=== PATIENT | female | born 1970 | race Caucasian/White ===

== ENCOUNTER 2016-10-07 15:41 | Emergency (ER) | payer OTHER ==
[~2016-10-07] VITALS: Ht 162.6 cm; Wt 105.5 kg
[~2016-10-07 15:41] MED LIST: CYAN10002 IM; EFFSR150 PO; OXYC-59 PO; [UNRECOGNIZED DRUG - REMARK]
[2016-10-07 15:45] VITALS: Ht 162.6 cm; Wt 105.5 kg
--- NOTE | 2016-10-07 16:46 | EMERGENCY ROOM VISIT NOTE ---
History Report prepared by David: Manuelito Garcia Under the Supervision of: Dr. Rafa Dougherty M.D. First contact with patient: 16:41 Chief Complaint: ARM PAIN Stated Complaint: FELL AND THINKS BROKEN RIGHT ARM History of Present Illness The patient is a 46 year old female who presents to the Emergency Room with complaints of achy right wrist pain that began [employer]. The patient rates her pain a 5/10 in severity. The patient fell down about 14 stairs today. She hit her head. This is because she has hernias on her stomach and made sure to protect her abdomen. She did not lose consciousness. She is also having right shoulder and left foot pain as well. She took Oxycodone 15 mg [employer], which she claims "is not touching it." Source of History: patient Onset: [employer] Position: wrist (right) Symptom Intensity: 5/10 Quality: ache Timing: constant Associated Symptoms: No LOC Note: She has associated left foot pain and right shoulder pain. Review of Systems All systems have been listed, reviewed, and are negative other than those previously mentioned. Please see Additional Medical History Sheet. 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 Social History Smoking Status: Never Smoker Alcohol Use: occasionally Drug Use: none Marital Status: Housing Status: lives with family Occupation Status: disabled Current/Historical Medications Scheduled Cyanocobalamin (Vitamin B-12 Inj), 1,000 MCG IM WK Furosemide (Lasix), 40 MG PO BID Gabapentin (Gabapentin), 900 MG PO QID Ondansetron (Ondansetron HCl), 1 TAB PO TID Oxycodone Hcl (Oxycodone Hcl), 1.5 TAB PO 5XD Pediatric Multiple Vitamin W/ (Childrens Chewable Vitamin), 1 CHW PO DAILY Venlafaxine Hcl (Effexor Extended Rel), 150 MG PO BID [Cancer Treatments], 1 DOSE UD Allergies Coded Allergies: Acetaminophen (Unverified Allergy, Severe, STOPS BREATHING, 10/07/16) Hydrocodone (Unverified Allergy, Severe, STOPS BREATHING, 10/07/16) Iodinated Diagnostic Agents (Verified Allergy, Severe, CONTRAST- ITCHING, 10/07/16) Sulfamethoxazole w/Trimethoprim (Verified Allergy, Severe, PASS OUT,HIVES, SOB, 10/07/16) Gadobutrol (Verified Allergy, Intermediate, HIVES, ITCHING , 10/07/16) PATIENT HAD MRI INJECTION THEN CT INJECTION, HAD REACTION AFTER CT Pregabalin (Unverified Allergy, Intermediate, HIVES, 10/07/16) Iodine (Verified Allergy, Mild, ITCHING, 10/07/16) Enoxaparin (Verified Allergy, Unknown, UNKNOWN, 10/07/16) Physical Exam Vital Signs Date Time Temp Pulse Resp B/P Pulse Ox O2 Delivery O2 Flow Rate FiO2 10/07/16 18:51 71 18 138/90 94 Room Air 10/07/16 15:45 36.7 77 18 160/107 99 Physical Exam GENERAL: Patient awake, alert, oriented x 3. Patient follows commands. Patient does not appear toxic. Patient is adequately hydrated and well- nourished. SKIN: No erythema, pallor, cyanosis or rash HEENT: Normocephalic, generalize alopecia, no lumps bumps or bruises, pupils equal, reactive to light and accommodation. Ears normal. Oral cavity and posterior pharynx appear normal. Neck: Without adenopathy, no neck vein distention. Supple, nontender. LUNGS: Clear to auscultation. No wheezes, no rales, no rhonchi. HEART: No murmurs. No gallops. No rubs ABDOMEN: No masses, no rebound, no hepatomegaly or splenomegaly. Multiple well healed scars and masses. EXTREMITIES: No pedal or pretibial edema. No calf or thigh tenderness. Abrasions over the left 1st metatarsal. Swelling and tenderness over the right fifth metacarpal. NEUROLOGIC: Cranial nerves II-XII within normal limits. No gross motor sensory function deficits. Medical Decision & Procedures ER Provider Diagnostic Interpretation: X-ray results as stated below per my interpretation and radiologist interpretation. RIGHT HAND MIN 3 VIEWS ROUTINE CLINICAL HISTORY: fell 5th metacarpal Right trauma. Pain. COMPARISON: None. DISCUSSION: Displaced/distracted fracture base fifth metacarpal. No evidence of dislocation. Moderate degenerative change all remaining osseous structures. There is no evidence for soft tissue swelling. IMPRESSION: Distracted oblique fracture base fifth metacarpal Electronically signed by: Chalino Paulson M.D. 10/07/2016 5:08 PM Dictated Date/Time: 10/07/2016 5:07 PM Medications Administered Medications (Trade) Dose Ordered Sig/Juana Route Start Time Stop Time Status Last Admin Dose Admin Oxycodone HCl (Roxicodone Immediate Rel Tab) 15 mg NOW STAT PO 10/07/16 17:51 10/07/16 17:52 DC 10/07/16 18:06 15 MG ED Course 1641: Past medical records reviewed. The patient was evaluated in room B11. A complete history and physical examination was performed. 1751: Oxycodone HCl 15 mg PO 2000: Upon reevaluation, the patient appeared to have improvement of her symptoms. I discussed today's findings with her. She verbalized agreement of the treatment plan. She was discharged home. Medical Decision Nurses notes reviewed. Medical history sheet reviewed. Differential diagnosis includes but is not limited to: fifth metacarpal fracture, multiple contusions, abrasions, and fall. The patient has a small scrape on her foot. She does have a fracture of her fifth metacarpal. The patient was placed in a splint and sling. She will require orthopedic follow-up for possible surgical intervention. The patient was given pain medication while here. The patient does not appear to have any other significant injury from the fall. Impression Primary Impression: Fracture of fifth metacarpal bone of right hand Additional Impression: Abrasion of left foot Scribe Attestation The scribe's documentation has been prepared under my direction and personally reviewed by me in its entirety. I confirm that the note above accurately reflects all work, treatment, procedures, and medical decision making performed by me. Departure Information Dispostion Home / Self-Care Referrals Caitlyn Sharif M.D. (PCP) [facility] Forms HOME CARE DOCUMENTATION FORM, IMPORTANT VISIT INFORMATION Patient Instructions My [facility] Additional Instructions Leave the splint on until you are evaluated by orthopedics. Take your pain medication as needed. Do not drive or operate machinery while taking pain medication. Follow-up with orthopedics within the next 2 days. Problem Qualifiers
--- NOTE | 2016-10-07 17:09 | DIAGNOSTIC IMAGING REPORT ---
RIGHT HAND MIN 3 VIEWS ROUTINE CLINICAL HISTORY: fell 5th metacarpal Right trauma. Pain. COMPARISON: None. DISCUSSION: Displaced/distracted fracture base fifth metacarpal. No evidence of dislocation. Moderate degenerative change all remaining osseous structures. There is no evidence for soft tissue swelling. IMPRESSION: Distracted oblique fracture base fifth metacarpal Electronically signed by: Chalino Paulson M.D. 10/07/2016 5:08 PM Dictated Date/Time: 10/07/2016 5:07 PM
[2016-10-07] MEDS ORDERED: OXYCODONE HCL IR 5 MG TAB (IMMEDIATE RELEASE) PO STA (17:51)
[2016-10-07 19:48] VITALS: BP 134/88; PULSE 74; TEMP 36.7; O2SAT 97
== END 2016-10-07 19:49 | disposition home or self-care (01) ==
LOC: C.EDB 15:42
DX: S62.316A Displaced fracture of base of fifth metacarpal bone, right hand, initial encounter for closed fracture (principal); S90.412A Abrasion, left great toe, initial encounter; W10.9XXA Fall (on) (from) unspecified stairs and steps, initial encounter; M25.511 Pain in right shoulder; K46.9 Unspecified abdominal hernia without obstruction or gangrene; D51.3 Other dietary vitamin B12 deficiency anemia; E53.8 Deficiency of other specified B group vitamins; E61.1 Iron deficiency; Z98.84 Bariatric surgery status

== ENCOUNTER 2016-10-22 10:10 | Inpatient (IN) | payer OTHER ==
[~2016-10-22] VITALS: Ht 162.6 cm; Wt 105.9 kg
[~2016-10-22 10:10] MED LIST changes: -OXYC-59 PO
--- NOTE | 2016-10-22 10:42 | EMERGENCY ROOM VISIT NOTE ---
History Report prepared by David: Joe Petit Under the Supervision of: Dr. Rafa Dougherty M.D. First contact with patient: 10:30 Chief Complaint: OTHER COMPLAINT Stated Complaint: INTESTINE SHOWING History of Present Illness The patient is a 46 year old female who presents to the Emergency Room with complaints of persistent discharge from the surgical site over the abdomen starting yesterday. She had surgery about a year ago for a hernia. She also complains of abdominal distension and a loss of appetite. She reports normal fluid intake. She has worsening pain with palpation. She has been constipated for the past day and a half. The patient normally has a bowel movement every day. She has been pushing to make a bowel movement. She was prescribed Lactulose by her PCP without relief. She reports chills but denies a fever. She also denies cough, or any other complaints. About a week ago, the patient fell but the surgical site did not open up at the time. She denies any recent exercises. She has a history of similar symptoms occurring 3 other times in the past. Her symptoms normally occur with straining. Source of History: patient Onset: yesterday Position: abdomen Quality: other (discharge) Timing: other (persistent) Modifying Factors (Worsening): other (palpation) Associated Symptoms: + chills, No cough, No fevers Review of Systems All systems have been listed, reviewed, and are negative other than those previously mentioned. Please see Additional Medical History Sheet. 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 Surgical Problems: (1) Gastric bypass status for obesity Family History Cancer Diabetes mellitus Gallbladder disease Heart disease Hypertension Kidney disease Kidney stones Seizures Social History Smoking Status: Former Smoker Alcohol Use: occasionally Drug Use: none Marital Status: Housing Status: lives with family Occupation Status: disabled Current/Historical Medications Scheduled Cyanocobalamin (Vitamin B-12), 1,000 MCG IM WK Duloxetine HCl (Duloxetine HCl), 30 MG PO DAILY Gabapentin (Gabapentin), 900 MG PO QID Lactulose (Chronulac), 15 ML PO DAILY Ondansetron (Ondansetron HCl), 1 TAB PO TID Oxycodone Hcl (Oxycodone Hcl), 1.5 TAB PO Q4 Pediatric Multiple Vitamin W/ (Childrens Chewable Vitamin), 1 CHW PO DAILY Allergies Coded Allergies: Acetaminophen (Unverified Allergy, Severe, STOPS BREATHING, 10/22/16) Hydrocodone (Unverified Allergy, Severe, STOPS BREATHING, 10/22/16) Iodinated Diagnostic Agents (Verified Allergy, Severe, CONTRAST- ITCHING, 10/22/16) Sulfamethoxazole w/Trimethoprim (Verified Allergy, Severe, PASS OUT,HIVES, SOB, 10/22/16) Gadobutrol (Verified Allergy, Intermediate, HIVES, ITCHING , 10/22/16) PATIENT HAD MRI INJECTION THEN CT INJECTION, HAD REACTION AFTER CT Pregabalin (Unverified Allergy, Intermediate, HIVES, 10/22/16) Iodine (Verified Allergy, Mild, ITCHING, 10/22/16) Enoxaparin (Verified Allergy, Unknown, UNKNOWN, 10/22/16) Physical Exam Vital Signs Date Time Temp Pulse Resp B/P Pulse Ox O2 Delivery O2 Flow Rate FiO2 10/22/16 15:07 78 18 146/84 99 Room Air 10/22/16 14:10 97 16 140/58 98 Room Air 10/22/16 12:15 64 20 180/114 98 Room Air 10/22/16 10:13 36.4 76 18 135/78 100 Room Air Physical Exam GENERAL: Patient appears awake, alert, but somewhat anxious. SKIN: No erythema, pallor, cyanosis or rash HEENT: Normal head, pupils equal, reactive to light and accommodation. Ears normal. Oral cavity and posterior pharynx appear normal. Neck: Without adenopathy, no neck vein distention. LUNGS: Clear to auscultation. No wheezes, no rales, no rhonchi. HEART: No murmurs. No gallops. No rubs ABDOMEN: Obese, soft. Patient has a very large scar of the mid abdomen with dehiscence along 12 cm of the incision, no bowel seen, there is some oozing. EXTREMITIES: No signs of trauma or infection. NEUROLOGIC: Cranial nerves II-XII within normal limits. No gross motor sensory function deficits. Medical Decision & Procedures Laboratory Results 10/22/16 10:25 Red Blood Count 4.70, Mean Corpuscular Volume 82.8, Mean Corpuscular Hemoglobin 26.6, Mean Corpuscular Hemoglobin Concent 32.1, Mean Platelet Volume 11.7, Neutrophils (%) (Auto) 49.0, Lymphocytes (%) (Auto) 39.6, Monocytes (%) (Auto) 9.1, Eosinophils (%) (Auto) 1.7, Basophils (%) (Auto) 0.4, Neutrophils # (Auto) 2.59, Lymphocytes # (Auto) 2.09, Monocytes # (Auto) 0.48, Eosinophils # (Auto) 0.09, Basophils # (Auto) 0.02 10/22/16 10:25 Test 10/22/16 10:25 10/22/16 12:23 White Blood Count 5.28 K/uL (4.8-10.8) Red Blood Count 4.70 M/uL (4.2-5.4) Hemoglobin 12.5 g/dL (12.0-16.0) Hematocrit 38.9 % (37-47) Mean Corpuscular Volume 82.8 fL (80-100) Mean Corpuscular Hemoglobin 26.6 pg (25-34) Mean Corpuscular Hemoglobin Concent 32.1 g/dl (32-36) Platelet Count 267 K/uL (130-400) Mean Platelet Volume 11.7 fL (7.4-10.4) Neutrophils (%) (Auto) 49.0 % Lymphocytes (%) (Auto) 39.6 % Monocytes (%) (Auto) 9.1 % Eosinophils (%) (Auto) 1.7 % Basophils (%) (Auto) 0.4 % Neutrophils # (Auto) 2.59 K/uL (1.4-6.5) Lymphocytes # (Auto) 2.09 K/uL (1.2-3.4) Monocytes # (Auto) 0.48 K/uL (0.11-0.59) Eosinophils # (Auto) 0.09 K/uL (0-0.5) Basophils # (Auto) 0.02 K/uL (0-0.2) RDW Standard Deviation 51.5 fL (36.4-46.3) RDW Coefficient of Variation 16.9 % (11.5-14.5) Immature Granulocyte % (Auto) 0.2 % Immature Granulocyte # (Auto) 0.01 K/uL (0.00-0.02) Anion Gap 12.0 mmol/L (3-11) Est Creatinine Clear Calc Drug Dose 100.5 ml/min Estimated GFR () 98.0 Estimated GFR (Non- 84.6 BUN/Creatinine Ratio 8.3 (10-20) Calcium Level 8.8 mg/dl (8.5-10.1) Total Bilirubin 0.8 mg/dl (0.2-1) Aspartate Amino Transf (AST/SGOT) 16 U/L (15-37) Alanine Aminotransferase (ALT/SGPT) 22 U/L (12-78) Alkaline Phosphatase 74 U/L (45-117) Total Protein 7.7 gm/dl (6.4-8.2) Albumin 3.6 gm/dl (3.4-5.0) Globulin 4.1 gm/dl (2.5-4.0) Albumin/Globulin Ratio 0.9 (0.9-2) Urine Color YELLOW Urine Appearance CLEAR (CLEAR) Urine pH 5.0 (4.5-7.5) Urine Specific [place] 1.008 (1.000-1.030) Urine Protein NEG (NEG) Urine Glucose (UA) NEG (NEG) Urine Ketones NEG (NEG) Urine Occult Blood NEG (NEG) Urine Nitrite NEG (NEG) Urine Bilirubin NEG (NEG) Urine Urobilinogen NEG (NEG) Urine Leukocyte Esterase NEG (NEG) Laboratory results as stated above per my review. Medications Administered Medications (Trade) Dose Ordered Sig/Juana Route Start Time Stop Time Status Last Admin Dose Admin Morphine Sulfate 4 mg 4 mg Q1H PRN IV 10/22/16 10:45 11/05/16 10:44 10/22/16 15:00 4 MG Sodium Chloride (Nss 1000ml) 1,000 ml @ 1,000 mls/hr Q1H ONCE IV 10/22/16 10:45 10/22/16 11:44 DC 10/22/16 10:54 1,000 MLS/HR Polyethylene 17 gm 17 gm NOW ONCE PO 10/22/16 10:45 10/22/16 10:46 DC 10/22/16 11:43 17 GM Lactated Ringer's 1,000 ml @ 500 mls/hr Q2H ONCE IV 10/22/16 14:00 10/22/16 15:59 10/22/16 14:00 500 MLS/HR Ampicillin Sodium/ Sulbactam Sodium/ Sodium Chloride (Unasyn Inj/Nss 100ml) 108 ml @ 200 mls/hr ONE ONCE IV 10/22/16 14:15 10/22/16 14:47 DC 10/22/16 14:15 200 MLS/HR ED Course 1030: Past medical records reviewed. The patient was evaluated in room B03B. A complete history and physical examination was performed. 1045: Sodium Chloride 1000 ml @ 1000 mls/hr IV, Morphine Sulfate 4 mg IV 1215: I discussed the patient's case with Dr. Garcia, general surgeon with [facility]. 1354: I discussed the patient's case with Dr. Carrington, general surgeon with [facility]. He felt the patient needed to go directly to surgery and not be transferred. He recommended IV fluids, Unison, and keeping the wound moist with saline gauze. 1400: Lactated Ringers 1000 ml @ 500 mls/hr IV. 1415: Ampicillin Sodium/Sulbactam Sodium 3000 mg/Sodium Chloride 108 ml @ 200 mls/hr IV. I gave Dr. Garcia details of the conversation with Dr. Carrington and told him to call back. 1420: Dr. Gacria called back and said the number did not go through. The assistant secretary gave him the transfer number. 1430: Upon reevaluation, the patient is resting comfortably.I discussed today's findings with her. She verbalized agreement of the treatment plan. The patient will not be transferred. I spoke with Dr. Garcia to evaluate the patient for further management. Medical Decision Differential diagnosis includes but is not limited to abdominal incision dehiscence, evisceration. Labs were obtained and evaluated. Please see above. The patient has had multiple surgeries in the past with dehiscence. She now arrives with slight separation of along 12 cm of the incision. The wound is oozing slightly. Approximately 90 minutes after arrival the incision dehisced more and bowel erupted through the wound. I discussed care with Dr. Garcia who also evaluated the patient in the ED. I also discussed care with the general surgeon at [facility]. The patient was started on Unasyn, given fluids and made nothing by mouth. The [place] surgeon suggested an NG but Dr. Garcia felt that was not necessary. Ultimately the patient was taken to the OR for repair. Consults Time Called: 1242 Consulting Physician: Dr. Carrington, general surgeon with [facility] Returned Call: [phone] I discussed the patient's case with Dr. Carrington, general surgeon with [facility]. He felt the patient needed to go directly to surgery and not be transferred. He recommended IV fluids, Unison, and keeping the wound moist with saline gauze. Additional Consults: Time Called: 1210 Consulted Physician: Dr. Garcia, general surgeon with [facility] Returned Call: [phone] Additional Comments: I discussed the patient's case with Dr. Garcia, general surgeon with [facility]. Impression Primary Impression: Evisceration of bowel Scribe Attestation The scribe's documentation has been prepared under my direction and personally reviewed by me in its entirety. I confirm that the note above accurately reflects all work, treatment, procedures, and medical decision making performed by me. Departure Information Dispostion Being Evaluated By Surgeon Referrals No Doctor, Assigned (PCP) Patient Instructions My [facility]
[2016-10-22] MEDS ORDERED: POLYETHYLENE (MIRALAX) 17 GM PACK PO ONE (10:45)
[2016-10-22] MEDS ORDERED: SODIUM CHLORIDE 0.9% 1000ML 1,000 ML IV ONE (10:45)
[2016-10-22] MEDS ORDERED: CYM30 PO (10:53)
[2016-10-22] MEDS ORDERED: LACT10SO17 PO (10:54)
[2016-10-22] MEDS: MoRPHine SULFATE 4 MG/ML 1 ML CARP\\VIAL IV PRN ×6 (10:54→23:21)
[2016-10-22] MEDS ORDERED: CYAN100048 IM (10:55)
[2016-10-22 10:56] LABS: BASO % 0.4 %; BASO ABS # 0.02 K/uL (0-0.2); COMPLETE YES; EOS % 1.7 %; HEMATOCRIT 38.9 % (37-47); IG% 0.2 %; LYMPH % 39.6 %; LYMPH ABS # 2.09 K/uL (1.2-3.4); MEAN CELL VOLUME 82.8 fL (80-100); MEAN CORPUSCULAR HEMOGLOBIN 26.6 pg (25-34); MEAN CORPUSCULAR HGB CONC 32.1 g/dl (32-36); MEAN PLATELET VOLUME 11.7 fL (7.4-10.4); MONO % 9.1 %; PLATELET COUNT 267 K/uL (130-400); WHITE BLOOD COUNT 5.28 K/uL (4.8-10.8)
[2016-10-22 11:16] LABS: ALB/GLOB RATIO 0.9 (0.9-2); BUN/CREATININE RATIO 8.3 (10-20); CALCIUM 8.8 mg/dl (8.5-10.1); CREATININE 0.83 mg/dl (0.60-1.20); POTASSIUM 4.1 mmol/L (3.5-5.1)
[2016-10-22] MEDS ORDERED: PEDICHW18 PO (13:15)
[2016-10-22 13:39] LABS: URINE APPEARANCE CLEAR (CLEAR); URINE BILIRUBIN NEG (NEG); URINE COLOR YELLOW; URINE NITRITE NEG (NEG); URINE SPECIFIC GRAVITY 1.008 (1.000-1.030); UROBILINOGEN NEG (NEG); ZZUR CULT IF INDIC CLEAN CATCH NO
[2016-10-22 13:41] LABS: MANUAL MICROSCOPIC REQUIRED? NO; REVIEW REQ? NO
[2016-10-22] MEDS ORDERED: LACTATED RINGER'S 1000ML 1,000 ML IV ONE (14:00)
[2016-10-22] MEDS ORDERED: AMPICILLIN/SULBACTAM SOD INJ 3,000 MG in SODIUM CHLORIDE 0.9% 100ML 100 ML IV ONE (14:15)
--- NOTE | 2016-10-22 15:01 | Surgery Consultation ---
Consultation Date of Consultation: Oct 22, 2016. Attending Physician: Reason for Consultation: Evisceration of bowel (Ira Edgar PA-C) History of Present Illness Dianne is a 46 year-old female who presented to the emergency department this morning with complaint of increasing abdominal pain. Dianne has significant past surgical history involving multiple abdominal surgeries including 3 operations for strangulated hernias well over 10 years ago as well as gastric bypass surgery and two surgeries for wound dehiscence and bowel evisceration. She ultimately required mesh for one of her hernia repairs which she then had an allergic reaction and rejected the mesh. Has had troubles with wound healing and wound evisceration since. Dianne states she fell one week ago down her steps and broke her right hand. States she noticed her belly was bloated and distended at that time. Abdominal pain has been increasing since the fall, especially when lifting her children. She states she was coughing a lot last night into the morning and noticed severe abdominal pain which she presented to the emergency room. She also noticed some bleeding and wound drainage. Her most recent surgery was with Dr. Gomez in [place] (about 1 year ago) in which she states he had removed all of the mesh and planned on further abdominal surgery once she lost weight and was under 200 pounds. She had lab work including cbc and cmp which were unremarkable. (Ira Edgar PA-C) Past Medical/Surgical History Medical Problems: (1) Abrasion of left foot Status: Acute (2) Fracture of fifth metacarpal bone of right hand Status: Acute (Ira Edgar PA-C) Family History Cancer Diabetes mellitus Gallbladder disease Heart disease Hypertension Kidney disease Kidney stones Seizures (Ira Edgar PA-C) Cancer Diabetes mellitus Gallbladder disease Heart disease Hypertension Kidney disease Kidney stones Seizures (Chalino Garcia M.D.) Social History Smoking Status: Former Smoker Drug Use: none Marital Status: Housing Status: lives with family Occupation Status: disabled (Ira Edgar PA-C) Allergies Coded Allergies: Acetaminophen (Unverified Allergy, Severe, STOPS BREATHING, 10/22/16) Hydrocodone (Unverified Allergy, Severe, STOPS BREATHING, 10/22/16) Iodinated Diagnostic Agents (Verified Allergy, Severe, CONTRAST- ITCHING, 10/22/16) Sulfamethoxazole w/Trimethoprim (Verified Allergy, Severe, PASS OUT,HIVES, SOB, 10/22/16) Gadobutrol (Verified Allergy, Intermediate, HIVES, ITCHING , 10/22/16) PATIENT HAD MRI INJECTION THEN CT INJECTION, HAD REACTION AFTER CT Pregabalin (Unverified Allergy, Intermediate, HIVES, 10/22/16) Iodine (Verified Allergy, Mild, ITCHING, 10/22/16) Enoxaparin (Verified Allergy, Unknown, UNKNOWN, 10/22/16) Home Medications Scheduled Cyanocobalamin (Vitamin B-12), 1,000 MCG IM WK Duloxetine HCl (Duloxetine HCl), 30 MG PO DAILY Gabapentin (Gabapentin), 900 MG PO QID Lactulose (Chronulac), 15 ML PO DAILY Ondansetron (Ondansetron HCl), 1 TAB PO TID Oxycodone Hcl (Oxycodone Hcl), 1.5 TAB PO Q4 Pediatric Multiple Vitamin W/ (Childrens Chewable Vitamin), 1 CHW PO DAILY Current Inpatient Medications Current Inpatient Medications Medications (Trade) Dose Ordered Sig/Juana Route Start Time Stop Time Status Last Admin Dose Admin Morphine Sulfate 4 mg 4 mg Q1H PRN IV 10/22/16 10:45 11/05/16 10:44 10/22/16 13:25 4 MG Lactated Ringer's (Lr 1000ml) 1,000 ml @ 500 mls/hr Q2H ONCE IV 10/22/16 14:00 10/22/16 15:59 (Ira Edgar ., PA-C) Review of Systems Constitutional: No chills, No fever, No sweats Respiratory: + cough, No shortness of breath, No wheezing Cardiovascular: No chest pain Abdomen: + constipation, + nausea, + pain, No diarrhea, No vomiting Neurologic: No weakness (Ira Edgar ., PA-C) Physical Exam Date Time Temp Pulse Resp B/P Pulse Ox O2 Delivery O2 Flow Rate FiO2 10/22/16 14:10 97 16 140/58 98 Room Air 10/22/16 12:15 64 20 180/114 98 Room Air 10/22/16 10:13 36.4 76 18 135/78 100 Room Air General Appearance: WD/WN, + mild distress, + obese Head: normocephalic, atraumatic Eyes: sclerae normal ENT: hearing grossly normal Respiratory/Chest: lungs clear Cardiovascular: regular rate, rhythm Abdomen/GI: soft, + tenderness (Midline wound dehisence with evisceration of bowel, reducible, bowel pink and viable), + guarding Neurologic/Psych: alert, oriented x 3 Skin: normal color, warm/dry, no rash (Ira Edgar ., AGUILA) Laboratory Results Last 24 Hours Test 10/22/16 10:25 10/22/16 12:23 White Blood Count 5.28 K/uL Red Blood Count 4.70 M/uL Hemoglobin 12.5 g/dL Hematocrit 38.9 % Mean Corpuscular Volume 82.8 fL Mean Corpuscular Hemoglobin 26.6 pg Mean Corpuscular Hemoglobin Concent 32.1 g/dl Platelet Count 267 K/uL Mean Platelet Volume 11.7 fL Neutrophils (%) (Auto) 49.0 % Lymphocytes (%) (Auto) 39.6 % Monocytes (%) (Auto) 9.1 % Eosinophils (%) (Auto) 1.7 % Basophils (%) (Auto) 0.4 % Neutrophils # (Auto) 2.59 K/uL Lymphocytes # (Auto) 2.09 K/uL Monocytes # (Auto) 0.48 K/uL Eosinophils # (Auto) 0.09 K/uL Basophils # (Auto) 0.02 K/uL RDW Standard Deviation 51.5 fL RDW Coefficient of Variation 16.9 % Immature Granulocyte % (Auto) 0.2 % Immature Granulocyte # (Auto) 0.01 K/uL Sodium Level 141 mmol/L Potassium Level 4.1 mmol/L Chloride Level 107 mmol/L Carbon Dioxide Level 22 mmol/L Anion Gap 12.0 mmol/L Blood Urea Nitrogen 7 mg/dl Creatinine 0.83 mg/dl Est Creatinine Clear Calc Drug Dose 100.5 ml/min Estimated GFR () 98.0 Estimated GFR (Non- 84.6 BUN/Creatinine Ratio 8.3 Random Glucose 111 mg/dl Calcium Level 8.8 mg/dl Total Bilirubin 0.8 mg/dl Aspartate Amino Transf (AST/SGOT) 16 U/L Alanine Aminotransferase (ALT/SGPT) 22 U/L Alkaline Phosphatase 74 U/L Total Protein 7.7 gm/dl Albumin 3.6 gm/dl Globulin 4.1 gm/dl Albumin/Globulin Ratio 0.9 Urine Color YELLOW Urine Appearance CLEAR Urine pH 5.0 Urine Specific [place] 1.008 Urine Protein NEG Urine Glucose (UA) NEG Urine Ketones NEG Urine Occult Blood NEG Urine Nitrite NEG Urine Bilirubin NEG Urine Urobilinogen NEG Urine Leukocyte Esterase NEG (Ira Edgar ., PA-C) Assessment & Plan Wound Dehiscence and Small Bowel evisceration - no leukocytosis - afebrile - no peritonitis - small bowel viable and pink - Patient's 3rd time with wound dehiscence and bowel evisceration - History of multiple abdominal surgeries PLAN: Take patient to operating room for wound exploration and closure of abdominal wound. Patient may need biologic mesh if the wound cannot be closed primarily. Patient had dose of Unasyn and NGT placed in ER Will have patient admitted post-operatively for observation Patient was informed of procedure by Dr. Garcia and informed consent obtained Dr. Garcia has seen and examined patient, agrees with above stated findings and treatment plan. (Ira Edgar ., PA-C) I interviewed and examined this patient and I agree wit the above note. This patient has had multiple abdominal surgeries and this is the 3 rd dehiscence with evisceration. Plan to explore wound and close fascia primarily if possible. If not will consider biologic mesh. I explained procedure and possible complications and answered her questions and she has signed a consent form. (Chalino Garcia M.D.)
[2016-10-22] MEDS ORDERED: SUCCINYLCHOLINE CHLORIDE 20 MG/ML 10 ML VIAL IV ONE (15:41)
[2016-10-22] MEDS ORDERED: DEXAMETHASONE SOD INJ 4 MG/ML VIAL ONE (15:41)
[2016-10-22] MEDS ORDERED: LIDOCAINE HCL 2% 2 ML VIAL (20MG/ML) ONE (15:41)
[2016-10-22] MEDS ORDERED: PROPOFOL IV EMULSION 10 MG/ML 20 ML VIAL IV ONE (15:42)
[2016-10-22] MEDS ORDERED: ONDANSETRON INJ 2 MG/ML 2 ML VIAL ONE (15:42)
[2016-10-22] MEDS ORDERED: MIDAZOLAM HCL 1 MG/ML 2ML VIAL ONE (15:42)
[2016-10-22] MEDS ORDERED: FENTANYL CITRATE INJ 50 MCG/1 ML 2 ML VIAL ONE ×2 (15:42→17:28)
[2016-10-22] MEDS ORDERED: ROCURONIUM BROMIDE 10 MG/ML 5 ML VIAL ONE (15:42)
[2016-10-22] MEDS ORDERED: OXY/15 PO (16:11)
[2016-10-22] MEDS ORDERED: ONDA4TAB9 PO (16:11)
[2016-10-22] MEDS ORDERED: FENTANYL CITRATE INJ 50 MCG/1 ML 2 ML VIAL IV PRN (16:30)
[2016-10-22] MEDS ORDERED: ATROPINE SULFATE 0.1 MG/ML 5ML SYR IV PRN (16:30)
[2016-10-22] MEDS ORDERED: HYDROmorphone INJ 1 MG/ML SYR IV PRN (16:30)
[2016-10-22] MEDS ORDERED: ONDANSETRON INJ 2 MG/ML 2 ML VIAL IV PRN (16:30)
[2016-10-22] MEDS ORDERED: EpHEDrine SULFATE INJ 50 MG/ML AMP IV PRN (16:30)
[2016-10-22] MEDS ORDERED: PROMETHAZINE HCL INJ 6.25 MG in SODIUM CHLORIDE 0.9% 50ML 50 ML IV PRN (16:30)
[2016-10-22] MEDS ORDERED: HYDROmorphone INJ 2 MG/ML SYR/VIAL ONE ×2 (16:41→17:28)
--- NOTE | 2016-10-22 17:04 | [facility] Post Operative Brief Note ---
Immediate Operative Summary Operative Date Oct 22, 2016. Pre-Operative Diagnosis Evisceration of bowel Post-Operative Diagnosis Same as preoperative diagnosis Procedure(s) Performed Abdominal midline wound debridement and closure Surgeon Dr. Chalino Garcia Claim Manager Surgeon(s) Ira Edgar PA-C Estimated Blood Loss 2 mL Findings See dictation Specimens No pathology specimens per surgeon Drains None Anesthesia General Complication(s) None Disposition Recovery Room / PACU
--- NOTE | 2016-10-22 17:28 | Anesthesiology Progress Note ---
Anesthesia Post Op Note Date & Time Oct 22, 2016 at 17:28 Vital Signs Pain Intensity: 7.0 Vital Signs Past 12 Hours Date Time Temp Pulse Resp B/P Pulse Ox O2 Delivery O2 Flow Rate FiO2 10/22/16 15:07 78 18 146/84 99 Room Air 10/22/16 14:10 97 16 140/58 98 Room Air 10/22/16 12:15 64 20 180/114 98 Room Air 10/22/16 10:13 36.4 76 18 135/78 100 Room Air Notes Mental Status: alert / awake / arousable, participated in evaluation Pt Amnestic to Procedure: Yes Nausea / Vomiting: adequately controlled Pain: adequately controlled Airway Patency, RR, SpO2: stable & adequate BP & HR: stable & adequate Hydration State: stable & adequate Anesthetic Complications: no major complications apparent
[2016-10-22] MEDS ORDERED: FRS/40 PO (17:30)
[2016-10-22 18:50] VITALS: BP 133/80; PULSE 60; TEMP 36.6; O2SAT 96; Ht 162.6 cm; Wt 105.9 kg
[2016-10-22 19:20] VITALS: BP 120/81; PULSE 62; TEMP 36.4; O2SAT 97
[2016-10-22 19:50] VITALS: BP 122/71; PULSE 60; TEMP 36.5; O2SAT 96
[2016-10-22] MEDS ORDERED: NRN300 PO (20:09)
[2016-10-22] MEDS: D5W AND 1/2NSS + 20MEQ KCL 1,000 ML IV SCH (20:32)
[2016-10-22 20:35] LABS: COMPLETE YES; EOS % 0.2 %; HEMATOCRIT 36.9 % (37-47); IG% 0.2 %; LYMPH % 14.6 %; LYMPH ABS # 1.32 K/uL (1.2-3.4); MEAN CELL VOLUME 80.4 fL (80-100); MEAN CORPUSCULAR HEMOGLOBIN 26.1 pg (25-34); MEAN CORPUSCULAR HGB CONC 32.5 g/dl (32-36); MEAN PLATELET VOLUME 11.3 fL (7.4-10.4); MONO % 3.5 %; NEUT % 81.5 %; PLATELET COUNT 253 K/uL (130-400); RED BLOOD COUNT 4.59 M/uL (4.2-5.4); WHITE BLOOD COUNT 9.06 K/uL (4.8-10.8)
--- NOTE | 2016-10-22 20:46 | OPERATIVE REPORT ---
DATE OF OPERATION: 10/22/2016 PREOPERATIVE DIAGNOSIS: Abdominal wound dehiscence with evisceration. SECONDARY DIAGNOSIS: None. PROCEDURE: Abdominal wound exploration with closure of peritoneum. SURGEON: Dr. Garcia. [employer]: Ira Edgar PA-C. FINDINGS: This patient had had multiple previous abdominal procedures. She developed an open wound within the last few days. It initially was bleeding but then was noted to have bowel eviscerated from the wound. The opening in the peritoneum was approximately 3 cm. My initial plan was either to try to close the fascia primarily or to use a biologic; however, there was no fascia identifiable in 270 degrees of the wound. To the right side, there was peritoneum adherent to the dermis and continuing to the right of that was an additional palpable hernia. There was absolutely no fascia on that side that could be identified. There was no fascia superiorly or inferiorly. There was only a bridge of fascia measuring a few millimeters toward the left side. There was really nothing to suture a biologic mesh to. There was certainly nothing to perform a primary closure. The peritoneum was fairly thickened. The bowel was free within the abdomen below this and there was no bowel adherent to the peritoneum. Peritoneum was closed and the skin was closed loosely in hopes that it would granulate. TECHNIQUE: The patient was given a general anesthetic, and the area was prepped and draped in the usual sterile fashion. The wound was investigated. The peritoneal opening was easily identified. The undersurface of the peritoneum in that area was palpated and there was no bowel adherent to that area. This was then inspected medially. There was more hernia to that side. The peritoneum was densely adherent to the dermis. Toward the left side, there was a small bridge of what appeared to be fascia but that was only for 90 to 100 degrees of the entire circumference of the opening. I did not feel that there was anything there that I could suture to. Peritoneum was then closed with a running 2-0 Vicryl with a lock suture. It was placed back into its anatomic position and the skin was closed intermittently over it using titi. Estimated blood loss was 2 mL. Sponge, needle and instrument counts were correct prior to closure. The patient tolerated the surgical procedure without complication and was transferred to recovery. I attest to the content of the Intraoperative Record and any orders documented therein. Any exceptions are noted below. [facility]
[2016-10-22 20:50] VITALS: BP 113/73; PULSE 55; TEMP 36.6; O2SAT 97
[2016-10-22 20:56] LABS: CALCIUM 8.2 mg/dl (8.5-10.1); CREATININE 0.74 mg/dl (0.60-1.20); POTASSIUM 4.3 mmol/L (3.5-5.1)
[2016-10-22] MEDS: ALUMINUM/MAGNESIUM SUSP 30 ML UDC NG SCH (21:03)
[2016-10-22 21:50] VITALS: BP 119/78; PULSE 58; TEMP 36.7; O2SAT 97
[2016-10-22 22:45] VITALS: BP 128/77; PULSE 60; TEMP 36.7; O2SAT 97
[2016-10-23] VITALS (7 sets, daily range): BP systolic 111–126; BP diastolic 64–88; PULSE 56–72; TEMP 36.4–36.6; O2SAT 96–99
[2016-10-23] MEDS: MoRPHine SULFATE 4 MG/ML 1 ML CARP\\VIAL IV PRN ×6 (00:35→08:40)
[2016-10-23] MEDS ORDERED: NURSING VERBAL MED ORDER ONE ×2 (01:00→08:45)
[2016-10-23] MEDS ORDERED: CHLORASEPTIC 1.4% SOLN 180 ML BTL MT PRN (01:00)
[2016-10-23] MEDS: D5W AND 1/2NSS + 20MEQ KCL 1,000 ML IV SCH ×2 (06:13→14:43)
--- NOTE | 2016-10-23 08:12 | Surgery Progress Note ---
Surgery Progress Note Date of Service Oct 23, 2016. Subjective Post OP Day: 1 + feeling well, + pain controlled, No SOB, No chest pain, No nausea, No vomiting Pt states pain is better than yesterday and more of soreness Nursing staff states she is getting Morphine every hour Objective Vital Signs: Date Time Temp Pulse Resp B/P Pulse Ox O2 Delivery O2 Flow Rate FiO2 10/23/16 03:30 36.5 64 16 124/83 97 Nasal Cannula 2.0 10/23/16 02:14 16 113/76 10/22/16 23:27 Nasal Cannula 2.0 10/22/16 22:45 36.7 60 16 128/77 97 Nasal Cannula 2.0 10/22/16 21:50 36.7 58 16 119/78 97 Nasal Cannula 2.0 10/22/16 20:50 36.6 55 18 113/73 97 Nasal Cannula 2.0 10/22/16 19:50 36.5 60 18 122/71 96 Nasal Cannula 2.0 10/22/16 19:20 36.4 62 18 120/81 97 Nasal Cannula 2.0 10/22/16 18:50 36.6 60 18 133/80 96 Nasal Cannula 2.0 10/22/16 18:50 Room Air 10/22/16 18:50 Nasal Cannula 2.0 10/22/16 18:08 65 26 10/22/16 18:08 66 26 145/77 100 10/22/16 18:03 59 20 10/22/16 18:03 58 20 134/65 100 10/22/16 18:02 36.7 61 16 145/77 100 Nasal Cannula 2 10/22/16 17:58 56 14 137/75 100 10/22/16 17:58 57 14 10/22/16 17:53 57 20 137/64 100 10/22/16 17:53 56 20 10/22/16 17:48 56 17 131/81 100 10/22/16 17:48 53 17 10/22/16 17:43 51 15 10/22/16 17:43 51 15 148/83 100 10/22/16 17:42 52 15 100 10/22/16 17:42 52 15 10/22/16 17:38 145/83 10/22/16 17:37 53 13 96 10/22/16 17:37 53 13 10/22/16 17:34 36.2 54 14 159/87 100 Mask 10 10/22/16 17:33 150/107 10/22/16 17:32 52 15 10/22/16 17:32 53 15 100 10/22/16 17:28 145/88 10/22/16 17:27 51 14 10/22/16 17:27 52 14 100 10/22/16 17:23 153/92 10/22/16 17:22 51 15 100 10/22/16 17:22 51 15 10/22/16 17:18 145/87 10/22/16 17:17 51 20 10/22/16 17:17 50 20 100 10/22/16 17:13 148/84 10/22/16 17:12 55 13 10/22/16 17:12 54 13 100 10/22/16 15:07 78 18 146/84 99 Room Air 10/22/16 14:10 97 16 140/58 98 Room Air 10/22/16 12:15 64 20 180/114 98 Room Air 10/22/16 10:13 36.4 76 18 135/78 100 Room Air General Appearance: WD/WN, no apparent distress, + obese Head: normocephalic, atraumatic Abdomen: non distended, soft, + tenderness Incision(s): clean, dry, intact, no erythema, drainage (slight serous drainage from incision site) Laboratory Results: Results Past 24 Hours Test 10/22/16 10:25 10/22/16 12:23 10/22/16 20:05 10/22/16 20:25 Range/Units White Blood Count 5.28 9.06 4.8-10.8 K/uL Red Blood Count 4.70 4.59 4.2-5.4 M/uL Hemoglobin 12.5 12.0 12.0-16.0 g/dL Hematocrit 38.9 36.9 37-47 % Mean Corpuscular Volume 82.8 80.4 80-100 fL Mean Corpuscular Hemoglobin 26.6 26.1 25-34 pg Mean Corpuscular Hemoglobin Concent 32.1 32.5 32-36 g/dl Platelet Count 267 253 130-400 K/uL Mean Platelet Volume 11.7 11.3 7.4-10.4 fL Neutrophils (%) (Auto) 49.0 81.5 % Lymphocytes (%) (Auto) 39.6 14.6 % Monocytes (%) (Auto) 9.1 3.5 % Eosinophils (%) (Auto) 1.7 0.2 % Basophils (%) (Auto) 0.4 0.0 % Neutrophils # (Auto) 2.59 7.38 1.4-6.5 K/uL Lymphocytes # (Auto) 2.09 1.32 1.2-3.4 K/uL Monocytes # (Auto) 0.48 0.32 0.11-0.59 K/uL Eosinophils # (Auto) 0.09 0.02 0-0.5 K/uL Basophils # (Auto) 0.02 0.00 0-0.2 K/uL RDW Standard Deviation 51.5 50.2 36.4-46.3 fL RDW Coefficient of Variation 16.9 17.0 11.5-14.5 % Immature Granulocyte % (Auto) 0.2 0.2 % Immature Granulocyte # (Auto) 0.01 0.02 0.00-0.02 K/uL Sodium Level 141 143 136-145 mmol/L Potassium Level 4.1 4.3 3.5-5.1 mmol/L Chloride Level 107 110 98-107 mmol/L Carbon Dioxide Level 22 23 21-32 mmol/L Anion Gap 12.0 10.0 3-11 mmol/L Blood Urea Nitrogen 7 7 7-18 mg/dl Creatinine 0.83 0.74 0.60-1.20 mg/dl Est Creatinine Clear Calc Drug Dose 100.5 112.8 ml/min Estimated GFR () 98.0 112.6 Estimated GFR (Non- 84.6 97.2 BUN/Creatinine Ratio 8.3 9.0 10-20 Random Glucose 111 103 70-99 mg/dl Calcium Level 8.8 8.2 8.5-10.1 mg/dl Total Bilirubin 0.8 0.2-1 mg/dl Aspartate Amino Transf (AST/SGOT) 16 15-37 U/L Alanine Aminotransferase (ALT/SGPT) 22 12-78 U/L Alkaline Phosphatase 74 45-117 U/L Total Protein 7.7 6.4-8.2 gm/dl Albumin 3.6 3.4-5.0 gm/dl Globulin 4.1 2.5-4.0 gm/dl Albumin/Globulin Ratio 0.9 0.9-2 Urine Color YELLOW Urine Appearance CLEAR CLEAR Urine pH 5.0 4.5-7.5 Urine Specific [place] 1.008 1.000-1.030 Urine Protein NEG NEG Urine Glucose (UA) NEG NEG Urine Ketones NEG NEG Urine Occult Blood NEG NEG Urine Nitrite NEG NEG Urine Bilirubin NEG NEG Urine Urobilinogen NEG NEG Urine Leukocyte Esterase NEG NEG Assessment & Plan POD # 1 s/p Abdominal exploration and repair of peritoneum - vital signs stable - Abdominal wound clean/dry/ intact - Pain moderate Plan: D/c NGT Start on clear liquids Daily dressing changes Continue prn pain medication Continue IV fluids Dr. Garcia has seen and examined patient agrees with assessment and plan.
[2016-10-23] MEDS: ALUMINUM/MAGNESIUM SUSP 30 ML UDC NG SCH ×4 (08:49→21:00)
[2016-10-23] MEDS ORDERED: LACTULOSE SYRUP 20 GM/30 ML UDC PO SCH (09:00)
[2016-10-23] MEDS: DULOXETINE (CYMBALTA) 30 MG CAP PO SCH (09:54)
[2016-10-23] MEDS: LACTULOSE SYRUP 10 GM/15 ML BTL 473 ML PO SCH (09:54)
[2016-10-23] MEDS: GABAPENTIN 300 MG CAP PO SCH ×4 (09:55→21:29)
[2016-10-23] MEDS: FLINTSTONES COMPLETE CHEWABLE TAB PO SCH (09:56)
[2016-10-23] MEDS: HYDROmorphone INJ 1 MG/ML SYR IV PRN ×6 (09:59→23:03)
[2016-10-23] MEDS: ONDANSETRON INJ 2 MG/ML 2 ML VIAL IV PRN ×2 (15:37→23:03)
[2016-10-24] MEDS: HYDROmorphone INJ 1 MG/ML SYR IV PRN ×14 (00:22→23:33)
[2016-10-24] MEDS: D5W AND 1/2NSS + 20MEQ KCL 1,000 ML IV SCH ×3 (00:53→21:13)
[2016-10-24] MEDS: ONDANSETRON INJ 2 MG/ML 2 ML VIAL IV PRN ×3 (05:10→23:33)
[2016-10-24 08:02] VITALS: BP 122/84; PULSE 72; TEMP 36.5; O2SAT 95
[2016-10-24 08:10] VITALS: O2SAT 95
--- NOTE | 2016-10-24 09:16 | Surgery Progress Note ---
Surgery Progress Note Date of Service Oct 24, 2016. Subjective Post OP Day: 2 (s/p abdominal exploration and closure of peritoneum) + ambulating (in room), + diet (tolerating clear liquids, nausea afterwards), + nausea (after eating drinking clear liquids), No SOB, No bowel movement, No chest pain, No flatus, No vomiting states she is getting nauseated after drinking liquids. Patient states she takes Zofran at home three times a day on a regular basis. Also states she is still having abdominal pain/soreness. Chronically takes Narcotics at home 4 times a day. Pain controlled. No flatus or bowel movement in 4 days. usually regular with bowel movement daily. Objective Vital Signs: Date Time Temp Pulse Resp B/P Pulse Ox O2 Delivery O2 Flow Rate FiO2 10/24/16 08:10 95 Room Air 10/24/16 08:02 36.5 72 16 122/84 95 Room Air 10/24/16 00:16 Room Air 10/23/16 22:55 36.5 72 16 111/75 96 Room Air 10/23/16 19:34 Room Air 10/23/16 19:20 36.6 66 18 126/84 97 Room Air 10/23/16 15:41 36.5 62 16 118/88 99 Room Air 10/23/16 12:45 36.4 65 16 113/64 98 General Appearance: WD/WN, no apparent distress Head: normocephalic, atraumatic Respiratory/Chest: no respiratory distress, no accessory muscle use Abdomen: soft, + tenderness (mild generalized tenderness, no peritonitis, rigidity, or guarding) Incision(s): clean, dry, intact, no erythema Assessment & Plan POD # 2 s/p Abdominal exploration and repair of peritoneum - vital signs stable - Abdominal wound clean/dry/ intact - Pain moderate - + nausea - no bowel movement or flatus Plan: advance diet to full liquids Continue IV pain medication and IV Zofran prn pain and nausea respectively Dulcolax suppository one time Patient needs to tolerate advancing diet before discharge. Discharge pending on daily basis and evaluation. Dr. Garcia has seen and examined patient. Agrees with above stated findings and treatment plan.
[2016-10-24] MEDS: ALUMINUM/MAGNESIUM SUSP 30 ML UDC NG SCH ×4 (09:27→21:16)
[2016-10-24] MEDS: FLINTSTONES COMPLETE CHEWABLE TAB PO SCH (09:28)
[2016-10-24] MEDS: LACTULOSE SYRUP 10 GM/15 ML BTL 473 ML PO SCH (09:28)
[2016-10-24] MEDS: GABAPENTIN 300 MG CAP PO SCH ×4 (09:28→21:15)
[2016-10-24] MEDS: DULOXETINE (CYMBALTA) 30 MG CAP PO SCH (09:28)
[2016-10-24] MEDS ORDERED: BISACODYL 10 MG SUPP PR ONE (10:00)
[2016-10-24 11:57] VITALS: BP 124/80; PULSE 68; TEMP 36.6; O2SAT 96
[2016-10-24] MEDS ORDERED: NURSING VERBAL MED ORDER ONE (15:30)
[2016-10-24 15:42] VITALS: BP 108/74; PULSE 77; TEMP 36.5; O2SAT 98
[2016-10-24] MEDS: METOCLOPRAMIDE HCL INJ 5 MG/ML 2 ML VIAL IV PRN (17:36)
[2016-10-24 23:35] VITALS: BP 115/79; PULSE 67; TEMP 36.5; O2SAT 95
[2016-10-25] MEDS: HYDROmorphone INJ 1 MG/ML SYR IV PRN ×13 (00:50→23:23)
[2016-10-25] MEDS: METOCLOPRAMIDE HCL INJ 5 MG/ML 2 ML VIAL IV PRN ×4 (02:14→21:17)
[2016-10-25] MEDS: D5W AND 1/2NSS + 20MEQ KCL 1,000 ML IV SCH ×2 (07:41→16:59)
[2016-10-25 07:46] VITALS: BP 122/83; PULSE 63; TEMP 36.5; O2SAT 97
--- NOTE | 2016-10-25 08:30 | Surgery Progress Note ---
Surgery Progress Note Date of Service Oct 25, 2016. Subjective Post OP Day: 3 (s/p abdominal exploration and closure of peritoneum) + diet (tolerated full liquids with some nausea), + flatus, + nausea, + pain controlled, No bowel movement, No vomiting Objective Vital Signs: Date Time Temp Pulse Resp B/P Pulse Ox O2 Delivery O2 Flow Rate FiO2 10/25/16 07:46 36.5 63 16 122/83 97 Room Air 10/24/16 23:35 36.5 67 16 115/79 95 Room Air 10/24/16 23:15 Room Air 10/24/16 16:00 Room Air 10/24/16 15:42 36.5 77 16 108/74 98 Room Air 10/24/16 11:57 36.6 68 16 124/80 96 Room Air General Appearance: WD/WN, no apparent distress Head: normocephalic, atraumatic Respiratory/Chest: no respiratory distress, no accessory muscle use Abdomen: non tender, non distended, soft Incision(s): clean, dry, intact, no erythema, no drainage Assessment & Plan POD # 3 s/p Abdominal exploration and repair of peritoneum - vital signs stable - Abdominal wound clean/dry/ intact - Pain mild , controlled - + nausea - no bowel movement , + flatus Plan: advance diet to soft diet Continue IV pain medication and IV Zofran/phenergan prn pain and nausea respectively continue home medications Dr. Garcia has seen and examined patient. Agrees with above stated findings and treatment plan. POD # 2 s/p Abdominal exploration and repair of peritoneum - vital signs stable - Abdominal wound clean/dry/ intact - Pain moderate - + nausea - no bowel movement or flatus Plan: advance diet to full liquids Continue IV pain medication and IV Zofran prn pain and nausea respectively Dulcolax suppository one time Patient needs to tolerate advancing diet before discharge. Discharge pending on daily basis and evaluation. Dr. Garcia has seen and examined patient. Agrees with above stated findings and treatment plan.
[2016-10-25] MEDS: FLINTSTONES COMPLETE CHEWABLE TAB PO SCH (08:45)
[2016-10-25] MEDS: DULOXETINE (CYMBALTA) 30 MG CAP PO SCH (08:45)
[2016-10-25] MEDS: LACTULOSE SYRUP 10 GM/15 ML BTL 473 ML PO SCH (08:45)
[2016-10-25] MEDS: ALUMINUM/MAGNESIUM SUSP 30 ML UDC NG SCH ×4 (08:45→21:13)
[2016-10-25] MEDS: GABAPENTIN 300 MG CAP PO SCH ×4 (08:45→21:13)
--- NOTE | 2016-10-25 10:51 | CONSULTATION REPORT ---
DATE OF CONSULTATION: 10/25/2016 DATE OF CONSULTATION: 10/25/2016. CHIEF COMPLAINT: Right hand fracture. HISTORY OF PRESENT ILLNESS: The patient is a 46-year-old female currently admitted to [facility] by the general surgery service. Approximately 2 to 2-1/2 weeks ago she suffered a fall down some stairs and suffered a right hand fracture. She was seen at [facility] ED and then subsequently at the [facility] office. She states she is not sure which physician she saw. She had a short arm gauntlet cast placed at that time and was to follow up this week in our office. However, due to this hospitalization she is unable to do so. Currently, she is in bed, appears comfortable. She has a short arm gauntlet cast on the right upper extremity. PAST MEDICAL HISTORY: Denies any complaints about the cast. X-rays have been ordered but are still pending. ASSESSMENT: Two to 3 weeks status post right hand fifth metacarpal shaft fracture. PLAN: Again, we will evaluate her x-rays when completed. As long as everything looks satisfactory, we will continue the cast for a few more weeks and then she can follow up in our office as an outpatient upon discharge. The case will be reviewed with Dr. Wong as well.
--- NOTE | 2016-10-25 12:12 | DIAGNOSTIC IMAGING REPORT ---
RIGHT HAND MIN 3 VIEWS ROUTINE CLINICAL HISTORY: Fracture follow-up. COMPARISON: Right hand radiographs October 07, 2016. FINDINGS: The alignment of the oblique displaced fracture through the proximal shaft of the right fifth metacarpal is likely slightly improved. Fine detail is diminished by overlying cast. No additional fractures are identified on this examination. IMPRESSION: Suspected slight improvement in alignment of the displaced oblique fracture of the proximal shaft of the right fifth metacarpal. Electronically signed by: Raul Daniels M.D. 10/25/2016 12:11 PM Dictated Date/Time: 10/25/2016 12:06 PM
[2016-10-25] MEDS: ONDANSETRON INJ 2 MG/ML 2 ML VIAL IV PRN (13:21)
[2016-10-25 15:34] VITALS: BP 111/72; PULSE 76; TEMP 36.5; O2SAT 95
[2016-10-25 23:10] VITALS: BP 126/84; PULSE 84; TEMP 36.5; O2SAT 96
[2016-10-26] MEDS: D5W AND 1/2NSS + 20MEQ KCL 1,000 ML IV SCH (01:50)
[2016-10-26] MEDS: HYDROmorphone INJ 1 MG/ML SYR IV PRN ×5 (01:51→11:12)
[2016-10-26] MEDS: MoRPHine SULFATE 4 MG/ML 1 ML CARP\\VIAL IV PRN (04:36)
[2016-10-26] MEDS: ONDANSETRON INJ 2 MG/ML 2 ML VIAL IV PRN (04:36)
--- NOTE | 2016-10-26 07:31 | Surgery Progress Note ---
Surgery Progress Note Date of Service Oct 26, 2016. Subjective + flatus, + nausea, + vomiting (vomited after eating last night but feels much better today), No bowel movement Objective Vital Signs: Date Time Temp Pulse Resp B/P Pulse Ox O2 Delivery O2 Flow Rate FiO2 10/25/16 23:15 Room Air 10/25/16 23:10 36.5 84 18 126/84 96 Room Air 10/25/16 17:00 Room Air 10/25/16 15:34 36.5 76 16 111/72 95 Room Air 10/25/16 07:46 36.5 63 16 122/83 97 Room Air 10/25/16 07:45 Room Air Abdomen: normal bowel sounds, non tender, non distended Incision(s): clean, dry, intact, no erythema, no drainage Assessment & Plan S/P reduction of eviscerated small bowel with closure of abdominal wound Wound healing well No bm as yet, on MOM and lactulose, uses narcotic analgesics chronically If can eat breakfast without vomiting can go home
--- NOTE | 2016-10-26 07:35 | Discharge Instructions ---
Discharge Instructions Admission Reason for Admission: Evisceration Of Bowel, Wound Dehiscence Discharge Discharge Diagnosis / Problem: Same Discharge Goals Goal(s): Decrease discomfort Activity Recommendations Activity Limitations: per Instructions/Follow-up section Lifting Limitations: no more than 10 pounds Shower/Bathe: tomorrow . Instructions / Follow-Up Instructions / Follow-Up Post-Surgical ~ Discharge Instructions Activity Recommendations: - lifting limitation: (10 pounds for 6weeks), - exercise/sex/sports limit: (nonstrenuous for 6 weeks), - driving or machine use limit: (none for 1 week), - Shower/bathe limit: (may shower) Diet: - Resume previous diet SPECIAL CARE INSTRUCTIONS: - May shower in Let water run over area and pat dry. - Call the surgeon's office with any questions or concerns - - (ex. temperature higher than 101 degrees F, excessive bleeding or pain). MEDICATIONS: - Resume previous medications unless instructed otherwise by your surgeon. - Ibuprofen 600 mg every 6 hours with food - Continue home analgesics for pain FOLLOW UP VISIT: - If not already scheduled, please call the office to schedule a two week follow-up appointment. Office number Current Hospital Diet Patient's current hospital diet: Low Fiber Diet Discharge Diet Recommended Diet: Regular Diet Procedures Procedures Performed: Abdominal midline wound debridement and closure Pending Studies Studies pending at discharge: no Medical Emergencies . Who to Call and When: Medical Emergencies: If at any time you feel your situation is an emergency, please call 911 immediately. . Non-Emergent Contact Non-Emergency issues call your: Primary Care Provider, Surgeon Call Non-Emergent contact if: your pain is worsening, wound has increased redness, wound has increased pain . "Provider Documentation" section prepared by Chalino Garcia. VTE Core Measure Inpt VTE Proph given/why not?: Treatment not indicated
[2016-10-26] MEDS: METOCLOPRAMIDE HCL INJ 5 MG/ML 2 ML VIAL IV PRN (08:00)
[2016-10-26 08:04] VITALS: BP 118/64; PULSE 60; TEMP 36.5; O2SAT 97
[2016-10-26 08:35] VITALS: O2SAT 96
[2016-10-26] MEDS: ALUMINUM/MAGNESIUM SUSP 30 ML UDC NG SCH (09:00)
[2016-10-26 09:01] VITALS: O2SAT 97
[2016-10-26] MEDS: LACTULOSE SYRUP 10 GM/15 ML BTL 473 ML PO SCH (09:10)
[2016-10-26] MEDS: DULOXETINE (CYMBALTA) 30 MG CAP PO SCH (09:10)
[2016-10-26] MEDS: FLINTSTONES COMPLETE CHEWABLE TAB PO SCH (09:10)
[2016-10-26] MEDS: GABAPENTIN 300 MG CAP PO SCH ×2 (09:11→13:34)
--- NOTE | 2016-10-26 11:03 | ORTHOPEDIC PROGRESS NOTE ---
DATE: 10/26/2016 DATE: 10/26/2016. SUBJECTIVE: The patient was seen yesterday by Ashok Chavez for her metacarpal fracture that the patient had been placed in a cast sometime ago by Dr. Wong's office. New x-rays were ordered and per the consult plans were to review films and decide on further treatment at that point in time. The patient is currently sitting up in chair and is sleeping but is easily awoken. She has no complaints at this time of the right hand and cast. OBJECTIVE: Short arm cast is noted on the right upper extremity with extension down covering the 4th and 5th fingers. Sensation is intact and capillary refill is less than 2 seconds. ASSESSMENT: Right fifth metacarpal shaft fracture approximately 2-3 weeks out. PLAN: X-rays were reviewed by Dr. Wong and plans will be to continue the current cast and she can follow up in the office in [address] Wong or Ashok Chavez PA-C.
[2016-10-26 12:52] VITALS: BP 118/64; PULSE 60; TEMP 36.5; O2SAT 97
--- NOTE | 2016-10-29 15:35 | DISCHARGE SUMMARY ---
PRINCIPAL DIAGNOSES: Wound disruption with skin dehiscence and small bowel evisceration. SECONDARY DIAGNOSES: Includes chronic pain and chronic constipation. PRINCIPAL PROCEDURE: Exploration of wound with reduction of eviscerated small bowel and closure of the skin. HISTORY AND PHYSICAL: As per H\\T\\P consultation in the chart. Briefly this is a 46-year-old female presented to the Emergency Department with increasing abdominal pain after having fallen. She had disruption of her wound in the midline. She came to the Emergency Room for bleeding and the nurses then discovered small bowel evisceration. The nurses described that she had been "picking at" the area prior to the evisceration. She has had this occur at least twice in the past. She has had gastric bypass surgery with multiple abdominal hernias and has been seen at [facility] for these on at least 3 occasions. She had mesh placed and then had the mesh removed at one point. On exam, there was small bowel protruding through the center of her abdominal wall through a small incision. She had no peritonitis. There was some mild tenderness around the incisional opening. Her white blood cell count was 5.28. HOSPITAL COURSE: The small bowel was actually able to be reduced in the Emergency Room. She was then taken to the operating room and under general anesthesia, underwent exploration of this area. The peritoneum was thickened in that area and it was closed primarily with a Vicryl suture. There was absolutely no fascia in the area to attempt to reinforce this. The skin was closed over it intermittently with titi. Over the next 4 days she did have some return of her peristalsis. She was tolerating a full liquid diet. With regular food she had some vomiting, but she stated that she does not eat very much regular food and drinks mostly protein drinks. She was feeling well on postoperative day #4 and was discharged to home. Her discharge medications included only those that she was on preoperatively. She was to follow up with me in 1-2 weeks for staple removal.
== END 2016-10-26 15:30 | disposition home or self-care (01) | DRG 908 ==
LOC: ENRESERVDT → ENRESERVTM → C.EDB 10:13 → C.MSN 17:10 → OBSVTOIN 17:10
PROVIDERS: ADMIT Surgery; ATTEND Surgery
PROC: 0DQW0ZZ Repair Peritoneum, Open Approach (ICD-10-PCS; principal; 2016-10-22 08:30)
DX: T81.32XA Disruption of internal operation (surgical) wound, not elsewhere classified, initial encounter (principal); Z68.41 Body mass index [BMI] 40.0-44.9, adult; T81.31XA Disruption of external operation (surgical) wound, not elsewhere classified, initial encounter; K45.8 Other specified abdominal hernia without obstruction or gangrene; S62.326D Displaced fracture of shaft of fifth metacarpal bone, right hand, subsequent encounter for fracture with routine healing; E53.8 Deficiency of other specified B group vitamins; E66.9 Obesity, unspecified; G89.29 Other chronic pain; K59.09 Other constipation; Z79.899 Other long term (current) drug therapy; Z79.891 Long term (current) use of opiate analgesic; Z98.890 Other specified postprocedural states; Z98.84 Bariatric surgery status; Z91.81 History of falling; Z87.891 Personal history of nicotine dependence; Z83.3 Family history of diabetes mellitus; Z82.49 Family history of ischemic heart disease and other diseases of the circulatory system; Z84.1 Family history of disorders of kidney and ureter; Y83.8 Other surgical procedures as the cause of abnormal reaction of the patient, or of later complication, without mention of misadventure at the time of the procedure; W10.9XXD Fall (on) (from) unspecified stairs and steps, subsequent encounter

== ENCOUNTER 2016-10-27 12:23 | Emergency (ER) | payer OTHER ==
[~2016-10-27] VITALS: Ht 162.6 cm; Wt 105.8 kg
[~2016-10-27 12:23] MED LIST changes: -CYAN10002 IM; +CYAN100048 IM; +CYM30 PO; -EFFSR150 PO; +LACT10SO17 PO; +NRN300 PO; +ONDA4TAB9 PO; +OXY/15 PO; +PEDICHW18 PO; -[UNRECOGNIZED DRUG - REMARK]
[2016-10-27 12:27] VITALS: Ht 162.6 cm; Wt 105.8 kg
[2016-10-27] MEDS ORDERED: SODIUM CHLORIDE 0.9% 1000ML 1,000 ML IV STA (14:00)
[2016-10-27] MEDS ORDERED: ONDANSETRON INJ 2 MG/ML 2 ML VIAL IV STA (14:00)
[2016-10-27] MEDS ORDERED: HYDROmorphone INJ 1 MG/ML SYR IV STA ×3 (14:00)
--- NOTE | 2016-10-27 14:06 | EMERGENCY ROOM VISIT NOTE ---
History Report prepared by David: Juni Funes Under the Supervision of: Dr. Rubens Green M.D. First contact with patient: 13:54 Chief Complaint: ABDOMINAL PAIN Stated Complaint: ABD SWELLING Nursing Triage Summary: presents to er with c/o severe abdominal pain was discharged from hospital yesterday following abdominal surg. by Dr Garcia for eviseration of previously healed abdominal surg. resulting in bowel coming out. nausea vomiting diarrhea low grade fever, currently 36.9 orally skin cool abdomen upon assessement mid line incision, top of incision opening up. staple ripped out. abdomen tender to touch bowel sounds present. History of Present Illness The patient is a 46 year old female who presents to the Emergency Room with complaints of constant abdominal pain beginning several hours prior to arrival. She currently rates her discomfort as a 10/10 in severity. The patient associates nausea, vomiting, and diarrhea with today's symptoms. She states she had her intestines removed five days ago by Dr. Garcia. The patient notes a history of seven abdominal surgeries for strangulated hernias. She states she was discharged from the hospital yesterday. The patient notes she takes 1.5 tablets of Oxycodone every four hours, but they have not been relieving her discomfort. 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 A total of 10 systems reviewed and were otherwise negative. 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 Surgical Problems: (1) Gastric bypass status for obesity Family History Cancer Diabetes mellitus Gallbladder disease Heart disease Hypertension Kidney disease Kidney stones Seizures Social History Smoking Status: Former Smoker Alcohol Use: occasionally Drug Use: none Marital Status: Housing Status: lives with family Occupation Status: disabled Current/Historical Medications Scheduled Cyanocobalamin (Vitamin B-12), 1,000 MCG IM WK Duloxetine HCl (Duloxetine HCl), 30 MG PO DAILY Gabapentin (Gabapentin), 900 MG PO QID Lactulose (Chronulac), 15 ML PO DAILY Ondansetron (Ondansetron HCl), 1 TAB PO TID Oxycodone Hcl (Oxycodone Hcl), 1.5 TAB PO Q4 Pediatric Multiple Vitamin W/ (Childrens Chewable Vitamin), 1 CHW PO DAILY Allergies Coded Allergies: Iodinated Diagnostic Agents (Verified Allergy, Severe, CONTRAST- ITCHING, 10/27/16) Sulfamethoxazole w/Trimethoprim (Verified Allergy, Severe, PASS OUT,HIVES, SOB, 10/27/16) Gadobutrol (Verified Allergy, Intermediate, HIVES, ITCHING , 10/27/16) PATIENT HAD MRI INJECTION THEN CT INJECTION, HAD REACTION AFTER CT Hydrocodone (Unverified Allergy, Intermediate, STOPS BREATHING, see updated comment from 10/22/16..., 10/27/16) 10/22/16: Dr Salomon questions pt over phone and pt reports "hives". Dilaudid already given in pacu today, no reported probs. OK to give Dilaudid per Dr. Salomon. AJ Pregabalin (Unverified Allergy, Intermediate, HIVES, 10/27/16) Iodine (Verified Allergy, Mild, ITCHING, 10/27/16) Enoxaparin (Verified Allergy, Unknown, UNKNOWN, 10/27/16) Physical Exam Vital Signs Date Time Temp Pulse Resp B/P Pulse Ox O2 Delivery O2 Flow Rate FiO2 10/27/16 15:36 36.5 10/27/16 15:27 55 164/70 100 10/27/16 12:27 36.6 80 20 162/97 97 Room Air Physical Exam CONSTITUTIONAL: Mild painful distress. HEENT: No icterus, moist mucous membranes NECK: No meningismus, trachea is midline. CARDIOVASCULAR: Regular rate, normal perfusion RESPIRATORY: Unlabored breathing. Clear to auscultation. GASTROINTESTINAL: Impressive, disfiguring abdominal scaring. Wound clean, dry, and intact with staple in place. Small amount of dehiscence centrally. GENITOURINARY: No flank tenderness MUSCULOSKELETAL: Full range of motion NEUROLOGIC: No acute gross focal deficits. PSYCHIATRIC: Normal affect SKIN: Normal for ethnicity. Medical Decision & Procedures ER Provider Diagnostic Interpretation: Radiology results as stated below per my review and radiologist interpretation. CHEST AND ABDOMEN 2 VIEWS HISTORY: Generalized abdominal pain. COMPARISON: Chest and abdominal series 11/17/2013. FINDINGS: The lungs are clear. The cardiomediastinal silhouette is within normal limits. There is no pneumoperitoneum or pneumatosis. The bowel gas pattern is unremarkable. No evidence for bowel obstruction. No renal or ureteral calculi. There is an IVC filter. Suture material and metallic coils noted within the left side of the abdomen. Contrast within the small bowel. No dilated loops of bowel to suggest an obstruction. There are skin titi overlying the mid abdomen. Probable ventral hernias. This appears similar.. IMPRESSION: 1. No acute process within the chest. 2. No evidence for bowel obstruction. 3. Postoperative changes. 4. Suspect ventral hernias which is similar to the prior study. Electronically signed by: Kurtis Duffy M.D. 10/27/2016 3:28 PM ABDOMEN AND PELVIS CT WITH ORAL CONTRAST CT DOSE: 1373.70 mGy.cm HISTORY: Generalized abdominal pain. POD#5 ventral hernia, 7 prior abd operations, used to be 600lb TECHNIQUE: Multiaxial CT images of the abdomen and pelvis were performed following the use of oral contrast. COMPARISON STUDY: Abdomen and pelvis CT 11/02/13. FINDINGS: Small scarlike densities within the right middle lobe. The left lung is clear. No pneumoperitoneum. No pneumatosis. No suspicious lytic or blastic osseous lesions. The unenhanced liver, pancreas, and adrenal glands are unremarkable. The gallbladder is identified and likely surgically absent. The spleen measures 13 cm in length. This remains unchanged. Bilateral peripelvic renal cysts remain unchanged. No renal stones or hydronephrosis. There is an IVC filter present. No retroperitoneal lymphadenopathy. Postoperative changes consistent with prior gastric bypass. Persistent fluid within the excluded portion of the stomach. However, there is no contrast within the excluded portion of the stomach. The oral contrast is seen within the colon. Therefore, there is no evidence for small bowel obstruction. The bladder, uterus, bilateral adnexa are unremarkable. No significant pelvic free fluid. There are few skin tiit along the midline of the abdomen. Focal fat stranding at the mid anterior abdomen involving the central mesentery/omentum. This is deep to the area of skin titi. There are 3 large ventral hernias. The left midline ventral hernia is new from the prior study and contains multiple loops of nondistended small bowel. The 2 large right ventral hernias are again noted and contain loops of large and small bowel. There is also a smaller left lower quadrant ventral hernia containing a short segment of the sigmoid colon. This remains unchanged. Large midline anterior skin defect persists. IMPRESSION: 1. There are again noted multiple large ventral hernias containing loops of large and small bowel. The left midline ventral hernia is new from the prior study. 2. Contrast extends into the large bowel. Therefore, there is no evidence for small bowel obstruction at this time. 3. Focal area of fat stranding within the mid anterior abdomen involving the central mesentery/omentum deep to the focal skin titi. Therefore, this could be due to the recent postoperative change or represent fat/omental infarct. 4. Additional chronic findings as described above. Electronically signed by: Kurtis Duffy M.D. 10/27/2016 4:52 PM Laboratory Results 10/27/16 14:31 Red Blood Count 4.50, Mean Corpuscular Volume 83.6, Mean Corpuscular Hemoglobin 27.1, Mean Corpuscular Hemoglobin Concent 32.4, Mean Platelet Volume 11.8, Neutrophils (%) (Auto) 66.4, Lymphocytes (%) (Auto) 23.4, Monocytes (%) (Auto) 9.1, Eosinophils (%) (Auto) 0.9, Basophils (%) (Auto) 0.1, Neutrophils # (Auto) 4.96, Lymphocytes # (Auto) 1.75, Monocytes # (Auto) 0.68, Eosinophils # (Auto) 0.07, Basophils # (Auto) 0.01 10/27/16 14:31 Test 10/27/16 14:31 10/27/16 15:25 10/27/16 15:32 White Blood Count 7.48 K/uL (4.8-10.8) Red Blood Count 4.50 M/uL (4.2-5.4) Hemoglobin 12.2 g/dL (12.0-16.0) Hematocrit 37.6 % (37-47) Mean Corpuscular Volume 83.6 fL (80-100) Mean Corpuscular Hemoglobin 27.1 pg (25-34) Mean Corpuscular Hemoglobin Concent 32.4 g/dl (32-36) Platelet Count 267 K/uL (130-400) Mean Platelet Volume 11.8 fL (7.4-10.4) Neutrophils (%) (Auto) 66.4 % Lymphocytes (%) (Auto) 23.4 % Monocytes (%) (Auto) 9.1 % Eosinophils (%) (Auto) 0.9 % Basophils (%) (Auto) 0.1 % Neutrophils # (Auto) 4.96 K/uL (1.4-6.5) Lymphocytes # (Auto) 1.75 K/uL (1.2-3.4) Monocytes # (Auto) 0.68 K/uL (0.11-0.59) Eosinophils # (Auto) 0.07 K/uL (0-0.5) Basophils # (Auto) 0.01 K/uL (0-0.2) RDW Standard Deviation 51.9 fL (36.4-46.3) RDW Coefficient of Variation 17.1 % (11.5-14.5) Immature Granulocyte % (Auto) 0.1 % Immature Granulocyte # (Auto) 0.01 K/uL (0.00-0.02) Prothrombin Time 11.4 SECONDS (9.0-12.0) Prothromb Time International Ratio 1.1 (0.9-1.1) Activated Partial Thromboplast Time 28.1 SECONDS (21.0-31.0) Partial Thromboplastin Ratio 1.1 Anion Gap 9.0 mmol/L (3-11) Est Creatinine Clear Calc Drug Dose 119.2 ml/min Estimated GFR () 120.4 Estimated GFR (Non- 103.9 BUN/Creatinine Ratio 5.7 (10-20) Calcium Level 8.7 mg/dl (8.5-10.1) Total Bilirubin 0.7 mg/dl (0.2-1) Direct Bilirubin 0.2 mg/dl (0-0.2) Aspartate Amino Transf (AST/SGOT) 9 U/L (15-37) Alanine Aminotransferase (ALT/SGPT) 20 U/L (12-78) Alkaline Phosphatase 80 U/L (45-117) Total Protein 7.4 gm/dl (6.4-8.2) Albumin 3.3 gm/dl (3.4-5.0) Globulin 4.1 gm/dl (2.5-4.0) Albumin/Globulin Ratio 0.8 (0.9-2) Urine Color YELLOW Urine Appearance CLEAR (CLEAR) Urine pH 7.0 (4.5-7.5) Urine Specific Crowder 1.001 (1.000-1.030) Urine Protein NEG (NEG) Urine Glucose (UA) NEG (NEG) Urine Ketones NEG (NEG) Urine Occult Blood NEG (NEG) Urine Nitrite NEG (NEG) Urine Bilirubin NEG (NEG) Urine Urobilinogen NEG (NEG) Urine Leukocyte Esterase TRACE (NEG) Urine WBC (Auto) 1-5 /hpf (0-5) Urine RBC (Auto) 0-4 /hpf (0-4) Urine Hyaline Casts (Auto) 0 /lpf (0-5) Urine Epithelial Cells (Auto) 10-20 /lpf (0-5) Urine Bacteria (Auto) NEG (NEG) Bedside Lactic Acid Venous 1.03 mmol/L (0.90-1.70) Labs reviewed by ED physician. Medications Administered Medications (Trade) Dose Ordered Sig/Juana Route Start Time Stop Time Status Last Admin Dose Admin Sodium Chloride (Nss 1000ml) 1,000 ml @ 0 mls/hr Q0M STAT IV 10/27/16 14:00 10/27/16 14:02 DC 10/27/16 15:39 0 MLS/HR Ondansetron HCl (Zofran Inj) 4 mg NOW STAT IV 10/27/16 14:00 10/27/16 14:02 DC 10/27/16 14:40 4 MG Hydromorphone HCl (Dilaudid Inj) 1 mg PRN STAT IV 10/27/16 14:00 10/27/16 14:02 DC 10/27/16 14:41 1 MG Hydromorphone HCl (Dilaudid Inj) 1 mg PRN STAT IV 10/27/16 14:00 10/27/16 14:02 DC 10/27/16 15:32 1 MG Hydromorphone HCl (Dilaudid Inj) 1 mg PRN STAT IV 10/27/16 14:00 10/27/16 14:02 DC 10/27/16 14:42 1 MG ED Course 1335: Past medical records reviewed. The patient was evaluated in room C4. A complete history and physical examination was performed. 1400: Dilaudid Inj 1 mg IV, Dilaudid Inj 1 mg IV, Dilaudid Inj 1 mg IV, Zofran Inj 4 mg IV, Sodium Chloride 1,000 ml @ 0 mls/hr Wide Open IV. 1705: Upon reexamination the patient is doing well. I discussed results and treatment plan with the patient. She verbalizes agreement and understanding. The patient is ready for discharge. Medical Decision Differential diagnoses include but are not limited to; obstruction, postoperative complications, opiate dependency. 46-year-old presents to the emergency Department postop day #5 after ventral hernia repair with Dr. Garcia. She notes she is to be over 600 pounds and has had 7 abdominal surgeries including a "modified" gastric bypass. She is noted to have extensive disfigurement of the abdominal wall and adipose tissue with the wound presently appears clean dry intact with titi in place. There is a very small area centrally with dehiscence. Screening evaluations including CAT scan were negative. Steri-Strips applied and patient given extra packets and understands to follow-up with surgery this week. Impression Primary Impression: Postoperative abdominal pain Scribe Attestation The scribe's documentation has been prepared under my direction and personally reviewed by me in its entirety. I confirm that the note above accurately reflects all work, treatment, procedures, and medical decision making performed by me. Departure Information Dispostion Home / Self-Care Referrals Caitlyn Sharif M.D. (PCP) Forms Call Back Authorization, HOME CARE DOCUMENTATION FORM, IMPORTANT VISIT INFORMATION Patient Instructions ED Abd Pain Unkn Cause Fem, [facility]
[2016-10-27 14:40] LABS: BASO % 0.1 %; BASO ABS # 0.01 K/uL (0-0.2); COMPLETE YES; EOS % 0.9 %; HEMATOCRIT 37.6 % (37-47); IG% 0.1 %; LYMPH % 23.4 %; LYMPH ABS # 1.75 K/uL (1.2-3.4); MEAN CELL VOLUME 83.6 fL (80-100); MEAN CORPUSCULAR HEMOGLOBIN 27.1 pg (25-34); MEAN CORPUSCULAR HGB CONC 32.4 g/dl (32-36); MEAN PLATELET VOLUME 11.8 fL (7.4-10.4); MONO % 9.1 %; NEUT % 66.4 %; PLATELET COUNT 267 K/uL (130-400); WHITE BLOOD COUNT 7.48 K/uL (4.8-10.8)
[2016-10-27 14:49] LABS: INR 1.1 (0.9-1.1); PARTIAL THROMBOPLASTIN RATIO 1.1; PROTHROMBIN TIME (PATIENT) 11.4 SECONDS (9.0-12.0)
[2016-10-27 14:57] LABS: BUN/CREATININE RATIO 5.7 (10-20); CALCIUM 8.7 mg/dl (8.5-10.1); CREATININE 0.7 mg/dl (0.60-1.20); POTASSIUM 3.6 mmol/L (3.5-5.1)
[2016-10-27 15:00] LABS: ALB/GLOB RATIO 0.8 (0.9-2)
--- NOTE | 2016-10-27 15:30 | DIAGNOSTIC IMAGING REPORT ---
CHEST AND ABDOMEN 2 VIEWS HISTORY: Generalized abdominal pain. COMPARISON: Chest and abdominal series 11/17/2013. FINDINGS: The lungs are clear. The cardiomediastinal silhouette is within normal limits. There is no pneumoperitoneum or pneumatosis. The bowel gas pattern is unremarkable. No evidence for bowel obstruction. No renal or ureteral calculi. There is an IVC filter. Suture material and metallic coils noted within the left side of the abdomen. Contrast within the small bowel. No dilated loops of bowel to suggest an obstruction. There are skin titi overlying the mid abdomen. Probable ventral hernias. This appears similar.. IMPRESSION: 1. No acute process within the chest. 2. No evidence for bowel obstruction. 3. Postoperative changes. 4. Suspect ventral hernias which is similar to the prior study. Electronically signed by: Kurtis Duffy M.D. 10/27/2016 3:28 PM Dictated Date/Time: 10/27/2016 3:25 PM
[2016-10-27 15:36] VITALS: TEMP 36.5
[2016-10-27 16:04] LABS: URINE APPEARANCE CLEAR (CLEAR); URINE BILIRUBIN NEG (NEG); URINE COLOR YELLOW; URINE NITRITE NEG (NEG); URINE SPECIFIC GRAVITY 1.001 (1.000-1.030); UROBILINOGEN NEG (NEG); ZZUR CULT IF INDIC CLEAN CATCH NO
[2016-10-27 16:14] LABS: MANUAL MICROSCOPIC REQUIRED? NO; REVIEW REQ? NO
--- NOTE | 2016-10-27 16:53 | DIAGNOSTIC IMAGING REPORT ---
ABDOMEN AND PELVIS CT WITH ORAL CONTRAST CT DOSE: 1373.70 mGy.cm HISTORY: Generalized abdominal pain. POD#5 ventral hernia, 7 prior abd operations, used to be 600lb TECHNIQUE: Multiaxial CT images of the abdomen and pelvis were performed following the use of oral contrast. COMPARISON STUDY: Abdomen and pelvis CT 11/02/13. FINDINGS: Small scarlike densities within the right middle lobe. The left lung is clear. No pneumoperitoneum. No pneumatosis. No suspicious lytic or blastic osseous lesions. The unenhanced liver, pancreas, and adrenal glands are unremarkable. The gallbladder is identified and likely surgically absent. The spleen measures 13 cm in length. This remains unchanged. Bilateral peripelvic renal cysts remain unchanged. No renal stones or hydronephrosis. There is an IVC filter present. No retroperitoneal lymphadenopathy. Postoperative changes consistent with prior gastric bypass. Persistent fluid within the excluded portion of the stomach. However, there is no contrast within the excluded portion of the stomach. The oral contrast is seen within the colon. Therefore, there is no evidence for small bowel obstruction. The bladder, uterus, bilateral adnexa are unremarkable. No significant pelvic free fluid. There are few skin titi along the midline of the abdomen. Focal fat stranding at the mid anterior abdomen involving the central mesentery/omentum. This is deep to the area of skin titi. There are 3 large ventral hernias. The left midline ventral hernia is new from the prior study and contains multiple loops of nondistended small bowel. The 2 large right ventral hernias are again noted and contain loops of large and small bowel. There is also a smaller left lower quadrant ventral hernia containing a short segment of the sigmoid colon. This remains unchanged. Large midline anterior skin defect persists. IMPRESSION: 1. There are again noted multiple large ventral hernias containing loops of large and small bowel. The left midline ventral hernia is new from the prior study. 2. Contrast extends into the large bowel. Therefore, there is no evidence for small bowel obstruction at this time. 3. Focal area of fat stranding within the mid anterior abdomen involving the central mesentery/omentum deep to the focal skin titi. Therefore, this could be due to the recent postoperative change or represent fat/omental infarct. 4. Additional chronic findings as described above. Electronically signed by: Kurtis Duffy M.D. 10/27/2016 4:52 PM Dictated Date/Time: 10/27/2016 4:41 PM
[2016-10-27 17:18] VITALS: BP 136/91; PULSE 70; O2SAT 95
== END 2016-10-27 17:21 | disposition home or self-care (01) ==
LOC: C.EDB 12:23 → C.EDC 17:21
DX: G89.28 Other chronic postprocedural pain (principal); R10.9 Unspecified abdominal pain; K43.9 Ventral hernia without obstruction or gangrene; D51.0 Vitamin B12 deficiency anemia due to intrinsic factor deficiency; D50.9 Iron deficiency anemia, unspecified; Z98.84 Bariatric surgery status; Z83.3 Family history of diabetes mellitus; Z82.49 Family history of ischemic heart disease and other diseases of the circulatory system; Z84.1 Family history of disorders of kidney and ureter; Z82.0 Family history of epilepsy and other diseases of the nervous system; Z87.891 Personal history of nicotine dependence; R11.2 Nausea with vomiting, unspecified; R19.7 Diarrhea, unspecified

== ENCOUNTER 2021-02-12 10:28 | Observation (INO) ==
--- NOTE | 2021-02-12 11:03 | Emergency Department Note ---
History of Present Illness General Chief complaint: Infection Stated complaint: REFERRED BY FOR IV ANTIBIOTICS/INF IN L FOOT Time Seen by Provider: 02/12/21 10:48 Source: patient History of Present Illness Provider complaint: Left foot pain Onset (ago): day(s) 4 Location: foot and left Radiation: non-radiation Pain Consistency: + constant Maximum Pain Intensity: 4 Quality: + aching Relieved By: + medication (Her chronic pain meds) Associated symptoms: + fever/chills (She states she has chronic chills. No fevers); no chest pain, no cough, no headaches, no nausea/vomiting and no shortness of breath This is a 50-year-old female who presents from her doctor's office for an infection to her left foot. The patient states that she accidentally dropped a plastic garbage can on her foot 4 days ago. She states that she has pain to her foot just proximal to her her toes which she describes as an aching pain. She rates it a 4 out of 10 in severity. It is better when she takes her chronic pain medication. She did develop redness and blistering several days ago. She was seen by her doctor 2 days ago and placed on Keflex. She has a history of MRSA but states that she was not given any other antibiotic. She had an x-ray done today and followed up with her doctor who stated that she did not like the way it looked and sent her here for IV antibiotics. The patient denies any fevers. She states that she has chronic chills which are unchanged. She denies any cough or cold symptoms, chest pain, shortness of breath, or vomiting. She does state that she has diarrhea. She has chronic pain to her abdomen from her endometrial cancer. She also had skin cancer removed from her head. She states that she has not had any chemotherapy. She did have MRSA when she had a large open wound years ago in her abdomen. Home Medications Medication Instructions Recorded Confirmed Type amitriptyline 100 mg PO QAM 03/27/19 02/12/21 History clotrimazole-betamethasone 1 applic TOPICAL QAM 03/27/19 02/12/21 History cyanocobalamin (vitamin B-12) 1,000 mcg IM WK 03/27/19 02/12/21 History [B-12 Compliance] diclofenac sodium 50 mg PO BIDM 03/27/19 02/12/21 History gabapentin 900 mg PO QID 03/27/19 02/12/21 History ondansetron HCl 8 mg PO QID PRN 03/27/19 02/12/21 History triamcinolone acetonide 1 applic TOPICAL BID 03/27/19 02/12/21 History venlafaxine 75 mg PO QAM 03/27/19 02/12/21 History Iron Infusion 1 dose IV DIRECTED 02/12/21 02/12/21 History buprenorphine-naloxone 2.5 tab SUBLINGUAL DAILY 02/12/21 02/12/21 History cephalexin 500 mg PO TID 02/12/21 02/12/21 History trazodone 50 mg PO HS 02/12/21 02/12/21 History Allergies Allergy/AdvReac Type Severity Reaction Status Date / Time Bactrim Allergy Severe PASS Verified 10/27/16 13:07 OUT,HIVES,SOB Iodinated Contrast Media Allergy Severe CONTRAST- Verified 02/12/21 11:59 ITCHING Sulfa (Sulfonamide Allergy Severe Pass Out, Verified 02/12/21 11:59 Antibiotics) Stops breathing sulfamethoxazole Allergy Severe PASS Verified 02/12/21 11:59 OUT,HIVES,SOB trimethoprim Allergy Severe PASS Verified 02/12/21 11:59 OUT,HIVES,SOB gadobutrol Allergy Intermediate HIVES, Verified 02/12/21 11:59 ITCHING hydrocodone Allergy Intermediate STOPS Verified 02/12/21 11:59 BREATHING, see updated comment from 10/22/16... pregabalin Allergy Intermediate HIVES Verified 02/12/21 11:59 iodine Allergy Mild ITCHING Verified 02/12/21 11:59 enoxaparin Allergy Unknown UNKNOWN Verified 02/12/21 11:59 acetaminophen [From Percocet] Allergy Verified 02/12/21 11:59 oxycodone [From Percocet] Allergy Verified 02/12/21 11:59 Past Med/Surg History Medical History Abdominal hernia Acetabulum fracture, right Allergic reaction Allergic reaction Anemia B12 deficiency anemia Endometriosis Evisceration of bowel numerous Fatigue FH: cholecystectomy Folate deficiency Fracture of proximal humerus Hip pain [id number] Incarcerated ventral hernia Iron (Fe) deficiency anemia Knee laceration Post-op pain Proximal humeral fracture Ribs, multiple fractures Right acetabular fracture Right hip pain Small bowel obstruction Wound dehiscence Surgical History Gastric bypass status for obesity H/O abdominal surgery muscle stretching, tumor removed Hx of removal of ovary Family History Sister , 54 Breast cancer Ovarian cancer Mother Ovarian cancer Breast cancer Other No pertinent family history Denies family history of Colorectal cancer Uterine cancer Social History Smoking Status: Former smoker Tobacco Type: Cigarettes Preferred Language: Bhutanese Communication Ability: Effective Visual Impairment: No Limitations Hearing Ability: Normal Feels Safe at Home: Yes Review of Systems See HPI for pertinent positives & negatives. and A total of 10 systems reviewed and were otherwise negative Physical Exam Vital Signs Vital Signs - 24 hr 02/12/21 10:40 02/12/21 11:22 02/12/21 11:30 Temperature 36.8 C Temperature Source Temporal Artery Scan Pulse Rate 84 84 75 Pulse Rate from SpO2 Sensor 84 75 Respiratory Rate 18 23 16 Respiratory Effort / Characteristics Non-Labored Spontaneous Respiratory Depth Normal Respiratory Pattern Regular Blood Pressure 154/77 H Blood Pressure Mean 102 Blood Pressure Position Sitting Pulse Oximetry 97 99 91 Oxygen Delivery Method Room Air Sepsis Recent Fever Within 48 Hours No Sepsis New/Unexplained Change in Mental Status N/A Sepsis Action Taken by Nursing No Action Required 02/12/21 11:40 02/12/21 11:50 02/12/21 12:00 Temperature Temperature Source Pulse Rate 79 75 69 Pulse Rate from SpO2 Sensor 79 75 69 Respiratory Rate 16 14 12 Respiratory Effort / Characteristics Respiratory Depth Respiratory Pattern Blood Pressure Blood Pressure Mean Blood Pressure Position Pulse Oximetry 98 98 94 Oxygen Delivery Method Sepsis Recent Fever Within 48 Hours Sepsis New/Unexplained Change in Mental Status Sepsis Action Taken by Nursing 02/12/21 12:10 02/12/21 12:20 02/12/21 12:30 Temperature Temperature Source Pulse Rate 76 67 68 Pulse Rate from SpO2 Sensor 77 67 67 Respiratory Rate 16 15 17 Respiratory Effort / Characteristics Respiratory Depth Respiratory Pattern Blood Pressure Blood Pressure Mean Blood Pressure Position Pulse Oximetry 100 99 96 Oxygen Delivery Method Sepsis Recent Fever Within 48 Hours Sepsis New/Unexplained Change in Mental Status Sepsis Action Taken by Nursing 02/12/21 12:40 Temperature Temperature Source Pulse Rate 66 Pulse Rate from SpO2 Sensor 65 Respiratory Rate 16 Respiratory Effort / Characteristics Respiratory Depth Respiratory Pattern Blood Pressure Blood Pressure Mean Blood Pressure Position Pulse Oximetry 96 Oxygen Delivery Method Sepsis Recent Fever Within 48 Hours Sepsis New/Unexplained Change in Mental Status Sepsis Action Taken by Nursing Constitutional: Vital signs reviewed. Eyes: Pupils are equal round reactive to light. Conjunctiva are noninjected. ENT: Pharynx is clear without erythema or exudate. Mucous membranes are moist. Neck supple without meningeal signs. Respiratory: Clear to auscultation bilaterally. Breath sounds are equal bilaterally. Cardiovascular: Regular rate and rhythm. No rubs or gallops. GI: Soft, nondistended and nontender. Bowel sounds are present. Musculoskeletal: Left foot demonstrates erythema and tenderness to the forefoot at the head of the 2nd-4th metatarsals extending into the proximal toes. There is some blistering. No tenderness to the midfoot or proximal leg. No tenderness to the ankle. Dorsalis pedis pulses 2+. Integumentary: No cyanosis. or jaundice. Neurological: The patient is awake and alert. No focal deficits. Psychiatric: Normal affect. Not anxious appearing. Course Administered Medications Discontinued Medications Calcium Gluconate () 1,000 mg in 60 mls @ 240 mls/hr IV NOW STA Stop: 02/12/21 11:54 Last Infusion: 02/12/21 12:22 Dose: 240 mls/hr Documented by: [id number] Admin: 02/12/21 12:06 Dose: 240 mls/hr Documented by: [id number] Vancomycin HCl 2,750 mg/ (Sodium Chloride) 555 mls @ 200 mls/hr IV NOW ONE Stop: 02/12/21 14:29 Last Admin: 02/12/21 12:47 Dose: 200 mls/hr Documented by: [id number] Medical Decision Making Differential Diagnosis Cellulitis, osteomyelitis, fracture, retained foreign body, MRSA Medical Records Attestation: I reviewed the patient's medical records. I did perform a limited focused review of portions of the patient's old chart on the electronic medical record. The patient had a lymph node biopsy on December 28 which demonstrated endometrial cancer. She also had an x-ray today of her foot which has not been read. Home Medications Current Medication List: was personally reviewed by me Laboratory Data Attestation: I reviewed the patient's lab results. Result diagrams: 02/12/21 11:11 02/12/21 11:11 Lab Results 02/12/21 02/12/21 02/12/21 Range/Units 11:11 11:11 12:15 WBC 5.06 (4.8-10.8) K/uL RBC 4.31 (4.2-5.4) M/uL Hgb 12.1 (12.0-16.0) g/dL Hct 36.6 L (37-47) % MCV 84.9 (80-100) fL MCH 28.1 (25-34) pg MCHC 33.1 (32-36) g/dL RDW Std Deviation 47.5 H (36.4-46.3) fL RDW Coeff of Josue 15.4 H (11.5-14.5) % Plt Count 178 (130-400) K/uL MPV 11.0 H (7.4-10.4) fL Immature Gran % (Auto) 0.0 % Neut % (Auto) 59.0 % Lymph % (Auto) 24.7 % Vilas % (Auto) 12.5 % Eos % (Auto) 3.6 % Baso % (Auto) 0.2 % Neut # (Auto) 2.99 (1.4-6.5) K/uL Lymph # (Auto) 1.25 (1.2-3.4) K/uL Vilas # (Auto) 0.63 H (0.11-0.59) K/uL Eos # (Auto) 0.18 (0-0.5) K/uL Baso # (Auto) 0.01 (0-0.2) K/uL Immature Gran # (Auto) 0.00 (0.00-0.02) K/uL Sodium 141 (136-145) mmol/L Potassium 3.5 (3.5-5.1) mmol/L Chloride 106 (98-107) mmol/L Carbon Dioxide 29 (21-32) mmol/L Anion Gap 6.0 (3-11) BUN 10 (7-18) mg/dl Creatinine 0.59 L (0.6-1.2) mg/dl Est Cr Clr Drug Dosing 155.3 ml/min Est GFR ( Amer) 123.9 ml/min Est GFR (Non-Af Amer) 106.9 ml/min BUN/Creatinine Ratio 17.3 (10-20) Glucose 57 L (70-99) mg/dl Calcium 7.8 L (8.5-10.1) mg/dl Total Bilirubin 1.3 H (0.2-1) mg/dl AST 37 (15-37) U/L ALT 44 (12-78) U/L Alkaline Phosphatase 85 (45-117) U/L C-Reactive Protein 7.70 H (0-0.29) mg/dl Total Protein 7.3 (6.4-8.2) gm/dl Albumin 2.9 L (3.4-5.0) gm/dl Globulin 4.4 H (2.5-4.0) gm/dl Albumin/Globulin Ratio 0.7 L (0.9-2) COVID-19 Eval Order Covid19 at [facility] SARS-CoV-2 (PCR) (Negative) 02/12/21 Range/Units 12:15 WBC (4.8-10.8) K/uL RBC (4.2-5.4) M/uL Hgb (12.0-16.0) g/dL Hct (37-47) % MCV (80-100) fL MCH (25-34) pg MCHC (32-36) g/dL RDW Std Deviation (36.4-46.3) fL RDW Coeff of Josue (11.5-14.5) % Plt Count (130-400) K/uL MPV (7.4-10.4) fL Immature Gran % (Auto) % Neut % (Auto) % Lymph % (Auto) % Vilas % (Auto) % Eos % (Auto) % Baso % (Auto) % Neut # (Auto) (1.4-6.5) K/uL Lymph # (Auto) (1.2-3.4) K/uL Vilas # (Auto) (0.11-0.59) K/uL Eos # (Auto) (0-0.5) K/uL Baso # (Auto) (0-0.2) K/uL Immature Gran # (Auto) (0.00-0.02) K/uL Sodium (136-145) mmol/L Potassium (3.5-5.1) mmol/L Chloride (98-107) mmol/L Carbon Dioxide (21-32) mmol/L Anion Gap (3-11) BUN (7-18) mg/dl Creatinine (0.6-1.2) mg/dl Est Cr Clr Drug Dosing ml/min Est GFR ( Amer) ml/min Est GFR (Non-Af Amer) ml/min BUN/Creatinine Ratio (10-20) Glucose (70-99) mg/dl Calcium (8.5-10.1) mg/dl Total Bilirubin (0.2-1) mg/dl AST (15-37) U/L ALT (12-78) U/L Alkaline Phosphatase (45-117) U/L C-Reactive Protein (0-0.29) mg/dl Total Protein (6.4-8.2) gm/dl Albumin (3.4-5.0) gm/dl Globulin (2.5-4.0) gm/dl Albumin/Globulin Ratio (0.9-2) COVID-19 Eval Order SARS-CoV-2 (PCR) NEGATIVE (Negative) MDM Narrative I did evaluate the patient as noted above. The patient was sent here by [facility] for admission to the hospital for IV antibiotics for a foot infection. She has been on Keflex since Saturday but had no coverage for MRSA. She does have a history of MRSA. X-ray was performed earlier today but no report is noted. Per my interpretation she has no periosteal lifting to suggest osteomyelitis or fracture to the foot. IV access was established. I did order blood cultures. I did treat the patient with vancomycin IV. I did order and review the patient's blood work as noted in the electronic medical record. Her white count is not elevated. Hemoglobin is 12. Electrolytes are unremarkable other than a calcium of 7.8. I did treat her with IV calcium gluconate 1 g. Glucose is slightly low at 57. CRP is elevated over 7. I did discuss the test results with the patient. I did discuss case with hospitalist and housing case manager. Impression & Plan Infection of left foot, Hx MRSA infection, Hypocalcemia Discharge Plan Visit Data Chief Complaint: Infection Stated Complaint: REFERRED BY FOR IV ANTIBIOTICS/INF IN L FOOT ED Provider: Abdirahman Acosta Discharge Problem: Infection of left foot, Hx MRSA infection, Hypocalcemia Patient Disposition: Admitted As Inpatient Discharge Instructions Interventions: ED Discharge Assessment Last Done: 02/12/21 15:36
[2021-02-12 11:20] LABS: Basophils # (auto) 0.01 K/uL (0-0.2); Basophils % (auto) 0.2 %; Eosinophils # (auto) 0.18 K/uL (0-0.5); Eosinophils % (auto) 3.6 %; Hematocrit (blood only) 36.6 % (37-47); Hemoglobin 12.1 g/dL (12.0-16.0); Lymphocytes # (auto) 1.25 K/uL (1.2-3.4); Lymphocytes % (auto) 24.7 %; Mean Corpuscular Hemoglobin 28.1 pg (25-34); Mean Corpuscular Hgb Conc 33.1 g/dL (32-36); Mean Corpuscular Volume 84.9 fL (80-100); Monocytes # (auto) 0.63 K/uL (0.11-0.59); Monocytes % (auto) 12.5 %; Neutrophils # (auto) 2.99 K/uL (1.4-6.5); Platelet Count 178 K/uL (130-400); RDW Coefficient of Variation 15.4 % (11.5-14.5); RDW Standard Deviation 47.5 fL (36.4-46.3); Red Blood Count 4.31 M/uL (4.2-5.4); White Blood Count 5.06 K/uL (4.8-10.8)
[2021-02-12 11:39] LABS: Albumin Level 2.9 gm/dl (3.4-5.0); BUN Creatinine Ratio 17.3 (10-20); Calcium 7.8 mg/dl (8.5-10.1); Creatinine Clr Calc Pharmacy 155.3 ml/min; Est GFR (African American) 123.9 ml/min; Est GFR (Non-African American) 106.9 ml/min; Potassium 3.5 mmol/L (3.5-5.1)
[2021-02-12] MEDS ORDERED: CALCIUM GLUCONATE 1,000 MG/60 ML BAG IV STA (11:40)
[2021-02-12 11:41] LABS: Albumin Globulin Ratio 0.7 (0.9-2); Bilirubin,Total 1.3 mg/dl (0.2-1); C Reactive Protein 7.7 mg/dl (0-0.29); Globulin 4.4 gm/dl (2.5-4.0); Total Protein 7.3 gm/dl (6.4-8.2)
[2021-02-12] MEDS ORDERED: VANCOMYCIN HCL 2,750 MG in SODIUM CHLORIDE 0.9% 500 ML IV ONE (11:43)
[2021-02-12] MEDS ORDERED: VANCOMYCIN CONSULT ACTIVE PRN ×2 (11:43→16:26)
[2021-02-12] MEDS ORDERED: VANCOMYCIN HCL 1,000 MG in SODIUM CHLORIDE 0.9% 250 ML IV SCH (16:26)
[2021-02-12] MEDS ORDERED: ONDANSETRON INJ 2 MG/ML 2 ML VIAL IV PRN (16:26)
[2021-02-12] MEDS: GABAPENTIN 300 MG CAP PO SCH (21:29)
[2021-02-12] MEDS: DICLOFENAC SODIUM 25 MG TABDR PO SCH (21:30)
[2021-02-12] MEDS: DAPTOmycin 350 MG in SYRINGE 0 ML IV SCH (21:31)
[2021-02-12] MEDS: traZODone HCL 50 MG TAB PO SCH (21:31)
[2021-02-12] MEDS: TRIAMCINOLONE ACET 0.1% CR 15 GM TUBE TOP SCH (21:32)
[2021-02-13] MEDS: GABAPENTIN 300 MG CAP PO SCH ×5 (00:26→21:13)
[2021-02-13 06:34] LABS: Basophils # (auto) 0.02 K/uL (0-0.2); Basophils % (auto) 0.4 %; Eosinophils # (auto) 0.31 K/uL (0-0.5); Eosinophils % (auto) 6.7 %; Hemoglobin 11.5 g/dL (12.0-16.0); Lymphocytes # (auto) 1.52 K/uL (1.2-3.4); Lymphocytes % (auto) 32.9 %; Mean Corpuscular Hemoglobin 28.1 pg (25-34); Mean Corpuscular Hgb Conc 31.9 g/dL (32-36); Mean Platelet Volume 11.5 fL (7.4-10.4); Monocytes # (auto) 0.68 K/uL (0.11-0.59); Monocytes % (auto) 14.7 %; Neutrophils # (auto) 2.09 K/uL (1.4-6.5); Neutrophils % (auto) 45.3 %; Platelet Count 199 K/uL (130-400); RDW Coefficient of Variation 15.7 % (11.5-14.5); RDW Standard Deviation 50.5 fL (36.4-46.3); Red Blood Count 4.09 M/uL (4.2-5.4); White Blood Count 4.62 K/uL (4.8-10.8)
[2021-02-13 07:15] LABS: BUN Creatinine Ratio 12.4 (10-20); Calcium 8.2 mg/dl (8.5-10.1); Creatinine Clr Calc Pharmacy 169.7 ml/min; Est GFR (African American) 127.5 ml/min; Potassium 3.7 mmol/L (3.5-5.1)
[2021-02-13] MEDS: BUPRENORPHINE/NALOXONE 8/2 MG TAB SL SCH (09:14)
[2021-02-13] MEDS: TRIAMCINOLONE ACET 0.1% CR 15 GM TUBE TOP SCH ×2 (09:14→21:15)
[2021-02-13] MEDS: DICLOFENAC SODIUM 25 MG TABDR PO SCH ×2 (09:15→17:00)
[2021-02-13] MEDS: VENLAFAXINE HCL XR 75 MG CAPXR PO SCH (09:15)
[2021-02-13] MEDS: AMITRIPTYLINE HCL 100 MG TAB PO SCH (09:16)
--- NOTE | 2021-02-13 09:39 | Medical Student Progress Note ---
Date of Service February 13, 2021 Assessment & Plan (1) Cellulitis and abscess of foot: Dianne is a 50yo woman admitted on 02/12 for cellulitis on her left foot. She has past medical history of MRSA, anemia, endometrial cancer, and chronic abdominal pain due to poor surgical outcomes from hernia. She is on IV dapto for MRSA coverage, with wound and blood cx pending. 1) Cellulitis on the left foot - erythema on dorsum of left foot above toes 2-4, open ulcer, erythematous medial/front francis - due to hx of MRSA started on vancomycin in ED, discontinued - started IV daptomycin, plan to transition to oral tomorrow - continue to monitor wound for signs of improvement 2) Chronic abdominal pain - abdominal pain 2/2 hx of complicated hernia surgery - continue home pain med of Suboxone 2.5 tab daily Code Status: FULL CODE FEN: Regular diet DVT Prophylaxis: ordered SCDs, unknown enoxaparin allergy Admission and Anticipated Discharge Date Admission Date: February 12, 2021 Supervising Attestation I personally examined the patient and verified all baugh points of history and exam, discussed case, and agree with decision making with Marco Antonio Pierson. Feels like foot is doing better. No new complaints otherwise. Discussed plan of care. Vitals noted, in general she is awake and alert pleasant no distress. HEENT normocephalic atraumatic mucous membranes moist. Breathing unlabored no accessory muscle use good effort. Skin shows a degree of erythema and ulceration on the extensor surface of her left foot around toes 2 and 3 predominantly, no fluctuance no exudate, small amount of tracking erythema, the ipsilateral leg is more edematous, but there is no erythema or tenderness there. Foot cellulitisgiven that she failed cephalexin, seems highly likely this is resistant such as MRSAimproving on MRSA level coveragegiven that she was sick enough to be admitted to the hospital, failed outpatient treatment, and has a degree of immune compromisewe will continue daptomycin at least into tomorrowand then if there is ongoing improvement, can look at home on a somewhat longer course of p.o. antibiotics. Definitely will need close outpatient follow-up through healing. Subjective Dianne is doing well today. She slept well and is tolerating her meals. The only change from her baseline that she notes is increased tiredness and fatigue. She rated her pain a 6/10 prior to receiving her pain medication. She has chronic abdominal pain due to past surgeries and her recently diagnosed endometrial cancer. Her foot feels tight due to the swelling and she worries that the red rash has spread to her 4th toe. She believes her foot is looking better today as the blisters have gone down. She notes that the pain radiates laterally up to her left hip. Lastly, she described some new onset dyspnea on exertion than began about a week ago. She gets short of breath when walking up the hill from her mailbox back to her home, no associated chest pain. Review of Systems Constitutional: + chills (associated with recent sunburn) and + fatigue; no fever, no weight loss and no increased appetite Respiratory: + cough (new since coming to [facility]) and + dyspnea on exertion (for the past week) Cardiovascular: + dyspnea on exertion (see above); no chest pain and no chest pain with activity Gastrointestinal: + abdominal pain (chronic) and + diarrhea/loose stools (since 02/12); no nausea and no vomiting Genitourinary: + urinary urgency and + urinary incontinence; no dysuria, no urinary frequency and no hematuria Musculoskeletal: feels at her baseline, no new weakness or myalgia Integumentary: + rash and + skin swelling (left foot and ankle) Neurologic: no headache(s) Physical Exam Constitutional: well developed, well nourished and + obese; no acute distress Respiratory: normal respiratory effort, lungs clear to auscultation Cardiovascular: Rate/Rhythm: regular rate and regular rhythm Heart Sounds: normal S1 and normal S2 Gastrointestinal (Abdomen): Inspection/Auscultation: normal bowel sounds and + abdominal surgical scar (vertical scar down pannus) Percussion/Palpation: + abdomen tender Skin: + rash (erythematous and blistering top of left toes 1-4) and + erythema (L foot, above toes, medial/front francis) Psychiatric: A+Ox3, euthymic affect Results & Data ([facility]) Vital Signs (Past 12 Hours) Vital Signs Temp Pulse Pulse Resp BP Pulse Ox 02/13/21 07:55 36.4 C L 66 17 153/130 H 97 02/12/21 22:57 36.8 C 77 17 135/67 93
--- NOTE | 2021-02-13 17:15 | Billing Data ---
Date of Service February 13, 2021 Coding Level of Care Code 02784 Subseq Obs Care Lvl 3
[2021-02-13] MEDS: traZODone HCL 50 MG TAB PO SCH (21:13)
[2021-02-13] MEDS: DAPTOmycin 350 MG in SYRINGE 0 ML IV SCH (21:15)
[2021-02-14 06:36] LABS: Hematocrit (blood only) 38.1 % (37-47); Hemoglobin 11.8 g/dL (12.0-16.0); Mean Corpuscular Hemoglobin 27.7 pg (25-34); Mean Corpuscular Volume 89.4 fL (80-100); Platelet Count 196 K/uL (130-400); RDW Coefficient of Variation 15.9 % (11.5-14.5); RDW Standard Deviation 52.2 fL (36.4-46.3); Red Blood Count 4.26 M/uL (4.2-5.4); White Blood Count 4.94 K/uL (4.8-10.8)
[2021-02-14] MEDS: DICLOFENAC SODIUM 25 MG TABDR PO SCH (07:56)
[2021-02-14] MEDS: GABAPENTIN 300 MG CAP PO SCH ×2 (07:56→12:02)
[2021-02-14] MEDS: VENLAFAXINE HCL XR 75 MG CAPXR PO SCH (07:56)
[2021-02-14] MEDS: AMITRIPTYLINE HCL 100 MG TAB PO SCH (07:57)
[2021-02-14] MEDS: TRIAMCINOLONE ACET 0.1% CR 15 GM TUBE TOP SCH (07:58)
[2021-02-14] MEDS ORDERED: CYANOCOBALAMIN 1000 MCG/ML VIAL IM SCH (09:00)
[2021-02-14] MEDS ORDERED: MULTIVITAMIN CHEWABLE TAB PO SCH (09:00)
[2021-02-14] MEDS: BUPRENORPHINE/NALOXONE 8/2 MG TAB SL SCH (09:12)
--- NOTE | 2021-02-14 10:21 | Discharge Summary ---
Date of Service February 14, 2021 Admission HPI Per Admitting Provider This is a 50-year-old female with recent diagnosis of endometrial cancer that presents today with a left foot wound. Patient is pleasant a good historian. Patient tells me that she dropped a garbage can on her left foot proximally 4 days ago. She tells me that this was not particularly heavy and there was no apparent injury at first. There was no associated pain. A small bruise formed on the dorsum aspect between the second and third toes. This eventually formed some small blisters and a mild aching pain. Patient went to her primary care physician and was started on Keflex which she continued for the next 2 days. However, the swelling worsened and started to involve the medial aspect of both toes. She saw her primary care physician today and was sent for an x-ray and subsequent ER evaluation. At the time my evaluation, patient was denying any pain in this extremity, she does tell me she is on chronic pain medications and feels that these were effective for this as well. She has had no systemic symptoms such as fever or chills. She does have nausea but this is chronic. Of note, she has a history of previous MRSA and is concerned that this may be a recurrence of this. Admission Exam Per Admitting Provider Constitutional: + obese, cooperative and comfortable; no acute distress Neck: trachea midline, no thyromegaly Respiratory: normal respiratory effort Auscultation: lungs clear to auscultation bilaterally; no crackles, no rales, no rhonchi and no wheezes Cardiovascular: Rate/Rhythm: regular rate and regular rhythm Heart Sounds: normal S1 and normal S2; no murmur Gastrointestinal (Abdomen): Inspection/Auscultation: abdomen normal to inspection Percussion/Palpation: abdomen soft; abdomen nontender, no guarding, abdomen not rigid and no hepatosplenomegaly Musculoskeletal: Left foot, warm and well-perfused with good pulses. Superficial thickening and blistering with some discoloration of the dorsum with slight tracking into the second and third toes. Small amount of serous fluid for 1 blister, cultured with help from nurse. Possible minimal erythema further of the foot, no blistering or tenderness at this site. Skin: no rashes, warm and dry Principal Diagnosis left foot wound / cellulitis Discharge Exam Constitutional WD/WN, vitals as above Respiratory normal respiratory effort, lungs clear to auscultation Cardiovascular RRR, no murmur, no edema Skin Some improvement in erythema of left dorsal foot. Wound appears to be unchanged from yesterday Psychiatric A+Ox3, euthymic affect Discharge Data Allergies Allergy/AdvReac Type Severity Reaction Status Date / Time Bactrim Allergy Severe PASS Verified 10/27/16 13:07 OUT,HIVES,SOB Iodinated Contrast Media Allergy Severe CONTRAST- Verified 02/12/21 11:59 ITCHING Sulfa (Sulfonamide Allergy Severe Pass Out, Verified 02/12/21 11:59 Antibiotics) Stops breathing sulfamethoxazole Allergy Severe PASS Verified 02/12/21 11:59 OUT,HIVES,SOB trimethoprim Allergy Severe PASS Verified 02/12/21 11:59 OUT,HIVES,SOB gadobutrol Allergy Intermediate HIVES, Verified 02/12/21 11:59 ITCHING hydrocodone Allergy Intermediate STOPS Verified 02/12/21 11:59 BREATHING, see updated comment from 10/22/16... pregabalin Allergy Intermediate HIVES Verified 02/12/21 11:59 iodine Allergy Mild ITCHING Verified 02/12/21 11:59 enoxaparin Allergy Unknown UNKNOWN Verified 02/12/21 11:59 acetaminophen [From Percocet] Allergy Verified 02/12/21 11:59 oxycodone [From Percocet] Allergy Verified 02/12/21 11:59 Consultations 02/12/21 12:01 ED Decision to Admit Stat Hospital Course (1) Infection of left foot: 50 yo F Hx chronic iron deficiency anemia, gastric bypass, chronic pain on daily Suboxone therapy, scalp melanoma s/p deep excision, anxiety, depression, MRSA infection, recently diagnosed endometrial cancer admitted 02/12 for cellulitis / wound on her left foot. 1) Cellulitis / wound of the left foot: - Admitted for IV antibiotics due to unresponsive to Keflex outpatient. - XR showed diffuse soft tissue edema. - With improvement in cellulitis / wound and LE swelling with IV daptomycin x2 days. Still with some erythema and wound. - Will transition to doxycycline 100mg PO BID for 8 more days to complete a 10 day course with MRSA coverage given prior Hx MRSA infection. - Follow up outpatient prior to completion of antibiotics; consider repeat imaging / MRI foot if not improving. 2) Dyspnea on exertion: - Yesterday patient peripherally mentioned intermittent dyspnea on exertion. - Patient has not had complaints of chest pain or SOB this admission, nor has she required supplemental O2. - PCP follow up for outpatient workup of ZHU. 3) Chronic abdominal pain: - Abdominal pain 2/2 hx of complicated hernia surgery. - Continue home pain medications (Suboxone). 4) HTN: - Of note, patient had several elevated BP this admission, in general average BP 140s/80s however BP x1 150/100. - Outpatient monitoring recommended. Total Time Total Time Spent Total Time Spent (In Minutes): <30 Discharge Plan Discharge Items Patient Disposition: Home - Self-Care Reason For Visit: CELLULITIS Discharge Diagnosis: left foot cellulitis Activity: Per Instructions section Non-emergency contact: Primary Care Provider Call non-emergency contact if: you have any medication questions, your symptoms worsen and your temperature is above 101 Follow-up/Referrals: Flaquita Freeman DO [Resident] - 02/17/21 9:10 am (Appointment scheduled with Dr. Chou -PCP. (Dr. Fenton had no availability within 7 days of discharge.)) Diet: Regular Addtl Attending Provider Instructions: You were admitted to the hospital on 02/12/21 for an infection on your left foot. During your stay in the hospital we have been giving you IV antibiotics and we have seen some improvement of your symptoms. We will send you home on one new medication. It is an antibiotic that you will take twice a day by mouth for 8 days. Even if your symptoms improve, you need to continue to take this medicine until the course is complete. This medication has the side effect of making your skin more sensitive to the sun, so be sure to wear sunscreen and a hat when spending time outdoors. To reduce the chance of stomach upset, take this medicine with meals and water. You should continue to take your home medications as before. It will be important for you to be followed closely by a doctor to make sure your symptoms are improving. We will schedule a follow-up visit with one of our resident physicians in the Family Medicine clinic for you. If you do not hear from their office by , please call [phone] to schedule a hospital follow up. New Medication: Sent to [facility] DOXYCYCLINE 100 mg orally TWICE a day for 8 DAYS Pending Studies at Discharge: No Stand-Alone Forms: My [employer], Smoking Cessation Medications and SC Order Prescriptions: New doxycycline hyclate 100 mg capsule 100 mg PO BID 8 Days Qty: 16 RF: 0 Continued venlafaxine 75 mg capsule,extended release 24hr 75 mg PO QAM RF: 0 gabapentin 600 mg tablet 900 mg PO QID RF: 0 ondansetron HCl 8 mg tablet 8 mg PO QID PRN (Reason: Nausea) RF: 0 triamcinolone acetonide 0.1 % cream 1 applic topical BID RF: 0 clotrimazole-betamethasone 1-0.05 % cream 1 applic topical QAM RF: 0 diclofenac sodium 50 mg tablet,delayed release (DR/EC) 50 mg PO BIDM RF: 0 amitriptyline 100 mg tablet 100 mg PO QAM RF: 0 B-12 Compliance 1,000 mcg/mL Kit 1,000 mcg IM WK RF: 0 buprenorphine-naloxone 8-2 mg tablet, sublingual 2.5 tab SUBLINGUAL DAILY RF: 0 trazodone 50 mg tablet 50 mg PO HS RF: 0 Iron Infusion 1 dose IV DIRECTED RF: 0 Discontinued cephalexin 500 mg capsule 500 mg PO TID RF: 0 Discharge Orders: Discharge Order (Routine); Ordered 02/14/21 Ordered By: Flaquita Freeman Admission Data Admit Date/Time: 02/12/21 12:49 Attending Provider: Prakash Torres Admit Provider: Geovanny Dunn Primary Care Provider: Caitlyn Sharif Other Providers: Geovanny Dunn Other Interventions: Discharge Summary Assessment (RN) Last Done: 02/14/21 10:56 Supervising Physician Co-Signing Physician Notes I personally examined the patient and verified all baugh points of history and exam, discussed case, and agree with decision making with Dr Freeman Foot feels better, feels up to going home. No new complaints otherwise.. Vitals noted, in general she is awake and alert pleasant no distress. HEENT normocephalic atraumatic mucous membranes moist. Breathing unlabored no accessory muscle use good effort. Skin shows now resolved erythema, and ongoing but healing ulceration on the extensor surface of her left foot around toes 2 and 3 predominantly, no fluctuance no exudate Foot cellulitisgiven that she failed cephalexin, seems highly likely this is resistant such as MRSAimproving on MRSA level coverage (daptomycin)but now appears stable for homewill finish course of therapy with doxycycline. Close outpatient follow-up. Discussed risks benefits side effects of doxy, discussed ongoing follow-up to resolution. Stable for home. Resident Activity Tracking Resident Involvement: Resident Care Provided Care Provided: Adult [facility]
--- NOTE | 2021-02-14 19:25 | Billing Data ---
Date of Service February 14, 2021 Coding Level of Care Code 95689 OBS Care - Discharge
== END 2021-02-14 12:47 | disposition home or self-care (01) ==
LOC: ED 10:28 → 3W 10:28 → SUATTDRO 12:49 → 3W 15:36

== ENCOUNTER 2021-06-25 15:50 | Inpatient (IN) ==
--- NOTE | 2021-06-25 16:41 | XRay Report ---
XR chest 1V portable CLINICAL HISTORY: Shortness of breath. COMPARISON STUDY: Chest CT May 24, 2021. Chest radiograph May 31, 2021. FINDINGS: Exam is compromised by motion artifact. Left subclavian [id number] is in place. No pneum othorax is identified. Multifocal bilateral airspace opacities are noted. Cardiomediastinal silhouett e is stable. IMPRESSION: 1. Exam compromised by motion artifact. 2. Interval development of nodular bilateral airspace opacities. Given rapid development, the finding s favor an infectious process. However, radiographic follow-up to ensure resolution is recommended. ACT 112: Negative or not required by law. Electronically signed by: Raul Daniels M.D. 06/25/2021 4:40 PM
[2021-06-25 16:55] LABS: Mean Corpuscular Hgb Conc 33.2 g/dL (32-36)
[2021-06-25 17:11] LABS: Alanine Aminotransferase 18 U/L (12-78); Albumin Level 1.8 gm/dl (3.4-5.0); Aspartate Aminotransferase 27 U/L (15-37); BUN Creatinine Ratio 24.2 (10-20); Blood Urea Nitrogen 23 mg/dl (7-18); Calcium 7.6 mg/dl (8.5-10.1); Carbon Dioxide 25 mmol/L (21-32); Chloride 103 mmol/L (98-107); Creatinine Clr Calc Pharmacy 92.6 ml/min; Est GFR (African American) 80.9 ml/min; Est GFR (Non-African American) 69.8 ml/min; Glucose 91 mg/dl (70-99); Magnesium 1.5 mg/dl (1.8-2.4); Potassium 3.3 mmol/L (3.5-5.1); Sodium 133 mmol/L (136-145)
[2021-06-25 17:16] LABS: Albumin Globulin Ratio 0.4 (0.9-2); Alkaline Phosphatase 76 U/L (45-117); Globulin 4.8 gm/dl (2.5-4.0); INR 1.5 (0.9-1.1); Partial Thromboplastin Ratio 1.9; Prothrombin Time 14.6 Seconds (9.0-12.0); Total Protein 6.6 gm/dl (6.4-8.2); Troponin I < 0.015 ng/ml (0-0.045)
[2021-06-25 17:32] LABS: Hemoglobin 7.3 g/dL (12.0-16.0); Mean Corpuscular Hemoglobin 29.2 pg (25-34); RDW Coefficient of Variation 19.6 % (11.5-14.5); RDW Standard Deviation 62.8 fL (36.4-46.3)
[2021-06-25 18:06] LABS: Platelet Count 45 K/uL (130-400)
[2021-06-25] MEDS ORDERED: SODIUM CHLORIDE 0.9% 250 ML IV PRN (18:06)
[2021-06-25] MEDS ORDERED: DOXYCYCLINE HYCLATE 100 MG in DEXTROSE 5% 100 ML IV STA (18:11)
[2021-06-25] MEDS ORDERED: CEFEPIME 2,000 MG/20 ML VIAL IV STA (18:11)
[2021-06-25 18:31] LABS: Basophils # (auto) 0.02 K/uL (0-0.2); Basophils % (auto) 0.6 %; Immature Granulocytes # (auto) 0.04 K/uL (0.00-0.02); Immature Granulocytes % (auto) 1.2 %; Lymphocytes # (auto) 0.89 K/uL (1.2-3.4); Lymphocytes % (auto) 26.2 %; Monocytes # (auto) 0.32 K/uL (0.11-0.59); Monocytes % (auto) 9.4 %; Neutrophils # (auto) 2.13 K/uL (1.4-6.5); Neutrophils % (auto) 62.6 %; Platelet Estimate Decreased (Normal); RBC Morphology Unremarkable
--- NOTE | 2021-06-25 18:36 | Emergency Department Note ---
Impression & Plan Pneumonia, Severe anemia, Hemoptysis, Uterine malignant neoplasm, COVID-19 ED Provider Note INFORMANT: Patient ED PROVIDER(S): Manjit Castellanos MD CHIEF COMPLAINT: Shortness of breath PLAN: Disposition: Admitted Condition: Guarded Outpatient prescription management: none Referral: None MEDICAL DECISION MAKING: Patient presented with the above complaint. Chest x-ray was performed and she has findings concerning for pneumonia. Her CBC shows a marked anemia which has changed significantly since her most recent blood draw. The patient and I discussed blood transfusion given her symptoms. She was consented for 2 units of packed red blood cells. The patient was started on IV cefepime and doxycycline for treatment of pneumonia. ECG did not show any acute findings. Further management in the hospital will be necessary. Covid testing that was performed did return positive. Patient was informed. Triage Nursing notes reviewed and agree them. Vital Signs: reviewed and remarkable for no significant abnormalities Differential diagnosis: Reactive airway disease, pneumonia, pneumothorax, COPD, CHF, infections, cardiac ischemia, pulmonary embolism, musculoskeletal, gastrointestinal, as well as other pathologies. Diagnostics interpreted by me: ECG: Twelve-lead ECG reveals normal sinus rhythm at 76 bpm. Low voltage QRS. Inferior Q waves present. No ST elevation. No PVCs. Cardiac Monitoring: Cardiac monitoring ordered by me: The patient was placed on continuous cardiac monitoring and observed. It revealed a normal sinus rhythm at 71 beats per minute without ectopy or evidence of dysrhythmia. Imaging studies: Chest x-ray concerning for bilateral pneumonia. HPI: The patient is a 50 year old female who presents to the Emergency Room with complaints of shortness of breath and dyspnea. This started over the last 2 weeks and is worsening especially over the last week. The patient also notes the following associated symptoms, productive cough of bloody sputum, continued vaginal bleeding due to her known uterine cancer, fatigue, shortness of breath. The patient has been prescribed antibiotics which did not help for relieving factors. Current pain is rated as 0/10. Patient also notes has been having occasional nosebleeds. Pt denies LOC, headache, fevers, chills, diaphoresis, visual changes, neck pain, chest pain, nausea, vomiting, abdominal pain, back pain, melena, hematochezia, urinary symptoms, numbness, weakness, lymphadenopathy, rash, or other complaints. ROS: See above HPI for pertinent positives & negatives. A total of 10 systems reviewed and were otherwise negative. PAST MEDICAL HISTORY:See Below , metastatic uterine cancer PAST SURGICAL HISTORY:See Below, Mediport FAMILY HISTORY:See Below SOCIAL HISTORY:See Below, former smoker HOME MEDICATIONS:See Below ALLERGIES:See Below VITALS:See Below PHYSICAL EXAMINATION: GENERAL: Awake, alert, mildly ill-appearing, in no distress HENT: Normocephalic, atraumatic. Oropharynx unremarkable. EYES: Pale conjunctiva. Sclera non-icteric. NECK: Inspection normal. Non-tender. Supple. No nuchal rigidity. FROM. No masses. RESPIRATORY: No wheezes. Scattered rales. Moderate cough. Mildly increased respiratory effort. CARDIAC: Normal rate. Normal rhythm. No murmurs. No rubs. Extremities warm and well perfused. Pulses equal. No JVD. GI: Soft, non-distended. No tenderness to palpation. No rebound or guarding. No masses. RECTAL: Deferred. MUSCULOSKELETAL: Atraumatic. Chest examination reveals no tenderness. Mediport in the left upper chest. The back is symmetrical on inspection without obvious abnormality. There is no CVA tenderness to palpation. No joint edema. LOWER EXTREMITIES: Calves are equal size bilaterally and non-tender. 1+ edema. No discoloration. NEURO: Normal sensorium. No sensory or motor deficits noted. SKIN: No rash or jaundice noted. CRITICAL CARE: I have personally spent greater than 35 minutes of critical care time in the direct management of this patient. This includes bedside care, interpretation of diagnostic studies, and testing, discussion with consultants, patient, and other required patient management activities. These minutes are in excess of all separately billable procedures. 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; surgery, chemo + radiation Hx SBO Iron deficiency anemia intermittent iron infusions PRN Morbid obesity Scalp lesion Hx melanoma (scalp) approximately 1 year ago -- treated surgically Surgical History Gastric bypass status for obesity H/O abdominal surgery Muscle stretching, tumor removed, mesh in place; Multiple complex abd surgeries History of colonoscopy History of esophagogastroduodenoscopy (EGD) History of placement of ear tubes History of vascular access device removed Hx of cholecystectomy Hx of tonsillectomy Port-A-Cath in place (03/28/21) nsertion of Access Port Left Cephalic Vein Dr. Gilliam 03/28/2021 Family History Sister , 54 Ovarian cancer Diabetes Breast cancer Stroke Mother , in her 60s Ovarian cancer Diabetes Heart problem "Had a bad heart" Breast cancer Hypertension Father Myocardial infarction Brother No problems noted. Sister No problems noted. Other No family history of adverse response to anesthesia No pertinent family history Denies family history of Colorectal cancer Uterine cancer Social History Smoking Status: Former smoker Tobacco Type: Cigarettes Cigarettes Per Day: 1 PPD/week x 2 to 3 years;; Second Hand Exposure: Yes (sister smokes); Hx Alcohol Use: No Hx Substance Use: No Preferred Language: [place] Communication Ability: Effective Visual Impairment: No Limitations Hearing Ability: Normal Academic Support Specialist Required: No Beliefs That Will Affect Care: None marital status: Single Current Living Situation: Family Current Living Situation Comment: Raising her 4 great nephews ages 2-9 & her 82 year old father lives withher current occupational status: disabled Feels Safe at Home: Yes caffeine: Yes (Energy drinks 1-4 each day) during the past year weight has: remained stable Allergies Allergies Allergy/AdvReac Type Severity Reaction Status Date / Time Iodinated Contrast Media Allergy Severe Contrast- Verified 06/25/21 18:17 itching Sulfa (Sulfonamide Allergy Severe Syncope, Verified 06/25/21 18:17 Antibiotics) stops breathing sulfamethoxazole Allergy Severe Syncope, Verified 06/25/21 18:17 hives, dyspnea trimethoprim Allergy Severe Syncope, Verified 06/25/21 18:17 hives, dyspnea gadobutrol Allergy Intermediate Hives, Verified 06/25/21 18:17 itching hydrocodone Allergy Intermediate Stops Verified 06/25/21 18:17 breathing pregabalin Allergy Intermediate Hives Verified 06/25/21 18:17 iodine Allergy Mild Itching Verified 06/25/21 18:17 acetaminophen [From Percocet] Allergy Unknown PER PT Verified 06/25/21 18:17 "CAN'T TAKE". enoxaparin Allergy Unknown UNKNOWN Verified 06/25/21 18:17 oxycodone [From Percocet] Allergy Unknown Unknown Verified 06/25/21 18:17 Home Meds Home Medications Medication Instructions Recorded Confirmed amitriptyline 100 mg tablet 100 mg PO HS 03/27/19 06/25/21 gabapentin 600 mg tablet 900 mg PO QID 03/27/19 06/25/21 ondansetron HCl 8 mg tablet 8 mg PO Q8 PRN 03/27/19 06/25/21 venlafaxine 75 mg capsule,extended 75 mg PO QAM 03/27/19 06/25/21 release 24 hr Iron Infusion 1 dose IV DIRECTED PRN 02/12/21 06/25/21 buprenorphine 8 mg-naloxone 2 mg 2.5 tab SUBLINGUAL DAILY 02/12/21 06/25/21 sublingual tablet trazodone 50 mg tablet 50 mg PO HS 02/12/21 06/25/21 dexamethasone 4 mg tablet 4 mg PO DIRECTED tab 03/16/21 06/25/21 diclofenac sodium 50 mg 50 mg PO TID tab 03/16/21 06/25/21 tablet,delayed release prochlorperazine maleate 10 mg 10 mg PO Q6H PRN 03/16/21 06/25/21 tablet (Compazine) carboplatin 1 dose IV DIRECTED 03/27/21 06/25/21 paclitaxel 6 mg/mL 6 mg IV DIRECTED 03/27/21 06/25/21 concentrate,intravenous cyanocobalamin (vitamin B-12) 1,000 mcg IM MONTHLY 06/25/21 06/25/21 1,000 mcg/mL injection solution Results & Data (ED) Vital Signs Vital Signs - 24 hr 06/25/21 15:56 06/25/21 15:59 06/25/21 18:05 Temperature 36.5 C Temperature Source Temporal Artery Scan Pulse Rate 84 Pulse Rate [Apical] 74 Pulse Rhythm Regular Pulse Strength Normal Respiratory Rate 20 18 Respiratory Effort / Characteristics Non-Labored Spontaneous Non-Labored Respiratory Depth Normal Normal Blood Pressure 109/73 Blood Pressure [Right Arm] 100/68 Blood Pressure Mean 85 Blood Pressure Mean [Right Arm] 78 Blood Pressure Position Sitting Pulse Oximetry 94 95 Oxygen Delivery Method Room Air Room Air Room Air Sepsis Recent Fever Within 48 Hours No Sepsis New/Unexplained Change in Mental Status N/A Sepsis Action Taken by Nursing No Action Required Laboratory Data Result diagrams: 06/25/21 16:44 06/25/21 16:44 Lab Results 06/25/21 06/25/21 06/25/21 Range/Units 16:40 16:40 16:44 WBC 3.40 L (4.8-10.8) K/uL RBC 2.50 L (4.2-5.4) M/uL Hgb 7.3 L (12.0-16.0) g/dL Hct 22.0 L (37-47) % MCV 88.0 (80-100) fL MCH 29.2 (25-34) pg MCHC 33.2 (32-36) g/dL RDW Std Deviation 62.8 H (36.4-46.3) fL RDW Coeff of Josue 19.6 H (11.5-14.5) % Plt Count 45 L (130-400) K/uL Immature Gran % (Auto) 1.2 % Neut % (Auto) 62.6 % Lymph % (Auto) 26.2 % [place] % (Auto) 9.4 % Eos % (Auto) 0.0 % Baso % (Auto) 0.6 % Neut # (Auto) 2.13 (1.4-6.5) K/uL Lymph # (Auto) 0.89 L (1.2-3.4) K/uL [place] # (Auto) 0.32 (0.11-0.59) K/uL Eos # (Auto) 0.00 (0-0.5) K/uL Baso # (Auto) 0.02 (0-0.2) K/uL Immature Gran # (Auto) 0.04 H (0.00-0.02) K/uL Platelet Estimate Decreased L (Normal) RBC Morphology Unremarkable PT (9.0-12.0) Seconds INR (0.9-1.1) APTT (21.0-31.0) Seconds PTT Ratio Sodium (136-145) mmol/L Potassium (3.5-5.1) mmol/L Chloride (98-107) mmol/L Carbon Dioxide (21-32) mmol/L Anion Gap (3-11) BUN (7-18) mg/dl Creatinine (0.6-1.2) mg/dl Est Cr Clr Drug Dosing ml/min Est GFR ( Amer) ml/min Est GFR (Non-Af Amer) ml/min BUN/Creatinine Ratio (10-20) Glucose (70-99) mg/dl Calcium (8.5-10.1) mg/dl Magnesium (1.8-2.4) mg/dl Total Bilirubin (0.2-1) mg/dl AST (15-37) U/L ALT (12-78) U/L Alkaline Phosphatase (45-117) U/L Troponin I (0-0.045) ng/ml C-Reactive Protein (0-0.29) mg/dl Total Protein (6.4-8.2) gm/dl Albumin (3.4-5.0) gm/dl Globulin (2.5-4.0) gm/dl Albumin/Globulin Ratio (0.9-2) Procalcitonin (0-0.5) ng/ml COVID-19 Eval Order Covid19 at [facility] SARS-CoV-2 (PCR) POSITIVE A* (Negative) Blood Type Antibody Screen Crossmatch 06/25/21 06/25/21 06/25/21 Range/Units 16:44 16:44 16:44 WBC (4.8-10.8) K/uL RBC (4.2-5.4) M/uL Hgb (12.0-16.0) g/dL Hct (37-47) % MCV (80-100) fL MCH (25-34) pg MCHC (32-36) g/dL RDW Std Deviation (36.4-46.3) fL RDW Coeff of Josue (11.5-14.5) % Plt Count (130-400) K/uL Immature Gran % (Auto) % Neut % (Auto) % Lymph % (Auto) % [place] % (Auto) % Eos % (Auto) % Baso % (Auto) % Neut # (Auto) (1.4-6.5) K/uL Lymph # (Auto) (1.2-3.4) K/uL [place] # (Auto) (0.11-0.59) K/uL Eos # (Auto) (0-0.5) K/uL Baso # (Auto) (0-0.2) K/uL Immature Gran # (Auto) (0.00-0.02) K/uL Platelet Estimate (Normal) RBC Morphology PT 14.6 H (9.0-12.0) Seconds INR 1.5 H (0.9-1.1) APTT 49.0 H* (21.0-31.0) Seconds PTT Ratio 1.9 Sodium 133 L (136-145) mmol/L Potassium 3.3 L (3.5-5.1) mmol/L Chloride 103 (98-107) mmol/L Carbon Dioxide 25 (21-32) mmol/L Anion Gap 5.0 (3-11) BUN 23 H (7-18) mg/dl Creatinine 0.95 (0.6-1.2) mg/dl Est Cr Clr Drug Dosing 92.6 ml/min Est GFR ( Amer) 80.9 ml/min Est GFR (Non-Af Amer) 69.8 ml/min BUN/Creatinine Ratio 24.2 H (10-20) Glucose 91 (70-99) mg/dl Calcium 7.6 L (8.5-10.1) mg/dl Magnesium 1.5 L (1.8-2.4) mg/dl Total Bilirubin 1.0 (0.2-1) mg/dl AST 27 (15-37) U/L ALT 18 (12-78) U/L Alkaline Phosphatase 76 (45-117) U/L Troponin I < 0.015 (0-0.045) ng/ml C-Reactive Protein 17.00 H (0-0.29) mg/dl Total Protein 6.6 (6.4-8.2) gm/dl Albumin 1.8 L (3.4-5.0) gm/dl Globulin 4.8 H (2.5-4.0) gm/dl Albumin/Globulin Ratio 0.4 L (0.9-2) Procalcitonin 0.93 H (0-0.5) ng/ml COVID-19 Eval Order SARS-CoV-2 (PCR) (Negative) Blood Type Antibody Screen Crossmatch 06/25/21 Range/Units 18:44 WBC (4.8-10.8) K/uL RBC (4.2-5.4) M/uL Hgb (12.0-16.0) g/dL Hct (37-47) % MCV (80-100) fL MCH (25-34) pg MCHC (32-36) g/dL RDW Std Deviation (36.4-46.3) fL RDW Coeff of Josue (11.5-14.5) % Plt Count (130-400) K/uL Immature Gran % (Auto) % Neut % (Auto) % Lymph % (Auto) % [place] % (Auto) % Eos % (Auto) % Baso % (Auto) % Neut # (Auto) (1.4-6.5) K/uL Lymph # (Auto) (1.2-3.4) K/uL [place] # (Auto) (0.11-0.59) K/uL Eos # (Auto) (0-0.5) K/uL Baso # (Auto) (0-0.2) K/uL Immature Gran # (Auto) (0.00-0.02) K/uL Platelet Estimate (Normal) RBC Morphology PT (9.0-12.0) Seconds INR (0.9-1.1) APTT (21.0-31.0) Seconds PTT Ratio Sodium (136-145) mmol/L Potassium (3.5-5.1) mmol/L Chloride (98-107) mmol/L Carbon Dioxide (21-32) mmol/L Anion Gap (3-11) BUN (7-18) mg/dl Creatinine (0.6-1.2) mg/dl Est Cr Clr Drug Dosing ml/min Est GFR ( Amer) ml/min Est GFR (Non-Af Amer) ml/min BUN/Creatinine Ratio (10-20) Glucose (70-99) mg/dl Calcium (8.5-10.1) mg/dl Magnesium (1.8-2.4) mg/dl Total Bilirubin (0.2-1) mg/dl AST (15-37) U/L ALT (12-78) U/L Alkaline Phosphatase (45-117) U/L Troponin I (0-0.045) ng/ml C-Reactive Protein (0-0.29) mg/dl Total Protein (6.4-8.2) gm/dl Albumin (3.4-5.0) gm/dl Globulin (2.5-4.0) gm/dl Albumin/Globulin Ratio (0.9-2) Procalcitonin (0-0.5) ng/ml COVID-19 Eval Order SARS-CoV-2 (PCR) (Negative) Blood Type O Positive Antibody Screen NEGATIVE Crossmatch See Detail Administered Medications Albuterol (Albut/Ipratrop 3mg/0.5mg Neb 3 Ml Vial) 3 ml NEB QIDR [place] Stop: 07/25/21 22:29 Last Admin: 06/25/21 23:01 Dose: Not Given Documented by: [id number] Discontinued Medications Dexamethasone (Dexamethasone Sod Inj 4 Mg/Ml Vial) Confirm Administered Dose 12 mg .ROUTE .STK-MED ONE Stop: 06/25/21 20:14 Last Admin: 06/25/21 20:20 Dose: 6 mg Documented by: [id number] Cefepime HCl (Maxipime) 2,000 mg in 20 mls @ 5 mls/min IV NOW STA; Protocol Stop: 06/25/21 18:14 Last Admin: 06/25/21 18:47 Dose: 5 mls/min Documented by: [id number] Doxycycline Hyclate 100 mg/ (Dextrose) 110 mls @ 50 mls/hr IV NOW STA Stop: 06/25/21 20:22 Last Admin: 06/25/21 20:23 Dose: Not Given Documented by: [id number] Dexamethasone 6 mg/ Syringe 1.5 mls @ 1 mls/min IV NOW STA Stop: 06/25/21 20:10 Last Admin: 06/25/21 20:21 Dose: Not Given Documented by: [id number] Magnesium Oxide (Magnesium Oxide 400 Mg Tab) 400 mg PO ONE STA Stop: 06/25/21 20:05 Last Admin: 06/25/21 20:20 Dose: 400 mg Documented by: [id number] Potassium Chloride (Potassium Chloride Crtab 20 Meq Tabcr) 40 meq PO NOW STA Stop: 06/25/21 20:04 Last Admin: 06/25/21 20:20 Dose: 40 meq Documented by: [id number] Imaging Data Radiologist's Impression: Chest X-Ray 06/25/21 16:00 XR chest 1V portable CLINICAL HISTORY: Shortness of breath. COMPARISON STUDY: Chest CT May 24, 2021. Chest radiograph May 31, 2021. FINDINGS: Exam is compromised by motion artifact. Left subclavian [id number] is in place. No pneumothorax is identified. Multifocal bilateral airspace opacities are noted. Cardiomediastinal silhouette is stable. IMPRESSION: 1. Exam compromised by motion artifact. 2. Interval development of nodular bilateral airspace opacities. Given rapid development, the findings favor an infectious process. However, radiographic follow-up to ensure resolution is recommended. ACT 112: Negative or not required by law. Electronically signed by: Raul Daniels M.D. 06/25/2021 4:40 PM Discharge Plan Visit Data Chief Complaint: Shortness of Breath/Dyspnea Stated Complaint: PNEUMONIA x 2wks,COUGHING BLOOD,SOB CA PATIENT ED Provider: Manjit Castellanos Discharge Problem: Pneumonia, Severe anemia, Hemoptysis, Uterine malignant neoplasm, COVID-19 Discharge Instructions Interventions: ED Discharge Assessment Last Done: 06/25/21 21:45
--- NOTE | 2021-06-25 19:19 | History & Physical Report ---
Date of Service June 25, 2021 Assessment & Plan (1) Pneumonia due to COVID-19 virus: Plan: Given elevated CRP (although not necessarily due to COVID with her cancer diagnosis), CXR findings and borderline hypoxia (currently 93% on room air) will start on dexamethasone 6mg IV daily Aim O2 sats > 90% (2) Bacterial pneumonia: Plan: Procalcitonin positive. Patient is immunosuppressed therefore will cover with cefepime and doxycycline. Follow up sputum and blood cultures. (3) Antineoplastic chemotherapy induced pancytopenia: Plan: Discussed with Dr Bains. Will start Neupogen 480mg SQ daily for 3 days and trend CBC 2 units packed RBCs given hemoptysis and continued intermittent vaginal bleeding Repeat CBC in AM (4) Hemoptysis: Plan: Sputum culture, Secondary to pneumonia as above. If significant or getting worse consider pulmonology evaluation. (5) Endometrial adenocarcinoma: Plan: s/p chemoradiation (6) History of melanoma: Plan: s/p excision on scalp (7) History of stomach cancer: Plan: Remote history, s/p surgery and chemoradiation Plan: VTE Prophylaxis - chemical deferred in setting of thrombocytopenia, consider starting once Plt > 50 Diet - regular Disposition - admit to med/surg given low O2 requirement Admission and Anticipated Discharge Date Admission Date: June 25, 2021 History of Present Illness Chief Complaint: Shortness of breath, cough Primary Care Provider: Donnie Chou MD Dianne Bernal is a 50 year old female with endometrial adenocarcinoma who presents to the ER with shortness of breath and increasing cough. Unclear dur ation of symptoms as she was treated for pneumonia on 05/24 and 06/05 with two courses of doxycycline. She does note for the last four days having increasing shortness of breath with green sputum and occasional hemoptysis. She has been coughing severely to the point of being dizzy that she feels she may pass out which prompted her visit today. She denies any chest pain, abdominal pain, diarrhea, loss of taste or smell. She reports her mouth feels very dry despite drinking more. She was recently started on inhalers by her PCP which she reports has helped her shortness of breath. She has a significant history of endometrial adenocarcinoma cancer mets to lymph nodes. On chemoradiation - Paclitaxel/carboplatin given on Saturday. Unable to have surgery due to multiple abdominal surgeries in the past. She notes ongoing vaginal bleeding from this. In the ER she was diagnosed with COVID-19 pneumonia with positive SARS-COV-2 PCR. She is unvaccinated due to receiving chemotherapy. She was also noted to be pancytopenic and is currently ordered 2 packed RBC transfusions. O2 sats currently 93% on room air. She was referred to medicine for admission and ongoing management of VOID-19 pneumonia. Allergies Allergy/AdvReac Type Severity Reaction Status Date / Time Iodinated Contrast Media Allergy Severe Contrast- Verified 06/25/21 18:17 itching Sulfa (Sulfonamide Allergy Severe Syncope, Verified 06/25/21 18:17 Antibiotics) stops breathing sulfamethoxazole Allergy Severe Syncope, Verified 06/25/21 18:17 hives, dyspnea trimethoprim Allergy Severe Syncope, Verified 06/25/21 18:17 hives, dyspnea gadobutrol Allergy Intermediate Hives, Verified 06/25/21 18:17 itching hydrocodone Allergy Intermediate Stops Verified 06/25/21 18:17 breathing pregabalin Allergy Intermediate Hives Verified 06/25/21 18:17 iodine Allergy Mild Itching Verified 06/25/21 18:17 acetaminophen [From Percocet] Allergy Unknown PER PT Verified 06/25/21 18:17 "CAN'T TAKE". enoxaparin Allergy Unknown UNKNOWN Verified 06/25/21 18:17 oxycodone [From Percocet] Allergy Unknown Unknown Verified 06/25/21 18:17 Home Medications Medication Instructions Recorded Confirmed Type amitriptyline 100 mg tablet 100 mg PO HS 03/27/19 06/25/21 History gabapentin 600 mg tablet 900 mg PO QID 03/27/19 06/25/21 History ondansetron HCl 8 mg tablet 8 mg PO Q8 PRN 03/27/19 06/25/21 History venlafaxine 75 mg capsule,extended 75 mg PO QAM 03/27/19 06/25/21 History release 24 hr Iron Infusion 1 dose IV DIRECTED PRN 02/12/21 06/25/21 History buprenorphine 8 mg-naloxone 2 mg 2.5 tab SUBLINGUAL DAILY 02/12/21 06/25/21 History sublingual tablet trazodone 50 mg tablet 50 mg PO HS 02/12/21 06/25/21 History dexamethasone 4 mg tablet 4 mg PO DIRECTED tab 03/16/21 06/25/21 History diclofenac sodium 50 mg 50 mg PO TID tab 03/16/21 06/25/21 History tablet,delayed release prochlorperazine maleate 10 mg 10 mg PO Q6H PRN 03/16/21 06/25/21 History tablet (Compazine) carboplatin 1 dose IV DIRECTED 03/27/21 06/25/21 History paclitaxel 6 mg/mL 6 mg IV DIRECTED 03/27/21 06/25/21 History concentrate,intravenous cyanocobalamin (vitamin B-12) 1,000 mcg IM MONTHLY 06/25/21 06/25/21 History 1,000 mcg/mL injection solution Past Med/Surg History Medical History Abnormal vaginal bleeding Anxiety B12 deficiency anemia Cellulitis and abscess of foot Recent MRSA infection to left foot after trauma (02/2021) - hospitalized and treated for at [facility] -- per pt, still with redness/swelling to left foot but completed course of abx therapy and continues to improve; denies open areas/seeping from site Endometrial adenocarcinoma Biopsy on 11/25/20 > To pelvic lymph nodes (Biopsied 12/28/20) Endometriosis Evisceration of bowel Numerous History of stomach cancer 10 years ago; surgery, chemo + radiation Hx SBO Iron deficiency anemia intermittent iron infusions PRN Morbid obesity Scalp lesion Hx melanoma (scalp) approximately 1 year ago -- treated surgically Surgical History Gastric bypass status for obesity H/O abdominal surgery Muscle stretching, tumor removed, mesh in place; Multiple complex abd surgeries History of colonoscopy History of esophagogastroduodenoscopy (EGD) History of placement of ear tubes History of vascular access device removed Hx of cholecystectomy Hx of tonsillectomy Port-A-Cath in place (03/28/21) nsertion of Access Port Left Cephalic Vein Dr. Gilliam 03/28/2021 Family History Sister , 54 Ovarian cancer Diabetes Breast cancer Stroke Mother , in her 60s Ovarian cancer Diabetes Heart problem "Had a bad heart" Breast cancer Hypertension Father Myocardial infarction Brother No problems noted. Sister No problems noted. Other No family history of adverse response to anesthesia No pertinent family history Denies family history of Colorectal cancer Uterine cancer Social History Smoking Status: Former smoker Tobacco Type: Cigarettes Cigarettes Per Day: 1 PPD/week x 2 to 3 years;; Second Hand Exposure: Yes (sister smokes); Hx Alcohol Use: No Hx Substance Use: No Preferred Language: Comoran Communication Ability: Effective Visual Impairment: No Limitations Hearing Ability: Normal Data Processor Required: No Beliefs That Will Affect Care: None marital status: Single Current Living Situation: Alone Current Living Situation Comment: Raising her 4 great nephews ages 2-9 & her 82 year old father lives withher current occupational status: disabled Feels Safe at Home: Yes caffeine: Yes (Energy drinks 1-4 each day) during the past year weight has: remained stable Assistive Devices: None Review of Systems Review of Systems: All systems reviewed & are unremarkable except as noted in HPI & below Physical Exam Constitutional: well developed and + morbidly obese; + not well nourished and no acute distress Eyes: PERRL, conjunctivae normal, anicteric sclerae ENMT: external ear and nose normal, oropharynx normal Neck: trachea midline, no thyromegaly Respiratory: normal respiratory effort and able to speak in complete sentences; no respiratory distress, no labored breathing, no retractions and does not use accessory muscles Auscultation: + wheezes (inspiratory b/l bases); no diminished lung sounds, no crackles, no rales and no rhonchi Cardiovascular: Rate/Rhythm: regular rate and regular rhythm Extremities: + pedal edema (1+ pre-tibial b/l equal) Gastrointestinal (Abdomen): normal bowel sounds, soft, nontender, no hepatosplenomegaly Inspection/Auscultation: + abdominal surgical scar (well healed but extenive on abdomen) Musculoskeletal: no cyanosis or clubbing, extremities motor strength 5/5 Skin: + eschar (on scalp without surrounding cellulitis, appears to be healing well) Neurologic: moves all extremities and awake; no focal motor deficits and not confused Psychiatric: A+Ox3, euthymic affect Genitourinary: no CVA tenderness Results & Data Results & Data ([facility]) Vital Signs (Past 12 Hours) Vital Signs Temp Pulse Pulse Resp BP BP Pulse Ox 06/25/21 18:05 74 18 100/68 95 06/25/21 15:56 36.5 C 84 20 109/73 94 Diagnostic Findings XR chest 1V portable CLINICAL HISTORY: Shortness of breath. COMPARISON STUDY: Chest CT May 24, 2021. Chest radiograph May 31, 2021. FINDINGS: Exam is compromised by motion artifact. Left subclavian [id number] is in place. No pneumothorax is identified. Multifocal bilateral airspace opacities are noted. Cardiomediastinal silhouette is stable. IMPRESSION: 1. Exam compromised by motion artifact. 2. Interval development of nodular bilateral airspace opacities. Given rapid development, the findings favor an infectious process. However, radiographic follow-up to ensure resolution is recommended. Medications Administered ER Medications Given: Cefepime 2g IV Doxycycline 100mg IV ECG Indication: SOB/dyspnea Rate (beats per minute): 76 Rhythm: normal sinus Findings: no acute ischemic change Comparison ECG Date: from (May 24, 2021) Change: no significant change Code Status & VTE Plan Code Status DNR in setting of cardiac arrest but wishes to be intubated in setting of respiratory arrest VTE Prophylaxis Plan VTE Prophylaxis will be ordered: Yes Reason for no VTE drug order: Contraindicated PG Care Time/CCT Total # of Minutes Spent Total Time Spent with Patient: Total time spent is greater than 50% in coordination of care (as documented) at patient's floor/unit and/or counseling patient: Coding Level of Care Code 67640 Initial Inpt Care Lvl 3 Diagnoses Antineoplastic chemotherapy induced pancytopenia D61.810; T45.1X5A Pneumonia due to COVID-19 virus U07.1; J12.82 Hemoptysis R04.2 Endometrial adenocarcinoma C54.1 Bacterial pneumonia J15.9 History of melanoma Z85.820 History of stomach cancer Z85.028
[2021-06-25] MEDS ORDERED: POTASSIUM CHLORIDE CRTAB 20 MEQ TABCR PO STA (20:03)
[2021-06-25] MEDS ORDERED: MAGNESIUM OXIDE 400 MG TAB PO STA (20:04)
[2021-06-25] MEDS ORDERED: dexAMETHasone 6 MG in SYRINGE 0 ML IV STA (20:09)
[2021-06-25] MEDS ORDERED: DEXAMETHASONE SOD INJ 4 MG/ML VIAL ONE (20:13)
[2021-06-25] MEDS ORDERED: FILGRASTIM 480 MCG/1.6 ML VIAL SQ STA (20:40)
[2021-06-25] MEDS ORDERED: PROCHLORPERAZINE MALEATE 10 MG TAB PO PRN (22:06)
[2021-06-25] MEDS ORDERED: CEFEPIME CONSULT ACTIVE PRN (22:23)
[2021-06-25] MEDS: ALBUT/IPRATROP 3MG/0.5MG NEB 3 ML VIAL NEB SCH (23:01)
[2021-06-26] MEDS: DICLOFENAC SODIUM 25 MG TABDR PO SCH ×4 (00:09→20:08)
[2021-06-26] MEDS: traZODone HCL 50 MG TAB PO SCH ×2 (00:10→20:13)
[2021-06-26] MEDS: AMITRIPTYLINE HCL 100 MG TAB PO SCH ×2 (00:10→20:06)
[2021-06-26] MEDS: guaiFENesin 600 MG TABCR PO SCH ×3 (00:10→20:11)
[2021-06-26] MEDS: GABAPENTIN 600 MG TAB PO SCH ×5 (00:11→20:09)
[2021-06-26] MEDS: CEFEPIME 2,000 MG in SYRINGE 0 ML IV SCH ×3 (02:40→17:30)
[2021-06-26 06:10] LABS: Mean Corpuscular Hgb Conc 32.8 g/dL (32-36)
[2021-06-26 06:20] LABS: Hematocrit (blood only) 30.5 % (37-47); Mean Corpuscular Hemoglobin 28.6 pg (25-34); Mean Corpuscular Volume 87.1 fL (80-100); RDW Standard Deviation 59.9 fL (36.4-46.3); White Blood Count 7.38 K/uL (4.8-10.8)
[2021-06-26 06:30] LABS: Platelet Count 35 K/uL (130-400)
[2021-06-26 06:31] LABS: Basophils # (auto) 0.03 K/uL (0-0.2); Basophils % (auto) 0.4 %; Immature Granulocytes # (auto) 0.55 K/uL (0.00-0.02); Immature Granulocytes % (auto) 7.5 %; Lymphocytes % (auto) 6.8 %; Monocytes # (auto) 0.48 K/uL (0.11-0.59); Monocytes % (auto) 6.5 %; Neutrophils # (auto) 5.82 K/uL (1.4-6.5); Neutrophils % (auto) 78.8 %; Platelet Estimate SIGNIFIC DECREASED (Normal)
[2021-06-26 06:41] LABS: BUN Creatinine Ratio 28.5 (10-20); Creatinine Clr Calc Pharmacy 113.8 ml/min; Est GFR (African American) 104.3 ml/min; Magnesium 1.5 mg/dl (1.8-2.4); Potassium 4.1 mmol/L (3.5-5.1)
[2021-06-26] MEDS: ALBUT/IPRATROP 3MG/0.5MG NEB 3 ML VIAL NEB SCH ×2 (08:04→11:30)
[2021-06-26] MEDS ORDERED: MAGNESIUM OXIDE 400 MG TAB PO SCH (09:00)
[2021-06-26] MEDS: VENLAFAXINE HCL XR 75 MG CAPXR PO SCH (09:22)
[2021-06-26] MEDS: DOXYCYCLINE HYCLATE 100 MG CAP PO SCH ×2 (09:22→20:09)
[2021-06-26] MEDS: MAGNESIUM OXIDE 400 MG TAB PO SCH (09:23)
[2021-06-26] MEDS: dexAMETHasone 6 MG in SYRINGE 0 ML IV SCH (09:33)
[2021-06-26] MEDS: BUPRENORPHINE/NALOXONE 8/2 MG TAB SL SCH ×3 (10:18→20:17)
[2021-06-26 11:27] LABS: INR 1.6 (0.9-1.1); Partial Thromboplastin Ratio 1.5; Partial Thromboplastin Time 40.4 Seconds (21.0-31.0); Prothrombin Time 15.8 Seconds (9.0-12.0)
[2021-06-26 11:29] LABS: D Dimer 2850 ug/L FEU (0-500)
[2021-06-26] MEDS: MAGNESIUM SULFATE / D5W 1 GM/100 ML BAG IV SCH ×2 (12:12→13:46)
[2021-06-26 12:37] LABS: Fibrinogen 529 mg/dl (184-400)
--- NOTE | 2021-06-26 13:47 | Hospitalist Progress Note ---
Date of Service June 26, 2021 Assessment & Plan (1) Pneumonia due to COVID-19 virus: Plan: moderate-severe. day #2 of IV dexamethasone 6mg. likely 10+ days into illness; Remdesivir deferred. crp noted -- very high. repeat in am. pulmonary toilet. would be very, very poor candidate for immune-based Rx if any worsening. (2) Bacterial pneumonia: Plan: Procalcitonin positive. Patient is immunosuppressed therefore covering with cefepime and doxycycline. Blood cx's negative. I ordered CT chest - most of the findings are more c/w COVID. [id number], given her immunocompromised state, will cover with abx for now. (3) Antineoplastic chemotherapy induced pancytopenia: Plan: s/p Neupogen 480mg SQ x 1 yesterday - wbc better today. s/p 2 units PRBCs. platelets cont to trend down. this bears very close watching especially in light of coagulopathy (see below). (4) Hemoptysis: Plan: 2nd to COVID pneumonia in setting of low platelets and coagulopathy. no DVT proph (chemical). thus far LOW VOLUME but again needs very close watching. (5) Endometrial adenocarcinoma: Plan: s/p chemoradiation last chemo 1 week ago (6) History of melanoma: Plan: s/p excision on scalp (7) History of stomach cancer: Plan: Remote history, s/p surgery and chemoradiation (8) Otitis externa: Plan: L ciprodex x 7 days cefepime will also provide systemic coverage CT head with significant sinus disease and small L mastoid effusion at some point need to examine the eardrum - r/o perf (9) Impetigo: Plan: right nare bactroban BID (10) Coagulopathy: Plan: dimer, FDP elevated but fibrinogen NOT low thus, DIC not likely cause ?? vit K def? inhibitor? if no response to vit K then mixing study. formal consult with heme/onc if any worsening. (11) Vertigo: Plan: likely 2nd to COVID inner ear likely CT head - neg for acute CVA meclizine TID if persists or worsening - then MRI brain (12) Morbid obesity with BMI of 50.0-59.9, adult: Plan: BMI 52 (13) Hypomagnesemia: Plan: replace repeat level am (14) DVT prophylaxis: Plan: SCDs only chemical means contraindicated Plan: if patient worsens - move to [address] [place] [address] unit extensively updated pt's daughter by phone this evening total time 75 minutes - complex care coordination Admission and Anticipated Discharge Date Admission Date: June 25, 2021 Subjective multiple complaints - 1. positional vertigo - occurs w/ standing, she spins (no lightheadedness), lasts <30 sec, unsteady due to such. NO visual field cuts. 2. coughing - with streaks of hemoptysis - latter improved, not as much today. 3. dyspnea with little activity. 4 fair-poor appetite. 5. left ear discomfort with drainage - started when she got sick recently. 6. sore around right nare. 7. transient blistering rash - occasional blister on limbs, comes on - breaks open - then slowly resolves. been getting them on/off for a few weeks. current one on left arm and right leg. 8. cough/dyspnea for several weeks dating back to May. Review of Systems Review of Systems: gen - fatigue; no fevers/chills CV - no orthopnea pulm - streaky hemoptysis, but improved today; cough, dyspnea, ZHU GI - no N/V Physical Exam Physical Exam: gen - morbidly obese, looks unwell but no distress ears - left pinnae with dried purulent material and canal swollen, erythematous; mild pain with palpating the tragus and pulling on pinnae nose - impetigo right nare mouth - no thrush neck - no JVD heart - RRR, s1 s2 lungs - bibasilar rales abd - soft NT no HSM ext - no edema skin - scattered healing ulcerations (2-3) on limbs; no petechiae Results & Data Results & Data ([facility]) Vital Signs (Past 12 Hours) Vital Signs Temp Pulse Pulse Pulse Resp BP BP 06/26/21 11:30 53 L 16 06/26/21 09:38 67 18 113/76 06/26/21 08:05 51 L 16 06/26/21 03:30 36.7 C 60 18 101/59 L 06/26/21 02:30 36.5 C 69 18 101/69 Pulse Ox 06/26/21 11:30 93 06/26/21 09:38 92 06/26/21 08:05 97 06/26/21 03:30 94 06/26/21 02:30 92 Laboratory Results Laboratory Results - last 24 hr 06/25/21 06/25/21 06/25/21 16:40 16:40 16:44 WBC 3.40 L RBC 2.50 L Hgb 7.3 L Hct 22.0 L MCV 88.0 MCH 29.2 MCHC 33.2 RDW Std Deviation 62.8 H RDW Coeff of Josue 19.6 H Plt Count 45 L Immature Gran % (Auto) 1.2 Neut % (Auto) 62.6 Lymph % (Auto) 26.2 [place] % (Auto) 9.4 Eos % (Auto) 0.0 Baso % (Auto) 0.6 Neut # (Auto) 2.13 Lymph # (Auto) 0.89 L [place] # (Auto) 0.32 Eos # (Auto) 0.00 Baso # (Auto) 0.02 Immature Gran # (Auto) 0.04 H Platelet Estimate Decreased L RBC Morphology Unremarkable PT INR APTT PTT Ratio Fibrinogen Fibrin Degrad Products D-Dimer Sodium Potassium Chloride Carbon Dioxide Anion Gap BUN Creatinine Est Cr Clr Drug Dosing Est GFR ( Amer) Est GFR (Non-Af Amer) BUN/Creatinine Ratio Glucose Calcium Magnesium Total Bilirubin AST ALT Alkaline Phosphatase Troponin I C-Reactive Protein Total Protein Albumin Globulin Albumin/Globulin Ratio Procalcitonin Nasal Screen MRSA (PCR) COVID-19 Eval Order Covid19 at [facility] SARS-CoV-2 (PCR) POSITIVE A* Blood Type Antibody Screen Crossmatch 06/25/21 06/25/21 06/25/21 16:44 16:44 16:44 WBC RBC Hgb Hct MCV MCH MCHC RDW Std Deviation RDW Coeff of Josue Plt Count Immature Gran % (Auto) Neut % (Auto) Lymph % (Auto) [place] % (Auto) Eos % (Auto) Baso % (Auto) Neut # (Auto) Lymph # (Auto) [place] # (Auto) Eos # (Auto) Baso # (Auto) Immature Gran # (Auto) Platelet Estimate RBC Morphology PT 14.6 H INR 1.5 H APTT 49.0 H* PTT Ratio 1.9 Fibrinogen Fibrin Degrad Products D-Dimer Sodium 133 L Potassium 3.3 L Chloride 103 Carbon Dioxide 25 Anion Gap 5.0 BUN 23 H Creatinine 0.95 Est Cr Clr Drug Dosing 92.6 Est GFR ( Amer) 80.9 Est GFR (Non-Af Amer) 69.8 BUN/Creatinine Ratio 24.2 H Glucose 91 Calcium 7.6 L Magnesium 1.5 L Total Bilirubin 1.0 AST 27 ALT 18 Alkaline Phosphatase 76 Troponin I < 0.015 C-Reactive Protein 17.00 H Total Protein 6.6 Albumin 1.8 L Globulin 4.8 H Albumin/Globulin Ratio 0.4 L Procalcitonin 0.93 H Nasal Screen MRSA (PCR) COVID-19 Eval Order SARS-CoV-2 (PCR) Blood Type Antibody Screen Crossmatch 06/25/21 06/26/21 06/26/21 18:44 05:35 06:02 WBC 7.38 RBC 3.50 L Hgb 10.0 L Hct 30.5 L MCV 87.1 MCH 28.6 MCHC 32.8 RDW Std Deviation 59.9 H RDW Coeff of Josue 19.0 H Plt Count 35 L Immature Gran % (Auto) 7.5 Neut % (Auto) 78.8 Lymph % (Auto) 6.8 [place] % (Auto) 6.5 Eos % (Auto) 0.0 Baso % (Auto) 0.4 Neut # (Auto) 5.82 Lymph # (Auto) 0.50 L [place] # (Auto) 0.48 Eos # (Auto) 0.00 Baso # (Auto) 0.03 Immature Gran # (Auto) 0.55 H Platelet Estimate SIGNIFIC DECREASED RBC Morphology PT INR APTT PTT Ratio Fibrinogen Fibrin Degrad Products D-Dimer Sodium Potassium Chloride Carbon Dioxide Anion Gap BUN Creatinine Est Cr Clr Drug Dosing Est GFR ( Amer) Est GFR (Non-Af Amer) BUN/Creatinine Ratio Glucose Calcium Magnesium Total Bilirubin AST ALT Alkaline Phosphatase Troponin I C-Reactive Protein Total Protein Albumin Globulin Albumin/Globulin Ratio Procalcitonin Nasal Screen MRSA (PCR) Negative COVID-19 Eval Order SARS-CoV-2 (PCR) Blood Type O Positive Antibody Screen NEGATIVE Crossmatch See Detail 06/26/21 06/26/21 06/26/21 06:02 10:51 10:51 WBC RBC Hgb Hct MCV MCH MCHC RDW Std Deviation RDW Coeff of Josue Plt Count Immature Gran % (Auto) Neut % (Auto) Lymph % (Auto) [place] % (Auto) Eos % (Auto) Baso % (Auto) Neut # (Auto) Lymph # (Auto) [place] # (Auto) Eos # (Auto) Baso # (Auto) Immature Gran # (Auto) Platelet Estimate RBC Morphology PT 15.8 H INR 1.6 H APTT 40.4 H PTT Ratio 1.5 Fibrinogen 529 H Fibrin Degrad Products 10-40 H D-Dimer 2850 H* Sodium 136 Potassium 4.1 D Chloride 106 Carbon Dioxide 23 Anion Gap 6.0 BUN 22 H Creatinine 0.77 Est Cr Clr Drug Dosing 113.8 Est GFR ( Amer) 104.3 Est GFR (Non-Af Amer) 90.0 BUN/Creatinine Ratio 28.5 H Glucose 131 H Calcium 8.0 L Magnesium 1.5 L Total Bilirubin AST ALT Alkaline Phosphatase Troponin I C-Reactive Protein Total Protein Albumin Globulin Albumin/Globulin Ratio Procalcitonin Nasal Screen MRSA (PCR) COVID-19 Eval Order SARS-CoV-2 (PCR) Blood Type Antibody Screen Crossmatch PG Care Time/CCT Total # of Minutes Spent Total Time Spent with Patient: Total time spent is greater than 50% in coordination of care (as documented) at patient's floor/unit and/or counseling patient: Prolonged Care Time Prolonged Care Time: Yes (75) Coding Level of Care Code 10737 Subseq Hosp Care Lvl 3 (25 - SIGNIFICANT, SEPARATELY IDENTIFIABLE ) Diagnoses Pneumonia due to COVID-19 virus U07.1; J12.82 Bacterial pneumonia J15.9 Antineoplastic chemotherapy induced pancytopenia D61.810; T45.1X5A Hemoptysis R04.2 Endometrial adenocarcinoma C54.1 History of melanoma Z85.820 History of stomach cancer Z85.028 Otitis externa H60.90 Impetigo L01.00 Coagulopathy D68.9 Vertigo R42 DVT prophylaxis Z29.9 Morbid obesity with BMI of 50.0-59.9, adult E66.01; Z68.43 Hypomagnesemia E83.42 Additional Codes Prolonged Care Time - Prolonged Care Time: Yes ([id number])
--- NOTE | 2021-06-26 14:47 | CT Scan Report ---
CT SCAN OF THE BRAIN WITHOUT IV CONTRAST CLINICAL HISTORY: Acute vertigo. Covid. COMPARISON STUDY: CT of the brain dated 05/24/2021. TECHNIQUE: Unenhanced axial CT scan of the brain is performed from the vertex to the skull base. A d ose lowering technique was utilized adhering to the principles of ALARA. CT DOSE: 2351.00 mGy.cm FINDINGS: Brain parenchyma: The brain parenchyma is normal in appearance. There is no hemorrhage, mass effect, or evidence of acute territorial ischemia by CT criteria. Hanson-white matter differentiation is preser sang. No extra-axial fluid collection is seen. Ventricles, sulci, cisterns: Normal in configuration. Intracranial vasculature: The visualized intracranial vasculature at the skull base is normal in appe arance. Calvarium: Unremarkable. Sinuses and mastoids: There is subtotal opacification of the left frontal sinus. Mucosal thickening i s also seen within the left ethmoid, maxillary, and sphenoid sinuses. There is a small left mastoid e ffusion. The right mastoid air cells are well pneumatized. Orbits: The bony orbits are grossly intact. IMPRESSION: No acute intracranial abnormality. ACT 112: Negative or not required by law. Electronically signed by: Stewart Harp M.D. 06/26/2021 2:46 PM
--- NOTE | 2021-06-26 14:53 | CT Scan Report ---
CT SCAN OF THE CHEST WITHOUT IV CONTRAST CLINICAL HISTORY: Acute vertigo. Thrombocytopenia. Covid. COMPARISON STUDY: Chest CT dated 05/24/2021. Chest x-ray dated 06/25/2021. TECHNIQUE: CT scan of the thorax was performed from the thoracic inlet to the upper abdomen. Images are reviewed in the axial, sagittal, and coronal planes. IV contrast was not administered for this ex amination as per the referring clinician. A dose lowering technique was utilized adhering to the robbie Ernandez. FINDINGS: Thyroid: Imaged portions of the thyroid gland are normal in size and attenuation. Thoracic aorta: The thoracic aorta is normal in caliber and demonstrates standard 3-vessel arch anato my. Heart: A left subclavian central venous infusion port is in place. The heart is enlarged and without pericardial effusion. The pulmonary trunk is dilated, measuring 3.6 cm in diameter. This suggests pul monary artery hypertension. Lungs and pleural spaces: Evaluation of the lung parenchyma is compromised by motion artifact. Multif ocal airspace consolidation is seen throughout both lungs. No pleural effusion is identified. The tra gladis and central airways are clear. Mediastinum: There is mediastinal lymphadenopathy. Right peritracheal nodes measure up to 14 mm in sh ort axis. Prevascular nodes measure up to 8 mm in short axis. Cassie: Not well assessed without IV contrast. Axillae: There is no axillary lymphadenopathy. Upper abdomen: The liver is enlarged and steatotic. The spleen is enlarged measuring 16.7 cm in lengt h. Postoperative change is noted in the stomach. There is a tiny hiatal hernia. The gallbladder is frank rgically absent. Skeletal structures: No lytic or blastic bony lesions are seen. IMPRESSION: 1. Multifocal airspace consolidation is consistent with the reported history of a viral pneumonia. Ra diographic follow-up to resolution is recommended. 2. No pleural effusion is identified. 3. Cardiomegaly with evidence of pulmonary artery hypertension. 4. Mildly enlarged mediastinal lymph nodes are likely reactive. 5. Hepatic steatosis and splenomegaly. 6. Additional findings as above. ACT 112: Negative or not required by law. Electronically signed by: Stewart Harp M.D. 06/26/2021 2:52 PM
[2021-06-26] MEDS: MECLIZINE 12.5 MG TAB PO SCH ×2 (15:44→20:11)
[2021-06-26] MEDS: CIPRO 0.3%/DEXAMETHASONE 0.1% OTIC SUSP 7.5ML OTL SCH ×2 (15:45→20:07)
[2021-06-26] MEDS: MUPIROCIN 2% OINT 22 GM TUBE EXT SCH ×2 (15:45→20:12)
[2021-06-26] MEDS ORDERED: PHYTONADIONE 5 MG in SODIUM CHLORIDE 0.9% 50 ML IV ONE (19:29)
[2021-06-26] MEDS ORDERED: PROMETHAZINE HCL 25 MG in SODIUM CHLORIDE 0.9% 50 ML IV STA (22:07)
[2021-06-27] MEDS: CEFEPIME 2,000 MG in SYRINGE 0 ML IV SCH ×3 (01:35→17:43)
[2021-06-27] MEDS ORDERED: PROMETHAZINE HCL 25 MG in SODIUM CHLORIDE 0.9% 50 ML IV STA (01:57)
[2021-06-27 02:02] LABS: Hematocrit (blood only) 30.9 % (37-47); Hemoglobin 10.4 g/dL (12.0-16.0)
[2021-06-27] MEDS: ALBUT/IPRATROP 3MG/0.5MG NEB 3 ML VIAL NEB PRN (07:47)
[2021-06-27] MEDS: guaiFENesin 600 MG TABCR PO SCH ×2 (08:43→22:13)
[2021-06-27] MEDS: DOXYCYCLINE HYCLATE 100 MG CAP PO SCH ×2 (08:43→21:28)
[2021-06-27] MEDS: VENLAFAXINE HCL XR 75 MG CAPXR PO SCH (08:43)
[2021-06-27] MEDS: GABAPENTIN 600 MG TAB PO SCH ×4 (08:43→21:30)
[2021-06-27] MEDS: MECLIZINE 12.5 MG TAB PO SCH ×3 (08:43→21:29)
[2021-06-27] MEDS: DICLOFENAC SODIUM 25 MG TABDR PO SCH ×3 (08:44→21:28)
[2021-06-27] MEDS: CIPRO 0.3%/DEXAMETHASONE 0.1% OTIC SUSP 7.5ML OTL SCH ×2 (08:46→21:32)
[2021-06-27] MEDS: MUPIROCIN 2% OINT 22 GM TUBE EXT SCH ×2 (08:48→21:32)
[2021-06-27] MEDS: BUPRENORPHINE/NALOXONE 8/2 MG TAB SL SCH ×3 (08:51→21:27)
[2021-06-27] MEDS: dexAMETHasone 6 MG in SYRINGE 0 ML IV SCH (09:30)
[2021-06-27] MEDS: HEPARIN 100 UNIT/ML 5ML FLUSH FLUSH PRN ×4 (09:30→22:15)
[2021-06-27 09:42] LABS: Mean Corpuscular Hgb Conc 32.9 g/dL (32-36)
[2021-06-27 09:50] LABS: Hemoglobin 10.2 g/dL (12.0-16.0); Mean Corpuscular Hemoglobin 28.9 pg (25-34); Mean Corpuscular Volume 87.8 fL (80-100); RDW Coefficient of Variation 19.8 % (11.5-14.5); RDW Standard Deviation 63.3 fL (36.4-46.3); Red Blood Count 3.53 M/uL (4.2-5.4); White Blood Count 6.24 K/uL (4.8-10.8)
[2021-06-27 09:53] LABS: INR 1.1 (0.9-1.1); Partial Thromboplastin Ratio 1.2; Partial Thromboplastin Time 32.2 Seconds (21.0-31.0); Prothrombin Time 11.5 Seconds (9.0-12.0)
[2021-06-27 10:01] LABS: BUN Creatinine Ratio 33.2 (10-20); C Reactive Protein 8.5 mg/dl (0-0.29); Calcium 8.6 mg/dl (8.5-10.1); Creatinine Clr Calc Pharmacy 118.4 ml/min; Est GFR (African American) 109.5 ml/min; Est GFR (Non-African American) 94.5 ml/min; Magnesium 1.7 mg/dl (1.8-2.4); Potassium 3.9 mmol/L (3.5-5.1)
[2021-06-27 10:03] LABS: Platelet Count 31 K/uL (130-400)
[2021-06-27 10:09] LABS: Basophils # (auto) 0.05 K/uL (0-0.2); Basophils % (auto) 0.8 %; Immature Granulocytes # (auto) 0.09 K/uL (0.00-0.02); Immature Granulocytes % (auto) 1.4 %; Lymphocytes # (auto) 1.12 K/uL (1.2-3.4); Lymphocytes % (auto) 17.9 %; Monocytes # (auto) 0.34 K/uL (0.11-0.59); Monocytes % (auto) 5.4 %; Neutrophils # (auto) 4.64 K/uL (1.4-6.5); Neutrophils % (auto) 74.5 %; Platelet Estimate SIGNIFIC DECREASED (Normal)
[2021-06-27] MEDS: MAGNESIUM SULFATE / D5W 1 GM/100 ML BAG IV SCH ×2 (11:02→13:02)
--- NOTE | 2021-06-27 11:54 | Electrocardiogram Report ---
Test Reason : Blood Pressure : / mmHG Vent. Rate : 076 BPM Atrial Rate : 076 BPM P-R Int : 190 ms QRS Dur : 088 ms QT Int : 372 ms P-R-T Axes : 035 -01 -02 degrees QTc Int : 418 ms Poor data quality, interpretation may be adversely affected Normal sinus rhythm Low voltage QRS Abnormal ECG When compared with ECG of 24-MAY-2021 16:29, No significant change Confirmed by Gary Goff ([id number]) on 06/27/2021 11:53:45 AM Referred By: REFERRED SELF Confirmed By:Gary Goff
[2021-06-27] MEDS: MAGNESIUM OXIDE 400 MG TAB PO SCH (14:01)
[2021-06-27] MEDS: AMITRIPTYLINE HCL 100 MG TAB PO SCH (21:27)
[2021-06-27] MEDS: traZODone HCL 50 MG TAB PO SCH (21:29)
--- NOTE | 2021-06-27 21:45 | Hospitalist Progress Note ---
Date of Service June 27, 2021 Assessment & Plan (1) Pneumonia due to COVID-19 virus: Plan: moderate-severe. improving clinically. day #3 of IV dexamethasone 6mg. likely 10+ days into illness; Remdesivir deferred. crp noted -- very high initially, but improving now. cont pulmonary toilet. would be very, very poor candidate for immune-based Rx if any worsening. (2) Bacterial pneumonia: Plan: Procalcitonin positive. Patient is immunosuppressed therefore covering with cefepime and doxycycline. Blood cx's negative. day #3 of IV abx. (3) Antineoplastic chemotherapy induced pancytopenia: Plan: s/p Neupogen 480mg SQ x 1 day of admission - wbc stable, no neutropenia today. s/p 2 units PRBCs HD #1. H/H acceptable today. platelets low but stable at about 30 today. (4) Hemoptysis: Plan: 2nd to COVID pneumonia in setting of low platelets and coagulopathy. no DVT proph (chemical). improved. follow carefully. (5) Endometrial adenocarcinoma: Plan: s/p chemoradiation last chemo 1 week ago off/on vaginal bleeding cautious observation (6) History of melanoma: Plan: s/p excision on scalp (7) History of stomach cancer: Plan: Remote history, s/p surgery and chemoradiation (8) Otitis externa: Plan: Left improved today ciprodex x 7 days cefepime will also provide systemic coverage CT head with significant sinus disease and small L mastoid effusion at some point need to examine the eardrum - r/o perf (9) Impetigo: Plan: right nare cont bactroban BID (10) Coagulopathy: Plan: dimer, FDP elevated but fibrinogen NOT low thus, DIC not likely s/p vitamin K x 5mg yesterday all coags normal today thus - vit K def?? (11) Vertigo: Plan: likely 2nd to COVID inner ear likely CT head - neg for acute CVA meclizine TID seems to be helping cont such (12) Morbid obesity with BMI of 50.0-59.9, adult: Plan: BMI 52 (13) Hypomagnesemia: Plan: replaced 1.7 today will give additional replacement mag am (14) DVT prophylaxis: Plan: SCDs only chemical means contraindicated Plan: sister updated again by phone today cautiously optimistic we are turning the corner slowly Admission and Anticipated Discharge Date Admission Date: June 25, 2021 Subjective patient feels better today vertigo improved w/ meclizine less dizzy, less episodes of vertigo cough modestly improved appetite a little better L ear canal and left ear not as painful today rash on limbs - no change, not any worse Review of Systems Review of Systems: gen - no fevers or chills, some fatigue/weakness HEENT/mouth - denies sores/ulcers CV - no orthopnea or cp pulm - hemoptysis nearly resolved Physical Exam Physical Exam: gen - morbidly obese, looks a bit better than yesterday ears - left pinnae with dried purulent material but less canal swelling; less erythema; tragus pain and pulling on pinnae with less tenderness today nose - impetigo right nare - no change mouth - no thrush neck - no JVD heart - RRR, s1 s2 lungs - bibasilar rales = but improved today abd - soft NT no HSM ext - trace edema; pulses 2+ b/l skin - scattered healing ulcerations (2-3) on limbs; no petechiae Results & Data Results & Data ([facility]) Vital Signs (Past 12 Hours) Vital Signs Temp Pulse Resp BP Pulse Ox 06/27/21 15:36 36.5 C 57 L 16 103/71 98 06/27/21 14:40 95 06/27/21 12:26 95 06/27/21 12:20 96 06/27/21 12:17 98 Laboratory Results Laboratory Results - last 24 hr 06/27/21 06/27/21 06/27/21 01:48 08:17 08:17 WBC 6.24 RBC 3.53 L Hgb 10.4 L 10.2 L Hct 30.9 L 31.0 L MCV 87.8 MCH 28.9 MCHC 32.9 RDW Std Deviation 63.3 H RDW Coeff of Josue 19.8 H Plt Count 31 L Immature Gran % (Auto) 1.4 Neut % (Auto) 74.5 Lymph % (Auto) 17.9 [place] % (Auto) 5.4 Eos % (Auto) 0.0 Baso % (Auto) 0.8 Neut # (Auto) 4.64 Lymph # (Auto) 1.12 L [place] # (Auto) 0.34 Eos # (Auto) 0.00 Baso # (Auto) 0.05 Immature Gran # (Auto) 0.09 H Platelet Estimate SIGNIFIC DECREASED PT INR APTT PTT Ratio Sodium 137 Potassium 3.9 Chloride 107 Carbon Dioxide 25 Anion Gap 5.0 BUN 25 H Creatinine 0.74 Est Cr Clr Drug Dosing 118.4 Est GFR ( Amer) 109.5 Est GFR (Non-Af Amer) 94.5 BUN/Creatinine Ratio 33.2 H Glucose 105 H Calcium 8.6 Magnesium 1.7 L Total Creatine Kinase 20 L C-Reactive Protein 8.50 H 06/27/21 08:17 WBC RBC Hgb Hct MCV MCH MCHC RDW Std Deviation RDW Coeff of Josue Plt Count Immature Gran % (Auto) Neut % (Auto) Lymph % (Auto) [place] % (Auto) Eos % (Auto) Baso % (Auto) Neut # (Auto) Lymph # (Auto) [place] # (Auto) Eos # (Auto) Baso # (Auto) Immature Gran # (Auto) Platelet Estimate PT 11.5 INR 1.1 APTT 32.2 H PTT Ratio 1.2 Sodium Potassium Chloride Carbon Dioxide Anion Gap BUN Creatinine Est Cr Clr Drug Dosing Est GFR ( Amer) Est GFR (Non-Af Amer) BUN/Creatinine Ratio Glucose Calcium Magnesium Total Creatine Kinase C-Reactive Protein PG Care Time/CCT Total # of Minutes Spent Total Time Spent with Patient: Total time spent is greater than 50% in coordination of care (as documented) at patient's floor/unit and/or counseling patient: Coding Level of Care Code 72944 Subseq Hosp Care Lvl 3 Diagnoses Pneumonia due to COVID-19 virus U07.1; J12.82 Bacterial pneumonia J15.9 Antineoplastic chemotherapy induced pancytopenia D61.810; T45.1X5A Hemoptysis R04.2 Endometrial adenocarcinoma C54.1 History of melanoma Z85.820 History of stomach cancer Z85.028 Otitis externa H60.90 Impetigo L01.00 Coagulopathy D68.9 Vertigo R42 Morbid obesity with BMI of 50.0-59.9, adult E66.01; Z68.43 Hypomagnesemia E83.42 DVT prophylaxis Z29.9
[2021-06-27] MEDS: FAMOTIDINE 20 MG in SYRINGE 3 ML IV SCH (22:15)
[2021-06-28] MEDS: CEFEPIME 2,000 MG in SYRINGE 0 ML IV SCH ×3 (01:22→17:02)
[2021-06-28] MEDS: HEPARIN 100 UNIT/ML 5ML FLUSH FLUSH PRN ×3 (01:23→17:03)
[2021-06-28 06:40] LABS: Mean Corpuscular Hgb Conc 32.1 g/dL (32-36)
[2021-06-28 06:50] LABS: Hematocrit (blood only) 29.3 % (37-47); Hemoglobin 9.4 g/dL (12.0-16.0); Mean Corpuscular Hemoglobin 28.8 pg (25-34); Mean Corpuscular Volume 89.9 fL (80-100); RDW Coefficient of Variation 19.4 % (11.5-14.5); RDW Standard Deviation 64.1 fL (36.4-46.3); Red Blood Count 3.26 M/uL (4.2-5.4)
[2021-06-28 07:00] LABS: Basophils # (auto) 0.02 K/uL (0-0.2); Basophils % (auto) 0.5 %; Immature Granulocytes # (auto) 0.02 K/uL (0.00-0.02); Immature Granulocytes % (auto) 0.5 %; Lymphocytes # (auto) 1.13 K/uL (1.2-3.4); Lymphocytes % (auto) 26.3 %; Monocytes # (auto) 0.36 K/uL (0.11-0.59); Monocytes % (auto) 8.4 %; Neutrophils # (auto) 2.77 K/uL (1.4-6.5); Neutrophils % (auto) 64.3 %; Platelet Count 32 K/uL (130-400); Platelet Estimate SIGNIFIC DECREASED (Normal)
[2021-06-28 07:07] LABS: Calcium 8.3 mg/dl (8.5-10.1); Creatinine Clr Calc Pharmacy 98.4 ml/min; Est GFR (African American) 87.6 ml/min; Est GFR (Non-African American) 75.6 ml/min; Magnesium 1.8 mg/dl (1.8-2.4); Potassium 4.2 mmol/L (3.5-5.1)
[2021-06-28] MEDS: GABAPENTIN 600 MG TAB PO SCH ×4 (07:56→21:21)
[2021-06-28] MEDS: DICLOFENAC SODIUM 25 MG TABDR PO SCH ×3 (07:58→21:24)
[2021-06-28] MEDS: MECLIZINE 12.5 MG TAB PO SCH ×3 (07:58→21:22)
[2021-06-28] MEDS: DOXYCYCLINE HYCLATE 100 MG CAP PO SCH ×2 (07:59→21:21)
[2021-06-28] MEDS: VENLAFAXINE HCL XR 75 MG CAPXR PO SCH (07:59)
[2021-06-28] MEDS: guaiFENesin 600 MG TABCR PO SCH ×2 (07:59→21:23)
[2021-06-28] MEDS: CIPRO 0.3%/DEXAMETHASONE 0.1% OTIC SUSP 7.5ML OTL SCH ×2 (08:00→21:21)
[2021-06-28] MEDS: MUPIROCIN 2% OINT 22 GM TUBE EXT SCH ×2 (08:04→21:25)
[2021-06-28] MEDS: BUPRENORPHINE/NALOXONE 8/2 MG TAB SL SCH ×3 (08:44→20:25)
[2021-06-28] MEDS: FAMOTIDINE 20 MG in SYRINGE 3 ML IV SCH (09:39)
[2021-06-28] MEDS: dexAMETHasone 6 MG in SYRINGE 0 ML IV SCH (09:39)
[2021-06-28] MEDS: MAGNESIUM OXIDE 400 MG TAB PO SCH (09:40)
[2021-06-28] MEDS: AMITRIPTYLINE HCL 100 MG TAB PO SCH (21:22)
[2021-06-28] MEDS: traZODone HCL 50 MG TAB PO SCH (21:23)
--- NOTE | 2021-06-28 21:23 | Hospitalist Progress Note ---
Date of Service June 28, 2021 Assessment & Plan (1) Pneumonia due to COVID-19 virus: Plan: moderate-severe at admission but improved. day #4 of IV dexamethasone 6mg daily. likely 10+ days into illness; Remdesivir deferred. crp noted -- very high at presentation but now improving w/ steroid therapy. cont pulmonary toilet. (2) Acute respiratory failure with hypoxia: Plan: 2nd to #1 improving weaned from NC O2 (3) Bacterial pneumonia: Plan: Procalcitonin positive on admission. Patient is immunosuppressed therefore covering with cefepime and doxycycline. Blood cx's negative. Day #4 of above abx. She has concomitant sinusitis based on recent head CT. Finish 7 days in total of IV/PO abx. (4) Antineoplastic chemotherapy induced pancytopenia: Plan: s/p Neupogen 480mg SQ x 1 at admission - no longer neutropenic. s/p 2 units PRBCs HD #1 - H/H stable since. platelets low at 30 but stable. if vaginal bleeding worsens, however, would need to give apheresed platelets. CBC in am. (5) Hemoptysis: Plan: 2nd to COVID pneumonia in setting of low platelets and coagulopathy. resolved. (6) Endometrial adenocarcinoma: Plan: s/p chemoradiation last chemo 1 week ago recurrent vaginal bleeding watch/follow carefully (7) History of melanoma: Plan: s/p excision on scalp (8) History of stomach cancer: Plan: Remote history, s/p surgery and chemoradiation cont pepcid 20mg BID (9) Otitis externa: Plan: left -- improving ciprodex x 7 days cefepime will also provide systemic coverage CT head with significant sinus disease and small L mastoid effusion (10) Impetigo: Plan: right nare bactroban BID improved (11) Coagulopathy: Plan: dimer, FDP elevated but fibrinogen NOT low thus, DIC not likely s/p vit K x 1 PT/INR/PTT normalized vit K def? (12) Vertigo: Plan: likely 2nd to COVID inner ear likely CT head - neg for acute CVA meclizine TID if any worsening - then MRI brain (13) Morbid obesity with BMI of 50.0-59.9, adult: Plan: BMI 52 (14) Hypomagnesemia: Plan: replaced and resolved (15) DVT prophylaxis: Plan: SCDs only chemical means contraindicated (16) Chronic pain syndrome: Plan: cont suboxone PDMP shows regular prescriptions for this med at this dosing Plan: Pt, Ot evals requested STOP diclofenac given concomitant steroid use and low platelets updated pt's sister yesterday Admission and Anticipated Discharge Date Admission Date: June 25, 2021 Subjective pt reports feeling ok today o2 has been weaned off, and sats are high 90s in [place] during my rounds she states her vaginal bleeding has begun again mild, not soaking the entire pad and not having to change the pad frequently yet hemoptysis resolved L ear continues to feel better vertigo - stable, no worse Review of Systems Review of Systems: gen - fatigue/weakness HEENT - less L ear canal drainage/pain CV - no orthopnea or chest pain pulm - no dyspnea at rest; mild ZHU GI - no pain/N/V Physical Exam Physical Exam: gen - morbidly obese, looks better than previous visits ears - left - canal with less swelling; less purulence/drainage in canal and on outer pinnae; no pain with palpation of tragus or manipulation of pinnae nose - impetigo right nare slightly better mouth - no thrush neck - no JVD heart - RRR, s1 s2 lungs - bibasilar rales improved abd - soft NT no HSM ext - trace edema, pulses 2+ b/l skin - scattered healing ulcerations (2-3) on limbs - no change; no petechiae psych - a/o x 3 Results & Data Results & Data ([facility]) Vital Signs (Past 12 Hours) Vital Signs Temp Pulse Resp BP Pulse Ox 06/28/21 15:32 36.7 C 83 22 145/91 H 99 Laboratory Results Laboratory Results - last 24 hr 06/28/21 06/28/21 05:52 05:52 WBC 4.30 L RBC 3.26 L Hgb 9.4 L Hct 29.3 L MCV 89.9 MCH 28.8 MCHC 32.1 RDW Std Deviation 64.1 H RDW Coeff of Josue 19.4 H Plt Count 32 L Immature Gran % (Auto) 0.5 Neut % (Auto) 64.3 Lymph % (Auto) 26.3 [place] % (Auto) 8.4 Eos % (Auto) 0.0 Baso % (Auto) 0.5 Neut # (Auto) 2.77 Lymph # (Auto) 1.13 L [place] # (Auto) 0.36 Eos # (Auto) 0.00 Baso # (Auto) 0.02 Immature Gran # (Auto) 0.02 Platelet Estimate SIGNIFIC DECREASED Sodium 135 L Potassium 4.2 Chloride 107 Carbon Dioxide 26 Anion Gap 2.0 L BUN 25 H Creatinine 0.89 Est Cr Clr Drug Dosing 98.4 Est GFR ( Amer) 87.6 Est GFR (Non-Af Amer) 75.6 BUN/Creatinine Ratio 28.0 H Glucose 87 Calcium 8.3 L Magnesium 1.8 PG Care Time/CCT Total # of Minutes Spent Total Time Spent with Patient: Total time spent is greater than 50% in coordination of care (as documented) at patient's floor/unit and/or counseling patient: Coding Level of Care Code 43527 Subseq Hosp Care Lvl 3 Diagnoses Pneumonia due to COVID-19 virus U07.1; J12.82 Bacterial pneumonia J15.9 Antineoplastic chemotherapy induced pancytopenia D61.810; T45.1X5A Hemoptysis R04.2 Endometrial adenocarcinoma C54.1 History of melanoma Z85.820 History of stomach cancer Z85.028 Otitis externa H60.90 Impetigo L01.00 Coagulopathy D68.9 Vertigo R42 Morbid obesity with BMI of 50.0-59.9, adult E66.01; Z68.43 Hypomagnesemia E83.42 DVT prophylaxis Z29.9 Acute respiratory failure with hypoxia J96.01 Chronic pain syndrome G89.4
[2021-06-28] MEDS: FAMOTIDINE 20 MG TAB PO SCH (21:24)
[2021-06-29] MEDS: CEFEPIME 2,000 MG in SYRINGE 0 ML IV SCH ×3 (01:16→18:10)
[2021-06-29] MEDS: HEPARIN 100 UNIT/ML 5ML FLUSH FLUSH PRN ×2 (01:17→18:10)
[2021-06-29] MEDS ORDERED: BUPRENORPHINE/NALOXONE 8/2 MG TAB SL STA (04:37)
[2021-06-29] MEDS: FAMOTIDINE 20 MG TAB PO SCH ×2 (08:51→20:29)
[2021-06-29] MEDS: DOXYCYCLINE HYCLATE 100 MG CAP PO SCH ×2 (08:51→20:30)
[2021-06-29] MEDS: GABAPENTIN 600 MG TAB PO SCH ×4 (08:52→20:28)
[2021-06-29] MEDS: guaiFENesin 600 MG TABCR PO SCH ×2 (08:53→20:27)
[2021-06-29] MEDS: MECLIZINE 12.5 MG TAB PO SCH ×3 (08:54→20:30)
[2021-06-29] MEDS: MUPIROCIN 2% OINT 22 GM TUBE EXT SCH ×2 (08:56→20:31)
[2021-06-29] MEDS: VENLAFAXINE HCL XR 75 MG CAPXR PO SCH (08:56)
[2021-06-29] MEDS: CIPRO 0.3%/DEXAMETHASONE 0.1% OTIC SUSP 7.5ML OTL SCH ×2 (09:00→20:30)
[2021-06-29] MEDS: dexAMETHasone 6 MG in SYRINGE 0 ML IV SCH (09:01)
[2021-06-29] MEDS: BUPRENORPHINE/NALOXONE 8/2 MG TAB SL SCH ×3 (09:16→22:58)
[2021-06-29 10:18] LABS: BUN Creatinine Ratio 34.5 (10-20); Calcium 8.3 mg/dl (8.5-10.1); Est GFR (African American) 111.3 ml/min; Potassium 4.1 mmol/L (3.5-5.1)
[2021-06-29 10:40] LABS: Basophils # (auto) 0.02 K/uL (0-0.2); Basophils % (auto) 0.6 %; Eosinophils # (auto) 0.01 K/uL (0-0.5); Eosinophils % (auto) 0.3 %; Hematocrit (blood only) 29.6 % (37-47); Hemoglobin 9.7 g/dL (12.0-16.0); Immature Granulocytes # (auto) 0.01 K/uL (0.00-0.02); Immature Granulocytes % (auto) 0.3 %; Lymphocytes % (auto) 30.4 %; Mean Corpuscular Hemoglobin 29.4 pg (25-34); Mean Corpuscular Hgb Conc 32.8 g/dL (32-36); Mean Corpuscular Volume 89.7 fL (80-100); Monocytes % (auto) 13.8 %; Neutrophils # (auto) 1.98 K/uL (1.4-6.5); Neutrophils % (auto) 54.6 %; Platelet Count 29 K/uL (130-400); Platelet Estimate Decreased (Normal); RDW Coefficient of Variation 18.9 % (11.5-14.5); RDW Standard Deviation 61.5 fL (36.4-46.3); White Blood Count 3.62 K/uL (4.8-10.8)
[2021-06-29] MEDS: MAGNESIUM OXIDE 400 MG TAB PO SCH (11:05)
[2021-06-29] MEDS: ALBUT/IPRATROP 3MG/0.5MG NEB 3 ML VIAL NEB PRN (19:35)
[2021-06-29] MEDS: traZODone HCL 50 MG TAB PO SCH (20:29)
[2021-06-29] MEDS: AMITRIPTYLINE HCL 100 MG TAB PO SCH (20:30)
[2021-06-29] MEDS: ALBUTEROL HFA 8 GM INHALER INH SCH (21:00)
--- NOTE | 2021-06-29 21:27 | Hospitalist Progress Note ---
Date of Service June 29, 2021 Assessment & Plan (1) Pneumonia due to COVID-19 virus: Plan: moderate-severe at admission but improved. day #5 of IV dexamethasone 6mg daily. likely 10+ days into illness; Remdesivir deferred. crp noted -- very high at presentation but now improving w/ steroid therapy. cont pulmonary toilet. cont NC O2 as needed. (2) Acute respiratory failure with hypoxia: Plan: 2nd to #1 improving weaned from NC O2 at rest but still needs w/ activity pulm toilet bronchodilators, etc (3) Bacterial pneumonia: Plan: Procalcitonin positive on admission. Patient is immunosuppressed therefore covering with cefepime and doxycycline. Blood cx's negative. Day #5 of above abx. She has concomitant sinusitis based on recent head CT. Finish 7 days in total of IV/PO abx. (4) Antineoplastic chemotherapy induced pancytopenia: Plan: s/p Neupogen 480mg SQ x 1 at admission - no longer neutropenic. s/p 2 units PRBCs HD #1 - H/H stable since. platelets low at 30-35 but stable. if vaginal bleeding worsens, however, would need to give apheresed platelets. CBC in am again. (5) Hemoptysis: Plan: 2nd to COVID pneumonia in setting of low platelets and coagulopathy. resolved. (6) Endometrial adenocarcinoma: Plan: s/p chemoradiation last chemo ~10 days ago recurrent vaginal bleeding watch/follow carefully (7) History of melanoma: Plan: s/p excision on scalp (8) History of stomach cancer: Plan: Remote history, s/p surgery and chemoradiation cont pepcid 20mg BID (9) Otitis externa: Plan: left -- improving ciprodex x 7 days cefepime will also provide systemic coverage CT head with significant sinus disease and small L mastoid effusion (10) Impetigo: Plan: right nare bactroban BID improved (11) Coagulopathy: Plan: dimer, FDP elevated but fibrinogen NOT low thus, DIC not likely s/p vit K x 1 PT/INR/PTT normalized vit K def? (12) Vertigo: Plan: likely 2nd to COVID inner ear likely improving CT head - neg for acute CVA cont meclizine TID (13) Morbid obesity with BMI of 50.0-59.9, adult: Plan: BMI 52 (14) Hypomagnesemia: Plan: replaced and resolved repeat level in am for stability (15) DVT prophylaxis: Plan: SCDs only chemical means contraindicated (16) Chronic pain syndrome: Plan: cont suboxone PDMP shows regular prescriptions for this med at this dosing (17) Left hip pain: Plan: check L hip x-rays with pelvis r/o subacute Fx r/o bony mets from cancer etc cont pain meds Plan: Pt, Ot evals requested Admission and Anticipated Discharge Date Admission Date: June 25, 2021 Subjective no significant changes from prior visit L ear improved; drainage nearly resolved R nare improved; irritation resolving breathing similar to yesterday although with walking she has ZHU appetite poor cont with diarrhea having L hip pain - present for a few weeks - bothers her at night-time, throbbing; no injury to her recollection Review of Systems Review of Systems: gen - fatigue, anorexia; no fever pulm - no further hemoptysis - vaginal bleeding improved, very lite at this time GI - no N/V skin - no new ulcerations/lesions Physical Exam Physical Exam: gen - morbidly obese, looks better than previous visits although remains tired appearing ears - left - purulence/drainage in canal and on outer pinnae resolved; healing ulcerations on outside x 2; no pain with palpation of tragus or manipulation of pinnae nose - impetigo right nare improved mouth - no thrush neck - no JVD heart - RRR, s1 s2 lungs - bibasilar rales improved, mild end-exp wheezes b/l abd - soft NT no HSM ext - trace edema, pulses 2+ b/l skin - scattered healing ulcerations (2-3) on limbs - no change psych - a/o x 3 although restricted affect musculo - left hip - no pain over trochanteric region/bursa; mild pain with palpation over iliac crest region on L; with passive hip ROM minimal pain Results & Data Results & Data ([facility]) Vital Signs (Past 12 Hours) Vital Signs Temp Pulse Resp BP Pulse Ox 06/29/21 19:35 60 20 98 06/29/21 15:01 36.7 C 52 L 20 151/82 H 100 Laboratory Results Laboratory Results - last 24 hr 06/29/21 06/29/21 09:29 09:29 WBC 3.62 L RBC 3.30 L Hgb 9.7 L Hct 29.6 L MCV 89.7 MCH 29.4 MCHC 32.8 RDW Std Deviation 61.5 H RDW Coeff of Josue 18.9 H Plt Count 29 L* Immature Gran % (Auto) 0.3 Neut % (Auto) 54.6 Lymph % (Auto) 30.4 [place] % (Auto) 13.8 Eos % (Auto) 0.3 Baso % (Auto) 0.6 Neut # (Auto) 1.98 Lymph # (Auto) 1.10 L [place] # (Auto) 0.50 Eos # (Auto) 0.01 Baso # (Auto) 0.02 Immature Gran # (Auto) 0.01 Platelet Estimate Decreased L Sodium 138 Potassium 4.1 Chloride 108 H Carbon Dioxide 23 Anion Gap 6.0 BUN 25 H Creatinine 0.73 Est Cr Clr Drug Dosing 120.0 Est GFR ( Amer) 111.3 Est GFR (Non-Af Amer) 96.0 BUN/Creatinine Ratio 34.5 H Glucose 89 Calcium 8.3 L PG Care Time/CCT Total # of Minutes Spent Total Time Spent with Patient: Total time spent is greater than 50% in coordination of care (as documented) at patient's floor/unit and/or counseling patient: Coding Level of Care Code 51100 Subseq Hosp Care Lvl 3 Diagnoses Pneumonia due to COVID-19 virus U07.1; J12.82 Acute respiratory failure with hypoxia J96.01 Bacterial pneumonia J15.9 Antineoplastic chemotherapy induced pancytopenia D61.810; T45.1X5A Hemoptysis R04.2 Endometrial adenocarcinoma C54.1 History of melanoma Z85.820 History of stomach cancer Z85.028 Otitis externa H60.90 Impetigo L01.00 Coagulopathy D68.9 Vertigo R42 Morbid obesity with BMI of 50.0-59.9, adult E66.01; Z68.43 Hypomagnesemia E83.42 DVT prophylaxis Z29.9 Chronic pain syndrome G89.4 Left hip pain M25.552
[2021-06-30] MEDS: BUPRENORPHINE/NALOXONE 8/2 MG TAB SL SCH ×4 (00:40→21:03)
[2021-06-30] MEDS: CEFEPIME 2,000 MG in SYRINGE 0 ML IV SCH ×3 (03:01→17:53)
[2021-06-30] MEDS: HEPARIN 100 UNIT/ML 5ML FLUSH FLUSH PRN ×2 (03:02→18:00)
[2021-06-30] MEDS: ALBUTEROL HFA 8 GM INHALER INH SCH ×4 (07:56→20:11)
[2021-06-30] MEDS: dexAMETHasone 6 MG in SYRINGE 0 ML IV SCH (09:15)
[2021-06-30] MEDS: MECLIZINE 12.5 MG TAB PO SCH ×3 (09:15→21:02)
[2021-06-30] MEDS: CIPRO 0.3%/DEXAMETHASONE 0.1% OTIC SUSP 7.5ML OTL SCH ×2 (09:15→21:03)
[2021-06-30] MEDS: GABAPENTIN 600 MG TAB PO SCH ×4 (09:16→21:04)
[2021-06-30] MEDS: DOXYCYCLINE HYCLATE 100 MG CAP PO SCH ×2 (09:16→21:03)
[2021-06-30] MEDS: FAMOTIDINE 20 MG TAB PO SCH ×2 (09:16→21:04)
[2021-06-30] MEDS: guaiFENesin 600 MG TABCR PO SCH ×2 (09:17→21:05)
[2021-06-30] MEDS: VENLAFAXINE HCL XR 75 MG CAPXR PO SCH (09:17)
[2021-06-30] MEDS: MUPIROCIN 2% OINT 22 GM TUBE EXT SCH ×2 (09:20→21:03)
--- NOTE | 2021-06-30 09:27 | XRay Report ---
SINGLE VIEW PELVIS; 2 VIEWS LEFT HIP CLINICAL HISTORY: Left hip pain. FINDINGS: An AP view of the pelvis with AP and frog-leg views of the left hip are compared to study d ated 01/12/2016. Correlation is made with pelvic CT dated 10/27/2016. The skeletal structures are well m ineralized. There is no radiographic evidence of acute fracture involving the hips or bony pelvis. Th e joint spaces of the hips are maintained. Small enthesophytes arise from the greater trochanters of the proximal femora. Degenerative sclerosis is noted in the sacroiliac joints. A linear metallic fore ign body is again seen projecting over the right pelvis. There is no bowel obstruction. The overlying soft tissues are normal as imaged. IMPRESSION: No acute bony abnormality is identified. Electronically signed by: Stewart Harp M.D. 06/30/2021 9:26 AM
[2021-06-30 09:36] LABS: Mean Corpuscular Hgb Conc 31.7 g/dL (32-36)
[2021-06-30 09:44] LABS: Hemoglobin 9.5 g/dL (12.0-16.0); Mean Corpuscular Hemoglobin 28.5 pg (25-34); Mean Corpuscular Volume 90.1 fL (80-100); RDW Coefficient of Variation 18.8 % (11.5-14.5); RDW Standard Deviation 62.1 fL (36.4-46.3); Red Blood Count 3.33 M/uL (4.2-5.4); White Blood Count 3.13 K/uL (4.8-10.8)
[2021-06-30 09:53] LABS: BUN Creatinine Ratio 26.5 (10-20); Calcium 8.9 mg/dl (8.5-10.1); Creatinine Clr Calc Pharmacy 98.4 ml/min; Est GFR (African American) 87.6 ml/min; Est GFR (Non-African American) 75.6 ml/min; Magnesium 1.4 mg/dl (1.8-2.4); Potassium 3.9 mmol/L (3.5-5.1)
[2021-06-30 10:02] LABS: Platelet Count 34 K/uL (130-400)
[2021-06-30 10:05] LABS: Eosinophils # (auto) 0.01 K/uL (0-0.5); Eosinophils % (auto) 0.3 %; Immature Granulocytes # (auto) 0.01 K/uL (0.00-0.02); Immature Granulocytes % (auto) 0.3 %; Lymphocytes # (auto) 0.91 K/uL (1.2-3.4); Lymphocytes % (auto) 29.1 %; Monocytes # (auto) 0.55 K/uL (0.11-0.59); Monocytes % (auto) 17.6 %; Neutrophils # (auto) 1.65 K/uL (1.4-6.5); Neutrophils % (auto) 52.7 %; Platelet Estimate SIGNIFIC DECREASED (Normal)
[2021-06-30] MEDS: MAGNESIUM OXIDE 400 MG TAB PO SCH (11:37)
[2021-06-30] MEDS: MAGNESIUM SULFATE / D5W 1 GM/100 ML BAG IV SCH ×4 (12:11→18:05)
[2021-06-30] MEDS: AMITRIPTYLINE HCL 100 MG TAB PO SCH (21:04)
[2021-06-30] MEDS: traZODone HCL 50 MG TAB PO SCH (21:05)
--- NOTE | 2021-06-30 22:16 | Hospitalist Progress Note ---
Date of Service June 30, 2021 Assessment & Plan (1) Pneumonia due to COVID-19 virus: Plan: moderate-severe at admission but improved. day #5 of IV dexamethasone 6mg daily. at admission was likely 10+ days into illness; Remdesivir deferred. crp noted -- very high at presentation but then decreased w/ steroids. cont pulmonary toilet. only requiring NC O2 w/ ambulation at this time. (2) Acute respiratory failure with hypoxia: Plan: 2nd to #1 improving weaned from NC O2 at rest (3) Bacterial pneumonia: Plan: Procalcitonin positive on admission. Patient is immunosuppressed therefore covering with cefepime and doxycycline for possibility of superimposed bacterial process. Blood cx's negative. Day #5 of above abx. She has concomitant sinusitis based on recent head CT. Finish 7 days in total of antibiotics. (4) Antineoplastic chemotherapy induced pancytopenia: Plan: s/p Neupogen 480mg SQ x 1 at admission - no longer neutropenic. s/p 2 units PRBCs HD #1 - H/H stable since. platelets low between 30-40. if vaginal bleeding worsens, however, would need to give apheresed platelets. Fortunately this issue has improved. Hemoptysis resolved. CBC in am. (5) Hemoptysis: Plan: 2nd to COVID pneumonia in setting of low platelets and coagulopathy. resolved. (6) Endometrial adenocarcinoma: Plan: s/p chemoradiation last chemo 7-10 days ago. recurrent vaginal bleeding - mild. watch/follow carefully (7) History of melanoma: Plan: s/p excision on scalp (8) History of stomach cancer: Plan: Remote history, s/p surgery and chemoradiation cont pepcid 20mg BID (9) Otitis externa: Plan: left -- improving ciprodex x 7 days cefepime will also provide systemic coverage CT head with significant sinus disease and small L mastoid effusion (10) Impetigo: Plan: right nare bactroban BID improved (11) Coagulopathy: Plan: dimer, FDP elevated but fibrinogen NOT low thus, DIC not likely s/p vit K x 1 PT/INR/PTT normalized may have been vit K deficiency (12) Vertigo: Plan: likely 2nd to COVID inner ear likely CT head - neg for acute CVA cont meclizine TID if any worsening - then MRI brain (13) Morbid obesity with BMI of 50.0-59.9, adult: Plan: BMI 52 (14) Hypomagnesemia: Plan: replace again - mag level am (15) DVT prophylaxis: Plan: SCDs only chemical means contraindicated (16) Chronic pain syndrome: Plan: cont suboxone PDMP shows regular prescriptions for this med at this dosing Plan: Pt, Ot diarrhea - check a cdiff insomnia - increase trazodone to 75mg HS pt slowly progressing Admission and Anticipated Discharge Date Admission Date: June 25, 2021 Subjective from breathing standpoint doing better in comparison to admission L ear drainage and pain resolved no hemoptysis vaginal bleeding mild or modest no abd pain appetite poor fatigue still present requiring NC O2 w/ ambulation only Review of Systems Review of Systems: gen - no fevers, no chills CV - no chest pain, no orthopnea Pulm - no dyspnea at rest, but still w/ mild ZHU GI - no nausea/emesis - no dysuria Skin - ulcerative rash - no new lesions have cropped up since yesterday Physical Exam Physical Exam: gen - morbidly obese, NAD - but looks tired ears - left - no pain with palpation of tragus or manipulation of pinnae; no drainage; 2 ulcers - one on helix, one on tragus - now scabbed nose - impetigo right nare improved mouth - no thrush, MMM neck - no JVD heart - RRR, s1 s2 lungs - bibasilar rales improved, end-exp wheezes mild abd - soft NT BS+ ext - trace edema, pulses 2+ b/l skin - scattered healing ulcerations (2-3) on limbs - no change; no petechiae psych - a/o x 3 Results & Data Results & Data ([facility]) Vital Signs (Past 12 Hours) Vital Signs Temp Pulse Resp BP Pulse Ox Pulse Ox Pulse Ox 06/30/21 20:13 75 18 99 06/30/21 16:07 98 06/30/21 16:04 36.6 C 76 18 108/69 98 06/30/21 15:18 80 18 97 06/30/21 14:48 100 100 06/30/21 11:27 78 18 98 Pulse Ox 06/30/21 20:13 06/30/21 16:07 06/30/21 16:04 06/30/21 15:18 06/30/21 14:48 96 06/30/21 11:27 Laboratory Results Laboratory Results - last 24 hr 06/30/21 06/30/21 06/30/21 08:40 08:40 21:15 WBC 3.13 L RBC 3.33 L Hgb 9.5 L Hct 30.0 L MCV 90.1 MCH 28.5 MCHC 31.7 L RDW Std Deviation 62.1 H RDW Coeff of Josue 18.8 H Plt Count 34 L Immature Gran % (Auto) 0.3 Neut % (Auto) 52.7 Lymph % (Auto) 29.1 [place] % (Auto) 17.6 Eos % (Auto) 0.3 Baso % (Auto) 0.0 Neut # (Auto) 1.65 Lymph # (Auto) 0.91 L [place] # (Auto) 0.55 Eos # (Auto) 0.01 Baso # (Auto) 0.00 Immature Gran # (Auto) 0.01 Platelet Estimate SIGNIFIC DECREASED Sodium 137 Potassium 3.9 Chloride 105 Carbon Dioxide 26 Anion Gap 6.0 BUN 24 H Creatinine 0.89 Est Cr Clr Drug Dosing 98.4 Est GFR ( Amer) 87.6 Est GFR (Non-Af Amer) 75.6 BUN/Creatinine Ratio 26.5 H Glucose 91 Calcium 8.9 Magnesium 1.4 L Stl C. diff Tox B Gene Pending PG Care Time/CCT Total # of Minutes Spent Total Time Spent with Patient: Total time spent is greater than 50% in coordination of care (as documented) at patient's floor/unit and/or counseling patient: Coding Level of Care Code 46491 Subseq Hosp Care Lvl 3 Diagnoses Pneumonia due to COVID-19 virus U07.1; J12.82 Acute respiratory failure with hypoxia J96.01 Bacterial pneumonia J15.9 Antineoplastic chemotherapy induced pancytopenia D61.810; T45.1X5A Hemoptysis R04.2 Endometrial adenocarcinoma C54.1 History of melanoma Z85.820 History of stomach cancer Z85.028 Otitis externa H60.90 Impetigo L01.00 Coagulopathy D68.9 Vertigo R42 Morbid obesity with BMI of 50.0-59.9, adult E66.01; Z68.43 Hypomagnesemia E83.42 DVT prophylaxis Z29.9 Chronic pain syndrome G89.4
[2021-07-01] MEDS: HEPARIN 100 UNIT/ML 5ML FLUSH FLUSH PRN ×4 (01:59→17:56)
[2021-07-01] MEDS: CEFEPIME 2,000 MG in SYRINGE 0 ML IV SCH ×3 (01:59→17:56)
[2021-07-01] MEDS: BUPRENORPHINE/NALOXONE 8/2 MG TAB SL SCH ×3 (06:50→20:23)
[2021-07-01] MEDS: GABAPENTIN 600 MG TAB PO SCH ×4 (08:02→20:25)
[2021-07-01] MEDS: ALBUTEROL HFA 8 GM INHALER INH SCH ×4 (08:23→19:42)
[2021-07-01 09:29] LABS: Mean Corpuscular Hgb Conc 32.3 g/dL (32-36)
[2021-07-01 09:41] LABS: Hematocrit (blood only) 30.3 % (37-47); Hemoglobin 9.8 g/dL (12.0-16.0); Mean Corpuscular Hemoglobin 29.3 pg (25-34); Mean Corpuscular Volume 90.4 fL (80-100); RDW Coefficient of Variation 18.4 % (11.5-14.5); RDW Standard Deviation 60.4 fL (36.4-46.3); Red Blood Count 3.35 M/uL (4.2-5.4); White Blood Count 3.41 K/uL (4.8-10.8)
[2021-07-01 09:48] LABS: Platelet Count 38 K/uL (130-400)
[2021-07-01 09:49] LABS: Basophils # (auto) 0.01 K/uL (0-0.2); Basophils % (auto) 0.3 %; Eosinophils # (auto) 0.02 K/uL (0-0.5); Eosinophils % (auto) 0.6 %; Immature Granulocytes # (auto) 0.01 K/uL (0.00-0.02); Immature Granulocytes % (auto) 0.3 %; Lymphocytes # (auto) 0.94 K/uL (1.2-3.4); Lymphocytes % (auto) 27.6 %; Monocytes # (auto) 0.43 K/uL (0.11-0.59); Monocytes % (auto) 12.6 %; Neutrophils % (auto) 58.6 %; Platelet Estimate Decreased (Normal)
[2021-07-01] MEDS: DOXYCYCLINE HYCLATE 100 MG CAP PO SCH ×2 (09:58→20:25)
[2021-07-01] MEDS: guaiFENesin 600 MG TABCR PO SCH ×2 (09:58→20:24)
[2021-07-01] MEDS: VENLAFAXINE HCL XR 75 MG CAPXR PO SCH (09:58)
[2021-07-01] MEDS: MECLIZINE 12.5 MG TAB PO SCH ×3 (09:58→20:25)
[2021-07-01] MEDS: CIPRO 0.3%/DEXAMETHASONE 0.1% OTIC SUSP 7.5ML OTL SCH ×2 (09:59→20:23)
[2021-07-01] MEDS: FAMOTIDINE 20 MG TAB PO SCH ×2 (09:59→20:25)
[2021-07-01] MEDS: dexAMETHasone 6 MG in SYRINGE 0 ML IV SCH (09:59)
[2021-07-01 10:00] LABS: BUN Creatinine Ratio 25.7 (10-20); Calcium 8.8 mg/dl (8.5-10.1); Creatinine Clr Calc Pharmacy 96.3 ml/min; Est GFR (African American) 85.3 ml/min; Est GFR (Non-African American) 73.6 ml/min; Magnesium 1.6 mg/dl (1.8-2.4); Potassium 4.2 mmol/L (3.5-5.1)
[2021-07-01] MEDS: MUPIROCIN 2% OINT 22 GM TUBE EXT SCH ×2 (10:00→20:23)
[2021-07-01] MEDS: LIDOCAINE 5% 1 PATCH TD SCH (11:42)
[2021-07-01] MEDS: MAGNESIUM OXIDE 400 MG TAB PO SCH (11:45)
[2021-07-01] MEDS: MAGNESIUM SULFATE / D5W 1 GM/100 ML BAG IV SCH ×2 (11:46→13:22)
--- NOTE | 2021-07-01 18:52 | Hospitalist Progress Note ---
Date of Service July 01, 2021 Assessment & Plan (1) Left hip pain: Plan: recent L hip x-rays and pelvic x-rays normal/unremarkable no significant OA I am uncertain if the pain is referred pain from a lumbar spine radiculopathy (some of her symptoms suggest L2 or L3 radiculopathy) but I cannot rule out something in the L pelvis contributing to pain will obtain CT pelvis - r/o psoas hematoma or abscess; r/o L pelvic progression of uterine cancer; r/o femoral nerve invasion from cancer will obtain CT l-spine - r/o bony mets, r/o significant DJD cont k-pad cont steroids (being used for COVID but will help if this is musculoskeletal pain) cont lidoderms await imaging (2) Pneumonia due to COVID-19 virus: Plan: moderate-severe at admission but improved. NC O2 requirement while awake and at rest resolved. is requiring some NC O2 w/ activity - cont to wean as tolerated. day #7 of IV dexamethasone 6mg daily. was likely 10+ days into illness at admission; Remdesivir deferred. crp high earlier this stay but has improved w/ steroid therapy. cont pulmonary toilet. cont NC O2 as needed. (3) Acute respiratory failure with hypoxia: Plan: 2nd to #1 improving weaned from NC O2 at rest but still needs w/ activity pulm toilet bronchodilators, etc (4) Bacterial pneumonia: Plan: Procalcitonin positive on admission. Patient is immunosuppressed therefore covering with cefepime and doxycycline for bacterial superinfection. Blood cx's negative. Day #6 of above abx. She has concomitant sinusitis based on recent head CT. Finish 7 days in total of abx. (5) Antineoplastic chemotherapy induced pancytopenia: Plan: s/p Neupogen 480mg SQ x 1 at admission - no longer neutropenic. s/p 2 units PRBCs HD #1 - H/H stable since. platelets low at 30-40 but stable. vaginal bleeding and hemoptysis are either resolved or mild/minimal. cbc am. (6) Hemoptysis: Plan: 2nd to COVID pneumonia in setting of low platelets and coagulopathy. resolved. (7) Endometrial adenocarcinoma: Plan: s/p chemoradiation last chemo ~10 days ago recurrent vaginal bleeding watch/follow carefully (8) History of melanoma: Plan: s/p excision on scalp (9) History of stomach cancer: Plan: Remote history, s/p surgery and chemoradiation cont pepcid 20mg BID (10) Otitis externa: Plan: left -- improving/resolving ciprodex x 7 days; today is day 6 cefepime will also provide systemic coverage CT head with significant sinus disease and small L mastoid effusion (11) Impetigo: Plan: right nare bactroban BID improved (12) Coagulopathy: Plan: dimer, FDP elevated but fibrinogen NOT low thus, DIC not likely s/p vit K x 1 PT/INR/PTT normalized vit K def suspected in setting of poor nutrition (13) Vertigo: Plan: likely 2nd to COVID inner ear likely improving overall although she had a brief, 20 sec episode when she sat up too quickly in bed during my bedside rounds otherwise she states it has been "pretty good" last 2-[address] head - neg for acute CVA cont meclizine TID (14) Morbid obesity with BMI of 50.0-59.9, adult: Plan: BMI 52 (15) Hypomagnesemia: Plan: replace once again with IV mag repeat level am (16) DVT prophylaxis: Plan: SCDs only chemical means contraindicated due to low platelets (17) Chronic pain syndrome: Plan: cont suboxone PDMP shows regular prescriptions for this med at this dosing Plan: cont oob-->chair,BR PT, OT sleep is improved w/ larger dose trazodone continues to progress Admission and Anticipated Discharge Date Admission Date: June 25, 2021 Subjective when I walked into the room the patient was sitting at the side of the bed she said "it's been a terrible day" when asked about what happened she c/o left groin pain that has been present most of the day she had complained about this a few days ago, and again recalls that it started just before she came to the hospital she has L groin pain, hurts with movement/flexion of hip she also has L paraspinal lumbar pain that radiates to L gluteus region, L lateral hip region, then down the anterior L thigh no paresthesias no weakness denies abd pain she recounts multiple intra-abdominal surgeries for hernia including a large procedure to replace mesh hemoptysis has not recurred vaginal bleeding - only using 1 pad/day at this point L ear - all complaints resolved ulcerative rash on arms/legs - no new lesions dyspnea at rest resolved still with mild ZHU cough - nonproductive - ongoing eating fair at best Review of Systems Review of Systems: gen- no fevers/chills GI - no pain, no vomiting cv - no orthopnea, no chest pain pulm - no sputum - no dysuria or complaints Physical Exam Physical Exam: gen - morbidly obese, despite her multiple complaints today I actually think she looks really good today; very sprightly/talkative ears - left - again no pain with palpation of tragus or manipulation of pinnae; 2 ulcers - 1 on tragus, 1 on helix - both scabbed; no erythema of canal or outer pinnae nose - impetigo right nare appears resolved mouth - no thrush. MMM neck - no JVD heart - RRR, s1 s2 lungs - bibasilar rales improved, mild end-exp wheezes b/l only when she coughs, decreased BS bases abd - soft NT BS+ obese ext - trace edema, pulses 2+ b/l skin - scattered healing ulcerations (2-3) on limbs - no change psych - a/o x 3 musculo - left hip - no pain over trochanteric region/bursa; mild pain over L SI joint and L lumbar paraspinal region; I layed her flat in bed - performed p assive flexion of L hip - this caused some pain in L groin and L anterior thigh; strength b/l legs 5/5; no spinous process pain over t-spine or l-spine lymph - there are at least 2 palpable lymph nodes in the L inguinal region - each 1.5cm or larger - but nontender and not fixed Results & Data Results & Data ([facility]) Vital Signs (Past 12 Hours) Vital Signs Temp Pulse Resp BP Pulse Ox 07/01/21 16:17 36.4 C L 87 18 131/85 95 07/01/21 15:25 87 20 99 07/01/21 11:16 87 20 98 07/01/21 08:24 78 22 98 07/01/21 07:32 36.6 C 84 18 130/73 99 Laboratory Results Laboratory Results - last 24 hr 06/30/21 07/01/21 07/01/21 21:15 08:56 08:56 WBC 3.41 L RBC 3.35 L Hgb 9.8 L Hct 30.3 L MCV 90.4 MCH 29.3 MCHC 32.3 RDW Std Deviation 60.4 H RDW Coeff of Josue 18.4 H Plt Count 38 L Immature Gran % (Auto) 0.3 Neut % (Auto) 58.6 Lymph % (Auto) 27.6 [place] % (Auto) 12.6 Eos % (Auto) 0.6 Baso % (Auto) 0.3 Neut # (Auto) 2.00 Lymph # (Auto) 0.94 L [place] # (Auto) 0.43 Eos # (Auto) 0.02 Baso # (Auto) 0.01 Immature Gran # (Auto) 0.01 Platelet Estimate Decreased L Sodium 134 L Potassium 4.2 Chloride 104 Carbon Dioxide 28 Anion Gap 2.0 L BUN 23 H Creatinine 0.91 Est Cr Clr Drug Dosing 96.3 Est GFR ( Amer) 85.3 Est GFR (Non-Af Amer) 73.6 BUN/Creatinine Ratio 25.7 H Glucose 91 Calcium 8.8 Magnesium 1.6 L Stl C. diff Tox B Gene Negative Cdiff Gene PG Care Time/CCT Total # of Minutes Spent Total Time Spent with Patient: Total time spent is greater than 50% in coordination of care (as documented) at patient's floor/unit and/or counseling patient: Coding Level of Care Code 73459 Subseq Hosp Care Lvl 3 Diagnoses Pneumonia due to COVID-19 virus U07.1; J12.82 Acute respiratory failure with hypoxia J96.01 Bacterial pneumonia J15.9 Antineoplastic chemotherapy induced pancytopenia D61.810; T45.1X5A Hemoptysis R04.2 Endometrial adenocarcinoma C54.1 History of melanoma Z85.820 History of stomach cancer Z85.028 Otitis externa H60.90 Impetigo L01.00 Coagulopathy D68.9 Vertigo R42 Morbid obesity with BMI of 50.0-59.9, adult E66.01; Z68.43 Hypomagnesemia E83.42 DVT prophylaxis Z29.9 Chronic pain syndrome G89.4 Left hip pain M25.552
[2021-07-01] MEDS: AMITRIPTYLINE HCL 100 MG TAB PO SCH (20:24)
[2021-07-01] MEDS: traZODone HCL 50 MG TAB PO SCH (20:24)
[2021-07-02] MEDS: HEPARIN 100 UNIT/ML 5ML FLUSH FLUSH PRN ×2 (01:21→17:28)
[2021-07-02] MEDS: CEFEPIME 2,000 MG in SYRINGE 0 ML IV SCH ×3 (01:21→17:28)
[2021-07-02 07:57] LABS: Mean Corpuscular Hgb Conc 32.1 g/dL (32-36)
[2021-07-02] MEDS: ALBUTEROL HFA 8 GM INHALER INH SCH ×4 (08:10→19:49)
[2021-07-02 08:21] LABS: Hematocrit (blood only) 29.9 % (37-47); Hemoglobin 9.6 g/dL (12.0-16.0); Mean Corpuscular Hemoglobin 29.1 pg (25-34); Mean Corpuscular Volume 90.6 fL (80-100); Platelet Count 42 K/uL (130-400); RDW Coefficient of Variation 18.1 % (11.5-14.5); RDW Standard Deviation 59.1 fL (36.4-46.3); White Blood Count 3.28 K/uL (4.8-10.8)
[2021-07-02 08:22] LABS: Basophils # (auto) 0.01 K/uL (0-0.2); Basophils % (auto) 0.3 %; Eosinophils # (auto) 0.02 K/uL (0-0.5); Eosinophils % (auto) 0.6 %; Immature Granulocytes # (auto) 0.01 K/uL (0.00-0.02); Immature Granulocytes % (auto) 0.3 %; Lymphocytes # (auto) 1.18 K/uL (1.2-3.4); Monocytes # (auto) 0.37 K/uL (0.11-0.59); Monocytes % (auto) 11.3 %; Neutrophils # (auto) 1.69 K/uL (1.4-6.5); Neutrophils % (auto) 51.5 %; Platelet Estimate SIGNIFIC DECREASED (Normal)
[2021-07-02 08:57] LABS: BUN Creatinine Ratio 23.9 (10-20); Calcium 9.1 mg/dl (8.5-10.1); Creatinine Clr Calc Pharmacy 97.3 ml/min; Est GFR (African American) 86.4 ml/min; Est GFR (Non-African American) 74.6 ml/min; Magnesium 1.7 mg/dl (1.8-2.4); Potassium 4.6 mmol/L (3.5-5.1)
[2021-07-02] MEDS: MECLIZINE 12.5 MG TAB PO SCH ×3 (09:03→21:56)
[2021-07-02] MEDS: BUPRENORPHINE/NALOXONE 8/2 MG TAB SL SCH ×3 (09:03→21:59)
[2021-07-02] MEDS: FAMOTIDINE 20 MG TAB PO SCH ×2 (09:03→21:52)
[2021-07-02] MEDS: DOXYCYCLINE HYCLATE 100 MG CAP PO SCH ×2 (09:03→21:52)
[2021-07-02] MEDS: VENLAFAXINE HCL XR 75 MG CAPXR PO SCH (09:03)
[2021-07-02] MEDS: GABAPENTIN 600 MG TAB PO SCH ×4 (09:03→21:51)
[2021-07-02] MEDS: guaiFENesin 600 MG TABCR PO SCH ×2 (09:03→21:53)
[2021-07-02] MEDS: MUPIROCIN 2% OINT 22 GM TUBE EXT SCH ×2 (09:04→21:58)
[2021-07-02] MEDS: LIDOCAINE 5% 1 PATCH TD SCH (09:04)
[2021-07-02] MEDS: dexAMETHasone 6 MG in SYRINGE 0 ML IV SCH (10:07)
[2021-07-02] MEDS: CIPRO 0.3%/DEXAMETHASONE 0.1% OTIC SUSP 7.5ML OTL SCH ×2 (10:07→21:57)
[2021-07-02] MEDS: MAGNESIUM OXIDE 400 MG TAB PO SCH (11:21)
--- NOTE | 2021-07-02 11:22 | CT Scan Report ---
CT pelvis wo con CLINICAL HISTORY: L groin pain, uterine ca, eval for L pelvis path TECHNIQUE: Helical axial images of the abdomen and pelvis were obtained and displayed at 5 and 1 mm i ntervals. Automated dose lowering techniques and/or adjustment according to patient size were utilize d for this exam. This exam was performed with intravenous contrast. COMPARISON: None available at the time of this dictation. FINDINGS: Bowel: Patient is status post bowel resection. No obstruction is seen. Lymph nodes Retroperitoneal: There is partial visualization of a prominent left retroaortic lymph node measuring 13 mm in short axis. Mesenteric: Unremarkable. Pelvic: Left external inguinal lymph nodes are seen measuring up to 13 mm in diameter. Bladder: Limited evaluation due to underdistention. Reproductive organs: Unremarkable. Peritoneum: Normal Vessels: Atherosclerotic calcifications are seen. Abdominal wall: There is asymmetric thickening and fat stranding surrounding the left iliopsoas muscl e. No definite drainable fluid collection is seen. Bones: Degenerative changes in the visualized spine. IMPRESSION: Mass in the left iliopsoas muscle with surrounding fat stranding. Although evaluation is limited by n oncontrast technique, findings are suggestive of intramuscular abscess or hematoma. Left sided lympha denopathy is seen. ACT 112: Negative or not required by law. Electronically signed by: Jesus Ingram M.D. 07/02/2021 11:20 AM
--- NOTE | 2021-07-02 11:22 | CT Scan Report ---
CT lumbar spine wo con CLINICAL HISTORY: uterine ca; LLE pain; eval spine for DJD, mets TECHNIQUE: Multidetector row helical CT of the lumbar spine was performed without administration of i ntravenous contrast. Coronal and sagittal reformations were obtained. Automated dose lowering techniq ues and/or adjustment according to patient size were utilized for this exam. Comparison: None available at the time of this dictation. FINDINGS: For counting purposes, the last complete intervertebral disc space is considered L5-S1. No acute fractures are identified. Degenerative changes are noted in the visualized spine. Vertebral body alignment is within normal limits. Surrounding soft tissues are unremarkable. Incidental note is made of IVC filter in the infrarenal IVC. IMPRESSION: No evidence of acute fracture or traumatic subluxation. Please see CT pelvis performed same day for f indings of left iliopsoas mass lesion. ACT 112: Negative or not required by law. Electronically signed by: Jesus Ingram M.D. 07/02/2021 11:21 AM
[2021-07-02] MEDS: MAGNESIUM SULFATE / D5W 1 GM/100 ML BAG IV SCH ×2 (13:23→15:18)
--- NOTE | 2021-07-02 19:20 | Hospitalist Progress Note ---
Date of Service July 02, 2021 Assessment & Plan (1) Left hip pain: Plan: recent L hip x-rays and pelvic x-rays normal/unremarkable no significant OA CT l-spine negative - thus, this pain is not radicular CT pelvis - psoas mass - hematoma vs abscess vs other spoke with on-call ortho - they advised MRI with contrast; unfortunately she has contrast allergy thus performed without contrast MRI most suggestive of hematoma would make sense as she has had severely low platelets easily could have bled from that alone vs severe coughing fit leading to hemorrhage vs other will consult ortho formally no signs/symptoms of abscess can't fully rule out uterine ca in that location await ortho eval pain meds in meantime (2) Pneumonia due to COVID-19 virus: Plan: moderate-severe at admission but improving nicely. day #8 of IV dexamethasone 6mg daily. was likely 10+ days into illness at admission; Remdesivir deferred. crp high earlier this stay but has improved w/ steroid therapy. cont pulmonary toilet. o2 has been weaned off. (3) Acute respiratory failure with hypoxia: Plan: 2nd to #1 improving/resolved weaned from NC O2 at rest pulm toilet bronchodilators, etc see above (4) Bacterial pneumonia: Plan: Procalcitonin positive on admission. Patient is immunosuppressed therefore covering with cefepime and doxycycline for bacterial superinfection. Blood cx's negative. Day #7 of above abx. She has concomitant sinusitis based on recent head CT. Finish 7 days in total of abx. stop abx after today. (5) Antineoplastic chemotherapy induced pancytopenia: Plan: s/p Neupogen 480mg SQ x 1 at admission - no longer neutropenic. s/p 2 units PRBCs HD #1 - H/H stable since. platelets low at 30-40 but stable. vaginal bleeding and hemoptysis are either resolved or mild/minimal. cbc am for stability. (6) Hemoptysis: Plan: 2nd to COVID pneumonia in setting of low platelets and coagulopathy. resolved. (7) Endometrial adenocarcinoma: Plan: s/p chemoradiation last chemo ~10-14 days ago recurrent vaginal bleeding watch/follow carefully cbc should start to improve next 1-2 days since we are getting further out from the chemo (8) History of melanoma: Plan: s/p excision on scalp (9) History of stomach cancer: Plan: Remote history, s/p surgery and chemoradiation cont pepcid 20mg BID (10) Otitis externa: Plan: left -- resolved ciprodex x 7=10 days; today is day 7 cefepime will also provide systemic coverage - stop after today since it is day #7 CT head with significant sinus disease and small L mastoid effusion (11) Impetigo: Plan: right nare bactroban BID improved ulcers on arms/legs could be bacterial, too - she is placing bactroban on those lesions & they are resolving (12) Coagulopathy: Plan: dimer, FDP elevated but fibrinogen NOT low thus, DIC not likely s/p vit K x 1 PT/INR/PTT normalized vit K def suspected in setting of poor nutrition (13) Vertigo: Plan: likely 2nd to COVID inner ear likely improving overall less frequent episodes, and they are short-lived CT head - neg for acute CVA cont meclizine TID (14) Morbid obesity with BMI of 50.0-59.9, adult: Plan: BMI 52 (15) Hypomagnesemia: Plan: almost normal 1.7 today 2 more gms of mag sulfate repeat level am (16) DVT prophylaxis: Plan: SCDs only chemical means contraindicated due to low platelets (17) Chronic pain syndrome: Plan: cont suboxone PDMP shows regular prescriptions for this med at this dosing Plan: cont oob-->chair,BR as tolerated f PT, OT sleep is improved w/ larger dose trazodone continues to progress await ortho consultation Admission and Anticipated Discharge Date Admission Date: June 25, 2021 Subjective patient just returned from MRI shortly before my visit she overall had a good day has been off oxygen the entire day still with cough but improving no hemoptysis mild vaginal bleeding only - no worse from prior left hip/groin pain similar to yesterday - certainly not any worse able to ambulate despite the pain Review of Systems Review of Systems: gen - no fevers CV - no chest pain lungs/pulm - no dyspnea at rest; minimal ZHU; some wheeze GI - no N/V Physical Exam Physical Exam: gen - morbidly obese; best she has looked all week; coughing at times ears - left - no erythema of canal or outer pinnae; no pain with palpation of tragus or manipulation of pinnae; no ear canal drainage; 2 ulcerations healing (1 on tragus, 1 on helix) nose - impetigo right nare appears resolved; tiny crusted ulceration mouth - no thrush. MMM neck - no JVD heart - RRR, s1 s2 lungs - very clear today b/l, scant rales bases, scant wheeze abd - soft NT BS+ obese ext - trace edema, pulses 2+ b/l skin - scattered healing ulcerations on all 4 limbs psych - a/o x 3 musculo - left hip - passive ROM is improved today; still with mild pain but improved from prior exams Results & Data Results & Data ([facility]) Vital Signs (Past 12 Hours) Vital Signs Temp Pulse Resp BP Pulse Ox 07/02/21 15:24 36.8 C 80 18 106/54 L 92 07/02/21 15:10 77 18 96 07/02/21 11:44 84 16 95 07/02/21 08:11 82 16 98 Laboratory Results Laboratory Results - last 24 hr 07/02/21 07/02/21 07:45 07:45 WBC 3.28 L RBC 3.30 L Hgb 9.6 L Hct 29.9 L MCV 90.6 MCH 29.1 MCHC 32.1 RDW Std Deviation 59.1 H RDW Coeff of Josue 18.1 H Plt Count 42 L Immature Gran % (Auto) 0.3 Neut % (Auto) 51.5 Lymph % (Auto) 36.0 [place] % (Auto) 11.3 Eos % (Auto) 0.6 Baso % (Auto) 0.3 Neut # (Auto) 1.69 Lymph # (Auto) 1.18 L [place] # (Auto) 0.37 Eos # (Auto) 0.02 Baso # (Auto) 0.01 Immature Gran # (Auto) 0.01 Platelet Estimate SIGNIFIC DECREASED Sodium 134 L Potassium 4.6 Chloride 103 Carbon Dioxide 26 Anion Gap 5.0 BUN 22 H Creatinine 0.90 Est Cr Clr Drug Dosing 97.3 Est GFR ( Amer) 86.4 Est GFR (Non-Af Amer) 74.6 BUN/Creatinine Ratio 23.9 H Glucose 95 Calcium 9.1 Magnesium 1.7 L PG Care Time/CCT Total # of Minutes Spent Total Time Spent with Patient: Total time spent is greater than 50% in coordination of care (as documented) at patient's floor/unit and/or counseling patient: Coding Level of Care Code 35849 Subseq Hosp Care Lvl 3 Diagnoses Left hip pain M25.552 Pneumonia due to COVID-19 virus U07.1; J12.82 Acute respiratory failure with hypoxia J96.01 Bacterial pneumonia J15.9 Antineoplastic chemotherapy induced pancytopenia D61.810; T45.1X5A Hemoptysis R04.2 Endometrial adenocarcinoma C54.1 History of melanoma Z85.820 History of stomach cancer Z85.028 Otitis externa H60.90 Impetigo L01.00 Coagulopathy D68.9 Vertigo R42 Morbid obesity with BMI of 50.0-59.9, adult E66.01; Z68.43 Hypomagnesemia E83.42 DVT prophylaxis Z29.9 Chronic pain syndrome G89.4
--- NOTE | 2021-07-02 20:09 | Magnetic Resonance Report ---
MR pelvis wo con CLINICAL HISTORY: uterine ca; ileopsoas hematoma v abscess v cancer? COMPARISON: None available at the time of this dictation. TECHNIQUE: Multiplanar multisequence images were obtained of the abdomen without the administration o f contrast. FINDINGS: Exam is limited by patient motion. Bowel: Unremarkable. Lymph nodes: Unremarkable. Kidneys: Bilateral pelviectasis is seen, hydronephrosis cannot be excluded. Bladder: Unremarkable. Reproductive organs: Unremarkable. Vessels: Unremarkable. Abdominal wall: Again seen is a T1 hypointense, T2 hyperintense mass in the medial aspect of the left iliopsoas. Soft tissue edema is the midline lumbar region. Bones: Degenerative changes in the visualized spine. IMPRESSION: Limited exam due to patient motion. Heterogeneously T2 hyperintense mass in the medial aspect of the left iliopsoas. This appearance is not typical for abscess and is favored to represent hematoma, stevens amber underlying malignancy cannot be excluded in this patient with uterine cancer. A contrast MRI can be considered for improved characterization if the patient can cooperate, and follow-up to resolution is recommended. ACT 112: Negative or not required by law. Electronically signed by: Jesus Ingram M.D. 07/02/2021 8:08 PM
[2021-07-02] MEDS: AMITRIPTYLINE HCL 100 MG TAB PO SCH (21:54)
[2021-07-02] MEDS: traZODone HCL 50 MG TAB PO SCH (21:55)
[2021-07-03] MEDS: ALBUTEROL HFA 8 GM INHALER INH SCH (07:46)
[2021-07-03 08:25] LABS: Mean Corpuscular Hgb Conc 32.4 g/dL (32-36)
[2021-07-03 08:47] LABS: C Reactive Protein 3.65 mg/dl (0-0.29); Calcium 9.3 mg/dl (8.5-10.1); Creatinine Clr Calc Pharmacy 92.2 ml/min; Est GFR (African American) 81.4 ml/min; Est GFR (Non-African American) 70.2 ml/min; Magnesium 1.9 mg/dl (1.8-2.4); Potassium 4.6 mmol/L (3.5-5.1)
[2021-07-03 08:58] LABS: Hematocrit (blood only) 29.3 % (37-47); Hemoglobin 9.5 g/dL (12.0-16.0); Mean Corpuscular Hemoglobin 29.5 pg (25-34); RDW Coefficient of Variation 18.3 % (11.5-14.5); RDW Standard Deviation 60.1 fL (36.4-46.3); Red Blood Count 3.22 M/uL (4.2-5.4); White Blood Count 3.43 K/uL (4.8-10.8)
[2021-07-03] MEDS: MUPIROCIN 2% OINT 22 GM TUBE EXT SCH ×2 (08:58→20:32)
[2021-07-03] MEDS: LIDOCAINE 5% 1 PATCH TD SCH (08:58)
[2021-07-03] MEDS: guaiFENesin 600 MG TABCR PO SCH ×2 (08:59→20:33)
[2021-07-03] MEDS: FAMOTIDINE 20 MG TAB PO SCH ×2 (08:59→20:33)
[2021-07-03] MEDS: MECLIZINE 12.5 MG TAB PO SCH ×3 (08:59→20:34)
[2021-07-03] MEDS: BUPRENORPHINE/NALOXONE 8/2 MG TAB SL SCH ×2 (08:59→20:38)
[2021-07-03] MEDS: GABAPENTIN 600 MG TAB PO SCH ×4 (08:59→20:34)
[2021-07-03] MEDS: HEPARIN 100 UNIT/ML 5ML FLUSH FLUSH PRN (08:59)
[2021-07-03] MEDS: VENLAFAXINE HCL XR 75 MG CAPXR PO SCH (08:59)
[2021-07-03] MEDS: dexAMETHasone 6 MG in SYRINGE 0 ML IV SCH (09:00)
[2021-07-03] MEDS: CIPRO 0.3%/DEXAMETHASONE 0.1% OTIC SUSP 7.5ML OTL SCH ×2 (09:00→20:35)
[2021-07-03 09:21] LABS: Platelet Count 49 K/uL (130-400)
[2021-07-03 09:22] LABS: Basophils # (auto) 0.02 K/uL (0-0.2); Basophils % (auto) 0.6 %; Eosinophils # (auto) 0.01 K/uL (0-0.5); Eosinophils % (auto) 0.3 %; Immature Granulocytes # (auto) 0.01 K/uL (0.00-0.02); Immature Granulocytes % (auto) 0.3 %; Lymphocytes # (auto) 1.13 K/uL (1.2-3.4); Lymphocytes % (auto) 32.9 %; Monocytes # (auto) 0.41 K/uL (0.11-0.59); Neutrophils # (auto) 1.85 K/uL (1.4-6.5); Neutrophils % (auto) 53.9 %; Platelet Estimate Decreased (Normal)
[2021-07-03] MEDS ORDERED: ALBUTEROL HFA 8 GM INHALER INH PRN (09:56)
[2021-07-03] MEDS: MAGNESIUM OXIDE 400 MG TAB PO SCH (10:58)
--- NOTE | 2021-07-03 13:25 | Hospitalist Progress Note ---
Date of Service July 03, 2021 Assessment & Plan (1) Left hip pain: Plan: recent L hip x-rays and pelvic x-rays normal/unremarkable no significant OA CT l-spine negative - thus, this pain is not radicular CT pelvis - psoas mass - hematoma vs abscess vs other MRI most suggestive of hematoma would make sense as she has had severely low platelets easily could have bled from that alone vs severe coughing fit leading to hemorrhage vs other no need for ortho or general surgery consult pain control will be important slightly increased her Suboxone to 8/2 TID got a lot of relief from a dose of Toradol can have her use NSAIDs for a week, cautious with low platelets (2) Pneumonia due to COVID-19 virus: Plan: moderate-severe at admission but improving nicely. day #9 of IV dexamethasone 6mg daily. was likely 10+ days into illness at admission; Remdesivir deferred. crp high earlier this stay but has improved w/ steroid therapy. cont pulmonary toilet. o2 has been weaned off for 2 days (3) Acute respiratory failure with hypoxia: Plan: 2nd to #1 improving/resolved on room air pulm toilet bronchodilators, etc see above (4) Bacterial pneumonia: Plan: Procalcitonin positive on admission. Patient is immunosuppressed therefore covering with cefepime and doxycycline for bacterial superinfection. Blood cx's negative. Day #7 of above abx. She has concomitant sinusitis based on recent head CT. Finish 7 days in total of abx. stopped antibiotics 07/02 (5) Antineoplastic chemotherapy induced pancytopenia: Plan: s/p Neupogen 480mg SQ x 1 at admission - no longer neutropenic. s/p 2 units PRBCs HD #1 - H/H stable since. platelets low at 47k but improving vaginal bleeding and hemoptysis are either resolved or mild/minimal. cbc am for stability. (6) Hemoptysis: Plan: 2nd to COVID pneumonia in setting of low platelets and coagulopathy. resolved. (7) Endometrial adenocarcinoma: Plan: s/p chemoradiation last chemo ~10-14 days ago recurrent vaginal bleeding watch/follow carefully cbc should start to improve next 1-2 days since we are getting further out from the chemo (8) History of melanoma: Plan: s/p excision on scalp (9) History of stomach cancer: Plan: Remote history, s/p surgery and chemoradiation cont pepcid 20mg BID (10) Otitis externa: Plan: left -- resolved ciprodex x 7=10 days; today is day 7 cefepime will also provide systemic coverage - stop after today since it is day #7 CT head with significant sinus disease and small L mastoid effusion (11) Impetigo: Plan: right nare bactroban BID improved ulcers on arms/legs could be bacterial, too - she is placing bactroban on those lesions & they are resolving (12) Coagulopathy: Plan: dimer, FDP elevated but fibrinogen NOT low thus, DIC not likely s/p vit K x 1 PT/INR/PTT normalized vit K def suspected in setting of poor nutrition (13) Vertigo: Plan: likely 2nd to COVID inner ear likely improving overall less frequent episodes, and they are short-lived CT head - neg for acute CVA cont meclizine TID (14) Morbid obesity with BMI of 50.0-59.9, adult: Plan: BMI 52 (15) Hypomagnesemia: Plan: almost normal 1.7 today 2 more gms of mag sulfate repeat level am (16) DVT prophylaxis: Plan: SCDs only chemical means contraindicated due to low platelets (17) Chronic pain syndrome: Plan: cont suboxone PDMP shows regular prescriptions for this med at this dosing Plan: cont oob-->chair,BR as tolerated f PT, OT d/c to home tomorrow morning Admission and Anticipated Discharge Date Admission Date: June 25, 2021 Subjective patient c/o left hip pain, discussed the hematoma on the psoas muscle no need for ortho or general surgery consult, she agrees discussed pain control, will increase her Suboxone, gave a dose of Toradol that provided a great deal of relief eating okay, breathing very well on room air, plan to go home tomorrow Review of Systems Review of Systems: All systems reviewed & are unremarkable except as noted in Subjective Musculoskeletal: + joint pain (left hip and back) Physical Exam Physical Exam: General: well developed, well nourished, overweight, no acute distress, comfortable Neck: supple, trachea midline, normal thyroid Lungs: clear to auscultation bilaterally, normal respiratory effort, no accessory muscle use, no distress Heart: regular S1 and S2, no murmur, peripheral pulses normal, capillary refill normal, no edema Abdomen: soft, NT, ND, + BS, no hepatomegaly, normal to percussion Extremities: normal in appearance, no cyanosis, no petechiae, strength is 5/5 bilaterally, pain elicited with flexion of left hip Neuro: awake, cooperative, moves all extremities, no focal motor deficits, CN II-XII intact, sensation in extremities intact, normal speech Skin: warm, dry, no rash, normal turgor Psych: Awake, alert oriented x 3, euthymic affect Results & Data Results & Data ([facility]) Vital Signs (Past 12 Hours) Vital Signs Temp Pulse Resp BP Pulse Ox 07/03/21 07:47 82 16 97 07/03/21 07:28 37.5 C 93 H 18 118/65 95 Laboratory Results Laboratory Results - last 24 hr 07/03/21 07/03/21 07:42 07:42 WBC 3.43 L RBC 3.22 L Hgb 9.5 L Hct 29.3 L MCV 91.0 MCH 29.5 MCHC 32.4 RDW Std Deviation 60.1 H RDW Coeff of Josue 18.3 H Plt Count 49 L Immature Gran % (Auto) 0.3 Neut % (Auto) 53.9 Lymph % (Auto) 32.9 Sumner % (Auto) 12.0 Eos % (Auto) 0.3 Baso % (Auto) 0.6 Neut # (Auto) 1.85 Lymph # (Auto) 1.13 L Sumner # (Auto) 0.41 Eos # (Auto) 0.01 Baso # (Auto) 0.02 Immature Gran # (Auto) 0.01 Platelet Estimate Decreased L Sodium 133 L Potassium 4.6 Chloride 102 Carbon Dioxide 27 Anion Gap 4.0 BUN 23 H Creatinine 0.94 Est Cr Clr Drug Dosing 92.2 Est GFR ( Amer) 81.4 Est GFR (Non-Af Amer) 70.2 BUN/Creatinine Ratio 24.0 H Glucose 98 Calcium 9.3 Magnesium 1.9 C-Reactive Protein 3.65 H Medications Administered Current Inpatient Medications Albuterol (Albut/Ipratrop 3mg/0.5mg Neb 3 Ml Vial) 3 ml NEB QIDR PRN PRN Reason: Shortness Of Breath Or Wheezing Stop: 07/25/21 22:29 Last Admin: 06/29/21 19:35 Dose: 3 ml Documented by: Albuterol (Albuterol Hfa 8 Gm Inhaler) 2 puffs INH QIDR PRN PRN Reason: Shortness Of Breath Or Wheezing Stop: 07/29/21 20:59 Amitriptyline HCl (Amitriptyline Hcl 100 Mg Tab) 100 mg PO HS [place] Stop: 07/25/21 22:05 Last Admin: 07/02/21 21:54 Dose: 100 mg Documented by: Buprenorphine/Naloxone (Buprenorphine/Naloxone 8/2 Mg Tab) 1 tab SL BID [place] Stop: 07/26/21 08:59 Last Admin: 07/03/21 08:59 Dose: 1 tab Documented by: Buprenorphine/Naloxone (Buprenorphine/Naloxone 8/2 Mg Tab) 0.5 tab SL DAILY@1400 [place] Stop: 07/26/21 13:59 Last Admin: 07/02/21 15:17 Dose: 0.5 tab Documented by: Ciprofloxacin/Dexamethasone (Cipro 0.3%/Dexamethasone 0.1% Otic Susp 7.5ml) 4 drops OTL BID [place] Stop: 07/26/21 13:59 Last Admin: 07/03/21 09:00 Dose: 4 drops Documented by: Famotidine (Famotidine 20 Mg Tab) 20 mg PO BID [place] Stop: 07/28/21 20:59 Last Admin: 07/03/21 08:59 Dose: 20 mg Documented by: Gabapentin (Gabapentin 600 Mg Tab) 900 mg PO QID [place] Stop: 07/25/21 22:05 Last Admin: 07/03/21 08:59 Dose: 900 mg Documented by: Guaifenesin (Guaifenesin 600 Mg Tabcr) 1,200 mg PO Q12 [place] Stop: 07/25/21 22:05 Last Admin: 07/03/21 08:59 Dose: 1,200 mg Documented by: Heparin Sodium (Porcine) (Heparin 100 Unit/Ml 5ml Flush) 5 ml FLUSH PRN PRN PRN Reason: Flush Stop: 07/27/21 07:23 Last Admin: 07/03/21 08:59 Dose: 5 ml Documented by: Dexamethasone 6 mg/ Syringe 1.5 mls @ 1 mls/min IV QAM [place] Stop: 07/26/21 08:59 Last Admin: 07/03/21 09:00 Dose: 1 mls/min Documented by: Lidocaine (Lidocaine 5% 1 Patch) 3 patch TD QAM [place] Stop: 07/31/21 10:44 Last Admin: 07/03/21 08:58 Dose: Not Given Documented by: Magnesium Oxide (Magnesium Oxide 400 Mg Tab) 400 mg PO DAILY@1100 [facility] Stop: 07/26/21 10:59 Last Admin: 07/03/21 10:58 Dose: 400 mg Documented by: Meclizine HCl (Meclizine 12.5 Mg Tab) 12.5 mg PO TID [facility] Stop: 07/26/21 13:59 Last Admin: 07/03/21 08:59 Dose: 12.5 mg Documented by: Miscellaneous (Remove Lidoderm Patch) 1 ea N/A DAILY@2100 [facility] Stop: 07/31/21 22:59 Last Admin: 07/02/21 21:56 Dose: Not Given Documented by: Mupirocin (Mupirocin 2% Oint 22 Gm Tube) 1 appln EXT BID [facility] Stop: 07/26/21 13:59 Last Admin: 07/03/21 08:58 Dose: 1 appln Documented by: Prochlorperazine (Prochlorperazine Maleate 10 Mg Tab) 10 mg PO Q6H PRN PRN Reason: Nausea Stop: 07/25/21 22:05 Trazodone HCl (Trazodone Hcl 50 Mg Tab) 75 mg PO HS [facility] Stop: 07/29/21 20:59 Last Admin: 07/02/21 21:55 Dose: 75 mg Documented by: Venlafaxine HCl (Venlafaxine Hcl Xr 75 Mg Capxr) 75 mg PO QAM [facility] Stop: 07/26/21 08:59 Last Admin: 07/03/21 08:59 Dose: 75 mg Documented by: PG Care Time/CCT Total # of Minutes Spent Total Time Spent with Patient: Total time spent is greater than 50% in coordination of care (as documented) at patient's floor/unit and/or counseling patient: Coding Level of Care Code 40477 Subseq Hosp Care Lvl 2 Diagnoses Left hip pain M25.552 Pneumonia due to COVID-19 virus U07.1; J12.82 Acute respiratory failure with hypoxia J96.01 Bacterial pneumonia J15.9 Antineoplastic chemotherapy induced pancytopenia D61.810; T45.1X5A Hemoptysis R04.2 Endometrial adenocarcinoma C54.1 History of melanoma Z85.820 History of stomach cancer Z85.028 Otitis externa H60.90 Impetigo L01.00 Coagulopathy D68.9 Vertigo R42 Morbid obesity with BMI of 50.0-59.9, adult E66.01; Z68.43 Hypomagnesemia E83.42 DVT prophylaxis Z29.9 Chronic pain syndrome G89.4
[2021-07-03] MEDS ORDERED: KETOROLAC TROMETHAMINE 15 MG/ML VIAL IV ONE (13:34)
[2021-07-03] MEDS ORDERED: BUPRENORPHINE/NALOXONE 8/2 MG TAB SL SCH (14:00)
[2021-07-03] MEDS: AMITRIPTYLINE HCL 100 MG TAB PO SCH (20:33)
[2021-07-03] MEDS: traZODone HCL 50 MG TAB PO SCH (20:33)
[2021-07-03] MEDS: IBUPROFEN 200 MG TAB PO PRN (21:57)
[2021-07-04] MEDS: IBUPROFEN 200 MG TAB PO PRN (03:38)
[2021-07-04] MEDS ORDERED: KETOROLAC TROMETHAMINE 15 MG/ML VIAL IV ONE (04:33)
[2021-07-04] MEDS: HEPARIN 100 UNIT/ML 5ML FLUSH FLUSH PRN ×2 (05:01→09:57)
[2021-07-04 05:57] VITALS: TEMP 97.9; O2SAT 92
--- NOTE | 2021-07-04 09:38 | Discharge Summary ---
Date of Service July 04, 2021 Admission HPI Per Admitting Provider Dianne Bernal is a 50 year old female with endometrial adenocarcinoma who presents to the ER with shortness of breath and increasing cough. Unclear duration of symptoms as she was treated for pneumonia on 05/24 and 06/05 with two courses of doxycycline. She does note for the last four days having increasing shortness of breath with green sputum and occasional hemoptysis. She has been coughing severely to the point of being dizzy that she feels she may pass out which prompted her visit today. She denies any chest pain, abdominal pain, diarrhea, loss of taste or smell. She reports her mouth feels very dry despite drinking more. She was recently started on inhalers by her PCP which she reports has helped her shortness of breath. She has a significant history of endometrial adenocarcinoma cancer mets to lymph nodes. On chemoradiation - Paclitaxel/carboplatin given on Saturday. Unable to have surgery due to multiple abdominal surgeries in the past. She notes ongoing vaginal bleeding from this. In the ER she was diagnosed with COVID-19 pneumonia with positive SARS-COV-2 PCR. She is unvaccinated due to receiving chemotherapy. She was also noted to be pancytopenic and is currently ordered 2 packed RBC transfusions. O2 sats currently 93% on room air. She was referred to medicine for admission and ongoing management of VOID-19 pneumonia. Principal Diagnosis COVID 19 pneumonia Discharge Exam General: well developed, well nourished, overweight, no acute distress, comfortable Neck: supple, trachea midline, normal thyroid Lungs: clear to auscultation bilaterally, normal respiratory effort, no accessory muscle use, no distress Heart: regular S1 and S2, no murmur, peripheral pulses normal, capillary refill normal, no edema Abdomen: soft, NT, ND, + BS, no hepatomegaly, normal to percussion Extremities: normal in appearance, no cyanosis, no petechiae, strength is 5/5 bilaterally, pain elicited with flexion of left hip Neuro: awake, cooperative, moves all extremities, no focal motor deficits, CN II-XII intact, sensation in extremities intact, normal speech Skin: warm, dry, no rash, normal turgor Psych: Awake, alert oriented x 3, euthymic affect Discharge Data Allergies Allergy/AdvReac Type Severity Reaction Status Date / Time Iodinated Contrast Media Allergy Severe Contrast- Verified 06/25/21 18:17 itching Sulfa (Sulfonamide Allergy Severe Syncope, Verified 06/25/21 18:17 Antibiotics) stops breathing sulfamethoxazole Allergy Severe Syncope, Verified 06/25/21 18:17 hives, dyspnea trimethoprim Allergy Severe Syncope, Verified 06/25/21 18:17 hives, dyspnea gadobutrol Allergy Intermediate Hives, Verified 06/25/21 18:17 itching hydrocodone Allergy Intermediate Stops Verified 06/25/21 18:17 breathing pregabalin Allergy Intermediate Hives Verified 06/25/21 18:17 iodine Allergy Mild Itching Verified 06/25/21 18:17 acetaminophen [From Percocet] Allergy Unknown PER PT Verified 06/25/21 18:17 "CAN'T TAKE". enoxaparin Allergy Unknown UNKNOWN Verified 06/25/21 18:17 oxycodone [From Percocet] Allergy Unknown Unknown Verified 06/25/21 18:17 Ordered Studies 06/26/21 13:43 CT chest diagnostic wo con Urgent CT head/brain wo con Urgent 07/01/21 18:48 CT lumbar spine wo con Routine CT pelvis wo con Routine 07/02/21 16:40 MR pelvis wo con Urgent Hospital Course (1) Left hip pain: recent L hip x-rays and pelvic x-rays normal/unremarkable no significant OA CT l-spine negative - thus, this pain is not radicular CT pelvis - psoas mass - hematoma vs abscess vs other MRI most suggestive of hematoma would make sense as she has had severely low platelets easily could have bled from that alone vs severe coughing fit leading to hemorrhage vs other no need for ortho or general surgery consult pain control will be important slightly increased her Suboxone to 8/2 TID, can get a new prescription from outpatient provider got a lot of relief from a dose of Toradol okay to resume her Diclofenac 50mg TID as platelets going up, instructed her to take with food, will give her prescription for pantoprazole 40mg daily (2) Pneumonia due to COVID-19 virus: moderate-severe at admission but improving quickly day #10 of IV dexamethasone 6mg daily, no further treatment needed was likely 10+ days into illness at admission; Remdesivir deferred. crp high earlier this stay but has improved w/ steroid therapy. cont pulmonary toilet. o2 has been weaned off for 3 days (3) Acute respiratory failure with hypoxia: 2nd to #1 improving/resolved on room air for 3 days pulm toilet bronchodilators, etc see above (4) Bacterial pneumonia: Procalcitonin positive on admission. Patient is immunosuppressed therefore covering with cefepime and doxycycline for bacterial superinfection. Blood cx's negative. completed 7 days of antibiotics She has concomitant sinusitis based on recent head CT. Finish 7 days in total of abx. stopped antibiotics 07/02 (5) Antineoplastic chemotherapy induced pancytopenia: s/p Neupogen 480mg SQ x 1 at admission - no longer neutropenic. s/p 2 units PRBCs HD #1 - H/H stable since. platelets low at 47k but improving vaginal bleeding and hemoptysis are either resolved or mild/minimal. (6) Hemoptysis: 2nd to COVID pneumonia in setting of low platelets and coagulopathy. resolved. (7) Endometrial adenocarcinoma: s/p chemoradiation last chemo ~10-14 days ago recurrent vaginal bleeding watch/follow carefully cbc should start to improve next 1-2 days since we are getting further out from the chemo (8) History of melanoma: s/p excision on scalp (9) History of stomach cancer: Remote history, s/p surgery and chemoradiation cont pepcid 20mg BID (10) Otitis externa: left -- resolved ciprodex x 7=10 days; today is day 8 cefepime will also provide systemic coverage - stopped 07/03 CT head with significant sinus disease and small L mastoid effusion (11) Impetigo: right nare bactroban BID improved ulcers on arms/legs could be bacterial, too - she is placing bactroban on those lesions & they are resolving (12) Coagulopathy: dimer, FDP elevated but fibrinogen NOT low thus, DIC not likely s/p vit K x 1 PT/INR/PTT normalized vit K def suspected in setting of poor nutrition (13) Vertigo: likely 2nd to COVID inner ear likely improving overall less frequent episodes, and they are short-lived CT head - neg for acute CVA cont meclizine TID (14) Morbid obesity with BMI of 50.0-59.9, adult: BMI 52 (15) Hypomagnesemia: repleted IV while here (16) DVT prophylaxis: SCDs only chemical means contraindicated due to low platelets (17) Chronic pain syndrome: cont suboxone, slightly increased to TID PDMP shows regular prescriptions for this med at this dosing follow up with Dr. Chou, referred to Dr. Christine Bonilla with palliative care discharge to home Total Time Total Time Spent Total Time Spent (In Minutes): 32 Total Time Includes: Examination of the Patient, Discharge Planning, Medication Reconciliation and Communication With Other Providers Discharge Plan Discharge Items Patient Disposition: Home - Self-Care Reason For Visit: COVID-19 PNEUMONIA, PANCYTOPENIA Discharge Diagnosis: COVID 19 pneumonia Pancytopenia due to anti-neoplastic therapy left hip pain due to psoas hematoma Condition on Discharge: Good Goals: stay well nourished, well hydrated pain control, follow up with Dr. Chou Activity: Resume your previous activity Driving/Machine Use: No limitations Weightbearing: Full weightbearing Non-emergency contact: Primary Care Provider Call non-emergency contact if: you have any medication questions, your symptoms worsen, your pain is not controlled and you have a fever Follow-up/Referrals: Christine Bonilla MD [Physician] - 07/11/21 2:00 pm (first available, for pain control, endometrial cancer) Donnie Chou MD [Primary Care Provider] - 07/07/21 10:40 am (Dr. Yeboah- virtual appt) Diet: Regular Addtl Attending Provider Instructions: Medications: - SUBOXONE: can increase dosing slightly to 8/2mg tab three times a day, this is up from the 1/2 tablet you took mid day please follow up with Dr. Chou if you need another prescription - PANTOPRAZOLE: decreases acid production in stomach, you are at risk of stomach ulcers with diclofenac use, would be more inclined to bleed with your low platelets, take this medication 40mg daily COVID 19 pneumonia, acute hypoxia, bacterial pneumonia completed full course of treatment with dexamethasone, IV antibiotics down to room air for three days, will only continue to improve should be in isolation 14 days from initial onset of symptoms, thus you should not need any isolation when you go home stay well nourished, well hydrated, get rest Left hip pain: MRI shows likely hematoma on left psoas muscle, this is hip flexor, use this muscle often, any movement of left leg pain control: increase Suboxone slightly continue Diclofenac 50mg TID recommend you take pantoprazole while taking the diclofenac, and take the diclofenac with food/full stomach if possible Addtl Box Car Bracer Provider Instructions: CASE MANAGEMENT: In [place], any families that have custody of children though kinship, guardianship, or adoption have access to Post-Permanency services through the [employer] ([employer]). Post Perm services provide case-management, support groups, and respite funds for these families. Families that use Post Perm services are eligible for $800 in reimbursable funds that can be used for family bonding activities. Families can self-refer by calling [employer] at . Families that are below the federal Income Poverety Guideline (FIPG) can qualify for Childcare Subsidy to help cover the cost of childcare, including daycare, flight crew time clerk programs, and summer care up until the victor m 12th birthday. Families can apply for the subsidy at [email or web address] and apply for the childcare works program or by calling the [employer] at . *children in foster care automatically qualify for the childcare subsidy, marketing performance analyst income is not taken into account* Pending Studies at Discharge: No Stand-Alone Forms: My [facility] Kids Calendar, Smoking Cessation Medications and DC Order Prescriptions: New buprenorphine-naloxone [Suboxone] 8-2 mg Film 1 ea sublingual TID 30 Days Qty: 30 RF: 0 pantoprazole 40 mg tablet,delayed release (DR/EC) 40 mg PO DAILY 28 Days Qty: 28 RF: 3 Continued dexamethasone 4 mg tablet 4 mg PO DIRECTED RF: 0 prochlorperazine maleate [Compazine] 10 mg tablet 10 mg PO Q6H PRN (Reason: Nausea) RF: 0 venlafaxine 75 mg capsule,extended release 24hr 75 mg PO QAM RF: 0 gabapentin 600 mg tablet 900 mg PO QID RF: 0 ondansetron HCl 8 mg tablet 8 mg PO Q8 PRN (Reason: Nausea) RF: 0 amitriptyline 100 mg tablet 100 mg PO HS RF: 0 diclofenac sodium 50 mg tablet,delayed release (DR/EC) 50 mg PO TID RF: 0 trazodone 50 mg tablet 50 mg PO HS RF: 0 Iron Infusion 1 dose IV DIRECTED PRN (Reason: anemia) RF: 0 paclitaxel 6 mg/mL Concentrate 6 mg IV DIRECTED RF: 0 carboplatin 1 dose IV DIRECTED RF: 0 cyanocobalamin (vitamin B-12) [Vitamin B-12] 1,000 mcg/mL Solution 1,000 mcg IM MONTHLY RF: 0 Discontinued buprenorphine-naloxone 8-2 mg tablet, sublingual 2.5 tab SUBLINGUAL DAILY RF: 0 Discharge Orders: Discharge Order (Routine); Ordered 07/04/21 Ordered By: Jesus Gary Admission Data Admit Date/Time: 06/25/21 19:38 Attending Provider: Jesus Gary Admit Provider: Derick Galindo Primary Care Provider: Donnie Chou Coding Level of Care Code D/C DAY MANAGEMENT >30 MINS Diagnoses Left hip pain M25.552 Pneumonia due to COVID-19 virus U07.1; J12.82 Acute respiratory failure with hypoxia J96.01 Bacterial pneumonia J15.9 Antineoplastic chemotherapy induced pancytopenia D61.810; T45.1X5A Hemoptysis R04.2 Endometrial adenocarcinoma C54.1 History of melanoma Z85.820 History of stomach cancer Z85.028 Otitis externa H60.90 Impetigo L01.00 Coagulopathy D68.9 Vertigo R42 Morbid obesity with BMI of 50.0-59.9, adult E66.01; Z68.43 Hypomagnesemia E83.42 DVT prophylaxis Z29.9 Chronic pain syndrome G89.4
[2021-07-04] MEDS: MAGNESIUM OXIDE 400 MG TAB PO SCH (09:48)
[2021-07-04] MEDS: VENLAFAXINE HCL XR 75 MG CAPXR PO SCH (09:48)
[2021-07-04] MEDS: MECLIZINE 12.5 MG TAB PO SCH (09:49)
[2021-07-04] MEDS: GABAPENTIN 600 MG TAB PO SCH (09:49)
[2021-07-04] MEDS: dexAMETHasone 6 MG in SYRINGE 0 ML IV SCH (09:50)
[2021-07-04] MEDS: MUPIROCIN 2% OINT 22 GM TUBE EXT SCH (09:50)
[2021-07-04] MEDS: guaiFENesin 600 MG TABCR PO SCH (09:50)
[2021-07-04] MEDS: CIPRO 0.3%/DEXAMETHASONE 0.1% OTIC SUSP 7.5ML OTL SCH (09:51)
[2021-07-04] MEDS: FAMOTIDINE 20 MG TAB PO SCH (09:51)
[2021-07-04] MEDS: LIDOCAINE 5% 1 PATCH TD SCH (09:51)
[2021-07-04] MEDS: BUPRENORPHINE/NALOXONE 8/2 MG TAB SL SCH (09:55)
[2021-07-04 10:14] VITALS: BP 100/43; PULSE 53
== END 2021-07-04 11:30 | disposition home or self-care (01) | DRG 177 ==
LOC: ED 15:50 → 3W 19:38 → SUATTDRO 19:38 → 3W 21:45

== ENCOUNTER 2021-08-23 15:54 | Inpatient (IN) ==
--- NOTE | 2021-08-23 16:31 | Emergency Department Note ---
Impression & Plan Sepsis, Metastatic adenocarcinoma, Fever, Anemia, Cystitis ED Provider Note NAME: NADER BERMUDEZ AGE: 51 SEX: F : 1970 ARRIVES VIA: Walk-In INFORMANT: Patient, ED PROVIDER(S): Raúl Smith MD Chief Complaint: Abdominal pain, nausea vomiting, fever HPI: Patient does present for the above symptoms been ongoing since last . Initially intermittent pain but then acutely worse today with associated diffuse abdominal pain. The patient does have a known history of endometrial carcinoma and the patient has missed her radiation sessions last week as well as today. The patient has not been taking some of her medications as they have been making her more nauseous with associated vomiting. The patient states that her pain is achy and strong. The patient has been trying to take baclofen as well as other pain medication but this is not significant symptoms. The patient has had fever beginning today. Patient had Covid back in June. Patient states that she has brown productive cough. Patient has had weakness and associated fatigue. Patient denies any prior history of DVT or PE. ROS: See HPI for pertinent positives and negatives. A total of 10 systems were reviewed and otherwise negative. Past medical history: See below Surgical history: See below Social history: See below Physical Exam: GENERAL: Fatigued, mildly ill in appearance. EYE EXAM: Normal conjunctiva. PERRL, no anisocoria and EOM's grossly intact w/o pain. NECK: Supple, no nuchal rigidity, no adenopathy, non-tender. No signs of meningismus. LUNGS: Bibasilar crackles. Normal chest wall mechanics. HEART: Tachycardic and regular, no MRG. ABDOMEN: Abdomen soft, mild diffuse discomfort without obvious peritonitis, small open area from prior surgical incisional scar less than a centimeter with no active drainage or bleeding, normo-active bowel sounds, no masses, no rebound or guarding. BACK: No CVA TTP. SKIN: No rashes and no bruising. UPPER EXTREMITIES: Upper extremities are grossly normal. LOWER EXTREMITIES: Grossly normal, no edema. Negative Homans' sign bilaterally. NEURO EXAM: A&O x3, cranial nerves II-XII grossly intact, normal speech, moves all 4 extremities on command w/o issue. Differential diagnoses: Sepsis, UTI, pneumonia, metabolic, electrolyte abnormalities, cardiac sources, intracerebral event, toxicologic, neurologic, as well as other pathologies. Course: Patient was seen and evaluated the bedside. Full history physical exam was performed. EKG interpreted by me Tachycardia, rate 112, normal intervals, normal axis, no obvious ST elevations. Nonspecific ST changes in lateral leads. Imaging Studies: See Below Cardiac monitoring: An order was placed for continuous cardiac monitoring. The monitor shows a rate of 112 with regular rhythm. MDM: Was seen due to concern for abdominal pain fever. Blood work was obtained and the patient was ordered IV fluids. The patient is also order ordered additional pain and nausea medication. Empiric antibiotics were ordered as well. Patient is a normal white count with anemia of 8.5. Platelet count is unremarkable. Patient does have hyponatremia with normal kidney function. Mild hypocalcemia and hypomagnesemia. Troponin is not taken. Procalcitonin is not elevated. Urinalysis does show leukocytes, whites and nitrites. Believe this may be the likely source of the patient's infection as the patient CT angiography is negative for PE and no obvious consolidation with negative Covid. CT abdomen pelvis shows left hydronephrosis and hydroureter secondary to possible left iliopsoas muscle which is unchanged from prior. No evidence of bowel obstruction. Given the patient's inability to tolerate by mouth dehydration and sepsis I did speak with the on-call hospitalist Dr. Casey and the patient was admitted to the medicine service. Past Med/Surg History Medical History Abnormal vaginal bleeding Anxiety B12 deficiency anemia Cellulitis and abscess of foot Recent MRSA infection to left foot after trauma (02/2021) - hospitalized and treated for at [facility] -- per pt, still with redness/swelling to left foot but completed course of abx therapy and continues to improve; denies open areas/ seeping from site COVID-19 Endometrial adenocarcinoma Biopsy on 11/25/20 > To pelvic lymph nodes (Biopsied 12/28/20) Endometriosis Evisceration of bowel Numerous Hemoptysis Hx SBO Iron deficiency anemia intermittent iron infusions PRN Morbid obesity Pneumonia Scalp lesion Hx melanoma (scalp) approximately 1 year ago -- treated surgically Surgical History Gastric bypass status for obesity H/O abdominal surgery Muscle stretching, tumor removed, mesh in place; Multiple complex abd surgeries History of colonoscopy History of esophagogastroduodenoscopy (EGD) History of placement of ear tubes History of vascular access device removed Hx of cholecystectomy Hx of tonsillectomy Port-A-Cath in place (03/28/21) nsertion of Access Port Left Cephalic Vein Dr. Gilliam 03/28/2021 Family History Sister , 54 Ovarian cancer Diabetes Breast cancer Stroke Mother , in her 60s Ovarian cancer Diabetes Heart problem "Had a bad heart" Breast cancer Hypertension Father Myocardial infarction Brother No problems noted. Sister No problems noted. Other No family history of adverse response to anesthesia No pertinent family history Denies family history of Colorectal cancer Uterine cancer Social History Smoking Status: Never smoker Tobacco Type: Cigarettes Cigarettes Per Day: 1 PPD/week x 2 to 3 years;; Second Hand Exposure: Yes (sister smokes); Hx Alcohol Use: No Hx Substance Use: No Preferred Language: Greek Communication Ability: Effective Visual Impairment: No Limitations Hearing Ability: Normal Bank Vault Attendant Required: No Beliefs That Will Affect Care: None marital status: Current Living Situation: Alone Current Living Situation Comment: Raising her 4 great nephews ages 2-9 & her 82 year old father lives withher current occupational status: disabled How many Children do You have: 4 Feels Safe at Home: Yes caffeine: Yes (Energy drinks 1-4 each day) during the past year weight has: remained stable Assistive Devices: None Allergies Allergies Allergy/AdvReac Type Severity Reaction Status Date / Time Iodinated Contrast Media Allergy Severe Contrast- Verified 08/21/21 11:01 itching Sulfa (Sulfonamide Allergy Severe Syncope, Verified 08/21/21 11:01 Antibiotics) stops breathing sulfamethoxazole Allergy Severe Syncope, Verified 08/21/21 11:01 hives, dyspnea trimethoprim Allergy Severe Syncope, Verified 08/21/21 11:01 hives, dyspnea gadobutrol Allergy Intermediate Hives, Verified 08/21/21 11:01 itching hydrocodone Allergy Intermediate Stops Verified 08/21/21 11:01 breathing pregabalin Allergy Intermediate Hives Verified 08/21/21 11:01 iodine Allergy Mild Itching Verified 08/21/21 11:01 acetaminophen [From Percocet] Allergy Unknown PER PT Verified 08/21/21 11:01 "CAN'T TAKE". enoxaparin Allergy Unknown UNKNOWN Verified 08/21/21 11:01 oxycodone [From Percocet] Allergy Unknown Unknown Verified 08/21/21 11:01 Home Meds Home Medications Medication Instructions Recorded Confirmed amitriptyline 100 mg tablet 100 mg PO HS 03/27/19 08/23/21 gabapentin 600 mg tablet 900 mg PO QID 03/27/19 08/23/21 ondansetron HCl 8 mg tablet 8 mg PO Q8 PRN 03/27/19 08/23/21 venlafaxine 75 mg capsule,extended 75 mg PO QAM 03/27/19 08/23/21 release 24 hr Iron Infusion 1 dose IV .MONTHLY/UD PRN 02/12/21 08/23/21 trazodone 50 mg tablet 50 mg PO HS 02/12/21 08/23/21 dexamethasone 4 mg tablet 4 mg PO DIRECTED tab 03/16/21 08/23/21 diclofenac sodium 50 mg 75 mg PO TID tab 03/16/21 08/23/21 tablet,delayed release prochlorperazine maleate 10 mg 10 mg PO Q6H PRN 03/16/21 08/23/21 tablet (Compazine) cyanocobalamin (vitamin B-12) 1,000 mcg IM MONTHLY 06/25/21 08/23/21 1,000 mcg/mL injection solution buprenorphine 8 mg-naloxone 2 mg 1 film BUCCAL TID PRN ea 08/21/21 08/23/21 sublingual film (Suboxone) Previous Rx's Medication Instructions Recorded pantoprazole 40 mg tablet,delayed 40 mg PO DAILY 28 Days #28 tab 07/04/21 release Results & Data (ED) Vital Signs Vital Signs - 24 hr 08/23/21 16:11 08/23/21 17:31 08/23/21 18:46 Temperature 38.2 C H Temperature Source Temporal Artery Scan Pulse Rate 126 H 101 H Pulse Rate [Apical] 101 H Pulse Rhythm Regular Respiratory Rate 19 20 24 Respiratory Effort / Characteristics Non-Labored Spontaneous Non-Labored Spontaneous Respiratory Depth Normal Normal Respiratory Pattern Regular Blood Pressure 138/79 Blood Pressure Mean 98 Blood Pressure Position [Left Arm] Sitting Pulse Oximetry 94 93 97 Oxygen Delivery Method Room Air Room Air Room Air Sepsis Recent Fever Within 48 Hours Yes Sepsis New/Unexplained Change in Mental Status Yes Sepsis Action Taken by Nursing No Action Required 08/23/21 19:00 08/23/21 19:30 08/23/21 20:00 Temperature Temperature Source Pulse Rate 100 H 95 H 87 Pulse Rate [Apical] Pulse Rhythm Respiratory Rate 24 26 H 22 Respiratory Effort / Characteristics Respiratory Depth Respiratory Pattern Blood Pressure Blood Pressure Mean Blood Pressure Position [Left Arm] Pulse Oximetry 93 92 91 Oxygen Delivery Method Room Air Room Air Room Air Sepsis Recent Fever Within 48 Hours Sepsis New/Unexplained Change in Mental Status Sepsis Action Taken by Nursing 08/23/21 20:30 08/23/21 21:00 Temperature Temperature Source Pulse Rate 88 84 Pulse Rate [Apical] Pulse Rhythm Respiratory Rate 24 24 Respiratory Effort / Characteristics Non-Labored Spontaneous Respiratory Depth Respiratory Pattern Blood Pressure 118/68 Blood Pressure Mean 84 Blood Pressure Position [Left Arm] Pulse Oximetry 93 91 Oxygen Delivery Method Room Air Room Air Sepsis Recent Fever Within 48 Hours Sepsis New/Unexplained Change in Mental Status Sepsis Action Taken by [facility] Medications Current Medication List: was personally reviewed by me Laboratory Data Attestation: I reviewed the patient's lab results. Result diagrams: 08/23/21 14:55 08/23/21 14:55 Lab Results 08/23/21 08/23/21 08/23/21 Range/Units 14:55 14:55 14:55 WBC 9.76 (4.8-10.8) K/uL RBC 2.97 L (4.2-5.4) M/uL Hgb 8.5 L (12.0-16.0) g/dL Hct 26.7 L (37-47) % MCV 89.9 (80-100) fL MCH 28.6 (25-34) pg MCHC 31.8 L (32-36) g/dL RDW Std Deviation 68.0 H (36.4-46.3) fL RDW Coeff of Josue 20.2 H (11.5-14.5) % Plt Count 185 (130-400) K/uL MPV 11.1 H (7.4-10.4) fL Immature Gran % (Auto) 0.3 % Neut % (Auto) 71.1 % Lymph % (Auto) 10.8 % [place] % (Auto) 15.0 % Eos % (Auto) 2.7 % Baso % (Auto) 0.1 % Neut # (Auto) 6.95 H (1.4-6.5) K/uL Lymph # (Auto) 1.05 L (1.2-3.4) K/uL [place] # (Auto) 1.46 H (0.11-0.59) K/uL Eos # (Auto) 0.26 (0-0.5) K/uL Baso # (Auto) 0.01 (0-0.2) K/uL Immature Gran # (Auto) 0.03 H (0.00-0.02) K/uL Anisocytosis Present PT 15.5 H (9.0-12.0) Seconds INR 1.6 H (0.9-1.1) APTT 40.0 H (21.0-31.0) Seconds PTT Ratio 1.5 Sodium 132 L (136-145) mmol/L Potassium 4.0 (3.5-5.1) mmol/L Chloride 100 (98-107) mmol/L Carbon Dioxide 25 (21-32) mmol/L Anion Gap 7.0 (3-11) BUN 13 (7-18) mg/dl Creatinine 0.93 (0.6-1.2) mg/dl Est Cr Clr Drug Dosing 84.0 ml/min Est GFR ( Amer) 82.5 ml/min Est GFR (Non-Af Amer) 71.2 ml/min BUN/Creatinine Ratio 13.6 (10-20) Glucose 101 H (70-99) mg/dl Lactate (0.4-2.0) mmol/L Calcium 8.4 L (8.5-10.1) mg/dl Magnesium 1.3 L (1.8-2.4) mg/dl Total Bilirubin 0.7 (0.2-1) mg/dl AST 13 L (15-37) U/L ALT 17 (12-78) Alkaline Phosphatase 74 (45-117) U/L Troponin I < 0.015 (0-0.045) ng/ml Total Protein 7.2 (6.4-8.2) gm/dl Albumin 2.0 L (3.4-5.0) gm/dl Globulin 5.2 H (2.5-4.0) gm/dl Albumin/Globulin Ratio 0.4 L (0.9-2) Procalcitonin (0-0.5) ng/ml Urine Color Urine Appearance (Clear) Urine pH (4.5-7.5) Ur Specific [place] (1.000-1.030) Urine Protein (Negative) Urine Glucose (UA) (Negative) Urine Ketones (Negative) Urine Blood (Negative) Urine Nitrite (Negative) Urine Bilirubin (Negative) Urine Urobilinogen (Negative) Ur Leukocyte Esterase (Negative) Urine WBC (Auto) (0-5) /hpf Urine RBC (Auto) (0-4) /hpf U Hyaline Cast (Auto) (0-5) /lpf U Epithel Cells (Auto) (0-5) /lpf Urine Bacteria (Auto) (Negative) SARS-CoV-2, RNA, NAAT (NEGATIVE) 08/23/21 08/23/21 08/23/21 Range/Units 14:55 16:55 17:27 WBC (4.8-10.8) K/uL RBC (4.2-5.4) M/uL Hgb (12.0-16.0) g/dL Hct (37-47) % MCV (80-100) fL MCH (25-34) pg MCHC (32-36) g/dL RDW Std Deviation (36.4-46.3) fL RDW Coeff of Josue (11.5-14.5) % Plt Count (130-400) K/uL MPV (7.4-10.4) fL Immature Gran % (Auto) % Neut % (Auto) % Lymph % (Auto) % [place] % (Auto) % Eos % (Auto) % Baso % (Auto) % Neut # (Auto) (1.4-6.5) K/uL Lymph # (Auto) (1.2-3.4) K/uL [place] # (Auto) (0.11-0.59) K/uL Eos # (Auto) (0-0.5) K/uL Baso # (Auto) (0-0.2) K/uL Immature Gran # (Auto) (0.00-0.02) K/uL Anisocytosis PT (9.0-12.0) Seconds INR (0.9-1.1) APTT (21.0-31.0) Seconds PTT Ratio Sodium (136-145) mmol/L Potassium (3.5-5.1) mmol/L Chloride (98-107) mmol/L Carbon Dioxide (21-32) mmol/L Anion Gap (3-11) BUN (7-18) mg/dl Creatinine (0.6-1.2) mg/dl Est Cr Clr Drug Dosing ml/min Est GFR ( Amer) ml/min Est GFR (Non-Af Amer) ml/min BUN/Creatinine Ratio (10-20) Glucose (70-99) mg/dl Lactate 0.7 (0.4-2.0) mmol/L Calcium (8.5-10.1) mg/dl Magnesium (1.8-2.4) mg/dl Total Bilirubin (0.2-1) mg/dl AST (15-37) U/L ALT (12-78) Alkaline Phosphatase (45-117) U/L Troponin I (0-0.045) ng/ml Total Protein (6.4-8.2) gm/dl Albumin (3.4-5.0) gm/dl Globulin (2.5-4.0) gm/dl Albumin/Globulin Ratio (0.9-2) Procalcitonin 0.37 (0-0.5) ng/ml Urine Color Urine Appearance (Clear) Urine pH (4.5-7.5) Ur Specific [place] (1.000-1.030) Urine Protein (Negative) Urine Glucose (UA) (Negative) Urine Ketones (Negative) Urine Blood (Negative) Urine Nitrite (Negative) Urine Bilirubin (Negative) Urine Urobilinogen (Negative) Ur Leukocyte Esterase (Negative) Urine WBC (Auto) (0-5) /hpf Urine RBC (Auto) (0-4) /hpf U Hyaline Cast (Auto) (0-5) /lpf U Epithel Cells (Auto) (0-5) /lpf Urine Bacteria (Auto) (Negative) SARS-CoV-2, RNA, NAAT NEGATIVE (NEGATIVE) 08/23/21 Range/Units 19:30 WBC (4.8-10.8) K/uL RBC (4.2-5.4) M/uL Hgb (12.0-16.0) g/dL Hct (37-47) % MCV (80-100) fL MCH (25-34) pg MCHC (32-36) g/dL RDW Std Deviation (36.4-46.3) fL RDW Coeff of Josue (11.5-14.5) % Plt Count (130-400) K/uL MPV (7.4-10.4) fL Immature Gran % (Auto) % Neut % (Auto) % Lymph % (Auto) % [place] % (Auto) % Eos % (Auto) % Baso % (Auto) % Neut # (Auto) (1.4-6.5) K/uL Lymph # (Auto) (1.2-3.4) K/uL [place] # (Auto) (0.11-0.59) K/uL Eos # (Auto) (0-0.5) K/uL Baso # (Auto) (0-0.2) K/uL Immature Gran # (Auto) (0.00-0.02) K/uL Anisocytosis PT (9.0-12.0) Seconds INR (0.9-1.1) APTT (21.0-31.0) Seconds PTT Ratio Sodium (136-145) mmol/L Potassium (3.5-5.1) mmol/L Chloride (98-107) mmol/L Carbon Dioxide (21-32) mmol/L Anion Gap (3-11) BUN (7-18) mg/dl Creatinine (0.6-1.2) mg/dl Est Cr Clr Drug Dosing ml/min Est GFR ( Amer) ml/min Est GFR (Non-Af Amer) ml/min BUN/Creatinine Ratio (10-20) Glucose (70-99) mg/dl Lactate (0.4-2.0) mmol/L Calcium (8.5-10.1) mg/dl Magnesium (1.8-2.4) mg/dl Total Bilirubin (0.2-1) mg/dl AST (15-37) U/L ALT (12-78) Alkaline Phosphatase (45-117) U/L Troponin I (0-0.045) ng/ml Total Protein (6.4-8.2) gm/dl Albumin (3.4-5.0) gm/dl Globulin (2.5-4.0) gm/dl Albumin/Globulin Ratio (0.9-2) Procalcitonin (0-0.5) ng/ml Urine Color Yellow Urine Appearance Cloudy A (Clear) Urine pH 5.5 (4.5-7.5) Ur Specific [place] 1.036 H (1.000-1.030) Urine Protein 1+ H (Negative) Urine Glucose (UA) Negative (Negative) Urine Ketones Trace H (Negative) Urine Blood 2+ H (Negative) Urine Nitrite Positive A (Negative) Urine Bilirubin Negative (Negative) Urine Urobilinogen Negative (Negative) Ur Leukocyte Esterase 3+ H (Negative) Urine WBC (Auto) >30 H (0-5) /hpf Urine RBC (Auto) 5-10 H (0-4) /hpf U Hyaline Cast (Auto) 0 (0-5) /lpf U Epithel Cells (Auto) 5-10 H (0-5) /lpf Urine Bacteria (Auto) Negative (Negative) SARS-CoV-2, RNA, NAAT (NEGATIVE) Administered Medications Discontinued Medications Diphenhydramine HCl (Diphenhydramine 50 Mg/Ml Vial) 12.5 mg IV NOW STA Stop: 08/23/21 16:46 Last Admin: 08/23/21 17:16 Dose: 12.5 mg Documented by: [id number] Fentanyl Citrate (Fentanyl Citrate 100 Mcg/2 Ml Vial) 50 mcg IV NOW STA Stop: 08/23/21 16:48 Last Admin: 08/23/21 17:18 Dose: 50 mcg Documented by: [id number] Fentanyl Citrate (Fentanyl Citrate 100 Mcg/2 Ml Vial) 50 mcg IV NOW STA Stop: 08/23/21 18:58 Last Admin: 08/23/21 20:39 Dose: Not Given Documented by: [id number] Gabapentin (Gabapentin 600 Mg Tab) 1,200 mg PO NOW STA Stop: 08/23/21 19:43 Last Admin: 08/23/21 20:51 Dose: 1,200 mg Documented by: [id number] Sodium Chloride (Nss 1000ml) 1,000 mls @ 999 mls/hr IV .Q1H1M [place]T Stop: 08/23/21 17:45 Last Infusion: 08/23/21 18:14 Dose: 0 mls/hr Documented by: [id number] Admin: 08/23/21 17:13 Dose: 999 mls/hr Documented by: [id number] Sodium Chloride (Nss 1000ml) 1,000 mls @ 999 mls/hr IV .Q1H1M [place] Stop: 08/23/21 18:45 Last Infusion: 08/23/21 20:12 Dose: 999 mls/hr Documented by: [id number] Admin: 08/23/21 17:14 Dose: 999 mls/hr Documented by: [id number] Cefepime HCl (Maxipime) 2,000 mg in 20 mls @ 5 mls/min IV NOW STA; Protocol Stop: 08/23/21 16:48 Last Admin: 08/23/21 17:19 Dose: 5 mls/min Documented by: [id number] Magnesium Sulfate/Dextrose (Magnesium Sulfate / D5w) 1 gm in 100 mls @ 100 mls/hr IV NOW STA Stop: 08/23/21 18:38 Last Infusion: 08/23/21 18:49 Dose: 0 mls/hr Documented by: [id number] Admin: 08/23/21 17:49 Dose: 100 mls/hr Documented by: [id number] Ioversol (Optiray 320 125ml) 115 ml IV ONCE ONE Stop: 08/23/21 18:34 Last Admin: 08/23/21 18:33 Dose: 115 ml Documented by: [id number] Methylprednisolone (Methylprednisolone 40 Mg/Ml Vial) 40 mg IV NOW STA Stop: 08/23/21 16:46 Last Admin: 08/23/21 17:17 Dose: 40 mg Documented by: [id number] Ondansetron HCl (Ondansetron Inj 2 Mg/Ml 2 Ml Vial) 4 mg IV NOW STA Stop: 08/23/21 16:48 Last Admin: 08/23/21 17:15 Dose: 4 mg Documented by: [id number] Imaging Data Radiologist's Impression: Chest X-Ray 08/23/21 16:15 XR chest 1V portable CLINICAL HISTORY: SEPSIS TECHNIQUE: Single frontal radiograph of the chest was obtained. Comparison: Comparison is made to chest one view 06/25/2021 FINDINGS: No lines and tubes are seen. Cardiomegaly is noted. The lungs are clear. No evidence of pleural effusion or pneumothorax. IMPRESSION: No acute chest disease. ACT 112: Negative or not required by law. Electronically signed by: Jesus Ingram M.D. 08/23/2021 4:35 PM Abdomen/Pelvis CT 08/23/21 16:45 CT abd pelvis IV con only CLINICAL HISTORY: ab pain, n/v, h/o endometrial ca TECHNIQUE: Helical axial images of the abdomen and pelvis were obtained and displayed. Automated dose lowering techniques and/or adjustment according to patient size were utilized for this exam. This exam was performed with intravenous contrast. COMPARISON: Comparison is made to CT abdomen and pelvis 07/11/[address] abdomen pelvis 10/27/2016 FINDINGS: Lower chest: For findings above the diaphragm, please see CT chest performed same day. Liver: Unremarkable. No focal lesions are seen. Gallbladder and biliary tree: Patient is status post cholecystectomy. No intra- or extrahepatic biliary ductal dilation. Pancreas: Fatty replacement of the pancreas is seen. Spleen: The spleen is enlarged measuring 15 mm in length. Adrenals: Unremarkable. Kidneys and ureters: Left hydronephrosis is again seen. There is ureteral dilation which narrows as it passes by an enhancing mass in the left iliopsoas muscle. This mass appears similar in size compared to prior exam. Scattered peripelvic cysts are seen on the right. Bladder: Unremarkable. Reproductive organs: Gas is noted within the uterus. Bowel: Status post bowel and gastric resection. Lymph nodes Retroperitoneal: Unremarkable. Mesenteric: Unremarkable. Pelvic: Unremarkable. Peritoneum: Normal Vessels: An IVC filter is noted. Abdominal wall: Patient is status post ventral hernia repair. A left lateral hernia is seen containing nondistended bowel. Bones: Unremarkable. IMPRESSION: 1. Redemonstration of left hydronephrosis and hydroureter, likely due to involvement of the ureter with a left iliopsoas muscle mass which was felt to be a hematoma. The left iliopsoas mass is essentially unchanged from prior exam. 2. Otherwise no acute abnormalities and in particular no evidence of bowel obstruction patient with nausea and vomiting. 3. Posttreatment changes of the uterus. 4. Additional findings as above. ACT 112: Negative or not required by law. Electronically signed by: Jesus Ingram M.D. 08/23/2021 7:00 PM Chest CTA 08/23/21 16:45 CT angio chest PE protocol CLINICAL HISTORY: PE dyspnea TECHNIQUE: Multidetector row helical CT of the chest was performed. Coronal and sagittal reformations were obtained. Automated dose lowering techniques and/or adjustment according to patient size were utilized for this exam. Comparison: Comparison is made to CT chest 06/26/2021 FINDINGS: Lungs and pleura: Interval improvement in previously noted airspace consolidation with scattered reticular opacities remaining which may reflect postinfectious scarring. Heart and pericardium: There is cardiomegaly without evidence of pericardial effusion.r Vessels: The pulmonary trunk is enlarged measuring 35 mm. Mediastinum and yulia: Unremarkable. Chest wall and lower neck: Unremarkable. Abdomen: For findings below the diaphragm, please refer to CT of the abdomen dated the same. Bones: Unremarkable. IMPRESSION: 1. No evidence of pulmonary embolism. 2. Interval improvement in previously noted consolidation. Scattered reticular opacities remain which may reflect postinfectious scarring. ACT 112: Negative or not required by law. Electronically signed by: Jesus Ingram M.D. 08/23/2021 6:48 PM Discharge Plan Visit Data Chief Complaint: Fever Stated Complaint: FEVER ED Provider: Raúl Smith Discharge Problem: Sepsis, Metastatic adenocarcinoma, Fever, Anemia, Cystitis Forms Stand Alone Forms: [facility] [place] [employer] Prescriptions Prescriptions: No Action buprenorphine-naloxone [Suboxone] 8-2 mg film 1 film buccal TID PRN (Reason: pain) RF: 0 dexamethasone 4 mg tablet 4 mg PO DIRECTED RF: 0 prochlorperazine maleate [Compazine] 10 mg tablet 10 mg PO Q6H PRN (Reason: Nausea) RF: 0 venlafaxine 75 mg capsule,extended release 24hr 75 mg PO QAM RF: 0 gabapentin 600 mg tablet 900 mg PO QID RF: 0 ondansetron HCl 8 mg tablet 8 mg PO Q8 PRN (Reason: Nausea) RF: 0 amitriptyline 100 mg tablet 100 mg PO HS RF: 0 diclofenac sodium 50 mg tablet,delayed release (DR/EC) 75 mg PO TID RF: 0 trazodone 50 mg tablet 50 mg PO HS RF: 0 Iron Infusion 1 dose IV .MONTHLY/UD PRN (Reason: Unknown) RF: 0 cyanocobalamin (vitamin B-12) 1,000 mcg/mL Solution 1,000 mcg IM MONTHLY RF: 0 pantoprazole 40 mg tablet,delayed release (DR/EC) 40 mg PO DAILY 28 Days Qty: 28 RF: 3 Referrals Referrals: Donnie Chou MD [Primary Care Provider] -
--- NOTE | 2021-08-23 16:36 | XRay Report ---
XR chest 1V portable CLINICAL HISTORY: SEPSIS TECHNIQUE: Single frontal radiograph of the chest was obtained. Comparison: Comparison is made to chest one view 06/25/2021 FINDINGS: No lines and tubes are seen. Cardiomegaly is noted. The lungs are clear. No evidence of pleural effus ion or pneumothorax. IMPRESSION: No acute chest disease. ACT 112: Negative or not required by law. Electronically signed by: Jesus Ingram M.D. 08/23/2021 4:35 PM
[2021-08-23] MEDS ORDERED: CEFEPIME 2,000 MG/20 ML VIAL IV STA (16:45)
[2021-08-23] MEDS ORDERED: diphenhydrAMINE 50 MG/ML VIAL IV STA (16:45)
[2021-08-23] MEDS ORDERED: SODIUM CHLORIDE 0.9% 1000ML 1,000 ML IV SCH ×2 (16:45→17:45)
[2021-08-23] MEDS ORDERED: fentaNYL citrate 100 MCG/2 ML VIAL IV STA ×2 (16:47→18:57)
[2021-08-23] MEDS ORDERED: ONDANSETRON INJ 2 MG/ML 2 ML VIAL IV STA (16:47)
[2021-08-23 17:16] LABS: Basophils # (auto) 0.01 K/uL (0-0.2); Basophils % (auto) 0.1 %; Eosinophils # (auto) 0.26 K/uL (0-0.5); Eosinophils % (auto) 2.7 %; Hematocrit (blood only) 26.7 % (37-47); Hemoglobin 8.5 g/dL (12.0-16.0); Immature Granulocytes # (auto) 0.03 K/uL (0.00-0.02); Immature Granulocytes % (auto) 0.3 %; Lymphocytes # (auto) 1.05 K/uL (1.2-3.4); Lymphocytes % (auto) 10.8 %; Mean Corpuscular Hemoglobin 28.6 pg (25-34); Mean Corpuscular Hgb Conc 31.8 g/dL (32-36); Mean Corpuscular Volume 89.9 fL (80-100); Mean Platelet Volume 11.1 fL (7.4-10.4); Monocytes # (auto) 1.46 K/uL (0.11-0.59); Neutrophils # (auto) 6.95 K/uL (1.4-6.5); Neutrophils % (auto) 71.1 %; Platelet Count 185 K/uL (130-400); RDW Coefficient of Variation 20.2 % (11.5-14.5); Red Blood Count 2.97 M/uL (4.2-5.4); White Blood Count 9.76 K/uL (4.8-10.8)
[2021-08-23 17:26] LABS: INR 1.6 (0.9-1.1); Partial Thromboplastin Ratio 1.5; Prothrombin Time 15.5 Seconds (9.0-12.0)
[2021-08-23 17:38] LABS: Alanine Aminotransferase 17 (12-78); Aspartate Aminotransferase 13 U/L (15-37); BUN Creatinine Ratio 13.6 (10-20); Blood Urea Nitrogen 13 mg/dl (7-18); Calcium 8.4 mg/dl (8.5-10.1); Carbon Dioxide 25 mmol/L (21-32); Chloride 100 mmol/L (98-107); Est GFR (African American) 82.5 ml/min; Est GFR (Non-African American) 71.2 ml/min; Glucose 101 mg/dl (70-99); Magnesium 1.3 mg/dl (1.8-2.4); Sodium 132 mmol/L (136-145)
[2021-08-23] MEDS ORDERED: MAGNESIUM SULFATE / D5W 1 GM/100 ML BAG IV STA ×2 (17:39→20:06)
[2021-08-23 17:43] LABS: Albumin Globulin Ratio 0.4 (0.9-2); Alkaline Phosphatase 74 U/L (45-117); Bilirubin,Total 0.7 mg/dl (0.2-1); Globulin 5.2 gm/dl (2.5-4.0); Total Protein 7.2 gm/dl (6.4-8.2); Troponin I < 0.015 ng/ml (0-0.045)
[2021-08-23 17:54] LABS: Anisocytosis Present
[2021-08-23] MEDS ORDERED: OPTIRAY 320 125ml IV ONE (18:33)
--- NOTE | 2021-08-23 18:49 | CT Scan Report ---
CT angio chest PE protocol CLINICAL HISTORY: PE dyspnea TECHNIQUE: Multidetector row helical CT of the chest was performed. Coronal and sagittal reformations were obtained. Automated dose lowering techniques and/or adjustment according to patient size were u tilized for this exam. Comparison: Comparison is made to CT chest 06/26/2021 FINDINGS: Lungs and pleura: Interval improvement in previously noted airspace consolidation with scattered reti cular opacities remaining which may reflect postinfectious scarring. Heart and pericardium: There is cardiomegaly without evidence of pericardial effusion.r Vessels: The pulmonary trunk is enlarged measuring 35 mm. Mediastinum and yulia: Unremarkable. Chest wall and lower neck: Unremarkable. Abdomen: For findings below the diaphragm, please refer to CT of the abdomen dated the same. Bones: Unremarkable. IMPRESSION: 1. No evidence of pulmonary embolism. 2. Interval improvement in previously noted consolidation. Scattered reticular opacities remain whic h may reflect postinfectious scarring. ACT 112: Negative or not required by law. Electronically signed by: Jesus Ingram M.D. 08/23/2021 6:48 PM
--- NOTE | 2021-08-23 19:01 | CT Scan Report ---
CT abd pelvis IV con only CLINICAL HISTORY: ab pain, n/v, h/o endometrial ca TECHNIQUE: Helical axial images of the abdomen and pelvis were obtained and displayed. Automated dose lowering techniques and/or adjustment according to patient size were utilized for this exam. This e xam was performed with intravenous contrast. COMPARISON: Comparison is made to CT abdomen and pelvis 07/11/[address] abdomen pelvis 10/27/2016 FINDINGS: Lower chest: For findings above the diaphragm, please see CT chest performed same day. Liver: Unremarkable. No focal lesions are seen. Gallbladder and biliary tree: Patient is status post cholecystectomy. No intra- or extrahepatic bilia ry ductal dilation. Pancreas: Fatty replacement of the pancreas is seen. Spleen: The spleen is enlarged measuring 15 mm in length. Adrenals: Unremarkable. Kidneys and ureters: Left hydronephrosis is again seen. There is ureteral dilation which narrows as i t passes by an enhancing mass in the left iliopsoas muscle. This mass appears similar in size compare d to prior exam. Scattered peripelvic cysts are seen on the right. Bladder: Unremarkable. Reproductive organs: Gas is noted within the uterus. Bowel: Status post bowel and gastric resection. Lymph nodes Retroperitoneal: Unremarkable. Mesenteric: Unremarkable. Pelvic: Unremarkable. Peritoneum: Normal Vessels: An IVC filter is noted. Abdominal wall: Patient is status post ventral hernia repair. A left lateral hernia is seen containin g nondistended bowel. Bones: Unremarkable. IMPRESSION: 1. Redemonstration of left hydronephrosis and hydroureter, likely due to involvement of the ureter w ith a left iliopsoas muscle mass which was felt to be a hematoma. The left iliopsoas mass is essentia lly unchanged from prior exam. 2. Otherwise no acute abnormalities and in particular no evidence of bowel obstruction patient with nausea and vomiting. 3. Posttreatment changes of the uterus. 4. Additional findings as above. ACT 112: Negative or not required by law. Electronically signed by: Jesus Ingram M.D. 08/23/2021 7:00 PM
[2021-08-23 19:39] LABS: Appearance Urine Cloudy (Clear); Bacteria Urine Automated Negative (Negative); Bilirubin Urine Negative (Negative); Blood Urine 2+ (Negative); Cast Urine Automated 0 /lpf (0-5); Color Urine Yellow; Glucose Urine UA Negative (Negative); Ketones Urine Trace (Negative); Leukocyte Esterase Urine 3+ (Negative); Nitrite Urine Positive (Negative); Protein Urine 1+ (Negative); Specific Gravity Urine 1.036 (1.000-1.030); Urobilinogen Urine Negative (Negative); WBC Urine Automated >30 /hpf (0-5); pH Urine 5.5 (4.5-7.5)
[2021-08-23] MEDS ORDERED: GABAPENTIN 600 MG TAB PO STA (19:42)
--- NOTE | 2021-08-23 20:07 | History & Physical Report ---
Date of Service August 23, 2021 Assessment & Plan (1) Fever: Plan: Patient febrile at home for the last several days. She is presently 38.2. Hemodynamically stable. Non-septic in appearance. She has no leukocytosis but does have mildly elevated neutrophils and bands with decreased lymphocytes. UA is suggestive of infection with Nitrites, LE, WBC present. No bacteria. She also reports frequent, watery diarrhea. Most strongly suspect UTI at this time - patient has persistent left hydronephrosis and hydroureter noted on CT - most likely secondary to involvement of the ureter with left iliopsoas muscle mass -Admit to medical -Follow cultures sent from ER - blood and urine -Check stool culture and stool for c. diff -Monitor UOP (2) Diarrhea: Plan: Patient reports watery diarrhea, some abdominal discomfort more than baseline. Abdomen is soft, ND -Check stool for c. diff -Check stool culture (3) Uterine malignant neoplasm: Plan: Patient presently undergoing XRT - has been having some difficulty receiving therapy d/t sciatic pain which is worsened by laying on the table to receive her radiation. She is to resume chemotherapy in September 2021. She has seen Palliative Care in the past and they assist with her medication management. -Continue Suboxone for chronic pain. 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 She is presently receiving XRT and is to resume chemotherapy on September 13, 2021. Patient presents with fever x 3 days as high as 103 by temporal thermometer. Also with watery diarrhea, diffuse abdominal pain, nausea with non-bloody/non-bilious vomiting and unintentional weight loss of appx 11# over the last week. Patient has not been eating or tolerating her medications. She feels that her abdomen is full with increased pressure. She also states her urine has been foamy. She denies dysuria, increased urinary frequency/urgency, rashes, joint pain. She is not neutropenic. No additional complaints at this time. ER Course: Cefepime, Benadryl, Fentanyl, Solumedrol, Zofran, NSS Allergies Allergy/AdvReac Type Severity Reaction Status Date / Time Iodinated Contrast Media Allergy Severe Contrast- Verified 08/21/21 11:01 itching Sulfa (Sulfonamide Allergy Severe Syncope, Verified 08/21/21 11:01 Antibiotics) stops breathing sulfamethoxazole Allergy Severe Syncope, Verified 08/21/21 11:01 hives, dyspnea trimethoprim Allergy Severe Syncope, Verified 08/21/21 11:01 hives, dyspnea gadobutrol Allergy Intermediate Hives, Verified 08/21/21 11:01 itching hydrocodone Allergy Intermediate Stops Verified 08/21/21 11:01 breathing pregabalin Allergy Intermediate Hives Verified 08/21/21 11:01 iodine Allergy Mild Itching Verified 08/21/21 11:01 acetaminophen [From Percocet] Allergy Unknown PER PT Verified 08/21/21 11:01 "CAN'T TAKE". enoxaparin Allergy Unknown UNKNOWN Verified 08/21/21 11:01 oxycodone [From Percocet] Allergy Unknown Unknown Verified 08/21/21 11:01 Home Medications Medication Instructions Recorded Confirmed Type amitriptyline 100 mg tablet 100 mg PO HS 03/27/19 08/23/21 History gabapentin 600 mg tablet 900 mg PO QID 03/27/19 08/23/21 History ondansetron HCl 8 mg tablet 8 mg PO Q8 PRN 03/27/19 08/23/21 History venlafaxine 75 mg capsule,extended 75 mg PO QAM 03/27/19 08/23/21 History release 24 hr Iron Infusion 1 dose IV .MONTHLY/UD PRN 02/12/21 08/23/21 History trazodone 50 mg tablet 50 mg PO HS 02/12/21 08/23/21 History dexamethasone 4 mg tablet 4 mg PO DIRECTED tab 03/16/21 08/23/21 History diclofenac sodium 50 mg 75 mg PO TID tab 03/16/21 08/23/21 History tablet,delayed release prochlorperazine maleate 10 mg 10 mg PO Q6H PRN 03/16/21 08/23/21 History tablet (Compazine) cyanocobalamin (vitamin B-12) 1,000 mcg IM MONTHLY 06/25/21 08/23/21 History 1,000 mcg/mL injection solution pantoprazole 40 mg tablet,delayed 40 mg PO DAILY 28 Days #28 tab 07/04/21 08/23/21 Rx release buprenorphine 8 mg-naloxone 2 mg 1 film BUCCAL TID PRN ea 08/21/21 08/23/21 History sublingual film (Suboxone) Past Med/Surg History Medical History Abnormal vaginal bleeding Anxiety B12 deficiency anemia Cellulitis and abscess of foot Recent MRSA infection to left foot after trauma (02/2021) - hospitalized and treated for at [facility] -- per pt, still with redness/swelling to left foot but completed course of abx therapy and continues to improve; denies open areas/seeping from site COVID-19 Endometrial adenocarcinoma Biopsy on 11/25/20 > To pelvic lymph nodes (Biopsied 12/28/20) Endometriosis Evisceration of bowel Numerous Hemoptysis Hx SBO Iron deficiency anemia intermittent iron infusions PRN Morbid obesity Pneumonia Scalp lesion Hx melanoma (scalp) approximately 1 year ago -- treated surgically Surgical History Gastric bypass status for obesity H/O abdominal surgery Muscle stretching, tumor removed, mesh in place; Multiple complex abd surgeries History of colonoscopy History of esophagogastroduodenoscopy (EGD) History of placement of ear tubes History of vascular access device removed Hx of cholecystectomy Hx of tonsillectomy Port-A-Cath in place (03/28/21) nsertion of Access Port Left Cephalic Vein Dr. Gilliam 03/28/2021 Family History Sister , 54 Ovarian cancer Diabetes Breast cancer Stroke Mother , in her 60s Ovarian cancer Diabetes Heart problem "Had a bad heart" Breast cancer Hypertension Father Myocardial infarction Brother No problems noted. Sister No problems noted. Other No family history of adverse response to anesthesia No pertinent family history Denies family history of Colorectal cancer Uterine cancer Social History Smoking Status: Never smoker Tobacco Type: Cigarettes Cigarettes Per Day: 1 PPD/week x 2 to 3 years;; Second Hand Exposure: Yes (sister smokes); Hx Alcohol Use: No Hx Substance Use: No Preferred Language: Citizen Of [place] Communication Ability: Effective Visual Impairment: No Limitations Hearing Ability: Normal Accounting Instructor Required: No Beliefs That Will Affect Care: None marital status: Current Living Situation: Alone Current Living Situation Comment: Raising her 4 great nephews ages 2-9 & her 82 year old father lives withher current occupational status: disabled How many Children do You have: 4 Feels Safe at Home: Yes caffeine: Yes (Energy drinks 1-4 each day) during the past year weight has: remained stable Assistive Devices: None Review of Systems Review of Systems: All systems reviewed & are unremarkable except as noted in HPI & below +chronic abdominal pain +cough with brown sputum +abdominal fullness +foamy urine +nausea, vomiting Physical Exam Physical Exam: General: patient chronically ill in appearance, NAD, oriented x 4 Skin - warm, dry, intertriginous yeast present in groin fold, open area in skin fold HEENT: NC/AT, PERRL, EOMI, anicteric sclera, conjunctiva without injection, external ear normal to inspection and nontender, nares patent, moist mucus membranes, dentition intact, no oropharyngeal lesions, neck supple, trachea midline, no LAD, no thyromegaly, no JVD Heart: +S1/S2, regular, no m/r/g Lungs: equal air entry bilaterally, no rales/rhonchi/wheezes Abd: +BS, soft, NT/ND, no masses/organomegaly/ascites Ext: warm, 2+ pulses in UE/LE bilaterally, no clubbing/cyanosis or edema Neuro: nonfocal, patient AA&O x 4, speech intact, no facial droop, moving all extremities on command with equal strength 5/5 Results & Data Results & Data ([place]) Vital Signs (Past 12 Hours) Vital Signs Temp Pulse Pulse Resp BP Pulse Ox 08/23/21 18:46 101 H 101 H 24 97 08/23/21 17:31 20 93 08/23/21 16:11 38.2 C H 126 H 19 138/79 94 Laboratory Results Laboratory Results WBC 9.76 K/uL (4.8-10.8) 08/23/21 14:55 RBC 2.97 M/uL (4.2-5.4) L 08/23/21 14:55 Hgb 8.5 g/dL (12.0-16.0) L 08/23/21 14:55 Hct 26.7 % (37-47) L 08/23/21 14:55 MCV 89.9 fL (80-100) 08/23/21 14:55 MCH 28.6 pg (25-34) 08/23/21 14:55 MCHC 31.8 g/dL (32-36) L 08/23/21 14:55 RDW Std Deviation 68.0 fL (36.4-46.3) H 08/23/21 14:55 RDW Coeff of Josue 20.2 % (11.5-14.5) H 08/23/21 14:55 Plt Count 185 K/uL (130-400) 08/23/21 14:55 MPV 11.1 fL (7.4-10.4) H 08/23/21 14:55 Immature Gran % (Auto) 0.3 % 08/23/21 14:55 Neut % (Auto) 71.1 % 08/23/21 14:55 Lymph % (Auto) 10.8 % 08/23/21 14:55 [place] % (Auto) 15.0 % 08/23/21 14:55 Eos % (Auto) 2.7 % 08/23/21 14:55 Baso % (Auto) 0.1 % 08/23/21 14:55 Neut # (Auto) 6.95 K/uL (1.4-6.5) H 08/23/21 14:55 Lymph # (Auto) 1.05 K/uL (1.2-3.4) L 08/23/21 14:55 [place] # (Auto) 1.46 K/uL (0.11-0.59) H 08/23/21 14:55 Eos # (Auto) 0.26 K/uL (0-0.5) 08/23/21 14:55 Baso # (Auto) 0.01 K/uL (0-0.2) 08/23/21 14:55 Immature Gran # (Auto) 0.03 K/uL (0.00-0.02) H 08/23/21 14:55 Anisocytosis Present 08/23/21 14:55 PT 15.5 Seconds (9.0-12.0) H 08/23/21 14:55 INR 1.6 (0.9-1.1) H 08/23/21 14:55 APTT 40.0 Seconds (21.0-31.0) H 08/23/21 14:55 PTT Ratio 1.5 08/23/21 14:55 Sodium 132 mmol/L (136-145) L 08/23/21 14:55 Potassium 4.0 mmol/L (3.5-5.1) 08/23/21 14:55 Chloride 100 mmol/L (98-107) 08/23/21 14:55 Carbon Dioxide 25 mmol/L (21-32) 08/23/21 14:55 Anion Gap 7.0 (3-11) 08/23/21 14:55 BUN 13 mg/dl (7-18) 08/23/21 14:55 Creatinine 0.93 mg/dl (0.6-1.2) 08/23/21 14:55 Est Cr Clr Drug Dosing 84.0 ml/min 08/23/21 14:55 Est GFR ( Amer) 82.5 ml/min 08/23/21 14:55 Est GFR (Non-Af Amer) 71.2 ml/min 08/23/21 14:55 BUN/Creatinine Ratio 13.6 (10-20) 08/23/21 14:55 Glucose 101 mg/dl (70-99) H 08/23/21 14:55 Lactate 0.7 mmol/L (0.4-2.0) 08/23/21 16:55 Calcium 8.4 mg/dl (8.5-10.1) L 08/23/21 14:55 Magnesium 1.3 mg/dl (1.8-2.4) L 08/23/21 14:55 Total Bilirubin 0.7 mg/dl (0.2-1) 08/23/21 14:55 AST 13 U/L (15-37) L 08/23/21 14:55 ALT 17 (12-78) 08/23/21 14:55 Alkaline Phosphatase 74 U/L (45-117) 08/23/21 14:55 Troponin I < 0.015 ng/ml (0-0.045) 08/23/21 14:55 Total Protein 7.2 gm/dl (6.4-8.2) 08/23/21 14:55 Albumin 2.0 gm/dl (3.4-5.0) L 08/23/21 14:55 Globulin 5.2 gm/dl (2.5-4.0) H 08/23/21 14:55 Albumin/Globulin Ratio 0.4 (0.9-2) L 08/23/21 14:55 Procalcitonin 0.37 ng/ml (0-0.5) 08/23/21 14:55 Urine Color Yellow 08/23/21 19:30 Urine Appearance Cloudy (Clear) A 08/23/21 19:30 Urine pH 5.5 (4.5-7.5) 08/23/21 19: Ur Specific [place] 1.036 (1.000-1.030) H 08/23/21 19:30 Urine Protein 1+ (Negative) H 08/23/21 19:30 Urine Glucose (UA) Negative (Negative) 08/23/21 19: Urine Ketones Trace (Negative) H 08/23/21 19:30 Urine Blood 2+ (Negative) H 08/23/21 19:30 Urine Nitrite Positive (Negative) A 08/23/21 19: Urine Bilirubin Negative (Negative) 08/23/21 19: Urine Urobilinogen Negative (Negative) 08/23/21 19:30 Ur Leukocyte Esterase 3+ (Negative) H 08/23/21 19:30 Urine WBC (Auto) >30 /hpf (0-5) H 08/23/21 19:30 Urine RBC (Auto) 5-10 /hpf (0-4) H 08/23/21 19:30 U Hyaline Cast (Auto) 0 /lpf (0-5) 08/23/21 19:30 U Epithel Cells (Auto) 5-10 /lpf (0-5) H 08/23/21 19:30 Urine Bacteria (Auto) Negative (Negative) 08/23/21 19:30 SARS-CoV-2, RNA, NAAT NEGATIVE (NEGATIVE) 08/23/21 17:27 Impressions Chest X-Ray 08/23/21 16:15 XR chest 1V portable CLINICAL HISTORY: SEPSIS TECHNIQUE: Single frontal radiograph of the chest was obtained. Comparison: Comparison is made to chest one view 06/25/2021 FINDINGS: No lines and tubes are seen. Cardiomegaly is noted. The lungs are clear. No evidence of pleural effusion or pneumothorax. IMPRESSION: No acute chest disease. ACT 112: Negative or not required by law. Electronically signed by: Jesus Ingram M.D. 08/23/2021 4:35 PM Abdomen/Pelvis CT 08/23/21 16:45 CT abd pelvis IV con only CLINICAL HISTORY: ab pain, n/v, h/o endometrial ca TECHNIQUE: Helical axial images of the abdomen and pelvis were obtained and displayed. Automated dose lowering techniques and/or adjustment according to patient size were utilized for this exam. This exam was performed with intravenous contrast. COMPARISON: Comparison is made to CT abdomen and pelvis 07/11/[address] abdomen pelvis 10/27/2016 FINDINGS: Lower chest: For findings above the diaphragm, please see CT chest performed same day. Liver: Unremarkable. No focal lesions are seen. Gallbladder and biliary tree: Patient is status post cholecystectomy. No intra- or extrahepatic biliary ductal dilation. Pancreas: Fatty replacement of the pancreas is seen. Spleen: The spleen is enlarged measuring 15 mm in length. Adrenals: Unremarkable. Kidneys and ureters: Left hydronephrosis is again seen. There is ureteral dilation which narrows as it passes by an enhancing mass in the left iliopsoas muscle. This mass appears similar in size compared to prior exam. Scattered peripelvic cysts are seen on the right. Bladder: Unremarkable. Reproductive organs: Gas is noted within the uterus. Bowel: Status post bowel and gastric resection. Lymph nodes Retroperitoneal: Unremarkable. Mesenteric: Unremarkable. Pelvic: Unremarkable. Peritoneum: Normal Vessels: An IVC filter is noted. Abdominal wall: Patient is status post ventral hernia repair. A left lateral hernia is seen containing nondistended bowel. Bones: Unremarkable. IMPRESSION: 1. Redemonstration of left hydronephrosis and hydroureter, likely due to involvement of the ureter with a left iliopsoas muscle mass which was felt to be a hematoma. The left iliopsoas mass is essentially unchanged from prior exam. 2. Otherwise no acute abnormalities and in particular no evidence of bowel obstruction patient with nausea and vomiting. 3. Posttreatment changes of the uterus. 4. Additional findings as above. ACT 112: Negative or not required by law. Electronically signed by: Jesus Ingram M.D. 08/23/2021 7:00 PM Chest CTA 08/23/21 16:45 CT angio chest PE protocol CLINICAL HISTORY: PE dyspnea TECHNIQUE: Multidetector row helical CT of the chest was performed. Coronal and sagittal reformations were obtained. Automated dose lowering techniques and/or adjustment according to patient size were utilized for this exam. Comparison: Comparison is made to CT chest 06/26/2021 FINDINGS: Lungs and pleura: Interval improvement in previously noted airspace consolidation with scattered reticular opacities remaining which may reflect postinfectious scarring. Heart and pericardium: There is cardiomegaly without evidence of pericardial effusion.r Vessels: The pulmonary trunk is enlarged measuring 35 mm. Mediastinum and yulia: Unremarkable. Chest wall and lower neck: Unremarkable. Abdomen: For findings below the diaphragm, please refer to CT of the abdomen dated the same. Bones: Unremarkable. IMPRESSION: 1. No evidence of pulmonary embolism. 2. Interval improvement in previously noted consolidation. Scattered reticular opacities remain which may reflect postinfectious scarring. ACT 112: Negative or not required by law. Electronically signed by: Jesus Ingram M.D. 08/23/2021 6:48 PM Code Status & VTE Plan VTE Prophylaxis Plan VTE Prophylaxis will be ordered: Yes PG Care Time/CCT Total # of Minutes Spent Total Time Spent with Patient: Total time spent is greater than 50% in coordination of care (as documented) at patient's floor/unit and/or counseling patient: Coding Level of Care Code 57156 Initial Inpt Care Lvl 2 Diagnoses Uterine malignant neoplasm C55 Fever R50.9 Diarrhea R19.7
[2021-08-23] MEDS ORDERED: KETOROLAC TROMETHAMINE 15 MG/ML VIAL IV PRN (21:11)
[2021-08-23] MEDS ORDERED: PROCHLORPERAZINE MALEATE 10 MG TAB PO PRN (22:45)
[2021-08-23] MEDS ORDERED: DOCUSATE SODIUM 100 MG CAP PO PRN (22:45)
[2021-08-24] MEDS: SODIUM CHLORIDE 0.9% 1000ML 1,000 ML IV SCH ×2 (00:02→11:58)
[2021-08-24] MEDS: traZODone HCL 50 MG TAB PO SCH ×2 (00:03→21:20)
[2021-08-24] MEDS: AMITRIPTYLINE HCL 100 MG TAB PO SCH ×2 (00:03→21:19)
[2021-08-24] MEDS: GABAPENTIN 600 MG TAB PO SCH ×5 (00:03→21:20)
[2021-08-24] MEDS: CEFEPIME 2,000 MG in SYRINGE 0 ML IV SCH ×3 (01:58→17:45)
[2021-08-24 06:06] LABS: Basophils # (auto) 0.01 K/uL (0-0.2); Basophils % (auto) 0.1 %; Eosinophils # (auto) 0.01 K/uL (0-0.5); Eosinophils % (auto) 0.1 %; Hematocrit (blood only) 25.1 % (37-47); Hemoglobin 7.9 g/dL (12.0-16.0); Immature Granulocytes # (auto) 0.03 K/uL (0.00-0.02); Immature Granulocytes % (auto) 0.4 %; Lymphocytes # (auto) 0.54 K/uL (1.2-3.4); Lymphocytes % (auto) 6.9 %; Mean Corpuscular Hemoglobin 28.7 pg (25-34); Mean Corpuscular Hgb Conc 31.5 g/dL (32-36); Mean Corpuscular Volume 91.3 fL (80-100); Mean Platelet Volume 10.7 fL (7.4-10.4); Monocytes % (auto) 12.7 %; Neutrophils # (auto) 6.27 K/uL (1.4-6.5); Neutrophils % (auto) 79.8 %; Platelet Count 163 K/uL (130-400); RDW Coefficient of Variation 20.2 % (11.5-14.5); RDW Standard Deviation 69.9 fL (36.4-46.3); Red Blood Count 2.75 M/uL (4.2-5.4); White Blood Count 7.86 K/uL (4.8-10.8)
[2021-08-24 06:30] LABS: BUN Creatinine Ratio 16.6 (10-20); Calcium 8.7 mg/dl (8.5-10.1); Creatinine Clr Calc Pharmacy 107.7 ml/min; Est GFR (Non-African American) 82.9 ml/min; Potassium 3.8 mmol/L (3.5-5.1)
[2021-08-24 06:58] LABS: Rouleaux 1+
[2021-08-24] MEDS: PANTOprazole 40 MG TAB PO SCH (10:02)
[2021-08-24] MEDS: NYSTATIN OINT 15 GM TUBE EXT SCH ×2 (10:04→21:20)
[2021-08-24] MEDS: VENLAFAXINE HCL XR 75 MG CAPXR PO SCH (10:04)
[2021-08-24] MEDS: BUPRENORPHINE/NALOXONE 8/2 MG TAB SL PRN ×2 (10:21→19:48)
[2021-08-24] MEDS: KETOROLAC TROMETHAMINE 15 MG/ML VIAL IV PRN ×2 (12:01→16:36)
--- NOTE | 2021-08-24 17:50 | Hospitalist Progress Note ---
Date of Service August 24, 2021 Assessment & Plan (1) Fever: Plan: Fever: Patient febrile at home for the last several days. She is presently 38.2. Hemodynamically stable. No concern of sepsis. UA is suggestive of infection with Nitrites, LE, WBC present. No bacteria. patient has persistent left hydronephrosis and hydroureter noted on CT - most likely secondary to involvement of the ureter with left iliopsoas muscle mass -Follow cultures sent from ER - blood and urine -Monitor UOP - IV cefepime Diarrhea Patient reports watery diarrhea, some abdominal discomfort more than baseline. Abdomen is soft, ND -Check stool for c. diff -Check stool culture Anemia -Hb slowly steadily dropping. Likely marrow suppression from cancer treatment -Follow for signs of bleeding Uterine malignant neoplasm: Patient presently undergoing XRT - has been having some difficulty receiving therapy d/t sciatic pain which is worsened by laying on the table to receive her radiation. She is to resume chemotherapy in September 2021. She has seen Palliative Care in the past and they assist with her medication management. -Continue Suboxone for chronic pain. Patient is on this at home - 8mg/2mg films TID PRN -Continue Amitriptyline for pain -Continue Gabapentin for pain -Toradol as needed for pain F/E/N - NSS at 80mL/hr, K repletion, full liquid diet - advance as tolerated Ppx - SCDs Code - DNR/DNI Dispo - medical (2) Anemia: (3) Cystitis: (4) Endometrial adenocarcinoma: (5) Metastatic adenocarcinoma: Admission and Anticipated Discharge Date Admission Date: August 23, 2021 Subjective feeling tired this am but better than how she felt on admission no fever since after admission no chest pain, shortness of breath Physical Exam Constitutional: WD/WN, vitals as above Respiratory: normal respiratory effort, lungs clear to auscultation Cardiovascular: RRR, no murmur, no edema Psychiatric: A+Ox3, euthymic affect Results & Data Results & Data ([facility]) Vital Signs (Past 12 Hours) Vital Signs Temp Pulse Resp BP Pulse Ox 08/24/21 15:58 37.2 C 85 12 92/57 L 93 08/24/21 07:41 36.4 C L 60 16 90/54 L 91 (1) Fever Fever type: unspecified Qualified Code(s): R50.9 - Fever, unspecified (2) Anemia Anemia type: unspecified type Qualified Code(s): D64.9 - Anemia, unspecified
[2021-08-24 18:45] LABS: Appearance Urine Turbid (Clear); Bacteria Urine Automated 2+ (Negative); Bilirubin Urine Negative (Negative); Blood Urine 2+ (Negative); Color Urine Dark Yellow; Epithelial Cell Urine Auto >30 /lpf (0-5); Glucose Urine UA Negative (Negative); Ketones Urine Trace (Negative); Leukocyte Esterase Urine 3+ (Negative); Nitrite Urine Negative (Negative); Protein Urine 1+ (Negative); Specific Gravity Urine 1.033 (1.000-1.030); Urobilinogen Urine Negative (Negative); WBC Urine Automated >30 /hpf (0-5)
[2021-08-24 19:01] LABS: Total Protein Urine Random 89.3 mg/dl (0-11.9)
[2021-08-24 19:37] LABS: RBC Urine Automated 0-4 /hpf (0-4)
[2021-08-24] MEDS: ONDANSETRON INJ 2 MG/ML 2 ML VIAL IV PRN (20:32)
[2021-08-24] MEDS: KETOROLAC 30 MG/ML VIAL IV PRN (22:10)
[2021-08-24 23:00] LABS: Adenovirus F 40/41 PCR Not Detected (NotDetected); Astrovirus PCR Not Detected (NotDetected); Campylobacter PCR Not Detected (NotDetected); Clostridium diff Toxin A/B PCR Not Detected (NotDetected); Cryptosporidium PCR Not Detected (NotDetected); Cyclospora cayetanensis PCR Not Detected (NotDetected); Entamoeba histolytica PCR Not Detected (NotDetected); Enteroaggregative E.coli(EAEC) Not Detected (NotDetected); Enteropathogenic E.coli (EPEC) Not Detected (NotDetected); Enterotoxigenic E.coli (ETEC) Not Detected (NotDetected); Giardia lamblia PCR Not Detected (NotDetected); Norovirus GI/GII PCR Not Detected (NotDetected); Plesiomonas shigelloides PCR Not Detected (NotDetected); Rotavirus A PCR Not Detected (NotDetected); Salmonella PCR Not Detected (NotDetected); Sapovirus PCR Not Detected (NotDetected); Shiga-like Toxin E.coli (STEC) Not Detected (NotDetected); Shigella/Enteroinvasive E.coli Not Detected (NotDetected); Vibrio cholerae PCR Not Detected (NotDetected); Vibrio species PCR Not Detected (NotDetected); Yersinia enterocolitica PCR Not Detected (NotDetected)
[2021-08-25] MEDS: CEFEPIME 2,000 MG in SYRINGE 0 ML IV SCH ×3 (01:36→17:57)
[2021-08-25] MEDS: HEPARIN 100 UNIT/ML 5ML FLUSH FLUSH PRN ×3 (02:04→17:58)
[2021-08-25 07:14] LABS: Basophils # (auto) 0.01 K/uL (0-0.2); Basophils % (auto) 0.1 %; Eosinophils # (auto) 0.28 K/uL (0-0.5); Eosinophils % (auto) 3.6 %; Hematocrit (blood only) 25.2 % (37-47); Hemoglobin 7.9 g/dL (12.0-16.0); Immature Granulocytes # (auto) 0.03 K/uL (0.00-0.02); Immature Granulocytes % (auto) 0.4 %; Lymphocytes # (auto) 0.71 K/uL (1.2-3.4); Lymphocytes % (auto) 9.1 %; Mean Corpuscular Hemoglobin 28.7 pg (25-34); Mean Corpuscular Hgb Conc 31.3 g/dL (32-36); Mean Corpuscular Volume 91.6 fL (80-100); Mean Platelet Volume 10.9 fL (7.4-10.4); Monocytes # (auto) 1.26 K/uL (0.11-0.59); Monocytes % (auto) 16.2 %; Neutrophils # (auto) 5.48 K/uL (1.4-6.5); Neutrophils % (auto) 70.6 %; Platelet Count 165 K/uL (130-400); RDW Coefficient of Variation 20.8 % (11.5-14.5); RDW Standard Deviation 72.1 fL (36.4-46.3); Red Blood Count 2.75 M/uL (4.2-5.4); White Blood Count 7.77 K/uL (4.8-10.8)
[2021-08-25 07:16] LABS: BUN Creatinine Ratio 12.9 (10-20); Calcium 8.2 mg/dl (8.5-10.1); Creatinine Clr Calc Pharmacy 85.7 ml/min; Est GFR (African American) 72.9 ml/min; Est GFR (Non-African American) 62.9 ml/min; Potassium 4.2 mmol/L (3.5-5.1)
--- NOTE | 2021-08-25 07:34 | Hospitalist Progress Note ---
Date of Service August 25, 2021 Assessment & Plan (1) Fever: Plan: Fever Patient febrile at home for the last several days. She is presently 36.6. Hemodynamically stable. No concern of sepsis. UA is suggestive of infection with Nitrites, LE, WBC present. No bacteria. patient has persistent left hydronephrosis and hydroureter noted on CT - most likely secondary to involvement of the ureter with left iliopsoas muscle mass -Follow cultures sent from ER -blood culture (no aerobic or anaerobic growth after 24 hours 2/2), urine culture (pinpoint growth 1/2, second sample: three types of organisms present, all high counts mixed probable skin jonathon) -No further identifications or sensitivities to follow -Monitor UOP -IV cefepime to be discontinued tonight at 8 PM. Diarrhea Patient reports watery diarrhea, some abdominal discomfort more than baseline. Abdomen is soft, ND -Stool culture negative for C. difficile, or any other tested pathogen. Anemia -Hb slowly steadily dropping. Stable today at 7.9. Likely marrow suppression from cancer treatment -Follow for signs of bleeding Uterine malignant neoplasm: Patient presently undergoing XRT - has been having some difficulty receiving therapy d/t sciatic pain which is worsened by laying on the table to receive her radiation. She is to resume chemotherapy in September 2021. She has seen Palliative Care in the past and they assist with her medication management. -Continue Suboxone for chronic pain. Patient is on this at home - 8mg/2mg films TID PRN -Continue Amitriptyline for pain -Continue Gabapentin for pain -Toradol as needed for pain -Patient would like to stop radiation treatment due to uncontrolled pain. - Per Dr. Simi Grant - wondering if she could take a dose of lorazepam before her treatment to relieve some of her symptoms. - will follow F/E/N - NSS at 80mL/hr, K repletion, full liquid diet - advance as tolerated Ppx - SCDs Code - DNR/DNI Dispo - medical (2) Anemia: (3) Cystitis: (4) Endometrial adenocarcinoma: (5) Metastatic adenocarcinoma: (2) Diarrhea: (3) Anemia: (4) Uterine malignant neoplasm: Admission and Anticipated Discharge Date Admission Date: August 23, 2021 Supervising Physician Co-Signing Physician Notes Resident Physician Supervision Note: I independently interviewed and examined the patient and verified the baugh history and physical, reviewed labs and image studies and agree with resident Dr. Glez findings and care plan. Subjective Patient resting in bed this morning. She denies bowel movements, or fevers though she reports night sweats. She reports abdominal pain, though states that this is her baseline, compared to the increased pain she felt on admission. Patient is scheduled for radiation therapy treatment this morning and is anxious about her positional sciatica flaring up. She plans to take IV Toradol, which helped her previously. She would like to know if there are equivalent oral options for when she is discharged. She has no other questions or concerns at this time. Review of Systems Review of Systems: All systems reviewed & are unremarkable except as noted in HPI & below Physical Exam Constitutional: WD/WN, vitals as above Respiratory: normal respiratory effort, lungs clear to auscultation Cardiovascular: RRR, no murmur, no edema Gastrointestinal (Abdomen): Inspection/Auscultation: + abdomen distended, + significant pannus, + abdominal surgical scar and + abdominal surgical incision Percussion/Palpation: + abdomen tender (Mildly, diffusely) and abdomen soft; no guarding, no ascites and no fluid wave Results & Data Results & Data ([facility]) Vital Signs (Past 12 Hours) Vital Signs Temp Pulse Resp BP Pulse Ox 08/24/21 22:17 37.7 C H 101 H 19 90/59 L 93 Resident Activity Tracking Resident Involvement: Resident Care Provided Care Provided: Adult Hospital Medicine (1) Fever Fever type: unspecified Qualified Code(s): R50.9 - Fever, unspecified (2) Anemia Anemia type: unspecified type Qualified Code(s): D64.9 - Anemia, unspecified
[2021-08-25] MEDS: GABAPENTIN 600 MG TAB PO SCH ×4 (08:04→20:12)
[2021-08-25 08:09] LABS: Anisocytosis Present
[2021-08-25] MEDS: NYSTATIN OINT 15 GM TUBE EXT SCH ×2 (08:09→20:11)
[2021-08-25] MEDS: VENLAFAXINE HCL XR 75 MG CAPXR PO SCH (08:09)
[2021-08-25] MEDS: PANTOprazole 40 MG TAB PO SCH (08:10)
[2021-08-25] MEDS: KETOROLAC 30 MG/ML VIAL IV PRN (10:11)
[2021-08-25] MEDS: BUPRENORPHINE/NALOXONE 8/2 MG TAB SL PRN (14:25)
[2021-08-25] MEDS: KETOROLAC TROMETHAMINE 15 MG/ML VIAL IV PRN (18:01)
[2021-08-25] MEDS: AMITRIPTYLINE HCL 100 MG TAB PO SCH (20:12)
[2021-08-25] MEDS: traZODone HCL 50 MG TAB PO SCH (20:12)
--- NOTE | 2021-08-25 21:13 | Electrocardiogram Report ---
Test Reason : Blood Pressure : / mmHG Vent. Rate : 112 BPM Atrial Rate : 112 BPM P-R Int : 154 ms QRS Dur : 096 ms QT Int : 318 ms P-R-T Axes : 014 -03 031 degrees QTc Int : 434 ms Sinus tachycardia Cannot rule out Anterior infarct , age undetermined Abnormal ECG When compared with ECG of 25-JUN-2021 16:08, Minimal criteria for Anterior infarct are now Present Non-specific change in ST segment in Lateral leads Confirmed by Gary Goff ([id number]) on 08/25/2021 9:12:47 PM Referred By: REFERRED SELF Confirmed By:Gary Goff
[2021-08-26] MEDS: KETOROLAC 30 MG/ML VIAL IV PRN ×3 (01:20→17:59)
--- NOTE | 2021-08-26 07:41 | Hospitalist Progress Note ---
Date of Service August 26, 2021 Assessment & Plan (1) Fever: Plan: Fever Patient febrile at home for the last several days. She is presently 36.6. Hemodynamically stable. No concern of sepsis. UA is suggestive of infection with Nitrites, LE, WBC present. No bacteria. patient has persistent left hydronephrosis and hydroureter noted on CT - most likely secondary to involvement of the ureter with left iliopsoas muscle mass -blood culture (no aerobic or anaerobic growth after 48 hours 10/11), -urine culture (preliminary report from 08/24 culture with probable Enterococcus 60,000 colony growth, along with mixed jonathon possibly from skin contaminant) -No further identifications or sensitivities to follow -IV cefepime discontinued yesterday at 8 PM, will continue patient on amoxicillin 500mg bid for 3 days for possible UTI source of fever. -Patient discharge tomorrow morning when her ride is available. Continue to monitor vitals while here. Diarrhea Patient reports watery diarrhea, some abdominal discomfort more than baseline. Abdomen is soft, ND -Stool culture negative for C. difficile, or any other tested pathogen. Anemia -Hb Stable yesterday at 7.9. Likely marrow suppression from cancer treatment -No concern of bleeding Uterine malignant neoplasm: Patient presently undergoing XRT - has been having some difficulty receiving therapy d/t sciatic pain which is worsened by laying on the table to receive her radiation. She is to resume chemotherapy in September 2021. She has seen Palliative Care in the past and they assist with her medication management. -Continue Suboxone for chronic pain. Patient is on this at home - 8mg/2mg films TID PRN -Continue Amitriptyline for pain -Continue Gabapentin for pain -Toradol as needed for pain -Plan for Ativan PRN for radiation sessions on discharge. F/E/N - NSS at 80mL/hr, K repletion, full liquid diet - advance as tolerated Ppx - SCDs Code - DNR/DNI Dispo - medical (2) Anemia: (3) Cystitis: (4) Endometrial adenocarcinoma: (5) Metastatic adenocarcinoma: (2) Diarrhea: (3) Anemia: (4) Uterine malignant neoplasm: Admission and Anticipated Discharge Date Admission Date: August 23, 2021 Supervising Physician Co-Signing Physician Notes Resident Physician Supervision Note: I independently interviewed and examined the patient and verified the baugh history and physical, reviewed labs and image studies and agree with resident Dr. Hernandez findings and care plan. Subjective Patient was seen at the bedside this morning. Patient is doing well this morning aside from some mild left lower abdominal discomfort. She received radiation therapy yesterday and was wondering if she can get something for her discomfort and anxiety during the treatment, if not she indicated she may not want to continue with radiation due to it not being worth the level of discomfort she feels in her mind. She felt mildly feverish last night but this morning is okay. She said she will be able to leave tomorrow morning around 9AM when her brother is able to pick her up before his work. Denies nausea, vomiting, shortness of breath, diarrhea. Physical Exam Constitutional: + ill appearing Eyes: PERRL, conjunctivae normal, anicteric sclerae Respiratory: normal respiratory effort, lungs clear to auscultation Cardiovascular: RRR, no murmur, no edema Gastrointestinal (Abdomen): BS+, soft. Mildly tender to palpation in LUQ. No guarding. Results & Data Results & Data ([facility]) Vital Signs (Past 12 Hours) Vital Signs Temp Pulse Resp BP Pulse Ox 08/25/21 22:15 36.6 C 86 16 99/64 L 93 Resident Activity Tracking Resident Involvement: Resident Care Provided Care Provided: Adult Hospital Medicine (1) Fever Fever type: unspecified Qualified Code(s): R50.9 - Fever, unspecified (2) Anemia Anemia type: unspecified type Qualified Code(s): D64.9 - Anemia, unspecified
[2021-08-26] MEDS: VENLAFAXINE HCL XR 75 MG CAPXR PO SCH (08:05)
[2021-08-26] MEDS: PANTOprazole 40 MG TAB PO SCH (08:05)
[2021-08-26] MEDS: NYSTATIN OINT 15 GM TUBE EXT SCH ×2 (08:05→21:49)
[2021-08-26] MEDS: GABAPENTIN 600 MG TAB PO SCH ×4 (08:05→21:49)
[2021-08-26] MEDS: HEPARIN 100 UNIT/ML 5ML FLUSH FLUSH PRN ×3 (11:13→22:14)
[2021-08-26] MEDS: SENNA 8.6 MG TAB PO SCH (13:01)
[2021-08-26] MEDS: BUPRENORPHINE/NALOXONE 8/2 MG TAB SL PRN (15:48)
[2021-08-26] MEDS: ONDANSETRON INJ 2 MG/ML 2 ML VIAL IV PRN (17:56)
[2021-08-26] MEDS: AMITRIPTYLINE HCL 100 MG TAB PO SCH (21:49)
[2021-08-26] MEDS: traZODone HCL 50 MG TAB PO SCH (21:49)
[2021-08-26] MEDS ORDERED: KETOROLAC 30 MG/ML VIAL IV ONE (22:00)
[2021-08-27] MEDS: HEPARIN 100 UNIT/ML 5ML FLUSH FLUSH PRN (06:42)
[2021-08-27] MEDS: KETOROLAC 30 MG/ML VIAL IV PRN (06:42)
[2021-08-27 08:01] VITALS: TEMP 97.7; O2SAT 90
[2021-08-27] MEDS: PANTOprazole 40 MG TAB PO SCH (08:02)
[2021-08-27] MEDS: GABAPENTIN 600 MG TAB PO SCH (08:03)
[2021-08-27] MEDS: SENNA 8.6 MG TAB PO SCH (08:03)
[2021-08-27] MEDS: VENLAFAXINE HCL XR 75 MG CAPXR PO SCH (08:03)
[2021-08-27] MEDS: NYSTATIN OINT 15 GM TUBE EXT SCH (08:04)
--- NOTE | 2021-08-27 08:20 | Discharge Summary ---
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 She is presently receiving XRT and is to resume chemotherapy on September 13, 2021. Patient presents with fever x 3 days as high as 103 by temporal thermometer. Also with watery diarrhea, diffuse abdominal pain, nausea with non-bloody/non-bilious vomiting and unintentional weight loss of appx 11# over the last week. Patient has not been eating or tolerating her medications. She feels that her abdomen is full with increased pressure. She also states her urine has been foamy. She denies dysuria, increased urinary frequency/urgency, rashes, joint pain. She is not neutropenic. No additional complaints at this time. ER Course: Cefepime, Benadryl, Fentanyl, Solumedrol, Zofran, NSS Admission Exam Per Admitting Provider General: patient chronically ill in appearance, NAD, oriented x 4 Skin - warm, dry, intertriginous yeast present in groin fold, open area in skin fold HEENT: NC/AT, PERRL, EOMI, anicteric sclera, conjunctiva without injection, external ear normal to inspection and nontender, nares patent, moist mucus membranes, dentition intact, no oropharyngeal lesions, neck supple, trachea midline, no LAD, no thyromegaly, no JVD Heart: +S1/S2, regular, no m/r/g Lungs: equal air entry bilaterally, no rales/rhonchi/wheezes Abd: +BS, soft, NT/ND, no masses/organomegaly/ascites Ext: warm, 2+ pulses in UE/LE bilaterally, no clubbing/cyanosis or edema Neuro: nonfocal, patient AA&O x 4, speech intact, no facial droop, moving all extremities on command with equal strength 5/5 Principal Diagnosis Fever 2/2 viral gastroenteritis or radiation Discharge Exam Respiratory normal respiratory effort, lungs clear to auscultation Cardiovascular RRR, no murmur, no edema Gastrointestinal (Abdomen) Soft, non-distended, mild discomfort to palpation LUQ. Discharge Data Allergies Allergy/AdvReac Type Severity Reaction Status Date / Time Iodinated Contrast Media Allergy Severe Contrast- Verified 08/21/21 11:01 itching Sulfa (Sulfonamide Allergy Severe Syncope, Verified 08/21/21 11:01 Antibiotics) stops breathing sulfamethoxazole Allergy Severe Syncope, Verified 08/21/21 11:01 hives, dyspnea trimethoprim Allergy Severe Syncope, Verified 08/21/21 11:01 hives, dyspnea gadobutrol Allergy Intermediate Hives, Verified 08/21/21 11:01 itching hydrocodone Allergy Intermediate Stops Verified 08/21/21 11:01 breathing pregabalin Allergy Intermediate Hives Verified 08/21/21 11:01 iodine Allergy Mild Itching Verified 08/21/21 11:01 acetaminophen [From Percocet] Allergy Unknown PER PT Verified 08/21/21 11:01 "CAN'T TAKE". enoxaparin Allergy Unknown UNKNOWN Verified 08/21/21 11:01 oxycodone [From Percocet] Allergy Unknown Unknown Verified 08/21/21 11:01 Consultations 08/23/21 19:24 ED Decision to Admit Stat Ordered Studies 08/23/21 16:45 CT abd pelvis IV con only Stat IMPRESSION: 1. Redemonstration of left hydronephrosis and hydroureter, likely due to involvement of the ureter with a left iliopsoas muscle mass which was felt to be a hematoma. The left iliopsoas mass is essentially unchanged from prior exam. 2. Otherwise no acute abnormalities and in particular no evidence of bowel obstruction patient with nausea and vomiting. 3. Posttreatment changes of the uterus. 4. Additional findings as above. CT angio chest PE protocol Stat IMPRESSION: 1. No evidence of pulmonary embolism. 2. Interval improvement in previously noted consolidation. Scattered reticular opacities remain which may reflect postinfectious scarring. Hospital Course (1) Fever: Fever Hemodynamically stable. No concern of sepsis at this time. UA is suggestive of infection with Nitrites, LE, WBC present. No bacteria. patient has persistent left hydronephrosis and hydroureter noted on CT - most likely secondary to involvement of the ureter with left iliopsoas muscle mass -blood culture (no aerobic or anaerobic growth after 48 hours 10/11), -urine culture (preliminary report from 08/24 culture with probable Enterococcus 60,000 colony growth, along with mixed jonathon possibly from skin contaminant) -No further identifications or sensitivities to follow -IV cefepime on admission. After culture results switched to amoxicillin 500mg bid for 3 days for possible UTI source of fever. Diarrhea Patient reported watery diarrhea, some abdominal discomfort more than baseline.Normal exam -Stool culture negative for C. difficile, or any other tested pathogen. Anemia -stable h/h through hospital stay. no sign of active bleeding. -Likely marrow suppression from cancer treatment. Uterine malignant neoplasm: Patient presently undergoing XRT - has been having some difficulty receiving therapy d/t sciatic pain which is worsened by laying on the table to receive her radiation. She is to resume chemotherapy in September 2021. She has seen Palliative Care in the past and they assist with her medication management. -Ativan PRN prescription sent for radiation sessions on discharge. Patient said she will try Ativan for the sessions and if still painful for her may discontinue radiation. (2) Diarrhea: (3) Anemia: (4) Uterine malignant neoplasm: Total Time Total Time Spent Total Time Spent (In Minutes): See attending attestation. Discharge Plan Discharge Items Patient Disposition: Home - Self-Care Reason For Visit: FEVER, DIARRHEA, IMMUNOCOMPROMISED Discharge Diagnosis: Fever of unknown source Activity: Per Instructions section Non-emergency contact: Primary Care Provider and Oncologist Call non-emergency contact if: your symptoms worsen, your pain is worsening, your temperature is above 101 and your wound has increased drainage Follow-up/Referrals: Donnie Chou MD [Primary Care Provider] - Diet: Regular Addtl Attending Provider Instructions: You came in for fevers lasting several days and diarrhea/abdominal pain. You had a fever of 100.76 upon entering the hospital, which was the highest your temperature went during your stay. Over the past 24 hours you have not had a recorded fever and your blood pressure and heart rate have been within normal range. The cause of your fever is unknown since blood cultures were negative. This may have been due to a viral infection of your gastrointestinal tract which was exacerbated from your immunocompromised state and may have caused the diarrhea as well. There is a chance urinary tract infection may have caused your fever as well given urine culture revealed the presence of a small amount of bacteria, however this may be due to skin jonathon bacteria as well. You received a radiation session while here at the hospital and will continue in the outpatient setting. We will give you Ativan for the anxiety and leg pain you experience during the radiation sessions. Please take as described below. A discharge summary will be sent to your primary care physician to ensure continuity of care. Follow-up: * You should be seen by your primary physician as soon as you can for follow up from the hospital. Medications: Your medication list has been reviewed and reconciled upon discharge to ensure accuracy and continuity of care. An updated list of all your medications is included with your hospital discharge paperwork. Please review this list closely, and make note of any changes. * You will be given a prescription for Ativan (lorazepam) to take for anxiety you have prior to and during radiation sessions. Please take the medication 30 minutes before starting your radiation session and be aware that you may have increased drowsiness as a side effect of the medication. * Please take Amoxicillin twice a day for three days to complete treatment for any urinary tract infection that may have been causing your fever. Take your medications as instructed; do not skip a dose of your medicines. Make sure all of your doctors know every medicine you are taking (including pnru-lcy-kcsupvl medicines, vitamins, and supplements). let your primary care provider know before taking any new medicines because some of these may interact with your current medications, or may make your symptoms worse. CONTACT YOUR PRIMARY CARE PROVIDER if you experience any of the following: * Fevers or shaking chills * Shortness of breath not relieved by inhalers, fainting * Sudden abdominal distension not relieved by catheterization. * Difficulty following your treatment plan, or difficulty taking medications CALL 911 OR GO TO THE EMERGENCY DEPARTMENT if you experience any of the following: * Sudden, severe abdominal pain or nausea/vomiting * Severe chest pain, or chest pain that radiates (moves) to your jaw or arm * Sudden, severe shortness of breath or difficulty breathing It was was our pleasure taking care of you here at [facility] . Thank you for allowing us to participate in your care. Pending Studies at Discharge: No Stand-Alone Forms: My [facility], Smoking Cessation Medications and DC Order Prescriptions: New amoxicillin 500 mg tablet 500 mg PO BID 3 Days Qty: 6 RF: 0 lorazepam 0.5 mg tablet 0.5 mg PO DAILY MDD can take two tablet if needed PRN (Reason: anxiety - 30 min before radiation treatment) Qty: 14 RF: 0 Continued buprenorphine-naloxone [Suboxone] 8-2 mg film 1 film buccal TID PRN (Reason: pain) RF: 0 dexamethasone 4 mg tablet 4 mg PO DIRECTED RF: 0 prochlorperazine maleate [Compazine] 10 mg tablet 10 mg PO Q6H PRN (Reason: Nausea) RF: 0 venlafaxine 75 mg capsule,extended release 24hr 75 mg PO QAM RF: 0 gabapentin 600 mg tablet 900 mg PO QID RF: 0 ondansetron HCl 8 mg tablet 8 mg PO Q8 PRN (Reason: Nausea) RF: 0 amitriptyline 100 mg tablet 100 mg PO HS RF: 0 diclofenac sodium 50 mg tablet,delayed release (DR/EC) 75 mg PO TID RF: 0 trazodone 50 mg tablet 50 mg PO HS RF: 0 Iron Infusion 1 dose IV .MONTHLY/UD PRN (Reason: Unknown) RF: 0 cyanocobalamin (vitamin B-12) 1,000 mcg/mL Solution 1,000 mcg IM MONTHLY RF: 0 pantoprazole 40 mg tablet,delayed release (DR/EC) 40 mg PO DAILY 28 Days Qty: 28 RF: 3 Discharge Orders: Discharge Order (Routine); Ordered 08/27/21 Ordered By: Juan Vail/Other Patient Handouts: Urinary Tract Infections in Women Admission Data Admit Date/Time: 08/23/21 20:06 Attending Provider: Lexy Lynn Admit Provider: Emily Casey Primary Care Provider: Donnie Chou Other Providers: Emily Casey Other Interventions: Discharge Summary Assessment (RN) Last Done: 08/27/21 10:00 Supervising Physician Co-Signing Physician Notes Resident Physician Supervision Note: I independently interviewed and examined the patient and verified the baugh history and physical, reviewed labs and image studies and agree with resident Dr. Hernandez findings and care plan. Resident Activity Tracking Resident Involvement: Resident Care Provided Care Provided: Adult Hospital Medicine
[2021-08-27 10:02] VITALS: BP 99/69; PULSE 101
== END 2021-08-27 10:16 | disposition home or self-care (01) | DRG 690 ==
LOC: ED 15:54 → 3E 20:06 → SUATTDRO 20:06 → 3E 21:53

== ENCOUNTER 2021-09-19 11:54 | Inpatient (IN) ==
[2021-09-19] MEDS ORDERED: SODIUM CHLORIDE 0.9% 1000ML 1,000 ML IV STA (12:50)
[2021-09-19] MEDS ORDERED: ONDANSETRON INJ 2 MG/ML 2 ML VIAL IV STA (12:50)
[2021-09-19] MEDS: HYDROmorphone INJ 0.5 MG/0.5 ML SYR IV PRN ×2 (13:12→20:48)
--- NOTE | 2021-09-19 13:14 | Emergency Department Note ---
Impression & Plan Metastatic adenocarcinoma, Severe low back pain, Supratherapeutic INR, Anemia, Acute hyponatremia ED Provider Note NAME: NADER BERMUDEZ AGE: 51 SEX: F : 1970 ARRIVES VIA: Walk-In INFORMANT: Patient, ED PROVIDER(S): Eliceo Mccoy DO CHIEF COMPLAINT: Back pain HPI: The patient is a 51-year-old female who presented to emergency department for an evaluation of back pain. 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 The patient has been trying to deal with her pain at home. She has been on Suboxone in the past but this ran out. She is currently between pain physicians. She tried to call her family doctor as well as her oncologist. The pain became very severe. She falls almost daily. She complains of tingling in both legs as well as weakness in both legs. She states that she falls on her back as well as on her chest. She states she is try to been compliant with her usual medications but its been difficult. She notices no fever or dysuria. She notices no chest pain. She states her pain is severe and worsens with any movement whatsoever. ROS: See above HPI for pertinent positives & negatives. A total of 10 systems re viewed and were otherwise negative. PAST MEDICAL HISTORY: See Below PAST SURGICAL HISTORY: See Below FAMILY HISTORY: See Below SOCIAL HISTORY: See Below HOME MEDICATIONS: See Below ALLERGIES: See Below VITALS: See Below PHYSICAL EXAMINATION: GENERAL: The patient is awake alert. She is very anxious appearing and appears to be in significant pain. EYES: The conjunctivae are clear. The pupils are round and reactive. EARS, NOSE, MOUTH AND THROAT: The nose is without any evidence of any deformity. NECK: The neck is nontender and supple. RESPIRATORY: Normal respiratory effort is noted there is no evidence of wheezing rhonchi or rales CARDIOVASCULAR: Regular rate and rhythm noted there no murmurs rubs or gallops normal S1 normal S2. GASTROINTESTINAL: The abdomen is soft and mildly distended. There is no specific tenderness guarding or rigidity appreciated. BACK: Diffuse midline tenderness was noted in the lower lumbar spine. There is no step-off. There is no swelling or warmth noted over the area. MUSCULOSKELETAL/EXTREMITIES: There is no evidence of gross deformity full range of motion is noted in the hips and shoulders. SKIN: Skin is warm and dry. Pedal edema was noted bilaterally. Pulses are symmetric in both feet. NEUROLOGIC: Patient is awake alert and oriented x3. Patellar tendon reflexes are 2+ bilaterally. Patient has severe pain in her back with any range of motion testing of either leg but she is able to hold each leg off of the bed. MEDICAL DECISION MAKING: The patient is a 51-year-old female who presented to emergency department for an evaluation of back pain. The patient has metastatic uterine cancer. She has had ongoing back pain and bone pain because of chronic metastasis. She is also noticed that she has been falling more than usual. I discussed the patient's laboratory and radiographic studies with her. She was treated with multiple doses of IV pain medication in the emergency department. She had severe diff iculty lying still and laying flat for CT imaging. Because of the degree of pain I did discuss her case with the on-call [facility] hospitalist. They have agreed to evaluate the patient in the emergency department for further management and disposition. Triage Nursing notes reviewed. Prior medical records reviewed Vital Signs: reviewed and remarkable for tachycardia. Differential diagnosis: Musculoskeletal, disc herniation, fracture, metastatic disease, cord compression, discitis, sciatica, cauda equina, infection, aortic disease, renal colic, gastrointestinal, as well as other pathologies. ER treatment provided: See below Diagnostics interpreted by me: ECG: none Cardiac Monitoring: An order was placed for continuous cardiac monitoring. The monitor shows a rate of 108 bpm with sinus tachycardia. Laboratory studies: As stated above and show below. Imaging studies: See below Consultation(s): I discussed this case with Dian[facility] They will evaluate the patient in the emergency department for further management and disposition. Past Med/Surg History Medical History Abnormal vaginal bleeding Anxiety B12 deficiency anemia Cellulitis and abscess of foot Recent MRSA infection to left foot after trauma (02/2021) - hospitalized and treated for [facility] -- per pt, still with redness/swelling to left foot but completed course of abx therapy and continues to improve; denies open areas/seeping from site COVID-19 Cystitis Endometrial adenocarcinoma Biopsy on 11/25/20 > To pelvic lymph nodes (Biopsied 12/28/20) Endometriosis Evisceration of bowel Numerous Hemoptysis Hx SBO Iron deficiency anemia intermittent iron infusions PRN Morbid obesity Pneumonia Scalp lesion Hx melanoma (scalp) approximately 1 year ago -- treated surgically Sepsis Surgical History Gastric bypass status for obesity H/O abdominal surgery Muscle stretching, tumor removed, mesh in place; Multiple complex abd surgeries History of colonoscopy History of esophagogastroduodenoscopy (EGD) History of placement of ear tubes History of vascular access device removed Hx of cholecystectomy Hx of tonsillectomy Port-A-Cath in place (03/28/21) nsertion of Access Port Left Cephalic Vein Dr. Gilliam 03/28/2021 Family History Sister , 54 Ovarian cancer Diabetes Breast cancer Stroke Mother , in her 60s Ovarian cancer Diabetes Heart problem "Had a bad heart" Breast cancer Hypertension Father Myocardial infarction Brother No problems noted. Sister No problems noted. 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 Required: No Beliefs That Will Affect Care: None marital status: Current Living Situation: Family Current Living Situation Comment: lives with sister current occupational status: disabled How many Children do You have: 4 Feels Safe at Home: Yes caffeine: Yes (Energy drinks 1-4 each day) during the past year weight has: remained stable Assistive Devices: None Allergies Allergies Allergy/AdvReac Type Severity Reaction Status Date / Time Iodinated Contrast Media Allergy Severe Contrast- Verified 09/19/21 15:02 itching Sulfa (Sulfonamide Allergy Severe Syncope, Verified 09/19/21 15:02 Antibiotics) stops breathing sulfamethoxazole Allergy Severe Syncope, Verified 09/19/21 15:02 hives, dyspnea trimethoprim Allergy Severe Syncope, Verified 09/19/21 15:02 hives, dyspnea gadobutrol Allergy Intermediate Hives, Verified 09/19/21 15:02 itching hydrocodone Allergy Intermediate Stops Verified 09/19/21 15:02 breathing pregabalin Allergy Intermediate Hives Verified 09/19/21 15:02 iodine Allergy Mild Itching Verified 09/19/21 15:02 acetaminophen [From Percocet] Allergy Unknown PER PT Verified 09/19/21 15:02 "CAN'T TAKE". enoxaparin Allergy Unknown UNKNOWN Verified 09/19/21 15:02 oxycodone [From Percocet] Allergy Unknown Unknown Verified 09/19/21 15:02 Home Meds Home Medications Medication Instructions Recorded Confirmed amitriptyline 100 mg tablet 100 mg PO HS 03/27/19 09/19/21 gabapentin 600 mg tablet 1,800 mg PO QID 03/27/19 09/19/21 ondansetron HCl 8 mg tablet 8 mg PO Q8 PRN 03/27/19 09/19/21 venlafaxine 75 mg capsule,extended 75 mg PO QAM 03/27/19 09/19/21 release 24 hr Iron Infusion 1 dose IV .MONTHLY/UD PRN 02/12/21 09/19/21 trazodone 50 mg tablet 50 mg PO HS 02/12/21 09/19/21 dexamethasone 4 mg tablet 4 mg PO DIRECTED tab 03/16/21 09/19/21 diclofenac sodium 50 mg 75 mg PO TID tab 03/16/21 09/19/21 tablet,delayed release prochlorperazine maleate 10 mg 10 mg PO Q6H PRN 03/16/21 09/19/21 tablet (Compazine) cyanocobalamin (vitamin B-12) 1,000 mcg IM MONTHLY 06/25/21 09/19/21 1,000 mcg/mL injection solution buprenorphine 8 mg-naloxone 2 mg 1 film BUCCAL TID PRN ea 08/21/21 09/19/21 sublingual film (Suboxone) Previous Rx's Medication Instructions Recorded pantoprazole 40 mg tablet,delayed 40 mg PO DAILY 28 Days #28 tab 07/04/21 release lorazepam 0.5 mg tablet 0.5 mg PO DAILY PRN #14 tab MDD 08/27/21 can take two tablet if needed Results & Data (ED) Vital Signs Vital Signs - 24 hr 09/19/21 11:56 01/11/22 14:20 Temperature 36.1 C L Temperature Source Temporal Artery Scan Pulse Rate 109 H Pulse Rate [Left] 108 H Pulse Rhythm [Left] Regular Pulse Strength [Left] Normal Respiratory Rate 20 22 Respiratory Effort / Characteristics Non-Labored Respiratory Depth Normal Respiratory Pattern Regular Blood Pressure 110/74 Blood Pressure [Right Arm] 119/69 Blood Pressure Mean 86 Blood Pressure Mean [Right Arm] 85 Blood Pressure Position [Right Arm] Sitting Pulse Oximetry 99 98 Oxygen Delivery Method Room Air Room Air Sepsis Recent Fever Within 48 Hours No Sepsis New/Unexplained Change in Mental Status N/A Sepsis Action Taken by Nursing No Action Required Home Medications Current Medication List: was personally reviewed by me Laboratory Data Attestation: I reviewed the patient's lab results. Result diagrams: 09/19/21 Unknown 09/19/21 Unknown Lab Results 09/19/21 09/19/21 09/19/21 Range/Units 13:56 Unknown Unknown WBC 16.18 H (4.8-10.8) K/uL RBC 3.09 L (4.2-5.4) M/uL Hgb 8.9 L (12.0-16.0) g/dL Hct 28.0 L (37-47) % MCV 90.6 (80-100) fL MCH 28.8 (25-34) pg MCHC 31.8 L (32-36) g/dL RDW Std Deviation 61.1 H (36.4-46.3) fL RDW Coeff of Josue 18.8 H (11.5-14.5) % Plt Count 220 (130-400) K/uL MPV 12.3 H (7.4-10.4) fL Immature Gran % (Auto) 0.9 % Neut % (Auto) 79.5 % Lymph % (Auto) 9.5 % [place] % (Auto) 9.8 % Eos % (Auto) 0.2 % Baso % (Auto) 0.1 % Neut # (Auto) 12.87 H (1.4-6.5) K/uL Lymph # (Auto) 1.53 (1.2-3.4) K/uL [place] # (Auto) 1.59 H (0.11-0.59) K/uL Eos # (Auto) 0.04 (0-0.5) K/uL Baso # (Auto) 0.01 (0-0.2) K/uL Immature Gran # (Auto) 0.14 H (0.00-0.02) K/uL PT 40.4 H Cancelled (9.0-12.0) Seconds INR 4.5 H Cancelled (0.9-1.1) APTT 73.5 H* Cancelled (21.0-31.0) Seconds PTT Ratio 2.8 Cancelled Sodium (136-145) mmol/L Potassium (3.5-5.1) mmol/L Chloride (98-107) mmol/L Carbon Dioxide (21-32) mmol/L Anion Gap (3-11) BUN (6-23) mg/dl Creatinine (0.6-1.2) mg/dl Est Cr Clr Drug Dosing Est GFR ( Amer) ml/min Est GFR (Non-Af Amer) ml/min BUN/Creatinine Ratio (10-20) Glucose (70-99) mg/dl Calcium (8.5-10.1) mg/dl Total Bilirubin (0.2-1.0) mg/dl AST (13-39) U/L ALT (7-52) U/L Alkaline Phosphatase (34-104) U/L Total Protein (6.0-8.3) gm/dl Albumin (3.4-5.0) gm/dl Globulin (2.5-4.0) gm/dl Albumin/Globulin Ratio (0.9-2) Lipase (11-82) U/L 09/19/21 Range/Units Unknown WBC (4.8-10.8) K/uL RBC (4.2-5.4) M/uL Hgb (12.0-16.0) g/dL Hct (37-47) % MCV (80-100) fL MCH (25-34) pg MCHC (32-36) g/dL RDW Std Deviation (36.4-46.3) fL RDW Coeff of Josue (11.5-14.5) % Plt Count (130-400) K/uL MPV (7.4-10.4) fL Immature Gran % (Auto) % Neut % (Auto) % Lymph % (Auto) % [place] % (Auto) % Eos % (Auto) % Baso % (Auto) % Neut # (Auto) (1.4-6.5) K/uL Lymph # (Auto) (1.2-3.4) K/uL [place] # (Auto) (0.11-0.59) K/uL Eos # (Auto) (0-0.5) K/uL Baso # (Auto) (0-0.2) K/uL Immature Gran # (Auto) (0.00-0.02) K/uL PT (9.0-12.0) Seconds INR (0.9-1.1) APTT (21.0-31.0) Seconds PTT Ratio Sodium 130 L (136-145) mmol/L Potassium 3.3 L (3.5-5.1) mmol/L Chloride 97 L (98-107) mmol/L Carbon Dioxide 23 (21-32) mmol/L Anion Gap 10 (3-11) BUN 10 (6-23) mg/dl Creatinine 0.68 (0.6-1.2) mg/dl Est Cr Clr Drug Dosing Not Reportable Est GFR ( Amer) 117.4 ml/min Est GFR (Non-Af Amer) 101.3 ml/min BUN/Creatinine Ratio 14.7 (10-20) Glucose 115 H (70-99) mg/dl Calcium 8.2 L (8.5-10.1) mg/dl Total Bilirubin 0.8 (0.2-1.0) mg/dl AST 19 (13-39) U/L ALT 16 (7-52) U/L Alkaline Phosphatase 98 (34-104) U/L Total Protein 7.1 (6.0-8.3) gm/dl Albumin 2.6 L (3.4-5.0) gm/dl Globulin 4.5 H (2.5-4.0) gm/dl Albumin/Globulin Ratio 0.6 L (0.9-2) Lipase 12 (11-82) U/L Administered Medications Hydromorphone HCl (Hydromorphone Inj 0.5 Mg/0.5 Ml Syr) 0.5 mg IV Q15M PRN PRN Reason: Pain Stop: 10/03/21 12:49 Last Admin: 09/19/21 13:12 Dose: 0.5 mg Documented by: [id number] Hydromorphone HCl (Hydromorphone Inj 1 Mg/Ml Syringe) 1 mg IV Q15M PRN PRN Reason: Pain Stop: 10/03/21 14:05 Last Admin: 09/19/21 15:19 Dose: 1 mg Documented by: [id number] Admin: 09/19/21 14:24 Dose: 1 mg Documented by: [id number] Discontinued Medications Sodium Chloride (Nss 1000ml) 1,000 mls @ 999 mls/hr IV .Q1H1M STA Stop: 09/19/21 13:50 Last Infusion: 09/19/21 14:18 Dose: 0 mls/hr Documented by: [id number] Admin: 09/19/21 13:12 Dose: 999 mls/hr Documented by: [id number] Ondansetron HCl (Ondansetron Inj 2 Mg/Ml 2 Ml Vial) 4 mg IV NOW STA Stop: 09/19/21 12:51 Last Admin: 09/19/21 13:12 Dose: 4 mg Documented by: [id number] Discharge Plan Visit Data Chief Complaint: Back Injury/Pain Stated Complaint: PAIN LOWER BACK AND BOTH LEGS ED Provider: Eliceo Mccoy Discharge Problem: Metastatic adenocarcinoma, Severe low back pain, Supratherapeutic INR, Anemia, Acute hyponatremia Patient Disposition: Being Evaluated by Hospitalist Forms Stand Alone Forms: My [facility] [employer] Prescriptions Prescriptions: No Action buprenorphine-naloxone [Suboxone] 8-2 mg film 1 film buccal TID PRN (Reason: pain) RF: 0 dexamethasone 4 mg tablet 4 mg PO DIRECTED RF: 0 prochlorperazine maleate [Compazine] 10 mg tablet 10 mg PO Q6H PRN (Reason: Nausea) RF: 0 venlafaxine 75 mg capsule,extended release 24hr 75 mg PO QAM RF: 0 gabapentin 600 mg tablet 1,800 mg PO QID RF: 0 ondansetron HCl 8 mg tablet 8 mg PO Q8 PRN (Reason: Nausea) RF: 0 amitriptyline 100 mg tablet 100 mg PO HS RF: 0 diclofenac sodium 50 mg tablet,delayed release (DR/EC) 75 mg PO TID RF: 0 trazodone 50 mg tablet 50 mg PO HS RF: 0 Iron Infusion 1 dose IV .MONTHLY/UD PRN (Reason: Unknown) RF: 0 cyanocobalamin (vitamin B-12) 1,000 mcg/mL Solution 1,000 mcg IM MONTHLY RF: 0 pantoprazole 40 mg tablet,delayed release (DR/EC) 40 mg PO DAILY 28 Days Qty: 28 RF: 3 lorazepam 0.5 mg tablet 0.5 mg PO DAILY MDD can take two tablet if needed PRN (Reason: anxiety - 30 min before radiation treatment) Qty: 14 RF: 0 Referrals Referrals: Donnie Chou MD [Primary Care Provider] -
[2021-09-19 13:31] LABS: Basophils # (auto) 0.01 K/uL (0-0.2); Basophils % (auto) 0.1 %; Eosinophils # (auto) 0.04 K/uL (0-0.5); Eosinophils % (auto) 0.2 %; Hemoglobin 8.9 g/dL (12.0-16.0); Immature Granulocytes # (auto) 0.14 K/uL (0.00-0.02); Immature Granulocytes % (auto) 0.9 %; Lymphocytes # (auto) 1.53 K/uL (1.2-3.4); Lymphocytes % (auto) 9.5 %; Mean Corpuscular Hemoglobin 28.8 pg (25-34); Mean Corpuscular Hgb Conc 31.8 g/dL (32-36); Mean Corpuscular Volume 90.6 fL (80-100); Mean Platelet Volume 12.3 fL (7.4-10.4); Monocytes # (auto) 1.59 K/uL (0.11-0.59); Monocytes % (auto) 9.8 %; Neutrophils # (auto) 12.87 K/uL (1.4-6.5); Neutrophils % (auto) 79.5 %; Platelet Count 220 K/uL (130-400); RDW Coefficient of Variation 18.8 % (11.5-14.5); RDW Standard Deviation 61.1 fL (36.4-46.3); Red Blood Count 3.09 M/uL (4.2-5.4); White Blood Count 16.18 K/uL (4.8-10.8)
[2021-09-19 13:50] LABS: Alanine Aminotransferase 16 U/L (7-52); Albumin Globulin Ratio 0.6 (0.9-2); Albumin Level 2.6 gm/dl (3.4-5.0); Alkaline Phosphatase 98 U/L (34-104); Anion Gap 10 (3-11); Aspartate Aminotransferase 19 U/L (13-39); BUN Creatinine Ratio 14.7 (10-20); Bilirubin,Total 0.8 mg/dl (0.2-1.0); Blood Urea Nitrogen 10 mg/dl (6-23); Calcium 8.2 mg/dl (8.5-10.1); Carbon Dioxide 23 mmol/L (21-32); Chloride 97 mmol/L (98-107); Est GFR (African American) 117.4 ml/min; Est GFR (Non-African American) 101.3 ml/min; Globulin 4.5 gm/dl (2.5-4.0); Glucose 115 mg/dl (70-99); Lipase 12 U/L (11-82); Potassium 3.3 mmol/L (3.5-5.1); Sodium 130 mmol/L (136-145); Total Protein 7.1 gm/dl (6.0-8.3)
[2021-09-19] MEDS: HYDROmorphone INJ 1 MG/ML SYRINGE IV PRN ×5 (14:24→20:02)
[2021-09-19 14:30] LABS: INR 4.5 (0.9-1.1); Partial Thromboplastin Ratio 2.8; Prothrombin Time 40.4 Seconds (9.0-12.0)
[2021-09-19 14:41] LABS: Partial Thromboplastin Time 73.5 Seconds (21.0-31.0)
--- NOTE | 2021-09-19 14:50 | History & Physical Report ---
Date of Service September 19, 2021 Assessment & Plan (1) Sepsis: Plan: SIRS score- 3 WBC count- 16.18 CRP- 22.78 PCT- 15.28 MAP- 82 Lactate- 1.9 Hemodynamic resuscitation plan- IVF if patient becomes hemodynamically unstable or lactate > 4 Blood CX- pending, one from [facility] Urine CX-pending Sputum CX- not ordered Coagulopathy studies show PT 41.0, aPTT 66.8, INR 4.6 CT abdomen+pelvis pending, coagulopathy secondary to liver mass is possible but unlikely as there was no evidence of this on patient's CT from 08/25 IV Rocephin initiated for empiric treatment fir urinary tract infection. (2) Severe low back pain: Plan: Acute on chronic, patient given IV Dilaudid as well as IV Toradol for pain control to attempt imaging studies. Differential diagnosis at this time includes fracture secondary to fall vs metastatic disease to bone vs pyelonephritis vs retroperitoneal bleed secondary to elevated INR If fracture noted on imaging or determined to be from metastatic disease that has progressed to the bone, will provide appropriate analgesia. If determined to be pain due to pyelonephritis, will continue IV antibiotics as directed by pending cultures and will provide appropriate analgesia, avoiding nephrotic agents. Patient has been evaluated by palliative team in the past. Pain management consult has been placed. CT abdomen + pelvis, CT cervical spine, CT chest, and CT head pending, attempts being made to achieve adequate pain control. (3) Urinary tract infection: Plan: CBC revealed WBC 16.18, CRP 22.78, procalcitonin 15.28. Lactate pending. Urinalysis significant for nitrites, leukocyte esterase, WBC > 30, 4+ bacteria. Culture pending. CT abdomen+pelvis pending to rule out the presence of hydronephrosis as well as further investigate cause of low back pain. 1g IV Rocephin started in emergency department, will make changes as necessary pending urine culture. (4) Supratherapeutic INR: Plan: Pt is not currently on any anticoagulation medications. Coagulopathy is likely secondary to sepsis. CT abdomen+pelvis pending to determine presence of a metastatic liver mass that may be causing coagulopathy, however this is unlikely as there was no evidence of this on patient's CT from 08/25 PT 41.0, INR 4.6, aPTT 66.8, confirmatory test after initial study revealed supratherapeutic INR. 5 mg IV Vitamin K given, repeat coag studies in AM. Present on Admission?: Yes (5) Hypokalemia: Plan: K+ was 3.3 on initial labs in emergency dept. Magnesium level ordered. Repeat BMP in AM. Present on Admission?: Yes (6) Metastatic adenocarcinoma: Plan: Patient is currently undergoing chemotherapy treatment. CT imaging pending to rule in or out the development of further metastatic disease as the cause for exacerbation of back pain. Pain management consult placed. Patient has been evaluated by palliative team in the past. Present on Admission?: Yes (7) Chronic pain due to malignant neoplastic disease: Plan: Pt had been managing with Suboxone until 09/09/21 due to her provider changing practices. She has been using gabapentin and alternating between advil and diclofenac for pain and states it has been helpful until today. Pain management consult placed. Patient has been evaluated by palliative team in the past. (8) DVT prophylaxis: Plan: SCDs and SQ Heparin ordered History of Present Illness Chief Complaint: back pain Primary Care Provider: Donnie Chou MD The patient is a 51-year-old female with a PMH of metastatic endometrial adenocarcinoma, left iliopsoas mass, and recent hospitalization 08/23 - 08/26 for urinary tract infection who presents to the ED today with worsening back pain. Pt states she has regular falls, and fell most recently this morning around 4:00 AM and was on the ground until a family member was available to help her up around 6:00 AM. She reports severe, shooting and burning right sided pain at the lumbar region that radiates to her tailbone and to the left lower back. She endorses subjective fever/chills, nausea, vomiting, and urinary urgency over the past week, but denies abdominal pain, urinary or bowel incontinence, constipation, numbness, or confusion. She does endorse ongoing lower extremity weakness which has lead to her frequent falls but denies acute changes in her lower extremity weakness, Patient does chronic back and leg pain which she had been managing with Suboxone until 09/09/21 due to her provider changing practices. She has been using gabapentin and alternating between advil and diclofenac for pain and states it has been helpful until today. Patient was hospitalized 08/23 - 08/26 for UTI in which urine cultures was positive for Enterococcus faecalis. She was discharged on amoxicillin 500 mg PO BID which she completed. Labs are significant for WBC 16.18, CRP 22.78, procalcitonin 15.28. Lactate 1.9. Urinalysis significant for nitrites, leukocyte esterase, WBC > 30, 4+ bacteria. Culture pending. PT 41.0, INR 4.6, aPTT 66.8. Na+ 130, K+ 3.3. CT abdomen + pelvis, CT cervical spine, CT chest, and CT head pending. Allergies Allergy/AdvReac Type Severity Reaction Status Date / Time Iodinated Contrast Media Allergy Severe Contrast- Verified 09/19/21 15:02 itching Sulfa (Sulfonamide Allergy Severe Syncope, Verified 09/19/21 15:02 Antibiotics) stops breathing sulfamethoxazole Allergy Severe Syncope, Verified 09/19/21 15:02 hives, dyspnea trimethoprim Allergy Severe Syncope, Verified 09/19/21 15:02 hives, dyspnea gadobutrol Allergy Intermediate Hives, Verified 09/19/21 15:02 itching hydrocodone Allergy Intermediate Stops Verified 09/19/21 15:02 breathing pregabalin Allergy Intermediate Hives Verified 09/19/21 15:02 iodine Allergy Mild Itching Verified 09/19/21 15:02 acetaminophen [From Percocet] Allergy Unknown PER PT Verified 09/19/21 15:02 "CAN'T TAKE". enoxaparin Allergy Unknown UNKNOWN Verified 09/19/21 15:02 oxycodone [From Percocet] Allergy Unknown Unknown Verified 09/19/21 15:02 Home Medications Medication Instructions Recorded Confirmed Type amitriptyline 100 mg tablet 100 mg PO HS 03/27/19 09/19/21 History gabapentin 600 mg tablet 1,800 mg PO QID 03/27/19 09/19/21 History ondansetron HCl 8 mg tablet 8 mg PO Q8 PRN 03/27/19 09/19/21 History venlafaxine 75 mg capsule,extended 75 mg PO QAM 03/27/19 09/19/21 History release 24 hr Iron Infusion 1 dose IV .MONTHLY/UD PRN 02/12/21 09/19/21 History trazodone 50 mg tablet 50 mg PO HS 02/12/21 09/19/21 History dexamethasone 4 mg tablet 4 mg PO DIRECTED tab 03/16/21 09/19/21 History diclofenac sodium 50 mg 75 mg PO TID tab 03/16/21 09/19/21 History tablet,delayed release prochlorperazine maleate 10 mg 10 mg PO Q6H PRN 03/16/21 09/19/21 History tablet (Compazine) cyanocobalamin (vitamin B-12) 1,000 mcg IM MONTHLY 06/25/21 09/19/21 History 1,000 mcg/mL injection solution pantoprazole 40 mg tablet,delayed 40 mg PO DAILY 28 Days #28 tab 07/04/21 09/19/21 Rx release buprenorphine 8 mg-naloxone 2 mg 1 film BUCCAL TID PRN ea 08/21/21 09/19/21 History sublingual film (Suboxone) lorazepam 0.5 mg tablet 0.5 mg PO DAILY PRN #14 tab MDD 08/27/21 09/19/21 Rx can take two tablet if needed Past Med/Surg History Medical History Abnormal vaginal bleeding Anxiety B12 deficiency anemia Cellulitis and abscess of foot Recent MRSA infection to left foot after trauma (02/2021) - hospitalized and treated for at [facility] -- per pt, still with redness/swelling to left foot but completed course of abx therapy and continues to improve; denies open areas/seeping from site COVID-19 Cystitis Endometrial adenocarcinoma Biopsy on 11/25/20 > To pelvic lymph nodes (Biopsied 12/28/20) Endometriosis Evisceration of bowel Numerous Hemoptysis Hx SBO Iron deficiency anemia intermittent iron infusions PRN Morbid obesity Pneumonia Scalp lesion Hx melanoma (scalp) approximately 1 year ago -- treated surgically Sepsis Surgical History Gastric bypass status for obesity H/O abdominal surgery Muscle stretching, tumor removed, mesh in place; Multiple complex abd surgeries History of colonoscopy History of esophagogastroduodenoscopy (EGD) History of placement of ear tubes History of vascular access device removed Hx of cholecystectomy Hx of tonsillectomy Port-A-Cath in place (03/28/21) nsertion of Access Port Left Cephalic Vein Dr. Gilliam 03/28/2021 Family History Sister , 54 Ovarian cancer Diabetes Breast cancer Stroke Mother , in her 60s Ovarian cancer Diabetes Heart problem "Had a bad heart" Breast cancer Hypertension Father Myocardial infarction Brother No problems noted. Sister No problems noted. Other No family history of adverse response to anesthesia No pertinent family history Denies family history of Colorectal cancer Uterine cancer Social History Smoking Status: Never smoker Tobacco Type: Cigarettes Cigarettes Per Day: 1 PPD/week x 2 to 3 years;; Second Hand Exposure: Yes (sister smokes); Hx Alcohol Use: No Hx Substance Use: No Preferred Language: Belarusian Communication Ability: Effective Visual Impairment: No Limitations Hearing Ability: Normal Mail Deliverer Required: No Beliefs That Will Affect Care: None marital status: Current Living Situation: Family Current Living Situation Comment: lives with sister current occupational status: disabled How many Children do You have: 4 Feels Safe at Home: Yes caffeine: Yes (Energy drinks 1-4 each day) during the past year weight has: remained stable Assistive Devices: None Review of Systems Review of Systems: All systems reviewed & are unremarkable except as noted in HPI & below Physical Exam Constitutional: WD/WN, vitals as above + obese Eyes: PERRL, conjunctivae normal, anicteric sclerae ENMT: external ear and nose normal, oropharynx normal Neck: trachea midline, no thyromegaly normal visual inspection Respiratory: normal respiratory effort, lungs clear to auscultation Cardiovascular: Rate/Rhythm: regular rhythm and + tachycardic Heart Sounds: no murmur Extremities: no edema Gastrointestinal (Abdomen): Inspection/Auscultation: normal bowel sounds, + significant pannus and + abdominal surgical scar Percussion/Palpation: + abdomen tender (mild, diffusely) Musculoskeletal: Head/Neck/Chest: normocephalic and head atraumatic Spine: + paraspinal tenderness (bilateral at lumbar region) and + sacral tenderness Extremities: extremities normal to inspection Skin: no rashes, warm and dry Neurologic: patellar DTR's 2+ bilat, sensation intact and PERRL, EOMI, accommodation nl, no face palsy, no dysarthria Psychiatric: A+Ox3, euthymic affect Lymphatic: + inguinal lymphadenopathy Results & Data Results & Data ([facility]) Vital Signs (Past 12 Hours) Vital Signs Temp Pulse Pulse Resp BP BP Pulse Ox 09/19/21 14:20 108 H 22 119/69 98 09/19/21 11:56 36.1 C L 109 H 20 110/74 99 Laboratory Results Abnormal lab results 09/19/21 09/19/21 09/19/21 Range/Units 13:56 15:32 15:32 WBC (4.8-10.8) K/uL RBC (4.2-5.4) M/uL Hgb (12.0-16.0) g/dL Hct (37-47) % MCHC (32-36) g/dL RDW Std Deviation (36.4-46.3) fL RDW Coeff of Josue (11.5-14.5) % MPV (7.4-10.4) fL Neut # (Auto) (1.4-6.5) K/uL Ellsworth # (Auto) (0.11-0.59) K/uL Immature Gran # (Auto) (0.00-0.02) K/uL PT 40.4 H 41.0 H (9.0-12.0) Seconds INR 4.5 H 4.6 H (0.9-1.1) APTT 73.5 H* 66.8 H* (21.0-31.0) Seconds Sodium (136-145) mmol/L Potassium (3.5-5.1) mmol/L Chloride (98-107) mmol/L Glucose (70-99) mg/dl Calcium (8.5-10.1) mg/dl C-Reactive Protein 22.78 H (0-5.00) mg/dl Albumin (3.4-5.0) gm/dl Globulin (2.5-4.0) gm/dl Albumin/Globulin Ratio (0.9-2) Procalcitonin (0-0.5) ng/ml Urine Appearance (Clear) Urine Protein (Negative) Urine Blood (Negative) Urine Nitrite (Negative) Ur Leukocyte Esterase (Negative) Urine WBC (Auto) (0-5) /hpf U Epithel Cells (Auto) (0-5) /lpf Urine Bacteria (Auto) (Negative) 09/19/21 09/19/21 09/19/21 Range/Units 15:32 17:34 Unknown WBC 16.18 H (4.8-10.8) K/uL RBC 3.09 L (4.2-5.4) M/uL Hgb 8.9 L (12.0-16.0) g/dL Hct 28.0 L (37-47) % MCHC 31.8 L (32-36) g/dL RDW Std Deviation 61.1 H (36.4-46.3) fL RDW Coeff of Josue 18.8 H (11.5-14.5) % MPV 12.3 H (7.4-10.4) fL Neut # (Auto) 12.87 H (1.4-6.5) K/uL Ellsworth # (Auto) 1.59 H (0.11-0.59) K/uL Immature Gran # (Auto) 0.14 H (0.00-0.02) K/uL PT (9.0-12.0) Seconds INR (0.9-1.1) APTT (21.0-31.0) Seconds Sodium (136-145) mmol/L Potassium (3.5-5.1) mmol/L Chloride (98-107) mmol/L Glucose (70-99) mg/dl Calcium (8.5-10.1) mg/dl C-Reactive Protein (0-5.00) mg/dl Albumin (3.4-5.0) gm/dl Globulin (2.5-4.0) gm/dl Albumin/Globulin Ratio (0.9-2) Procalcitonin 15.28 H (0-0.5) ng/ml Urine Appearance Cloudy A (Clear) Urine Protein Trace H (Negative) Urine Blood Trace H (Negative) Urine Nitrite Positive A (Negative) Ur Leukocyte Esterase 2+ H (Negative) Urine WBC (Auto) >30 H (0-5) /hpf U Epithel Cells (Auto) 5-10 H (0-5) /lpf Urine Bacteria (Auto) 4+ H (Negative) 09/19/21 Range/Units Unknown WBC (4.8-10.8) K/uL RBC (4.2-5.4) M/uL Hgb (12.0-16.0) g/dL Hct (37-47) % MCHC (32-36) g/dL RDW Std Deviation (36.4-46.3) fL RDW Coeff of Josue (11.5-14.5) % MPV (7.4-10.4) fL Neut # (Auto) (1.4-6.5) K/uL Ellsworth # (Auto) (0.11-0.59) K/uL Immature Gran # (Auto) (0.00-0.02) K/uL PT (9.0-12.0) Seconds INR (0.9-1.1) APTT (21.0-31.0) Seconds Sodium 130 L (136-145) mmol/L Potassium 3.3 L (3.5-5.1) mmol/L Chloride 97 L (98-107) mmol/L Glucose 115 H (70-99) mg/dl Calcium 8.2 L (8.5-10.1) mg/dl C-Reactive Protein (0-5.00) mg/dl Albumin 2.6 L (3.4-5.0) gm/dl Globulin 4.5 H (2.5-4.0) gm/dl Albumin/Globulin Ratio 0.6 L (0.9-2) Procalcitonin (0-0.5) ng/ml Urine Appearance (Clear) Urine Protein (Negative) Urine Blood (Negative) Urine Nitrite (Negative) Ur Leukocyte Esterase (Negative) Urine WBC (Auto) (0-5) /hpf U Epithel Cells (Auto) (0-5) /lpf Urine Bacteria (Auto) (Negative) Medications Administered Hydromorphone HCl (Hydromorphone Inj 0.5 Mg/0.5 Ml Syr) 0.5 mg IV Q15M PRN PRN Reason: Pain Stop: 10/03/21 12:49 Last Admin: 09/19/21 13:12 Dose: 0.5 mg Documented by: [id number] Hydromorphone HCl (Hydromorphone Inj 1 Mg/Ml Syringe) 1 mg IV Q15M PRN PRN Reason: Pain Stop: 10/03/21 14:05 Last Admin: 09/19/21 18:26 Dose: 1 mg Documented by: [id number] Admin: 09/19/21 16:16 Dose: 1 mg Documented by: [id number] Admin: 09/19/21 15:19 Dose: 1 mg Documented by: [id number] Admin: 09/19/21 14:24 Dose: 1 mg Documented by: [id number] Phytonadione 5 mg/ Sodium (Chloride) 50.5 mls @ 101 mls/hr IV 1815 ONE Stop: 09/19/21 18:44 Last Admin: 09/19/21 18:26 Dose: 101 mls/hr Documented by: [id number] Code Status & VTE Plan VTE Prophylaxis Plan VTE Prophylaxis will be ordered: Yes Supervising Physician Co-Signing Physician Notes Patient was seen and examined independently I discussed the case with Dr. Dianne Rosenthal PAC I reviewed pertinent past medical social family history and also the plan of care and agree with the plan of care. pt here with intractable pain, has metastatic cancer, coagulopathy and did fall, with pending imaging exam shows concern for right inguinal LN for metastatic disease no other injury Any exceptions will be noted below PG Care Time/CCT Total # of Minutes Spent Total Time Spent with Patient: Total time spent is greater than 50% in coordination of care (as documented) at patient's floor/unit and/or counseling patient: Coding Level of Care Code 79458 Initial Inpt Care Lvl 3 Diagnoses Supratherapeutic INR R79.1 Severe low back pain M54.50 Urinary tract infection N39.0 Hematuria presence: without hematuria Urinary tract infection type: site unspecified Metastatic adenocarcinoma C79.9 Hypokalemia E87.6 Sepsis A41.9 Sepsis acute organ dysfunction status: unspecified Sepsis type: sepsis due to unspecified organism Chronic pain due to malignant neoplastic disease G89.3 DVT prophylaxis Z29.9 (1) Urinary tract infection Hematuria presence: without hematuria Urinary tract infection type: site unspecified Qualified Code(s): N39.0 - Urinary tract infection, site not specified (2) Sepsis Sepsis acute organ dysfunction status: unspecified Sepsis type: sepsis due to unspecified organism Qualified Code(s): A41.9 - Sepsis, unspecified organism
[2021-09-19 16:11] LABS: INR 4.6 (0.9-1.1); Partial Thromboplastin Ratio 2.5
[2021-09-19 16:16] LABS: Partial Thromboplastin Time 66.8 Seconds (21.0-31.0)
[2021-09-19] MEDS ORDERED: KETOROLAC TROMETHAMINE 15 MG/ML VIAL IV STA (17:46)
[2021-09-19 17:53] LABS: Appearance Urine Cloudy (Clear); Bacteria Urine Automated 4+ (Negative); Bilirubin Urine Negative (Negative); Blood Urine Trace (Negative); Color Urine Yellow; Glucose Urine UA Negative (Negative); Ketones Urine Negative (Negative); Leukocyte Esterase Urine 2+ (Negative); Nitrite Urine Positive (Negative); Protein Urine Trace (Negative); RBC Urine Automated 0-4 /hpf (0-4); Specific Gravity Urine 1.012 (1.000-1.030); Urobilinogen Urine Negative (Negative); WBC Urine Automated >30 /hpf (0-5)
[2021-09-19] MEDS ORDERED: cefTRIAXone SODIUM 1,000 MG/50 ML BAG IV STA (18:00)
[2021-09-19] MEDS ORDERED: PHYTONADIONE 5 MG in SODIUM CHLORIDE 0.9% 50 ML IV ONE (18:15)
[2021-09-19] MEDS ORDERED: ALUMINUM/MAGNESIUM SUSP 30 ML UDC PO PRN (21:18)
[2021-09-19] MEDS ORDERED: ONDANSETRON INJ 2 MG/ML 2 ML VIAL IV PRN (21:18)
[2021-09-19] MEDS ORDERED: POLYETHYLENE (MIRALAX) 17 GM PACK PO PRN (21:18)
[2021-09-19] MEDS: LACTATED RINGER'S 1,000 ML IV SCH (21:32)
[2021-09-19] MEDS: traZODone HCL 50 MG TAB PO SCH (22:39)
[2021-09-19] MEDS: AMITRIPTYLINE HCL 100 MG TAB PO SCH (22:39)
[2021-09-19] MEDS: GABAPENTIN 600 MG TAB PO SCH (23:44)
[2021-09-19] MEDS: HEPARIN SOD 5,000 UNIT/0.5 ML VIAL SQ SCH (23:44)
[2021-09-20] MEDS ORDERED: BUPRENORPHINE/NALOXONE 8/2 MG TAB SL PRN (01:10)
[2021-09-20] MEDS ORDERED: KETOROLAC 30 MG/ML VIAL IV ONE (02:01)
[2021-09-20] MEDS ORDERED: POTASSIUM CHLORIDE CRTAB 20 MEQ TABCR PO STA (07:57)
[2021-09-20] MEDS ORDERED: POTASSIUM CHLORIDE CRTAB 20 MEQ TABCR PO SCH (07:57)
[2021-09-20] MEDS ORDERED: MAGNESIUM SULFATE / D5W 1 GM/100 ML BAG IV ONE (08:00)
[2021-09-20 08:02] LABS: Hematocrit (blood only) 23.8 % (37-47); Hemoglobin 7.7 g/dL (12.0-16.0); Mean Corpuscular Hemoglobin 29.4 pg (25-34); Mean Corpuscular Hgb Conc 32.4 g/dL (32-36); Mean Corpuscular Volume 90.8 fL (80-100); Mean Platelet Volume 11.7 fL (7.4-10.4); Platelet Count 197 K/uL (130-400); RDW Coefficient of Variation 18.5 % (11.5-14.5); RDW Standard Deviation 60.3 fL (36.4-46.3); Red Blood Count 2.62 M/uL (4.2-5.4); White Blood Count 11.75 K/uL (4.8-10.8)
[2021-09-20 08:09] LABS: INR 1.1 (0.9-1.1); Partial Thromboplastin Ratio 1.5; Partial Thromboplastin Time 40.3 Seconds (21.0-31.0); Prothrombin Time 11.4 Seconds (9.0-12.0)
[2021-09-20 08:25] LABS: Basophils # (auto) 0.01 K/uL (0-0.2); Basophils % (auto) 0.1 %; Eosinophils # (auto) 0.07 K/uL (0-0.5); Eosinophils % (auto) 0.6 %; Immature Granulocytes # (auto) 0.11 K/uL (0.00-0.02); Immature Granulocytes % (auto) 0.9 %; Lymphocytes % (auto) 9.4 %; Monocytes # (auto) 1.22 K/uL (0.11-0.59); Monocytes % (auto) 10.4 %; Neutrophils # (auto) 9.24 K/uL (1.4-6.5); Neutrophils % (auto) 78.6 %; RBC Morphology Unremarkable
[2021-09-20 08:27] LABS: BUN Creatinine Ratio 19.5 (10-20); Calcium 8.1 mg/dl (8.5-10.1); Creatinine Clr Calc Pharmacy 106.5 ml/min; Est GFR (African American) 103.6 ml/min; Est GFR (Non-African American) 89.4 ml/min; Potassium 3.1 mmol/L (3.5-5.1)
[2021-09-20] MEDS: PANTOprazole 40 MG TAB PO SCH (08:33)
[2021-09-20] MEDS: GABAPENTIN 600 MG TAB PO SCH ×4 (08:33→20:48)
[2021-09-20] MEDS ORDERED: VENLAFAXINE HCL XR 75 MG CAPXR PO SCH (09:00)
--- NOTE | 2021-09-20 09:26 | Pain Management Consultation ---
Date of Consultation September 20, 2021 Assessment & Plan (1) Chronic pain due to malignant neoplastic disease: (2) Urinary tract infection: Urinary tract infection type: site unspecified Hematuria presence: without hematuria Qualified Code(s): N39.0 - Urinary tract infection, site not specified (3) Sepsis: Sepsis type: sepsis due to unspecified organism Sepsis acute organ dysfunction status: unspecified Qualified Code(s): A41.9 - Sepsis, unspecified organism (4) Morbid obesity with BMI of 50.0-59.9, adult: 1. Patient is not currently a candidate for any interventional treatment 2. Recommend transitioning her Suboxone to 3 times daily scheduled dosing 3. Will add ketorolac 15 mg IV every 6 hours as needed 4. If imaging attempted to be completed again, consider ketorolac 30 mg IV prior to planned imaging. 5. Consider addition of Medrol Dosepak, but will leave to the discretion of hospitalist team due to her current urosepsis 6. Would recommend titrating her gabapentin back to a more appropriate dose of not more than 3600 mg daily. 7. Consider titration of venlafaxine to 150 mg daily to augment further pain control Thank you for allowing us to participate in the care of Mrs. Bernal History of Present Illness Reason for Consultation: Intractable low back and left lower extremity pain Requesting Physician: Dianne Rosenthal PA-C Attending Physician: Lexy Lynn MD History of Present Illness Mrs. Bernal is a 51-year-old morbidly obese white female with known metastatic endometrial adenocarcinoma with discovery of a left iliopsoas mass over the past few months who presented for acute on chronic low back pain and left lower extremity pain with weakness. The patient has been treated with chronic Suboxone therapy over the past 1-2 years 3 tablets daily of 8 mg/2 mg. Patient reports that she ran out of her Suboxone around the end of August/beginning of September. Patient indicates that her palliative care physician has recently left the area. She had indicated fairly adequate pain control with Suboxone therapy and prefers to stay away from opiate therapy at this time due to concerns over side effects. Her pain is 50% in the axial lumbosacral region and 50% in the left lower extremity predominately the anterior thigh. She rates her pain at a 4/10 at its best and 8/10 at its worst. Her pain is aggravated with any standing and ambulatory activities. She reports frequent falling due to the lef t leg pain and weakness. She describes the axial pain is aching in characteristic and the leg pain as sharp, shooting and burning in characteristic. She has 2 characteristic of pain with 1 occurring in the anterior thigh and 1 occurring in the left lateral posterior leg traveling to the foot. Patient reports poor relief from IV hydromorphone upon this admission. She did report some benefit from IV Toradol. They attempted to update diagnostic imaging but she was unable to lay flat to complete the imaging due to her pain. Patient has also been found to have urosepsis upon this admission and supratherapeutic INR. Patient is also reporting a mass in the right proximal thigh which she has just noticed over the past few days. She denies any pain or discomfort. Patient has no further constitutional complaints. Plan of care discussed with Dr. Jalyn Jarrett. Pain Assessment Full Body Front + Back: 1. Axial lumbosacral pain 2. Left anterior thigh pain 3. Left L5 versus S1 radicular pain Pain scale - at its best (0-10): 4 Pain scale - at its worst (0-10): 8 Allergies Allergy/AdvReac Type Severity Reaction Status Date / Time Iodinated Contrast Media Allergy Severe Contrast- Verified 09/19/21 15:02 itching Sulfa (Sulfonamide Allergy Severe Syncope, Verified 09/19/21 15:02 Antibiotics) stops breathing sulfamethoxazole Allergy Severe Syncope, Verified 09/19/21 15:02 hives, dyspnea trimethoprim Allergy Severe Syncope, Verified 09/19/21 15:02 hives, dyspnea gadobutrol Allergy Intermediate Hives, Verified 09/19/21 15:02 itching hydrocodone Allergy Intermediate Stops Verified 09/19/21 15:02 breathing pregabalin Allergy Intermediate Hives Verified 09/19/21 15:02 iodine Allergy Mild Itching Verified 09/19/21 15:02 acetaminophen [From Percocet] Allergy Unknown PER PT Verified 09/19/21 15:02 "CAN'T TAKE". enoxaparin Allergy Unknown UNKNOWN Verified 09/19/21 15:02 oxycodone [From Percocet] Allergy Unknown Unknown Verified 09/19/21 15:02 Home Medications Medication Instructions Recorded Confirmed Type amitriptyline 100 mg tablet 100 mg PO HS 03/27/19 09/19/21 History gabapentin 600 mg tablet 1,800 mg PO QID 03/27/19 09/19/21 History ondansetron HCl 8 mg tablet 8 mg PO Q8 PRN 03/27/19 09/19/21 History venlafaxine 75 mg capsule,extended 75 mg PO QAM 03/27/19 09/19/21 History release 24 hr Iron Infusion 1 dose IV .MONTHLY/UD PRN 02/12/21 09/19/21 History trazodone 50 mg tablet 50 mg PO HS 02/12/21 09/19/21 History dexamethasone 4 mg tablet 4 mg PO DIRECTED tab 03/16/21 09/19/21 History diclofenac sodium 50 mg 75 mg PO TID tab 03/16/21 09/19/21 History tablet,delayed release prochlorperazine maleate 10 mg 10 mg PO Q6H PRN 03/16/21 09/19/21 History tablet (Compazine) cyanocobalamin (vitamin B-12) 1,000 mcg IM MONTHLY 06/25/21 09/19/21 History 1,000 mcg/mL injection solution pantoprazole 40 mg tablet,delayed 40 mg PO DAILY 28 Days #28 tab 07/04/21 09/19/21 Rx release buprenorphine 8 mg-naloxone 2 mg 1 film BUCCAL TID PRN ea 08/21/21 09/19/21 History sublingual film (Suboxone) lorazepam 0.5 mg tablet 0.5 mg PO DAILY PRN #14 tab MDD 08/27/21 09/19/21 Rx can take two tablet if needed Pain History Pain Intensity Pain scale - at its best (0-10): 4 Pain scale - at its worst (0-10): 8 Patient History Medical History Abnormal vaginal bleeding Anxiety B12 deficiency anemia Cellulitis and abscess of foot Recent MRSA infection to left foot after trauma (02/2021) - hospitalized and treated for [place] -- per pt, still with redness/swelling to left foot but completed course of abx therapy and continues to improve; denies open areas/seeping from site COVID-19 Cystitis Endometrial adenocarcinoma Biopsy on 11/25/20 > To pelvic lymph nodes (Biopsied 12/28/20) Endometriosis Evisceration of bowel Numerous Hemoptysis Hx SBO Iron deficiency anemia intermittent iron infusions PRN Morbid obesity Pneumonia Scalp lesion Hx melanoma (scalp) approximately 1 year ago -- treated surgically Sepsis Surgical History Gastric bypass status for obesity H/O abdominal surgery Muscle stretching, tumor removed, mesh in place; Multiple complex abd surgeries History of colonoscopy History of esophagogastroduodenoscopy (EGD) History of placement of ear tubes History of vascular access device removed Hx of cholecystectomy Hx of tonsillectomy Port-A-Cath in place (03/28/21) nsertion of Access Port Left Cephalic Vein Dr. Gilliam 03/28/2021 Family History Sister , 54 Ovarian cancer Diabetes Breast cancer Stroke Mother , in her 60s Ovarian cancer Diabetes Heart problem "Had a bad heart" Breast cancer Hypertension Father Myocardial infarction Brother No problems noted. Sister No problems noted. 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 Speech and thought process appropriate. Mood and affect appropriate. Cognition intact. Head: Normocephalic and atraumatic. ENT: No evidence of nasal or oral mucosal lesions. Mucous membranes are moist. Eyes: Pupils equal round reactive to light. Neck: Supple without adenopathy and full range of motion. Abdomen: Protuberant. Soft and nondistended. No organomegaly. Bowel sounds active. Nonhealing open wound in the suprapubic region. Back/spine: Loss of lumbar lordosis. Nontender over the midline. No focal f acet joint tenderness provocative testing. Patient is moderately tender over the SI joint region bilaterally extending through the gluteal musculature which is nonfocal. Limited range of motion all planes secondary to body habitus. Lower extremities: Strength 4/5 on the left with dorsiflexion, plantarflexion, EHL testing and hip flexion/extension. Strength testing 5/5 on the right. Sensation was intact to sharp and dull. No evidence of hyperalgesia or hyperpathia response. SLR reproduce pain in the hip and thigh region predominantly. Hip/anterior thigh tenderness with internal/external rotation. Patient has a 4-6 cm palpable soft tissue mass in the right proximal anterior thigh. No appreciable edema of the distal lower extremity. Skin is warm to touch. Neurologic: Cranial nerves grossly intact. Ambulatory function not witnessed. Results ([facility]) Previous Records Review Previous Records: personally reviewed by me
[2021-09-20] MEDS: HEPARIN SOD 5,000 UNIT/0.5 ML VIAL SQ SCH ×2 (10:10→20:49)
[2021-09-20] MEDS: LACTATED RINGER'S 1,000 ML IV SCH (10:14)
[2021-09-20] MEDS: KETOROLAC TROMETHAMINE 15 MG/ML VIAL IV PRN ×2 (10:27→18:55)
[2021-09-20] MEDS ORDERED: MICONAZOLE NITRATE POWDER 43 GM EXT PRN (11:25)
[2021-09-20] MEDS: LORazepam 0.5 MG TAB PO PRN (11:54)
--- NOTE | 2021-09-20 14:27 | Hospitalist Progress Note ---
Date of Service September 20, 2021 Assessment & Plan (1) Chronic pain due to malignant neoplastic disease: Plan: 51 yo F w/ pMHx. of metastatic endometrial cancer s/p chemo and radiation therapy presenting with acute worsening lower back pain and found to have a UTI. Severe low back pain: Differential diagnosis at this time includes fracture secondary to fall vs metastatic disease to bone vs pyelonephritis (less likely due lack of CVA tend erness) vs retroperitoneal bleed secondary to elevated INR. If fracture noted on imaging or determined to be from metastatic disease that has progressed to the bone, will provide appropriate analgesia. - CT abdomen + pelvis, CT cervical spine, CT chest, and CT head ordered, pending due to pain - Pain management consult - continue Toradol, Suboxone, gabapentin for pain - IV abx as below Supratherapeutic INR: Pt is not currently on any anticoagulation medications. Potentially due to vit. K deficiency Coagulopathy is likely secondary to sepsis. CT abdomen+pelvis pending to determine presence of a metastatic liver mass that may be causing coagulopathy, however this is unlikely as there was no evidence of this on patient's CT from 08/25 PT 41.0, INR 4.6, aPTT 66.8, confirmatory test after initial study revealed supratherapeutic INR. 5 mg IV Vitamin K given, repeat coag. studies in AM corrected. patient's CT from 08/25 and corrected with Vit. K - continue to monitor Urinary tract infection: CBC revealed WBC 16.18, CRP 22.78, procalcitonin 15.28. Lactate nl. Urinalysis significant for nitrites, leukocyte esterase, WBC > 30, 4+ bacteria. Culture with Gram negative bacilli, awaiting speciation CT abdomen+pelvis pending to rule out the presence of hydronephrosis. - continue Ceftriaxone, consider deescalation with sensitivities Hypokalemia, Hypomagnesemia: Continue to follow BMP and replete as needed. Metastatic adenocarcinoma: Patient is currently undergoing chemotherapy treatment. CT imaging pending to rule in or out the development of further metastatic disease as the cause for exacerbation of back pain. Pain management consult placed. Patient has been evaluated by palliative team in the past. DVT prophylaxis: SCDs and SQ Heparin ordered Diet: regular Code: DNR/DNI (2) Severe low back pain: (3) Urinary tract infection: (4) Morbid obesity with BMI of 50.0-59.9, adult: (5) Uterine malignant neoplasm: (6) Metastatic adenocarcinoma: Admission and Anticipated Discharge Date Admission Date: September 19, 2021 Supervising Physician Co-Signing Physician Notes Resident Physician Supervision Note: I independently interviewed and examined the patient and verified the baugh history and physical, reviewed labs and image studies and agree with resident Dr. Jaimes findings and care plan. Subjective Dianne Bernal was doing well this morning. She explained that she has not had chemotherapy for several months but was planning to start before she was admitted. Pain severe also noted large swelling in right groin. Review of Systems Review of Systems: Constitutional: denies fevers, chills Cardiac: denies chest pain, palpitations GI: denies nausea, vomiting, constipation, diarrhea Pulm.: denies cough, shortness of breath : denies frequency, urgency, pain Physical Exam Constitutional: well developed and well nourished Eyes: PERRL, conjunctivae normal, anicteric sclerae ENMT: external ear and nose normal, oropharynx normal Neck: normal visual inspection Respiratory: normal respiratory effort, lungs clear to auscultation Cardiovascular: RRR, no murmur, no edema Gastrointestinal (Abdomen): normal bowel sounds, soft, nontender, no hepatosplenomegaly Musculoskeletal: no cyanosis or clubbing, extremities motor strength 5/5 Skin: - right upper leg with large deep mass Neurologic: no focal motor deficits Psychiatric: A+Ox3, euthymic affect Results & Data Results & Data ([facility]) Vital Signs (Past 12 Hours) Vital Signs Temp Pulse Resp BP Pulse Ox 09/20/21 07:53 36.5 C 96 H 18 124/76 98 CBC Results Results Complete Blood Count Results: RBC 2.62 M/uL (4.2-5.4) L 09/20/21 WBC 11.75 K/uL (4.8-10.8) H 09/20/21 Hgb 7.7 g/dL (12.0-16.0) L 09/20/21 Hct 23.8 % (37-47) L 09/20/21 Plt Count 197 K/uL (130-400) 09/20/21 Resident Activity Tracking Resident Involvement: Resident Care Provided Care Provided: Adult Hospital Medicine (1) Urinary tract infection Hematuria presence: without hematuria Urinary tract infection type: site unspecified Qualified Code(s): N39.0 - Urinary tract infection, site not specified
[2021-09-20] MEDS: BUPRENORPHINE/NALOXONE 8/2 MG TAB SL SCH ×2 (14:28→20:49)
[2021-09-20] MEDS ORDERED: cefTRIAXone SODIUM 1,000 MG in DEXTROSE 5% 50 ML IV SCH (14:30)
[2021-09-20] MEDS: cefTRIAXone SODIUM 2,000 MG in DEXTROSE 5% 50 ML IV SCH (15:10)
[2021-09-20] MEDS: SODIUM CHLORIDE 0.9% 1000ML 1,000 ML IV SCH (15:21)
[2021-09-20] MEDS: ONDANSETRON 4 MG OD TAB PO PRN (18:13)
[2021-09-20] MEDS: AMITRIPTYLINE HCL 100 MG TAB PO SCH (20:48)
[2021-09-20] MEDS: traZODone HCL 50 MG TAB PO SCH (20:48)
[2021-09-21] MEDS: KETOROLAC TROMETHAMINE 15 MG/ML VIAL IV PRN ×3 (02:40→18:05)
[2021-09-21] MEDS: SODIUM CHLORIDE 0.9% 1000ML 1,000 ML IV SCH ×2 (02:40→16:59)
[2021-09-21 05:57] LABS: INR 1.1 (0.9-1.1); Prothrombin Time 10.7 Seconds (9.0-12.0)
[2021-09-21 06:00] LABS: Albumin Globulin Ratio 0.6 (0.9-2); Albumin Level 2.4 gm/dl (3.4-5.0); BUN Creatinine Ratio 22.7 (10-20); Bilirubin,Total 0.8 mg/dl (0.2-1.0); Creatinine Clr Calc Pharmacy 124.2 ml/min; Est GFR (African American) 118.5 ml/min; Est GFR (Non-African American) 102.3 ml/min; Potassium 3.5 mmol/L (3.5-5.1); Total Protein 6.4 gm/dl (6.0-8.3)
[2021-09-21 06:07] LABS: Hematocrit (blood only) 21.3 % (37-47); Hemoglobin 6.8 g/dL (12.0-16.0); Mean Corpuscular Hemoglobin 29.3 pg (25-34); Mean Corpuscular Hgb Conc 31.9 g/dL (32-36); Mean Corpuscular Volume 91.8 fL (80-100); Mean Platelet Volume 11.4 fL (7.4-10.4); Platelet Count 194 K/uL (130-400); RDW Coefficient of Variation 18.3 % (11.5-14.5); RDW Standard Deviation 59.1 fL (36.4-46.3); Red Blood Count 2.32 M/uL (4.2-5.4); White Blood Count 11.36 K/uL (4.8-10.8)
[2021-09-21 06:09] LABS: Eosinophils # (auto) 0.06 K/uL (0-0.5); Eosinophils % (auto) 0.5 %; Immature Granulocytes # (auto) 0.07 K/uL (0.00-0.02); Immature Granulocytes % (auto) 0.6 %; Lymphocytes % (auto) 7.9 %; Monocytes # (auto) 0.92 K/uL (0.11-0.59); Monocytes % (auto) 8.1 %; Neutrophils # (auto) 9.41 K/uL (1.4-6.5); Neutrophils % (auto) 82.9 %; RBC Morphology Unremarkable
[2021-09-21] MEDS ORDERED: SODIUM CHLORIDE 0.9% 250 ML IV PRN ×2 (06:16→06:21)
--- NOTE | 2021-09-21 08:46 | Pain Management Progress Note ---
Date of Service September 21, 2021 Assessment & Plan (1) Chronic pain due to malignant neoplastic disease: (2) Urinary tract infection: Urinary tract infection type: site unspecified Hematuria presence: without hematuria Qualified Code(s): N39.0 - Urinary tract infection, site not specified (3) Sepsis: Sepsis type: sepsis due to unspecified organism Sepsis acute organ dysfunction status: unspecified Qualified Code(s): A41.9 - Sepsis, unspecified organism (4) Morbid obesity with BMI of 50.0-59.9, adult: Plan: 1. Patient remains a poor candidate for any interventional treatment 2. Maintain Suboxone 3 times daily scheduled dosing 3. Patient reporting poor response to ketorolac-she will discontinue utilization 4. Would again recommend hospitalist team consider addition of Medrol Dosepak, but will leave to their discretion due to her current urosepsis 5. Would again recommend titrating her gabapentin back to a more appropriate dose of not more than 3600 mg daily. 6. Will titrate venlafaxine to 150 mg daily to augment further pain control 7. Will initiate K pad applied to the lumbosacral region. Pain service will sign off on patient at this time. Admission and Anticipated Discharge Date Admission Date: September 19, 2021 Subjective Mrs. Bernal reported poor pain control overnight and is indicating no benefit from Toradol therapy. She indicates that her pain is predominantly in the axial lumbosacral spine at this time described as aching in characteristic. Her pain continues to range between a 4/10 at its best and an 8/10 at its worst. The patient reports exacerbation with movement even with logrolling. She did receive Suboxone x2 with the change in order for 3 times daily scheduled dosing yesterday morning. She currently denies any significant pain in the left lower extremity at today's visit. Patient reports there was no plan regarding completing imaging based on her conversation with hospitalist team yesterday. She further reported no discussion regarding the possibility of a course of oral steroids, dose reduction of gabapentin or titration of venlafaxine dosing. She has no new neurologic or further constitutional complaints at today's visit. Plan of care discussed with Dr. Jalyn Jarrett. Pain Assessment Pain Assessment Full Body Front + Back: 1. Axial lumbosacral spine Pain scale - at its best (0-10): 4 Pain scale - at its worst (0-10): 8 Physical Exam Physical Exam: General: Patient was sleeping upon entering the room. She was easily awakened. Speech and thought process appropriate. Mood and affect appropriate. Cognition intact. Patient appears to be in no acute distress. Patient morbidly obese and physically deconditioned. Back/spine: Patient assisted with logrolling towards her left side for visual inspection. There is no skin breakdown. Patient is generally tender to palpation over the lumbosacral region which is nonfocal. Neurologic: Cranial nerves grossly intact. Ambulation not witnessed.
[2021-09-21] MEDS: BUPRENORPHINE/NALOXONE 8/2 MG TAB SL SCH ×3 (09:14→20:05)
[2021-09-21] MEDS: PANTOprazole 40 MG TAB PO SCH (09:15)
[2021-09-21] MEDS: GABAPENTIN 600 MG TAB PO SCH ×4 (09:15→20:05)
[2021-09-21] MEDS: HEPARIN SOD 5,000 UNIT/0.5 ML VIAL SQ SCH (09:15)
[2021-09-21] MEDS: cefTRIAXone SODIUM 2,000 MG in DEXTROSE 5% 50 ML IV SCH (09:18)
[2021-09-21] MEDS: VENLAFAXINE HCL XR 150 MG CAPXR PO SCH (10:03)
[2021-09-21] MEDS: LORazepam 0.5 MG TAB PO PRN (15:47)
--- NOTE | 2021-09-21 16:32 | CT Scan Report ---
CT SCAN OF THE BRAIN WITHOUT IV CONTRAST CLINICAL HISTORY: Fall. COMPARISON STUDY: CT of the brain dated 06/26/2021. TECHNIQUE: Unenhanced axial CT scan of the brain is performed from the vertex to the skull base. A d ose lowering technique was utilized adhering to the principles of ALARA. The examination is modestly degraded by motion artifact. FINDINGS: Brain parenchyma: There is a 9 mm hemorrhagic contusion identified in the right frontal lobe cortex o n image #22 with minimal surrounding edema. No additional hemorrhages identified. There is no mass ef fect or evidence of acute territorial ischemia by CT criteria. No extra-axial fluid collection is see n. Ventricles, sulci, cisterns: Normal in configuration. Intracranial vasculature: The visualized intracranial vasculature at the skull base is normal in appe arance. Calvarium: No depressed calvarial fracture is identified. Sinuses and mastoids: There is subtotal opacification of the left maxillary antrum in the left fronta l sinus. Trace mucosal thickening seen in the right maxillary antrum. Mild to moderate mucosal thicke siomara is noted in the ethmoid sinuses. There is mild mucosal thickening in the sphenoid sinuses. There is a left mastoid effusion. The right mastoid air cells are well pneumatized. Orbits: The bony orbits are grossly intact. IMPRESSION: 1. There is a 9 mm hemorrhagic contusion identified in the right frontal lobe cortex with minimal preet rounding edema. 2. No additional foci of hemorrhage are identified. 3. There is no mass effect or evidence of acute territorial ischemia by CT criteria. ACT 112: Negative or not required by law. Electronically signed by: Stewart Harp M.D. 09/21/2021 4:30 PM
--- NOTE | 2021-09-21 16:36 | CT Scan Report ---
CT SCAN OF THE CERVICAL SPINE CLINICAL HISTORY: Fall. COMPARISON STUDY: CT of the cervical spine dated 07/09/2013. TECHNIQUE: CT scan of the cervical spine is performed from the skull base to the upper thoracic spine . Images are reviewed in the axial, sagittal, and coronal planes. IV contrast was not administered fo r this examination. A dose lowering technique was utilized adhering to the principles of ALARA. FINDINGS: Skeletal structures: The skeletal structures are well mineralized. There is no evidence of fracture o r subluxation involving the cervical spine. Vertebral body height and alignment are maintained. There is straightening of the cervical lordosis. The odontoid process and lateral masses are intact. The a tlantoaxial articulation is preserved noting mild productive degenerative change. The spinous process es appear intact. Intervertebral discs: The disc spaces are well maintained. Central canal: Widely patent. Soft tissues: The prevertebral and paraspinous soft tissues are within normal limits. Central venous catheter is noted at the left thoracic inlet. Calvarium: The visualized calvarium at the skull base appears intact. Brain parenchyma: Partially visualized brain parenchyma at the skull base is within normal limits. Mastoids: There are left larger than right mastoid effusions. Lung apices: Clear as visualized. IMPRESSION: There is no evidence of fracture or subluxation involving the cervical spine. ACT 112: Negative or not required by law. Electronically signed by: Stewart Harp M.D. 09/21/2021 4:34 PM
--- NOTE | 2021-09-21 17:05 | CT Scan Report ---
CT chest diagnostic wo con, CT abd pelvis wo con CT DOSE: 4059.49 mGy.cm CLINICAL HISTORY: 51 years-old Female with fall. Acute chest trauma status post fall. History of end ometrial carcinoma. TECHNIQUE: Multiaxial CT images of the chest, abdomen and pelvis were performed without contrast. A dose lowering technique was utilized adhering to the principles of ALARA. COMPARISON: CTA chest with CT abdomen pelvis 08/23/2021 FINDINGS: CT CHEST: Unremarkable thyroid. The heart is normal in size without pericardial effusion. Mild coronary artery calcifications. No thoracic aortic aneurysm. Left subclavian [id number] catheter distal tip termin ates within the superior aspect of the right atrium. No mediastinal hematoma. Mildly enlarged left 10 mm supraclavicular lymph node on image 18 series 10. There is no pneumothorax, pleural effusion or overt pulmonary edema. There are numerous new solid pul monary nodules including an 11 x 10 mm nodule of the superior segment left lower lobe and a 7 mm nodu le of the right lower lobe on image 161. 8 mm nodule of the right lower lobe on image 183. Mild patch y bilateral groundglass densities with linear consolidation of the basal left lower lobe. Central air ways are patent. There is a 3.1 x 2.4 x 10 cm mass within the soft tissues of the upper to mid back abutting and likel y extending into the left trapezius muscle. There are several soft tissue attenuating masses of the l eft lateral chest wall abutting the ribs measuring up to 6.5 x 3.7 cm. No acute fracture or destructi ve bone lesion identified. CT ABDOMEN/PELVIS: There is no pneumatosis or pneumoperitoneum. Hepatosplenomegaly with hepatic steatosis. The spleen me asures up to 15 cm in length. There is limited evaluation of the solid abdominal organs without the u se of IV contrast. No definite hepatic lesions are identified. Moderately atrophic pancreas. 1.3 cm m etastatic soft tissue nodule of the retroperitoneum 57 is new from prior left adrenal gland. Pneumoni tis/progressed retroperitoneal metastatic lymph nodes include a 1.5 cm pericaval lymph node. Infraren al IVC filter. Soft tissue metastatic focus adjacent to the right hepatic lobe measuring 3 cm has increased in size from prior. Moderate right with moderate severe left hydroureteronephrosis. Hydronephrosis on the lef t has progressed from prior. Urinary bladder distention. Air within the endometrial cavity redemonstr ated with diffuse uterine heterogeneity. The left hydronephrosis is likely secondary to ureteral obst ruction secondary to the left psoas/iliac is soft tissue mass which measures 5.2 x 7.1 x 20 cm and lua s slightly increased in size from prior. There is progressive pathologic adenopathy of the pelvis. Th ere is new layering hemorrhage within the dependent pelvis with asymmetric enlargement and heterogene ity of the right piriform is. Postoperative changes of the stomach and small bowel. Moderate fecal retention. Postoperative changes of the anterior abdominal wall. Mild L4 superior endplate compression deformity without retropulsion . IMPRESSION: 1. New pulmonary metastasis with progressive metastatic disease of the chest, abdomen and pelvis as d etailed above. 2. Obstruction of the left ureter secondary to the left retroperitoneal mass results in progressively worsened left-sided hydroureteronephrosis. 3. Patchy bilateral groundglass opacities with mild left basilar consolidation is suggestive of an in fectious or inflammatory pneumonitis. 4. Layering hemorrhage within the dependent pelvis is likely secondary to interval bleeding from the hemorrhagic retroperitoneal mass. 5. Posttreatment related changes of the endometrium and uterus. 6. Acute mild superior endplate compression deformity of the L4 vertebral body without retropulsion i s new from 08/23/2021. 7. No bowel obstruction or bowel wall thickening. 8. Additional findings as above. ACT 112: Negative or not required by law. Electronically signed by: Stiven Hunter M.D. 09/21/2021 5:04 PM
--- NOTE | 2021-09-21 17:22 | Ultrasound Report ---
US renal/blad retro comp HISTORY: 51 years-old Female back pain . Acute back and flank pain COMPARISON: CT abdomen and pelvis of same day, CT abdomen and pelvis 08/23/2021. TECHNIQUE: Multiple real-time sonographic images of the kidneys and urinary bladder were obtained ass essing grayscale appearance and color flow FINDINGS: Limited exam secondary to patient condition and morbid obesity. The right kidney measures 13.3 x 5.7 x 5.3 cm. Renal sinus cysts of the right kidney redemonstrated w ith possible mild hydronephrosis. There are no renal mass lesions or renal calculi. The left kidney measures 9.9 x 5.1 x 5.9 cm and demonstrates at least moderate hydroureteronephrosis. No left-sided renal calculi or suspicious mass lesion. Complex debris is noted within the urinary bladder lumen. Heterogeneous uterus measures 9.7 x 4.6 x 6 .1 cm. Air within the endometrial cavity redemonstrated. IMPRESSION: 1. At least moderate left-sided hydronephrosis is redemonstrated. 2. Right-sided renal sinus cysts are again noted with possible mild hydronephrosis. 3. Air within the endometrial cavity redemonstrated which is likely on a posttreatment related basis. 4. Debris is noted within the urinary bladder. Correlate with urinalysis. ACT 112: Negative or not required by law. The above report was generated using voice recognition software. It may contain grammatical, syntax o r spelling errors. Electronically signed by: Stiven Hunter M.D. 09/21/2021 5:21 PM
--- NOTE | 2021-09-21 18:32 | Hospitalist Progress Note ---
Date of Service September 21, 2021 Assessment & Plan (1) Chronic pain due to malignant neoplastic disease: Plan: 51 yo F w/ pMHx. of metastatic endometrial cancer s/p chemo and radiation therapy presenting with acute worsening lower back pain and found to have a UTI. Severe low back pain: likely due to metastatic disease given CT with finding of extensive metastatic disease including 9mm that may represent a hemorrhagic metastasis. CT also significant for acute mild superior endplate compression deformity of C4 vertebral body - Pain management consult - continue Suboxone TID - holding off on steroids at this time given UTI - IV abx. as below Metastatic adenocarcinoma: Patient is currently undergoing chemotherapy treatment. CT imaging with extensive metastatic disease along with 9 mm likely hemorrhagic metastasis Pain management consult placed as above Patient has been evaluated by palliative team in the past. - consulted oncology to discuss new CT findings - continue to have goals of care discussions with patient - patient has expressed that her goal is to improve her pain control Anemia in the setting of Supratherapeutic INR (corrected) Pt is not currently on any anticoagulation medications. Potentially due to Vit. K deficiency vs. secondary to sepsis. initial PT 41.0, INR 4.6, aPTT 66.8 5 mg IV Vitamin K given, repeat coag. studies in AM corrected to 1 CT w/ slightly increased left sided hematoma from prior imaging - given 2U pRBC - continue to monitor Urinary tract infection: CBC revealed WBC 16.18, CRP 22.78, procalcitonin 15.28. Lactate nl. Urinalysis significant for nitrites, leukocyte esterase, WBC > 30, 4+ bacteria. Culture with Gram negative bacilli, awaiting speciation CT abdomen + pelvis along with US with finding of hydronephrosis - continue Ceftriaxone Hydronephrosis appears to be secondary to left sided hematoma seen on CT a/p - Renal function normal. - consider urology consult for possible stent placement CT lung findings with ground glass opacities possible pneumonia vs. pneumonitis - continue antibiotics as above Hypokalemia, Hypomagnesemia: Continue to follow BMP and replete as needed. DVT prophylaxis: SCDs and HELD SQ Heparin, given 9mm hem. seen on head CT Diet: regular Code: DNR/DNI Dispo: pending PT/OT rec's (2) Uterine malignant neoplasm: (3) Urinary tract infection: (4) Severe low back pain: (5) Chronic pain syndrome: Admission and Anticipated Discharge Date Admission Date: September 19, 2021 Supervising Physician Co-Signing Physician Notes Resident Physician Supervision Note: I independently interviewed and examined the patient and verified the baugh history and physical, reviewed labs and image studies and agree with resident Dr. Jaimes findings and care plan. Subjective Dianne Bernal was doing okay this morning. Her pain was not well controlled in the morning. When I returned in the afternoon with the results from the CT scan that had been done in the afternoon she again brought up that he main goal was pain control and that she had be suspicious that she might have worsening metastatic cancer. Review of Systems Review of Systems: Constitutional: denies fevers, chills Cardiac: denies chest pain, palpitations GI: denies nausea, vomiting, constipation, diarrhea Pulm.: denies cough, shortness of breath : denies frequency, urgency, pain Physical Exam Physical Exam: Constitutional well developed and well nourished Eyes PERRL, conjunctivae normal, anicteric sclerae ENMT external ear and nose normal, oropharynx normal Neck normal visual inspection Respiratory normal respiratory effort, lungs clear to auscultation Cardiovascular RRR, no murmur, no edema Gastrointestinal (Abdomen) normal bowel sounds, soft, nontender, no hepatosplenomegaly Musculoskeletal no cyanosis or clubbing, extremities motor strength 5/5 Skin - right upper leg with large deep mass Neurologic no focal motor deficits Psychiatric A+Ox3, euthymic affect Results & Data Results & Data ([facility]) Vital Signs (Past 12 Hours) Vital Signs Temp Pulse Pulse Resp BP BP Pulse Ox 09/21/21 09:52 36.8 C 102 H 16 109/73 95 09/21/21 09:25 36.8 C 111 H 16 112/77 96 09/21/21 09:07 36.9 C 111 H 16 91/56 L 96 09/21/21 08:46 36.6 C 107 H 16 97/59 L 96 09/21/21 07:15 36.4 C L 92 H 16 123/81 96 CBC Results Results Complete Blood Count Results: RBC 2.32 M/uL (4.2-5.4) L 09/21/21 WBC 11.36 K/uL (4.8-10.8) H 09/21/21 Hgb 6.8 g/dL (12.0-16.0) L* 09/21/21 Hct 21.3 % (37-47) L 09/21/21 Plt Count 194 K/uL (130-400) 09/21/21 Resident Activity Tracking Resident Involvement: Resident Care Provided Care Provided: Adult Hospital Medicine (1) Urinary tract infection Hematuria presence: without hematuria Urinary tract infection type: site unspecified Qualified Code(s): N39.0 - Urinary tract infection, site not specified
[2021-09-21] MEDS ORDERED: KETOROLAC TROMETHAMINE 15 MG/ML VIAL IV PRN (19:51)
[2021-09-21] MEDS ORDERED: KETOROLAC 30 MG/ML VIAL ONE (19:59)
[2021-09-21] MEDS: traZODone HCL 50 MG TAB PO SCH (20:05)
[2021-09-21] MEDS: AMITRIPTYLINE HCL 100 MG TAB PO SCH (20:05)
[2021-09-22] MEDS ORDERED: KETOROLAC 30 MG/ML VIAL ONE (03:38)
[2021-09-22] MEDS: SODIUM CHLORIDE 0.9% 1000ML 1,000 ML IV SCH ×2 (03:44→16:40)
[2021-09-22 05:34] LABS: Basophils # (auto) 0.01 K/uL (0-0.2); Basophils % (auto) 0.1 %; Eosinophils # (auto) 0.09 K/uL (0-0.5); Eosinophils % (auto) 0.8 %; Hematocrit (blood only) 25.1 % (37-47); Hemoglobin 8.2 g/dL (12.0-16.0); Immature Granulocytes # (auto) 0.06 K/uL (0.00-0.02); Immature Granulocytes % (auto) 0.6 %; Lymphocytes # (auto) 0.63 K/uL (1.2-3.4); Lymphocytes % (auto) 5.9 %; Mean Corpuscular Hemoglobin 29.8 pg (25-34); Mean Corpuscular Hgb Conc 32.7 g/dL (32-36); Mean Corpuscular Volume 91.3 fL (80-100); Mean Platelet Volume 10.9 fL (7.4-10.4); Monocytes # (auto) 1.22 K/uL (0.11-0.59); Monocytes % (auto) 11.5 %; Neutrophils # (auto) 8.59 K/uL (1.4-6.5); Neutrophils % (auto) 81.1 %; Platelet Count 160 K/uL (130-400); RDW Coefficient of Variation 17.7 % (11.5-14.5); RDW Standard Deviation 57.2 fL (36.4-46.3); Red Blood Count 2.75 M/uL (4.2-5.4)
[2021-09-22 05:42] LABS: Prothrombin Time 10.6 Seconds (9.0-12.0)
[2021-09-22 05:55] LABS: Calcium 7.8 mg/dl (8.5-10.1); Creatinine Clr Calc Pharmacy 117.2 ml/min; Est GFR (African American) 116.3 ml/min; Est GFR (Non-African American) 100.3 ml/min; Potassium 3.4 mmol/L (3.5-5.1)
--- NOTE | 2021-09-22 07:29 | Hospitalist Progress Note ---
Date of Service September 22, 2021 Assessment & Plan (1) Chronic pain due to malignant neoplastic disease: Plan: 51 yo F w/ pMHx. of metastatic endometrial cancer s/p chemo and radiation therapy presenting with acute worsening lower back pain and found to have a UTI. Severe low back pain: Due to metastatic disease given CT with finding of extensive metastatic disease including 9mm frontal hemorrhagic metastasis. CT also significant for acute mild superior endplate compression deformity of C4 vertebral body - Pain management consulted. - Holding off on steroids at this time given patients infection. - Spoke to patient today about starting fentanyl patch for pain. - Patient agreeable, D/C Suboxone, - Started pain protocol for hydromorphone per pharmacy. - Consider starting the fentanyl patch tomorrow. Metastatic adenocarcinoma: Patient is currently undergoing chemotherapy treatment. CT imaging with extensive metastatic disease along with 9 mm frontal hemorrhagic metastasis Pain management consulted Patient has been evaluated by palliative team in the past. Oncology consulted. -At current stage, patient likely would have shorter life expectancy on aggressive treatment. - Goals of care discussion today with Dr. Chou, please see his communication report from 09/22. - Goal to get pain under control for ambulation and return to home. - Patient would like to spend the time she has left with family. Anemiain the setting of Supratherapeutic INR (corrected) Pt is not currently on any anticoagulation medications. Potentially due to Vit. K deficiency vs. secondary to sepsis. initial PT 41.0, INR 4.6, aPTT 66.8 5 mg IV Vitamin K given, repeat coag. studies in AM corrected to 1 CT w/ slightly increased left sided hematoma from prior imaging - given 2U pRBC - continue to monitor Urinary tract infection: CBC revealed WBC 16.18, CRP 22.78, procalcitonin 15.28. Lactate nl. Urinalysis significant for nitrites, leukocyte esterase, WBC > 30, 4+ bacteria. Culture with Gram negative bacilli, awaiting speciation CT abdomen + pelvis along with US with finding of hydronephrosis - continue Ceftriaxone Hydronephrosis appears to be secondary to left sided hematoma seen on CT a/p - Renal function normal. CT lung findingswith ground glass opacities possible pneumonia vs. pneumonitis - continue antibiotics as above Hypokalemia, Hypomagnesemia: Continue to follow BMP and replete as needed. DVT prophylaxis: SCDs andHELDSQ Heparin, given 9mm hem. seen on head CT Diet: regular Code: DNR/DNI Dispo: pending PT/OT rec's (2) Uterine malignant neoplasm: (3) Urinary tract infection: (4) Severe low back pain: (5) Chronic pain syndrome: Admission and Anticipated Discharge Date Admission Date: September 19, 2021 Supervising Physician Co-Signing Physician Notes Resident Physician Supervision Note: I independently interviewed and examined the patient and verified the baugh history and physical, reviewed labs and image studies and agree with resident Dr. Hernandez findings and care plan. Subjective Patient seen at the bedside this morning. Patient this morning was in very excrutiating pain. I saw her later in the day. She said her pain was managed at the time with her medications and certain positioning. Denies nausea and says she is hungry and likes to eat. Denies fevers, chills, shortness of breath. I discussed with the patient starting a fentanyl patch for her pain control. The patient was worried about the potential of hurting her kids if they touch the fentanyl patch. The nurse and I let her know she should do frequent checks every few hours to check the patch is still on and we can supply transparent patches for ease of view. I told her it could be potentially very harmful to kids if they ingest the patch and she said her kids at home should be old enough not to put them in their mouth. I let her know the fentanyl patch may not be started tonight due to potentially not being effective from the Suboxone she is currently taking. The patient said she is willing to try the fentanyl patch if it will help with her pain and get her to improve her ambulation. Her ultimate goal will be to ambulate well enough to return home and spend the remaining time she has with her family. Physical Exam Eyes: PERRL, conjunctivae normal, anicteric sclerae Respiratory: normal respiratory effort, lungs clear to auscultation Cardiovascular: RRR, no murmur, no edema Gastrointestinal (Abdomen): normal bowel sounds, soft, nontender, no hepatosplenomegaly Results & Data Results & Data ([facility]) Vital Signs (Past 12 Hours) Vital Signs Temp Pulse Resp BP Pulse Ox 09/21/21 22:22 36.8 C 101 H 16 108/77 98 Resident Activity Tracking Resident Involvement: Resident Care Provided Care Provided: Adult Hospital Medicine (1) Urinary tract infection Hematuria presence: without hematuria Urinary tract infection type: site unspecified Qualified Code(s): N39.0 - Urinary tract infection, site not specified
--- NOTE | 2021-09-22 08:55 | Radiation OncologyConsultation ---
Date of Consultation September 22, 2021 Assessment & Plan (1) Metastatic adenocarcinoma: Assessment: Ms. Bernal is a 51-year-old female with metastatic endometrial cancer. The patient previously 3 cycles of carboplatin/Taxol chemotherapy from March 2021 to June 2021. The patient then received a partial course of external beam radiation therapy and received 3600 cGy of a planned 4500 cGy; the patient was unable to tolerate radiation therapy even after multiple attempts were made to make her more comfortable and ultimately the patient decided to stop radiation therapy. The patient has continue to follow-up with medical oncology at the [facility] but has not restarted chemotherapy due to significant medical comorbidities. The patient was admitted to hospital for multiple medical issues including a recent fall and inability to control her pain. The patient did have a CT of head without contrast which suggested a potential solitary brain metastasis. Currently, the patient is asymptomatic with respect to the brain metastasis. Recommendations: 1. At this point, I am not recommending any consideration for radiation therapy given the fact that the patient is asymptomatic, has multiple other competing medical comorbidities and was previously unable to tolerate radiation therapy due to her inadequate pain control. I did discuss with her that she needs to consider long-term goals given the fact that she does have a poor prognosis overall. 2. In the future, the patient should only be considered for radiation therapy if her performance status has improved and her pain is well controlled. 3. If the patient does have metastatic disease in the brain and does become symptomatic, dexamethasone can be considered in the future. 4. if further consideration is needed regarding the potential disease in the brain, MRI of the brain should be ordered. Plan: 1. No plan for radiation therapy at this time. 2. Patient should be considered for palliative care/comfort care/hospice. Pain control should be priority. 3. MRI brain needed for further confirmation, if needed, regarding metastatic disease in the brain. 4. Consider dexamethasone in future if symptomatic. 5. Appreciate medical oncology input. 6. Patient and family encouraged to call us with any further questions or concerns. History of Present Illness Attending Physician: Lexy Lynn MD History of Present Illness Ms. Bernal has a past surgical abdominal history with dehiscence who was recently found to have an endometrial cancer. 05/17/2011. Progress note from Dr. Garner who was seeing the patient for second opinion regarding a large draining abdominal wound. The patient had undergone a total of 4 ventral hernia repairs the previous 3 were for incarcerated hernias with mesh used. She underwent gastric bypass surgery in 2009. At that time her weight was about 500 pounds and she dropped to 200 to 230 pounds. 02/16/2020. Patient undergoes CT of the abdomen and pelvis with contrast for evaluation of abdominal hernia. There were postoperative changes from prior hernia repair with no evidence of hernia recurrence. There was possible development of infection in the left lower lobe. There were no pelvic lymphadenopathy, no abnormal ovaries or adnexal masses and a normal uterus. 11/16/2020. Patient presents with abnormal uterine bleeding. Pelvic exam at that time was unremarkable. Patient's weight was 293 pounds with a BMI of 51.9. Labs and ultrasound were ordered. Pap smear was attempted but was insufficient. 11/25/2020. Patient had an ultrasound of the uterus performed with the uterus measuring 7.3 x 5.3 x 4.8 cm. The lining was 9.2 mm but vascular with posterior submucosal versus intracavitary mass measuring 1.8 x 1.6 x 1.4 cm. The ovaries were normal bilaterally. Pap smear was taken revealing epithelial cell abnormality with atypical squamous cells of undetermined significance. There was scant cellularity. Case #: [id number] 20s. Endometrial biopsy was also performed. This confirmed an endometrioid adenocarcinoma, grade 2. Immunohistochemical stains for MSH6, MLH1, MSH2 and PMS to indicate an absence of MLH1 and PMS2. Case #: [id number] 12/09/2020. Endometrial biopsy slides were reviewed at [place] confirming endometrioid adenocarcinoma, FIGO grade 2 with absence of MLH1 and PMS 2 expression. Case: [id number]. 12/10/2020. Patient is seen by Dr. Méndez and reviewed by Dr. Hayes (gynecologic oncology) at [facility]. The patient was discussed as to the possibility of hysterectomy and BSO. However given the patient's history of total bowel evisceration's, strangulated hernia and wound dehiscence is the patient was not felt to be a good surgical candidate and they did not recommend surgery. They recommend ordering an MRI for further staging and meeting with genetics counselor. The discussed treatment options which included adjuvant radiation and chemotherapy or combination. 12/17/2020. Patient undergoes MRI of the pelvis. The uterus measured 7.8 x 4.9 x 5.9 cm. There was abnormal ill-defined thickening of the endometrium with loss of the normal junctional zone. There was infiltration into the myometrium particularly in the right fundus where abnormal signal is seen extending within the serosa. The ovaries were symmetrical with no adnexal masses. There was bilateral iliac chain lymphadenopathy with the largest node measuring 2.4 cm in the left common iliac. There is also 2.4 cm lymph node posterior to the left external iliac vein. Additional nodes are noted bilaterally along the proximal external and internal iliac chains. Some of these nodes were new compared to 04/17/2020 where others have mildly increased in size from their normal appearance in 2019. 12/26/2020. Patient was seen by JAVIER Nguyen. She discussed potential treatment options. These included surgery which was apparently not wanted by the patient are offered by Dr. Hayes. Also discussed was possible chemoradiation. Staging work-up was discussed. 12/28/2020. Patient undergoes a CT-guided biopsy of the left pelvic lymph nodes. FNA was positive for malignant cells consistent with a metastatic adenocarcinoma. [id number]: [id number]. 03/01/2021. Patient is seen by Dr. Hayes. He reaffirmed that the patient is not a surgical candidate at this time. He discussed the role of chemotherapy and radiation. He recommended consideration of carboplatin and paclitaxel administered for 3 cycles followed by pelvic radiation and an additional 3 cycles of carboplatin and paclitaxel. He discussed briefly the potential risks and side effects of systemic chemotherapy. He noted that the patient wished to have treatment closer to home. It was therefore arranged with medical oncology in [place] to proceed with systemic therapy. 03/2021 to 06/2021. Carboplatin/Taxol under the supervision of Dr. Bains and JAVIER Nguyen. Patient did have complications during the course of treatment. 03/16/2021. Patient seen in radiation oncology evaluation and discussion of the radiation treatment plan. 03/22/2021. Patient scheduled for her second cycle of carboplatin and paclitaxel. 03/29/2021. Patient scheduled for her third cycle of carboplatin and paclitaxel. 07/18/2021 - 08/25/2021. External beam radiation therapy to pelvis. 3600 cGy. 20 fractions. 180 cGy per fraction. Patient only received partial course of therapy. Patient was unable to tolerate treatment position even after multiple attempts were made using pain medication and anxiety medications. This decision was ultimately made by the patient to stop radiation therapy due to inability to continue treatment. 09/19/2021. Medical oncology follow-up with JAVIER Nguyen. Patient is continuing to struggle with pain control. No further chemotherapy administered. 09/19/2021. Patient presents emergency room with fall and admitted to hospital. 09/21/2021. CT of head without contrast. IMPRESSION: 1. There is a 9 mm hemorrhagic contusion identified in the right frontal lobe cortex with minimal surrounding edema. 2. No additional foci of hemorrhage are identified. 3. There is no mass effect or evidence of acute territorial ischemia by CT criteria. ADDENDUM: The concurrently performed CT scan of the chest was subsequently reviewed. Given the findings of extensive progressive metastatic disease, a hemorrhagic metastasis in the right frontal lobe must also be considered. 09/21/2021. CT chest/abdomen/pelvis. IMPRESSION: 1. New pulmonary metastasis with progressive metastatic disease of the chest, abdomen and pelvis as detailed above. 2. Obstruction of the left ureter secondary to the left retroperitoneal mass results in progressively worsened left-sided hydroureteronephrosis. 3. Patchy bilateral groundglass opacities with mild left basilar consolidation is suggestive of an infectious or inflammatory pneumonitis. 4. Layering hemorrhage within the dependent pelvis is likely secondary to interval bleeding from the hemorrhagic retroperitoneal mass. 5. Posttreatment related changes of the endometrium and uterus. 6. Acute mild superior endplate compression deformity of the L4 vertebral body without retropulsion is new from 08/23/2021. 7. No bowel obstruction or bowel wall thickening. 8. Additional findings as above. Allergies Allergy/AdvReac Type Severity Reaction Status Date / Time Iodinated Contrast Media Allergy Severe Contrast- Verified 09/19/21 15:02 itching Sulfa (Sulfonamide Allergy Severe Syncope, Verified 09/19/21 15:02 Antibiotics) stops breathing sulfamethoxazole Allergy Severe Syncope, Verified 09/19/21 15:02 hives, dyspnea trimethoprim Allergy Severe Syncope, Verified 09/19/21 15:02 hives, dyspnea gadobutrol Allergy Intermediate Hives, Verified 09/19/21 15:02 itching hydrocodone Allergy Intermediate Stops Verified 09/19/21 15:02 breathing pregabalin Allergy Intermediate Hives Verified 09/19/21 15:02 iodine Allergy Mild Itching Verified 09/19/21 15:02 acetaminophen [From Percocet] Allergy Unknown PER PT Verified 09/19/21 15:02 "CAN'T TAKE". enoxaparin Allergy Unknown UNKNOWN Verified 09/19/21 15:02 oxycodone [From Percocet] Allergy Unknown Unknown Verified 09/19/21 15:02 Home Medications Medication Instructions Recorded Confirmed Type amitriptyline 100 mg tablet 100 mg PO HS 03/27/19 09/19/21 History gabapentin 600 mg tablet 1,800 mg PO QID 03/27/19 09/19/21 History ondansetron HCl 8 mg tablet 8 mg PO Q8 PRN 03/27/19 09/19/21 History venlafaxine 75 mg capsule,extended 75 mg PO QAM 03/27/19 09/19/21 History release 24 hr Iron Infusion 1 dose IV .MONTHLY/UD PRN 02/12/21 09/19/21 History trazodone 50 mg tablet 50 mg PO HS 02/12/21 09/19/21 History dexamethasone 4 mg tablet 4 mg PO DIRECTED tab 03/16/21 09/19/21 History diclofenac sodium 50 mg 75 mg PO TID tab 03/16/21 09/19/21 History tablet,delayed release prochlorperazine maleate 10 mg 10 mg PO Q6H PRN 03/16/21 09/19/21 History tablet (Compazine) cyanocobalamin (vitamin B-12) 1,000 mcg IM MONTHLY 06/25/21 09/19/21 History 1,000 mcg/mL injection solution pantoprazole 40 mg tablet,delayed 40 mg PO DAILY 28 Days #28 tab 07/04/21 09/19/21 Rx release buprenorphine 8 mg-naloxone 2 mg 1 film BUCCAL TID PRN ea 08/21/21 09/19/21 History sublingual film (Suboxone) lorazepam 0.5 mg tablet 0.5 mg PO DAILY PRN #14 tab MDD 08/27/21 09/19/21 Rx can take two tablet if needed Patient History Medical History Abnormal vaginal bleeding Anxiety B12 deficiency anemia Cellulitis and abscess of foot Recent MRSA infection to left foot after trauma (02/2021) - hospitalized and treated for at [facility] -- per pt, still with redness/swelling to left foot but completed course of abx therapy and continues to improve; denies open areas/seeping from site COVID-19 Cystitis Endometrial adenocarcinoma Biopsy on 11/25/20 > To pelvic lymph nodes (Biopsied 12/28/20) Endometriosis Evisceration of bowel Numerous Hemoptysis Hx SBO Iron deficiency anemia intermittent iron infusions PRN Morbid obesity Pneumonia Scalp lesion Hx melanoma (scalp) approximately 1 year ago -- treated surgically Sepsis Surgical History Gastric bypass status for obesity H/O abdominal surgery Muscle stretching, tumor removed, mesh in place; Multiple complex abd surgeries History of colonoscopy History of esophagogastroduodenoscopy (EGD) History of placement of ear tubes History of vascular access device removed Hx of cholecystectomy Hx of tonsillectomy Port-A-Cath in place (03/28/21) nsertion of Access Port Left Cephalic Vein Dr. Gilliam 03/28/2021 Family History Sister , 54 Ovarian cancer Diabetes Breast cancer Stroke Mother , in her 60s Ovarian cancer Diabetes Heart problem "Had a bad heart" Breast cancer Hypertension Father Myocardial infarction Brother No problems noted. Sister No problems noted. Other No family history of adverse response to anesthesia No pertinent family history Denies family history of Colorectal cancer Uterine cancer Social History Smoking Status: Never smoker Tobacco Type: Cigarettes Cigarettes Per Day: 1 PPD/week x 2 to 3 years;; Second Hand Exposure: Yes (sister smokes); Hx Alcohol Use: No Hx Substance Use: No Preferred Language: Mongolian Communication Ability: Effective Visual Impairment: No Limitations Hearing Ability: Normal Stabber Required: No Beliefs That Will Affect Care: None marital status: Current Living Situation: Family Current Living Situation Comment: sister and kids current occupational status: disabled How many Children do You have: 4 Feels Safe at Home: Yes caffeine: Yes (Energy drinks 1-4 each day) during the past year weight has: remained stable Assistive Devices: Walker Review of Systems Review of Systems: Patient denies any significant neurologic symptoms. She states she always has issues with falls which is a chronic issue. Physical Exam Physical Exam: Exam limited due to patient's inability to move well which has been a long-lasting issue not new to this prior visit. Constitutional: Patient is emotionally distressed due to recent news regarding diagnosis. Psychiatric: A+Ox3, euthymic affect
[2021-09-22] MEDS: GABAPENTIN 600 MG TAB PO SCH ×4 (09:08→21:51)
[2021-09-22] MEDS: cefTRIAXone SODIUM 2,000 MG in DEXTROSE 5% 50 ML IV SCH (09:08)
[2021-09-22] MEDS: BUPRENORPHINE/NALOXONE 8/2 MG TAB SL SCH ×2 (09:08→13:32)
[2021-09-22] MEDS: PANTOprazole 40 MG TAB PO SCH (09:09)
[2021-09-22] MEDS: VENLAFAXINE HCL XR 150 MG CAPXR PO SCH (09:10)
[2021-09-22] MEDS: KETOROLAC 30 MG/ML VIAL IV PRN (10:02)
--- NOTE | 2021-09-22 12:12 | Communication Note ---
Date of Service: September 22, 2021 Patient requested further discussions regarding goals of care given the overall progression of her cancer. Additionally, discussed her current level of care with her sister, Katherin, over the phone with patient. They expressed understanding that given the worsening of her cancer that she is having to make the decision regarding quantity vs quality of life remaining. They recognize that the last several months undergoing these treatments has generated numerous difficulties in their day to day life and the quality of Dianne's life has been extensively worse over this time, and they are uncertain at this time if they are willing to go back through that on the potential chance of more time that would be uncomfortable. Currently desire to have the main goal of care being slight improvement in the extent of her pain in order to attempt to get her back to functional with a walker. They feel that if Dianne is able to be functional with a walker that the other parts of her care can be done sufficiently at home, and that her overall quality of life will be significantly better. Sister is in favor of stopping treatments at this time, and Dianne is similarly thinking about this but has not finalized that this is what she wants. Wants more than anything to be able to get home and spend whatever time that she has remaining with the kids and her family.
--- NOTE | 2021-09-22 15:28 | Consultation Report ---
MEDICAL ONCOLOGY CONSULTATION DATE OF SERVICE: 09/22/2021 REASON FOR CONSULTATION: A 51-year-old female with metastatic endometrial carcinoma. HISTORY OF PRESENT ILLNESS: Dianne is a pleasant, unfortunate 51-year-old female patient with metast atic endometrial carcinoma who presented from our office to [facility]'s Emergency Room because of difficulty in ambulation, generalized weakness and decline. She also has been fallin g quite regularly at home. Apparently on the morning of admission, was on the ground for a couple of hours before she was discovered by a family member. She was reporting severe shooting, lancinating right-sided pain in the lumbar region. It radiates towards her sacrum and low back. She also admitt ed to fever and chills, nausea and vomiting and urinary frequency over the past week or so. This lad y has been followed at [facility] predominantly by our physician nylon operator, Allyson Cotton, and also by Dr. Seng hartmann. She was receiving weekly carboplatin and paclitaxel, but unfortunately, the treatment was interrupted in early June when she developed COVID-19. Apparently, she had an additional admissio n to the hospital right around Robbi time. Thus, unfortunately, Dianne has been off therapy for several weeks now. Not surprisingly, CT scan of the chest, abdomen and pelvis done during admission reveals significant disease progression, specifically with a new pulmonary metastatic disease progres sing and a soft tissue mass near the right psoas muscle measuring 5.2 x 7.1 x 20 cm, thought to be in creased in size from prior examination. Obstruction of the left ureter attributable to a left retrop eritoneal mass, which has resulted in worsening left-sided hydronephrosis. In essence, the radiograp hic picture is consistent with an expanding metastatic disease in a 51-year-old female with faltering performance status moving forward. Her pain seems to be well controlled. Radiation oncology is als o on consultation looking into options where Dianne is concerned. Clearly, I think we are beyond robby vage therapeutics and Dianne needs to strongly consider new goals for care, particularly leaning more towards a palliative approach. PAST MEDICAL HISTORY: Includes vitamin B12 deficiency, cystitis, iron-deficiency anemia, morbid obes ity, prior pneumonia, prior COVID-19, MRSA infection to left foot post-trauma. PAST SURGICAL HISTORY: Gastric bypass, colonoscopy, EGD, cholecystectomy, tonsillectomy, [facility] pl acement. MEDICATIONS PRIOR TO ADMISSION: Include amitriptyline 100 mg p.o. daily, gabapentin 600 mg p.o. t.i. d., Zofran 8 mg p.o. q.8 hours p.r.n., Effexor 75 mg p.o. daily, trazodone 50 mg p.o. at bedtime, dex amethasone 4 mg as directed, diclofenac 75 mg p.o. t.i.d., Compazine 10 mg p.o. q.6 hours p.r.n., vit garcia B12 1000 mcg IM monthly, Protonix 40 mg p.o. daily, Suboxone 1 film buccally t.i.d. p.r.n., alejandra zepam 0.5 mg p.o. p.r.n. ALLERGIES: LIST IS LENGTHY. IV CONTRAST DYE, SULFA, BACTRIM, HYDROCODONE, PREGABALIN, IODINE, ENOXA FRANCISCO JAVIER, OXYCODONE. FAMILY HISTORY: Sister is from ovarian cancer, diabetes mellitus. She also suffered breast cancer. Mother in her 60s, had a bad heart. Father succumbed to myocardial infarction. SOCIAL HISTORY: The patient lives with her sister. She is presently disabled. She is a pack per we ek cigarette smoker for the last 2 to 3 years. Negative for alcohol or illicit drugs. REVIEW OF SYSTEMS: As per HPI. PHYSICAL EXAMINATION: GENERAL: Obese 51-year-old female patient, awake, alert and conversant, in no acute distress. VITAL SIGNS: Temperature 37.1, pulse 108, respiratory rate 16, blood pressure 109/71. SKIN: Warm, dry, noncyanotic without petechia, rash or ecchymosis. HEENT: Atraumatic, normocephalic. Eyes: PERRLA. EOMI. Sclerae are nonicteric. Nares patent witho ut rhinorrhea or discharge. Throat is clear. Tongue midline. Mucous membranes are moist. No bucca l lesions or ulcerations. NECK: Supple. HEART: Tachy, but regular. LUNGS: Clear to auscultation bilaterally. ABDOMEN: Obese, soft, nontender, nondistended. EXTREMITIES: No clubbing, cyanosis or edema. NEUROLOGIC: Grossly intact. LABORATORY DATA: WBC count 10,600, hemoglobin 8.2, platelet count 160,000. Sodium 128, potassium 3. 4, chloride 98, carbon dioxide 23, creatinine 0.7, BUN 14. RADIOGRAPHIC DATA: CT scan of the chest, abdomen and pelvis reviewed, and results described in the H PI. IMPRESSION: 1. Chronic pain syndrome attributable to expanding malignant disease. 2. Metastatic adenocarcinoma of the endometrium. 3. Chronic anemia. 4. Urinary tract infection. 5. Hydronephrosis attributable to disease expansion. 6. Electrolyte abnormalities. PLAN: Dianne is a pleasant, but unfortunate 51-year-old female well known to [facility], currentl y under our care for metastatic endometrial carcinoma. Her last dose of weekly carboplatin and pacli taxel was given on 06/14. The patient has had multiple hospitalizations since that time and has slow ly declined from a clinical standpoint to the point where her performance status is suboptimal to agg ressively continue treating her disease. The patient in her own mind wants to continue aggressively fighting because she is the guardian of several small children who are blood relatives, but not her o wn. That said, unfortunately, she can barely walk, not able to perform activities of daily living an d therefore, probably should be considered for placement at this point. I engaged in a possibility o f enrolling in outpatient hospice citing the advantages of early enrollment, specifically as it perta ins to managing end of life symptoms such as pain and anxiety and nutritional aspects. Certainly, I would be willing to entertain possibly treating her again, but before doing so would have to see a dr amatic improvement in her overall performance status. I advised her that the way her disease is prog ressing, her survival is probably measured in months, perhaps 3-6 at best. Aggressively pursuing carol motherapy may actually shorten her survivability because of her comorbid issues. Consultation with alliative medicine is certainly reasonable at this point. We will continue to engage with Dianne sevilla ing her hospital stay and be happy to see her in our office upon discharge. If there are any questio ns or concerns, please feel free to contact me at any time. Thank you very much for allowing me to participate in her care. Job ID: [id number]
[2021-09-22] MEDS ORDERED: HYDROmorphone INJ 0.5 MG/0.5 ML SYR IV PRN (19:19)
[2021-09-22] MEDS: HYDROmorphone INJ 0.5 MG/0.5 ML SYR IV PRN (21:50)
[2021-09-22] MEDS: AMITRIPTYLINE HCL 100 MG TAB PO SCH (21:51)
[2021-09-22] MEDS: traZODone HCL 50 MG TAB PO SCH (21:51)
[2021-09-22] MEDS ORDERED: MoRPHine SULFATE 4 MG/ML 1 ML CARP\\VIAL IV ONE (22:00)
[2021-09-23] MEDS: KETOROLAC 30 MG/ML VIAL IV PRN ×4 (00:08→19:30)
[2021-09-23] MEDS: HYDROmorphone INJ 0.5 MG/0.5 ML SYR IV PRN ×3 (04:48→12:29)
[2021-09-23] MEDS: SODIUM CHLORIDE 0.9% 1000ML 1,000 ML IV SCH ×2 (04:51→15:55)
[2021-09-23] MEDS: cefTRIAXone SODIUM 2,000 MG in DEXTROSE 5% 50 ML IV SCH (08:29)
[2021-09-23] MEDS: GABAPENTIN 600 MG TAB PO SCH ×4 (08:31→20:53)
[2021-09-23 08:41] LABS: INR 1.1 (0.9-1.1); Prothrombin Time 11.1 Seconds (9.0-12.0)
[2021-09-23 08:44] LABS: Basophils # (auto) 0.01 K/uL (0-0.2); Basophils % (auto) 0.1 %; Eosinophils % (auto) 0.9 %; Hematocrit (blood only) 24.6 % (37-47); Hemoglobin 7.9 g/dL (12.0-16.0); Immature Granulocytes # (auto) 0.11 K/uL (0.00-0.02); Lymphocytes # (auto) 1.02 K/uL (1.2-3.4); Lymphocytes % (auto) 9.4 %; Mean Corpuscular Hemoglobin 29.5 pg (25-34); Mean Corpuscular Hgb Conc 32.1 g/dL (32-36); Mean Corpuscular Volume 91.8 fL (80-100); Mean Platelet Volume 11.7 fL (7.4-10.4); Monocytes # (auto) 1.31 K/uL (0.11-0.59); Monocytes % (auto) 12.1 %; Neutrophils # (auto) 8.26 K/uL (1.4-6.5); Neutrophils % (auto) 76.5 %; Platelet Count 182 K/uL (130-400); Polychromasia 1+; RDW Coefficient of Variation 17.6 % (11.5-14.5); RDW Standard Deviation 56.6 fL (36.4-46.3); Red Blood Count 2.68 M/uL (4.2-5.4); White Blood Count 10.81 K/uL (4.8-10.8)
[2021-09-23 08:48] LABS: Calcium 7.8 mg/dl (8.5-10.1); Creatinine Clr Calc Pharmacy 136.7 ml/min; Est GFR (African American) 122.3 ml/min; Est GFR (Non-African American) 105.5 ml/min; Potassium 3.7 mmol/L (3.5-5.1)
[2021-09-23] MEDS: PANTOprazole 40 MG TAB PO SCH (09:31)
[2021-09-23] MEDS: VENLAFAXINE HCL XR 150 MG CAPXR PO SCH (09:31)
[2021-09-23] MEDS ORDERED: fentaNYL 12 MCG/HR TDSY TD SCH (10:30)
--- NOTE | 2021-09-23 10:40 | Hospitalist Progress Note ---
Date of Service September 23, 2021 Assessment & Plan (1) Chronic pain due to malignant neoplastic disease: Plan: 51 yo F w/ pMHx. of metastatic endometrial cancer s/p chemo and radiation therapy admitted for acute worsening lower back pain and UTI. Acute on chronic low back pain: - Likely due to metastatic disease given CT studies with finding of extensive metastatic disease including R frontal cortex 9mm possible hemorrhagic metastasis, acute mild superior endplate compression deformity of C4 vertebral body - Suboxone discontinued 09/22, started fentanyl patch 12 mcg on 09/23 - Started hydromorphone PO 2mg q3h - Pain management consulted - Holding off on steroids at this time given patient's infection. - Anticipate d/c to home with home health services once pain adequately controlled Metastatic adenocarcinoma: -Chemotherapy ongoing -Oncology consulted- recommend against aggressive treatment due to likely shorter life expectancy at current stage -Goals of care discussion with PCP Dr. Chou 09/22- patient will return home once ambulating without pain and spend time at home with family Anemia, in setting of supratherapeutic INR (corrected) -Admission Hgb 9, 09/23 Hgb 7.9 -No current anticoagulant medication- possibly Vit K deficiency vs anemia 2/2 sepsis -Admission PT 41, INR 4.6, PTT 67. Received 5 mg IV Vit K, coagulation panel wnl as of 09/19 -09/23 coagulation panel- PT 11, INR 1.1 -CTAP w/ slightly increased left sided retroperitoneal hematoma from prior imaging -2 units pRBCs given on 09/21 for Hgb 6.8 -Trend CBC -Transfuse Hgb < 7 Urinary tract infection: -Culture with gram negative bacilli- Klebsiella pneumoniae -CTAP + US findings of hydronephrosis -Continue ceftriaxone Hydronephrosis - Appears to be secondary to left sided retroperitoneal hematoma seen on CTAP - Renal function normal- 09/23 BUN 12, Cr 0.6 - Consider urology consult for possible stent placement CT lung findingsof ground glass opacities, possible pneumonia vs. pneumonitis - Continue ceftriaxone Hypokalemia, hypomagnesemia - 09/23 K of 3.7, 09/19 Mg 1.2 - Continue to follow BMP and replete as needed DVT prophylaxis: SCDs, hold SQ Heparin, given 9mm hemorrhagic mass seen on head CT Diet: regular Code: DNR/DNI Dispo: Home pending pain control and regular ambulation (2) Uterine malignant neoplasm: (3) Urinary tract infection: (4) Severe low back pain: (5) Chronic pain syndrome: Admission and Anticipated Discharge Date Admission Date: September 19, 2021 Supervising Physician Co-Signing Physician Notes Resident Physician Supervision Note: I independently interviewed and examined the patient and verified the baugh history and physical, reviewed labs and image studies and agree with resident Dr. Monroe findings and care plan. Subjective No acute events overnight. Still experiencing back pain often, typically 6/10 severity but denied back pain during evaluation due to receiving IV dilaudid shortly before. Would like to go home once her pain is controlled but not interested in hospice care at this time. No other acute complaints or concerns. Review of Systems Review of Systems: Per subjective Physical Exam Constitutional: well developed and well nourished Eyes: PERRL, conjunctivae normal, anicteric sclerae Neck: normal visual inspection Respiratory: normal respiratory effort, lungs clear to auscultation Cardiovascular: RRR, no murmur, no edema Gastrointestinal (Abdomen): normal bowel sounds, soft, nontender, no hepatosplenomegaly Musculoskeletal: no cyanosis or clubbing, extremities motor strength 5/5 Neurologic: no focal motor deficits Results & Data Results & Data ([facility]) Vital Signs (Past 12 Hours) Vital Signs Temp Pulse Resp BP Pulse Ox 09/23/21 07:53 36.8 C 109 H 20 107/65 93 09/22/21 23:00 36.8 C 122 H 16 119/75 92 Resident Activity Tracking Resident Involvement: Resident Care Provided Care Provided: Adult Hospital Medicine (1) Urinary tract infection Hematuria presence: without hematuria Urinary tract infection type: site unspecified Qualified Code(s): N39.0 - Urinary tract infection, site not specified
[2021-09-23] MEDS ORDERED: HYDROmorphone HCL 2 MG TAB PO STA (13:08)
[2021-09-23] MEDS ORDERED: HYDROmorphone HCL 2 MG TAB PO PRN (13:08)
[2021-09-23] MEDS ORDERED: HYDROmorphone HCL 2 MG TAB PO SCH (15:30)
[2021-09-23] MEDS ORDERED: HYDROmorphone INJ 0.5 MG/0.5 ML SYR IV STA ×2 (15:45→21:30)
[2021-09-23] MEDS: CHECK fentaNYL PATCH PLACEMENT SCH (16:01)
[2021-09-23] MEDS: HYDROmorphone HCL 2 MG TAB PO SCH ×3 (16:49→22:46)
[2021-09-23] MEDS: AMITRIPTYLINE HCL 100 MG TAB PO SCH (20:53)
[2021-09-23] MEDS: traZODone HCL 50 MG TAB PO SCH (20:53)
[2021-09-23] MEDS: ONDANSETRON 4 MG OD TAB PO PRN (20:56)
[2021-09-24] MEDS: CHECK fentaNYL PATCH PLACEMENT SCH ×3 (00:29→14:39)
[2021-09-24] MEDS: HYDROmorphone HCL 2 MG TAB PO SCH ×4 (01:36→10:54)
[2021-09-24] MEDS: KETOROLAC 30 MG/ML VIAL IV PRN ×4 (01:37→21:49)
[2021-09-24] MEDS: SODIUM CHLORIDE 0.9% 1000ML 1,000 ML IV SCH ×2 (04:07→16:41)
[2021-09-24] MEDS ORDERED: HYDROmorphone INJ 0.5 MG/0.5 ML SYR IV STA (06:18)
[2021-09-24] MEDS: GABAPENTIN 600 MG TAB PO SCH ×4 (08:04→20:40)
[2021-09-24] MEDS: cefTRIAXone SODIUM 2,000 MG in DEXTROSE 5% 50 ML IV SCH (08:10)
[2021-09-24] MEDS: VENLAFAXINE HCL XR 150 MG CAPXR PO SCH (08:11)
[2021-09-24] MEDS: PANTOprazole 40 MG TAB PO SCH (08:11)
[2021-09-24] MEDS: HYDROmorphone INJ 0.5 MG/0.5 ML SYR IV PRN ×4 (10:19→19:54)
[2021-09-24 10:30] LABS: Hematocrit (blood only) 24.2 % (37-47); Hemoglobin 7.8 g/dL (12.0-16.0); Mean Corpuscular Hemoglobin 30.1 pg (25-34); Mean Corpuscular Hgb Conc 32.2 g/dL (32-36); Mean Corpuscular Volume 93.4 fL (80-100); Mean Platelet Volume 11.7 fL (7.4-10.4); Nucleated RBC # (auto) 0.02 K/uL (0-0); Nucleated RBC % (auto) 0.2 %; Platelet Count 186 K/uL (130-400); RDW Coefficient of Variation 17.6 % (11.5-14.5); RDW Standard Deviation 57.4 fL (36.4-46.3); Red Blood Count 2.59 M/uL (4.2-5.4)
[2021-09-24 10:55] LABS: BUN Creatinine Ratio 19.4 (10-20); Calcium 8.1 mg/dl (8.5-10.1); Creatinine Clr Calc Pharmacy 132.3 ml/min; Est GFR (Non-African American) 104.4 ml/min
[2021-09-24] MEDS ORDERED: BUPRENORPHINE/NALOXONE 8/2 MG TAB SL PRN (11:42)
--- NOTE | 2021-09-24 14:18 | Hospitalist Progress Note ---
Date of Service September 24, 2021 Assessment & Plan (1) Chronic pain due to malignant neoplastic disease: Plan: 51 yo F w/ pMHx. of metastatic endometrial cancer s/p chemo and radiation therapy admitted for acute worsening lower back pain and UTI. Acute on chronic low back pain: - Likely due to metastatic disease given CT studies with finding of extensive metastatic disease including R frontal cortex 9mm possible hemorrhagic metastasis, acute mild superior endplate compression deformity of C4 vertebral body - Suboxone discontinued 09/22, started fentanyl patch 12 mcg and hydromorphone PO 2 mg q3h on 09/23 - Pain management consulted - Holding off on steroids at this time given patient's infection. - 09/24- due to lack of pain relief hydromorphone discontinued. Resumed suboxone, continue fentanyl patch, IV dilaudid PRN, toradol PRN. Increase doses as necessary for pain - Pt reconsidering hospice care. Disposition planning will be explored once stable pain regimen established- adequate pain relief and ambulation. Metastatic adenocarcinoma: -Chemotherapy ongoing -Oncology consulted 09/22- recommend against aggressive treatment due to likely shorter life expectancy at current stage -Goals of care discussion with PCP Dr. Chou 09/22- patient will return home once ambulating without pain and spend time at home with family Anemia, in setting of supratherapeutic INR (corrected) -Admission Hgb 9, 09/24 Hgb 7.8 -No current anticoagulant medication- possibly Vit K deficiency vs anemia 2/2 sepsis -Admission PT 41, INR 4.6, PTT 67. Received 5 mg IV Vit K, coagulation panel wnl as of 09/19 -CTAP w/ slightly increased left sided retroperitoneal hematoma compared to prior imaging -2 units pRBCs given on 09/21 for Hgb 6.8 -Trend CBC Urinary tract infection: -CBC revealed WBC 16.18, CRP 22.78, procalcitonin 15.28. Lactate wnl. Urinalysis significant for nitrites, leukocyte esterase, WBC > 30, 4+ bacteria. -Culture with gram negative bacilli- Klebsiella pneumoniae -CTAP + US findings of hydronephrosis -Continue ceftriaxone Hydronephrosis - Appears to be secondary to left sided retroperitoneal hematoma seen on CTAP - Renal function normal- 09/23 BUN 12, Cr 0.6 - Consider urology consult as outpatient for possible stent placement CT lung findingsof ground glass opacities, possible pneumonia vs. pneumonitis - Continue ceftriaxone Hypokalemia, hypomagnesemia - 09/24 K of 4.0, 09/19 Mg 1.2 - Trend BMP, replete as needed DVT prophylaxis: SCDs, hold SQ Heparin, given 9mm hemorrhagic mass seen on head CT Diet: regular Code: DNR/DNI Dispo: Home pending pain control and regular ambulation (2) Uterine malignant neoplasm: (3) Urinary tract infection: (4) Severe low back pain: (5) Chronic pain syndrome: Admission and Anticipated Discharge Date Admission Date: September 19, 2021 Supervising Physician Co-Signing Physician Notes Resident Physician Supervision Note: I independently interviewed and examined the patient and verified the baugh history and physical, reviewed labs and image studies and agree with resident Dr. Monroe findings and care plan. Subjective No acute events overnight. Pt did not experience any pain relief with hydromorphone PO initiated on 09/23, also minimal relief with PRN IV dilaudid. Did not sleep well due to pain, received IV dilaudid 0.5 mg at 21:30 on 09/23 and 06:30 this AM 09/24. On evaluation, reported back pain 8/10 severity. Stated suboxone provided her with more pain relief than hydromorphone therapy. No other acute complaints, denies chest pain, dyspnea, lethargy, lightheadedness. Review of Systems Review of Systems: Per subjective Physical Exam Constitutional: well developed, well nourished and + obese Eyes: + anicteric sclerae and EOM intact bilaterally; no conjunctival abnormality ENMT: external ear and nose normal, oropharynx normal Neck: normal visual inspection Respiratory: normal respiratory effort, lungs clear to auscultation Cardiovascular: RRR, no murmur, no edema Gastrointestinal (Abdomen): Inspection/Auscultation: abdomen normal to inspection; abdomen not distended Percussion/Palpation: abdomen soft; abdomen nontender Neurologic: moves all extremities and awake; no focal motor deficits Results & Data Results & Data ([facility]) Vital Signs (Past 12 Hours) Vital Signs Temp Pulse Resp BP Pulse Ox 09/24/21 08:00 36.9 C 118 H 18 123/72 99 Resident Activity Tracking Resident Involvement: Resident Care Provided Care Provided: Adult Hospital Medicine (1) Urinary tract infection Hematuria presence: without hematuria Urinary tract infection type: site unspecified Qualified Code(s): N39.0 - Urinary tract infection, site not specified
[2021-09-24] MEDS: BUPRENORPHINE/NALOXONE 8/2 MG TAB SL SCH (20:40)
[2021-09-24] MEDS: traZODone HCL 50 MG TAB PO SCH (20:42)
[2021-09-24] MEDS: AMITRIPTYLINE HCL 100 MG TAB PO SCH (20:42)
[2021-09-25] MEDS: CHECK fentaNYL PATCH PLACEMENT SCH ×2 (00:02→07:55)
[2021-09-25] MEDS: HYDROmorphone INJ 0.5 MG/0.5 ML SYR IV PRN ×2 (00:41→03:40)
[2021-09-25] MEDS ORDERED: HYDROmorphone INJ 0.5 MG/0.5 ML SYR IV STA (02:50)
[2021-09-25] MEDS: SODIUM CHLORIDE 0.9% 1000ML 1,000 ML IV SCH ×2 (03:40→09:52)
[2021-09-25] MEDS: BUPRENORPHINE/NALOXONE 8/2 MG TAB SL SCH ×4 (04:30→23:30)
[2021-09-25] MEDS: KETOROLAC 30 MG/ML VIAL IV PRN (05:13)
[2021-09-25 06:16] LABS: Hematocrit (blood only) 23.1 % (37-47); Hemoglobin 7.5 g/dL (12.0-16.0); Mean Corpuscular Hgb Conc 32.5 g/dL (32-36); Mean Corpuscular Volume 92.4 fL (80-100); Mean Platelet Volume 11.2 fL (7.4-10.4); Platelet Count 174 K/uL (130-400); RDW Coefficient of Variation 17.5 % (11.5-14.5); RDW Standard Deviation 56.9 fL (36.4-46.3); White Blood Count 9.86 K/uL (4.8-10.8)
[2021-09-25 06:46] LABS: BUN Creatinine Ratio 19.6 (10-20); Calcium 8.1 mg/dl (8.5-10.1); Creatinine Clr Calc Pharmacy 146.5 ml/min; Est GFR (African American) 125.1 ml/min; Potassium 4.1 mmol/L (3.5-5.1)
[2021-09-25] MEDS ORDERED: HYDROmorphone INJ 0.5 MG/0.5 ML SYR IV PRN (06:48)
[2021-09-25] MEDS ORDERED: KETOROLAC 30 MG/ML VIAL IV PRN (06:54)
[2021-09-25] MEDS: GABAPENTIN 600 MG TAB PO SCH ×4 (08:00→20:27)
[2021-09-25] MEDS: VENLAFAXINE HCL XR 150 MG CAPXR PO SCH (08:00)
[2021-09-25] MEDS: cefTRIAXone SODIUM 2,000 MG in DEXTROSE 5% 50 ML IV SCH (08:00)
[2021-09-25] MEDS: PANTOprazole 40 MG TAB PO SCH (08:00)
--- NOTE | 2021-09-25 08:35 | Hospitalist Progress Note ---
Date of Service September 25, 2021 Assessment & Plan (1) Chronic pain due to malignant neoplastic disease: Plan: 51 yo F Hx metastatic adenocarcinoma of the endometrium, chronic pain, anemia admitted with worsening generalized pain and sepsis 2/2 UTI. Acute on chronic pain: - Localized to low back, bilateral LE. - With significant pain despite Fentanyl patch, Suboxone 8mg/2mg TID, Dilaudid 1mg q3h prn, Toradol 30mg IV q6h prn. - Possible some element of decreased opiate effect due to Suboxone, but when previously d/c'ed, patient's pain was even more unbearable and she is adamant that it is one of the few things that seems to decrease her pain. - Will initiate morphine GO CART MECHANIC for today as patient's primary goal is pain control to try to determine effective opiate dosing. - Will also increase Suboxone to 8mg/2mg q6h per discussion with Pain Management (discussed with Dr. Jarrett). - Hold Fentanyl patch for now as we determine opiate need with GO CART MECHANIC, with eventual goal of transition to PO medications such as Roxanol as needed with s cheduled Suboxone. - Pain management consulted several days ago, recommended decreasing gabapentin dosing to less than 3600mg daily. - Dianne is currently on 1800mg q6h (total daily dose of 7200mg); will begin to decrease dosing, and today will go to 1000mg q4h (total daily dose of 6000mg), per recommendation that lower dose with decreased time between doses may be of more benefit than higher dose with increased time between doses. Decreased total daily dosing may also cause decreased potential side effects to patient. Goal to continue decreasing while admitted / outpatient to goal of 3600mg total daily dose. - Pt desires hospice care on discharge. Disposition planning to be further explored once stable pain regimen established, and adequate pain relief achieved. Metastatic endometrial adenocarcinoma: - History of metastatic endometrial adenocarcinoma. - This admission with imaging showing new / worsening lesions to the brain, chest, abdomen, and bones/soft tissues. - Chemotherapy had up to recently been ongoing, and patient did complete several rounds of radiation. - Oncology consulted 09/22 - recommended against aggressive treatment moving forward due to likely shorter life expectancy due to comorbidities and chemo effect. - Goals of care discussion with PCP Dr. Chou 09/22, and with hospital team 09/23 and 09/24 - patient will return home with home hospice once ambulating without pain and spend time at home with family. Anemia, supratherapeutic INR (corrected): - Admission INR 4.6, not on home anticoagulation. Received Vit K 5mg IV x1 on admit with resolution of INR to 1.1. - Admission Hgb 9, with drop to 6.8 on 09/21 requiring 2u PRBCs. Hgb today 7.5. - CTAP this admission w/ slightly increased left-sided retroperitoneal hematoma compared to prior imaging. - Also noted to have 9mm hemorrhagic contusion vs. hemorrhagic metastasis on CT Head 09/21. - Unclear etiology of initial elevated INR. No elevation since Vitamin K given on admission. Possible that elevation was due to Vitamin K deficiency given resolution without any change since that time with Vit K dosing x1. - Holding any DVT ppx agents in the setting of bleeding. - Continue to trend CBC and transfuse as necessary. Sepsis 2/2 urinary tract infection: - Admission CBC revealed WBC 16.18, CRP 22.78, procalcitonin 15.28. Lactate normal. - Urinalysis significant for nitrites, leukocyte esterase, WBC > 30, 4+ bacteria. - UCx grew pansensitive Klebsiella pneumoniae. BCx negative. - Continue Abx x10 days, can deescalate to PO if discharged prior to 10 day course completion (currently day 03/18). Hydronephrosis: - Secondary to increasing left-sided retroperitoneal hematoma / mass seen on CTAP. - Renal function normal - 09/23 BUN 12, Cr 0.6. - Consider Urology consult as outpatient for possible stent placement; inpatient consult if renal function were to deteriorate while admitted. Pneumonia vs. pneumonitis: - CT Chest noted ground glass opacities, suggested pneumonia vs. pneumonitis. - Patient is without respiratory complaints, and saturating well on room air. - Continue ceftriaxone for UTI as above, otherwise no specific intervention in this regard. Hyponatremia: - Admission Na 130, with steady decline to 126 this AM. - Urine and Serum Osm not suggestive of SIADH but rather low solute. - Secondary to poor PO intake from pain/ nausea due to cancer. - Encourage PO intake. Dietary consult placed for nutritional assessment. CodeStatus: DNR/DNI DVT prophylaxis: SCDs, chemoprophylaxis contraindicated in the setting of hemorrhagic lesion in brain and retroperitoneal hematoma Diet: regular Dispo: Med/Surg (2) Uterine malignant neoplasm: (3) Urinary tract infection: (4) Severe low back pain: (5) Chronic pain syndrome: (6) Acute hyponatremia: (7) Anemia: Admission and Anticipated Discharge Date Admission Date: September 19, 2021 Supervising Physician Co-Signing Physician Notes I personally examined the patient and verified all baugh points of history and exam, discussed case, and agree with decision making with Dr Freeman pain under better control w GO CART MECHANIC. discussed options moving forward - main decision being increase in suboxone but possibly less efficacious breakthrough meds due to naltrexone, or stop suboxone / allow a few days to wash out while on GO CART MECHANIC / transition to "basal bolus" regimen such as higher fentanyl patch and prn morphine. vitals noted nad heent nc at mmm breathing unlabored no accessory muscles good effort skin no rashes no pallor or icterus uncontrolled cancer pain -doing better on GO CART MECHANIC --> continue for now -discussed above plans - she will give consideration to both and ask questions as they arise -then will work on transitioning to outpt regimen and home/hospice otherwise as above Subjective Patient overnight required Dilaudid 0.5mg IV x1 for pain around 5am. She reports that her Suboxone helped her to have enough pain relief yesterday to sleep, but it only worked until about 4am this morning. Otherwise the patient does not have complaints today. Her pain is 10/10 shortly after being given Dilaudid (maybe 30 minutes). Her biggest goal is to have less pain. She states that she wants to go home with home hospice when she has her pain under better control. Review of Systems Review of Systems: All systems reviewed & are unremarkable except as noted in HPI & below Constitutional: no fever, no chills and no malaise Respiratory: no cough and no dyspnea Cardiovascular: no chest pain, no palpitations and no edema Gastrointestinal: no abdominal pain, no constipation and no diarrhea/loose stools Genitourinary: no hematuria Physical Exam Constitutional: WD/WN, vitals as above Respiratory: normal respiratory effort, lungs clear to auscultation Cardiovascular: RRR, no murmur, no edema Gastrointestinal (Abdomen): normal bowel sounds, soft, nontender, no hepatosplenomegaly Skin: no rashes, warm and dry (no erythema or tenderness over port site) RLQ with ecchymosis Psychiatric: A+Ox3, euthymic affect Results & Data Results & Data ([facility]) Vital Signs (Past 12 Hours) Vital Signs Temp Pulse Resp BP Pulse Ox 09/24/21 22:44 36.7 C 112 H 18 122/83 92 (1) Urinary tract infection Hematuria presence: without hematuria Urinary tract infection type: site unspecified Qualified Code(s): N39.0 - Urinary tract infection, site not specified (2) Anemia Anemia type: unspecified type Qualified Code(s): D64.9 - Anemia, unspecified
[2021-09-25] MEDS ORDERED: NALOXONE HCL 0.4 MG/1 ML VIAL/CARP IV PRN (08:45)
[2021-09-25] MEDS ORDERED: MoRPHine Bolus from PCA IV STA (08:45)
[2021-09-25] MEDS ORDERED: KETOROLAC TROMETHAMINE 10 MG TABLET PO SCH (09:00)
[2021-09-25] MEDS: MoRPHine SULFATE PCA 30 MG/30 ML IV PRN ×2 (09:52→15:39)
[2021-09-25] MEDS: DOCUSATE SODIUM/SENNA 50/8.6MG TAB PO SCH ×2 (10:01→20:29)
[2021-09-25] MEDS: LIDOCAINE 5% 1 PATCH TD SCH (10:01)
[2021-09-25] MEDS ORDERED: BUPRENORPHINE/NALOXONE 8/2 MG TAB SL SCH (11:15)
--- NOTE | 2021-09-25 13:05 | Billing Data ---
Date of Service September 25, 2021 Coding Level of Care Code 78173 Subseq Hosp Care Lvl 3
[2021-09-25] MEDS: GABAPENTIN 400 MG CAP PO SCH ×2 (16:43→20:27)
[2021-09-25] MEDS: traZODone HCL 50 MG TAB PO SCH (20:29)
[2021-09-25] MEDS: AMITRIPTYLINE HCL 100 MG TAB PO SCH (20:34)
[2021-09-26] MEDS: GABAPENTIN 400 MG CAP PO SCH ×6 (02:37→20:11)
[2021-09-26] MEDS: GABAPENTIN 600 MG TAB PO SCH ×6 (02:37→20:11)
[2021-09-26] MEDS: MoRPHine SULFATE PCA 30 MG/30 ML IV PRN ×2 (05:42→20:07)
[2021-09-26] MEDS: BUPRENORPHINE/NALOXONE 8/2 MG TAB SL SCH ×3 (06:24→16:28)
--- NOTE | 2021-09-26 07:33 | Hospitalist Progress Note ---
Date of Service September 26, 2021 Assessment & Plan (1) Chronic pain due to malignant neoplastic disease: Plan: 51 yo F Hx metastatic adenocarcinoma of the endometrium, chronic pain, anemia admitted with worsening generalized pain and sepsis 2/2 UTI. Acute on chronic pain: - Localized to low back, bilateral LE. - With significant pain this admission despite Fentanyl patch, Suboxone 8mg/2mg TID, Dilaudid 1mg q3h prn, Toradol 30mg IV q6h prn. - Morphine [employer] MANAGER initiated 09/25 to determine effective opiate dosing with significant improvement in pain. Will d/c morphine continuous infusion and allow for prn q10min [employer] SERVICE MANAGER pushes, to ultimately determine how much morphine patient requires for pain control. - Continue Suboxone to 8mg/2mg q6h per discussion with Pain Management (discussed with Dr. Jarrett). - Eventual goal of transition to PO medications such as Roxanol as needed with scheduled Suboxone. - Pain management consulted several days ago, recommended decreasing gabapentin dosing to less than 3600mg daily. - Currently decreased to 1000mg q4h (total daily dose of 6000mg), per recommendation that lower dose with decreased time between doses may be of more benefit than higher dose with increased time between doses. Decreased total daily dosing may also cause decreased potential side effects to patient. Goal to continue decreasing while admitted / outpatient to goal of 3600mg total daily dose. - Pt desires hospice care on discharge. Disposition planning in process. Metastatic endometrial adenocarcinoma: - History of metastatic endometrial adenocarcinoma. - This admission with imaging showing new / worsening lesions to the brain, chest, abdomen, and bones/soft tissues. - Chemotherapy had up to recently been ongoing, and patient did complete several rounds of radiation. - Oncology consulted 09/22 - recommended against aggressive treatment moving forward due to likely shorter life expectancy due to comorbidities and chemo effect. - Goals of care discussion with PCP Dr. Chou 09/22, and with hospital team 09/23 and 09/24 - patient will return home with home hospice once ambulating without pain and spend time at home with family. Anemia, supratherapeutic INR (corrected): - Admission INR 4.6, not on home anticoagulation. Received Vit K 5mg IV x1 on admit with resolution of INR to 1.1. - Admission Hgb 9, with drop to 6.8 on 09/21 requiring 2u PRBCs. Hgb today stable at 7.7. - CTAP this admission w/ slightly increased left-sided retroperitoneal hematoma compared to prior imaging. - Also noted to have 9mm hemorrhagic contusion vs. hemorrhagic metastasis on CT Head 09/21. - Unclear etiology of initial elevated INR. No elevation since Vitamin K given on admission. Possible that elevation was due to Vitamin K deficiency given resolution without any change since that time with Vit K dosing x1. - Holding any DVT ppx agents in the setting of bleeding. - Continue to trend CBC and transfuse as necessary. Sepsis 2/2 urinary tract infection: - Admission CBC revealed WBC 16.18, CRP 22.78, procalcitonin 15.28. Lactate normal. - Urinalysis significant for nitrites, leukocyte esterase, WBC > 30, 4+ bacteria. - UCx grew pansensitive Klebsiella pneumoniae. BCx negative. - Continue Abx x10 days; deescalate today to PO cefdinir BID to complete 10 day course (currently day 8/10). Hydronephrosis: - Secondary to increasing left-sided retroperitoneal hematoma / mass seen on CTAP. - Renal function normal - 09/23 BUN 12, Cr 0.6. - Consider Urology consult as outpatient for possible stent placement; inpatient consult if renal function were to deteriorate while admitted. Pneumonia vs. pneumonitis: - CT Chest noted ground glass opacities, suggested pneumonia vs. pneumonitis. - Patient is without respiratory complaints, and saturating well on room air. - Continue ceftriaxone for UTI as above, otherwise no specific intervention in this regard. Hyponatremia: - Admission Na 130, with steady decline to 126; has been stable at this level for several days. - Urine and Serum Osm not suggestive of SIADH but rather low solute. - Secondary to poor PO intake from pain/ nausea due to cancer. - Encourage PO intake. - Dietary consult placed for nutritional assessment. CodeStatus: DNR/DNI DVT prophylaxis: SCDs, chemoprophylaxis contraindicated in the setting of hemorrhagic lesion in brain and retroperitoneal hematoma Diet: Regular Dispo: Med/Surg (2) Uterine malignant neoplasm: (3) Urinary tract infection: (4) Severe low back pain: (5) Chronic pain syndrome: (6) Acute hyponatremia: (7) Anemia: Admission and Anticipated Discharge Date Admission Date: September 19, 2021 Supervising Physician Co-Signing Physician Notes I personally examined the patient and verified all baugh points of history and exam, discussed case, and agree with decision making with Dr Freeman pain remains under better control w [employer]ICE MANAGER. discussing discharge planning vitals noted nad heent nc at mmm breathing unlabored no accessory muscles good effort skin no rashes no pallor or icterus uncontrolled cancer pain -doing better on [employer] SERVICE MANAGER --> continue for now -- stop continuous and track [employer]ICE MANAGER prn usage to hopefully better estimate discharge needs -hopefully home tomorrow on suboxone and prn roxanol that matches her [employer] SERVICE MANAGER needs; if [employer] SERVICE MANAGER needs quite high then can consider if hospice could treat w [employer] SERVICE MANAGER as well Acute blood loss anemia due to retroperitoneal hematoma -now stable. otherwise as above Subjective Pain much more well controlled overnight, though not 0/10. Pain is significant with moving and walking and today Manish states that "she is ok with never walking again if she is pain free". No complaints of SOB or chest pain, fevers. Review of Systems Review of Systems: All systems reviewed & are unremarkable except as noted in HPI & below Constitutional: + malaise; no fever and no chills Respiratory: no cough and no dyspnea Cardiovascular: no chest pain, no palpitations and no edema Gastrointestinal: no abdominal pain, no constipation and no diarrhea/loose stools Genitourinary: no dysuria and no hematuria Musculoskeletal: back pain, lower extremity pain Physical Exam Constitutional: WD/WN, vitals as above Respiratory: normal respiratory effort, lungs clear to auscultation Cardiovascular: RRR, no murmur, no edema Gastrointestinal (Abdomen): normal bowel sounds, soft, nontender, no hepatosplenomegaly Skin: no rashes, warm and dry Psychiatric: A+Ox3, euthymic affect Results & Data Results & Data ([facility]) Vital Signs (Past 12 Hours) Vital Signs Temp Pulse Pulse Resp BP Pulse Ox 09/26/21 06:57 36.7 C 107 H 16 99/67 L 94 09/26/21 05:32 36.7 C 107 H 20 111/69 94 09/26/21 01:20 36.7 C 112 H 17 112/60 93 09/25/21 22:03 36.7 C 110 H 16 131/69 90 09/25/21 20:26 37.1 C 119 H 11 L 124/82 94 Resident Activity Tracking Resident Involvement: Resident Care Provided Care Provided: Adult Hospital Medicine (1) Urinary tract infection Hematuria presence: without hematuria Urinary tract infection type: site unspecified Qualified Code(s): N39.0 - Urinary tract infection, site not specified (2) Anemia Anemia type: unspecified type Qualified Code(s): D64.9 - Anemia, unspecified
[2021-09-26 08:35] LABS: Hematocrit (blood only) 23.5 % (37-47); Hemoglobin 7.6 g/dL (12.0-16.0); Mean Corpuscular Hgb Conc 32.3 g/dL (32-36); Mean Corpuscular Volume 92.9 fL (80-100); Mean Platelet Volume 11.1 fL (7.4-10.4); Platelet Count 193 K/uL (130-400); RDW Coefficient of Variation 17.7 % (11.5-14.5); RDW Standard Deviation 57.4 fL (36.4-46.3); Red Blood Count 2.53 M/uL (4.2-5.4); White Blood Count 8.71 K/uL (4.8-10.8)
[2021-09-26] MEDS: LIDOCAINE 5% 1 PATCH TD SCH (08:41)
[2021-09-26] MEDS: VENLAFAXINE HCL XR 150 MG CAPXR PO SCH (08:41)
[2021-09-26] MEDS: PANTOprazole 40 MG TAB PO SCH (08:41)
[2021-09-26] MEDS: DOCUSATE SODIUM/SENNA 50/8.6MG TAB PO SCH ×2 (08:42→20:15)
[2021-09-26] MEDS: SODIUM CHLORIDE 0.9% 1000ML 1,000 ML IV SCH ×2 (08:42→20:10)
[2021-09-26 08:59] LABS: BUN Creatinine Ratio 15.5 (10-20); Creatinine Clr Calc Pharmacy 141.4 ml/min; Est GFR (African American) 123.7 ml/min; Est GFR (Non-African American) 106.7 ml/min; Potassium 3.9 mmol/L (3.5-5.1)
[2021-09-26] MEDS: KETOROLAC 30 MG/ML VIAL IV SCH ×3 (09:16→20:12)
[2021-09-26] MEDS: cefTRIAXone SODIUM 2,000 MG in DEXTROSE 5% 50 ML IV SCH (11:02)
--- NOTE | 2021-09-26 17:15 | Billing Data ---
Date of Service September 26, 2021 Coding Level of Care Code 48554 Subseq Hosp Care Lvl 3
[2021-09-26] MEDS: AMITRIPTYLINE HCL 100 MG TAB PO SCH (20:12)
[2021-09-26] MEDS: traZODone HCL 50 MG TAB PO SCH (20:12)
[2021-09-26] MEDS: CEFDINIR 300 MG CAP PO SCH (20:12)
[2021-09-27] MEDS: BUPRENORPHINE/NALOXONE 8/2 MG TAB SL SCH ×3 (00:02→11:46)
[2021-09-27] MEDS: GABAPENTIN 400 MG CAP PO SCH ×6 (00:03→21:30)
[2021-09-27] MEDS: GABAPENTIN 600 MG TAB PO SCH ×6 (00:03→21:29)
[2021-09-27] MEDS: KETOROLAC 30 MG/ML VIAL IV SCH ×4 (04:05→21:24)
--- NOTE | 2021-09-27 06:55 | Hospitalist Progress Note ---
Date of Service September 27, 2021 Assessment & Plan (1) Chronic pain due to malignant neoplastic disease: Plan: 51 yo F Hx metastatic adenocarcinoma of the endometrium, chronic pain, anemia admitted with worsening generalized pain and sepsis 2/2 UTI. Acute on chronic pain: - Localized to low back, bilateral LE. - With significant pain this admission despite Fentanyl patch, Suboxone 8mg/2mg TID, Dilaudid 1mg q3h prn, Toradol 30mg IV q6h prn. - Morphine SEWER PIPE LAYER HELPER initiated 09/25 to determine effective opiate dosing with significant improvement in pain. Ultimately received about 16mg morphine yesterday total via SEWER PIPE LAYER HELPER (no continuous infusion yesterday). - Transitioned to Roxanol 5mg q2h today as needed for breakthrough pain. - Continue Suboxone to 8mg/2mg q6h per discussion with Pain Management (discussed with Dr. Jarrett). Still trying to find a provider that will assume the care of this medication as it is not formulary for local hospice agencies. - If medication unable to be arranged for patient will have to move toward Fentanyl patch and Roxanol -> SEW[employer] PIPE LAYER HELPER with continuous and prn infusions. - Pain management consulted several days ago, recommended decreasing gabapentin dosing to less than 3600mg daily. - 1000mg q4h for now (total daily dose of 6000mg). Goal to continue decreasing while admitted / outpatient to goal of 3600mg total daily dose. - Pt desires hospice care on discharge. Disposition planning in process. Metastatic endometrial adenocarcinoma: - History of metastatic endometrial adenocarcinoma. - This admission with imaging showing new / worsening lesions to the brain, chest, abdomen, and bones/soft tissues. - Chemotherapy had up to recently been ongoing, and patient did complete several rounds of radiation. - Oncology consulted 09/22 - recommended against aggressive treatment moving forward due to likely shorter life expectancy due to comorbidities and chemo effect. - Goals of care discussion with PCP Dr. Chou 09/22, and with hospital team 09/23 and 09/24 - patient will return home with home hospice once ambulating without pain and spend time at home with family. Anemia, supratherapeutic INR (corrected): - Admission INR 4.6, not on home anticoagulation. Received Vit K 5mg IV x1 on admit with resolution of INR to 1.1. - Admission Hgb 9, with drop to 6.8 on 09/21 requiring 2u PRBCs. Hgb stable. - CTAP this admission w/ slightly increased left-sided retroperitoneal hematoma compared to prior imaging. - Noted to have 9mm hemorrhagic contusion vs. hemorrhagic metastasis on CT Head 09/21. - Unclear etiology of initial elevated INR. No elevation since Vitamin K given on admission. Possible that elevation was due to Vitamin K deficiency given resolution without any change since that time with Vit K dosing x1. - Holding any DVT ppx agents in the setting of bleeding. - Continue to trend CBC and transfuse as necessary while admitted. Sepsis 2/2 urinary tract infection: - Admission CBC revealed WBC 16.18, CRP 22.78, procalcitonin 15.28. Lactate normal. - Urinalysis significant for nitrites, leukocyte esterase, WBC > 30, 4+ bacteria. - UCx grew pansensitive Klebsiella pneumoniae. BCx negative. - Continue Abx x10 days; currently on day 9/10 of PO cefdinir BID. Hydronephrosis: - Secondary to increasing left-sided retroperitoneal hematoma / mass seen on CTAP. - Renal function continues to be normal. Pneumonia vs. pneumonitis: - CT Chest noted ground glass opacities, suggested pneumonia vs. pneumonitis. - Patient is without respiratory complaints, and saturating well on room air. - Continue cefdinir for UTI as above, otherwise no specific intervention in this regard. Hyponatremia: - Admission Na 130, with steady decline to 126; has been stable at this level for several days. - Urine and Serum Osm not suggestive of SIADH but rather low solute. - Secondary to poor PO intake from pain/ nausea due to cancer. - Encourage PO intake. - Dietary consult placed earlier this admission for nutritional assessment. CodeStatus: DNR/DNI DVT prophylaxis: SCDs, chemoprophylaxis contraindicated in the setting of h emorrhagic lesion in brain and retroperitoneal hematoma Diet: Regular Dispo: Med/Surg (2) Uterine malignant neoplasm: (3) Urinary tract infection: (4) Severe low back pain: (5) Chronic pain syndrome: (6) Acute hyponatremia: (7) Anemia: Admission and Anticipated Discharge Date Admission Date: September 19, 2021 Supervising Physician Co-Signing Physician Notes I personally examined the patient and verified all baugh points of history and exam, discussed case, and agree with decision making with Dr Freeman pain remains under better control except that it still hurts quite a bit whenever she moves. Unfortunately after extensive work by Dr. Freeman it does not appear that anyone will be able to assume outpatient prescribing of her Suboxone. vitals noted nad heent nc at mmm breathing unlabored no accessory muscles good effort skin no rashes no pallor or icterus uncontrolled cancer pain -doing better with pain controlhowever the inability to continue her current regimen including Suboxone will definitely complicate care after discharge. To that end we will DC Suboxone, and add fentanyl patch 50 mcg, continue as needed morphine for breakthrough, and follow for pain control and needs. Probably need to follow for another couple days until the naltrexone washes out of her system, to ensure that she does not show any narcotics overdose type symptoms during that timeframe. still goal of home/hospice Acute blood loss anemia due to retroperitoneal hematoma -now stable. otherwise as above Subjective Dianne reports being relatively pain free today as compared to other days in her hospital course, giving her optimism for eventual discharge. No other complaints today. Review of Systems Review of Systems: All systems reviewed & are unremarkable except as noted in HPI & below Constitutional: no fever, no chills and no malaise Respiratory: no cough and no dyspnea Cardiovascular: no chest pain, no palpitations and no edema Gastrointestinal: no abdominal pain, no constipation and no diarrhea/loose stools Genitourinary: no dysuria and no hematuria Physical Exam Constitutional: WD/WN, vitals as above Respiratory: normal respiratory effort, lungs clear to auscultation Cardiovascular: RRR, no murmur, no edema Gastrointestinal (Abdomen): normal bowel sounds, soft, nontender, no hepatosplenomegaly Skin: no rashes, warm and dry Psychiatric: A+Ox3, euthymic affect Results & Data Results & Data ([facility]) Vital Signs (Past 12 Hours) Vital Signs Temp Pulse Resp BP BP Pulse Ox 09/27/21 04:03 36.5 C 106 H 17 125/86 94 09/26/21 23:54 93 09/26/21 23:50 37.2 C 105 H 22 112/65 87 L 09/26/21 20:20 36.6 C 95 H 21 109/65 95 Resident Activity Tracking Resident Involvement: Resident Care Provided Care Provided: Adult Hospital Medicine (1) Urinary tract infection Hematuria presence: without hematuria Urinary tract infection type: site unspecified Qualified Code(s): N39.0 - Urinary tract infection, site not specified (2) Anemia Anemia type: unspecified type Qualified Code(s): D64.9 - Anemia, unspecified
[2021-09-27] MEDS: CEFDINIR 300 MG CAP PO SCH ×2 (08:37→21:29)
[2021-09-27] MEDS: DOCUSATE SODIUM/SENNA 50/8.6MG TAB PO SCH ×2 (08:37→21:28)
[2021-09-27] MEDS: LIDOCAINE 5% 1 PATCH TD SCH (08:38)
[2021-09-27] MEDS: PANTOprazole 40 MG TAB PO SCH (08:39)
[2021-09-27] MEDS: VENLAFAXINE HCL XR 150 MG CAPXR PO SCH (08:39)
[2021-09-27] MEDS ORDERED: MoRPHine SULFATE 5 MG/0.25 ML UDP PO PRN ×2 (09:04→14:18)
[2021-09-27] MEDS ORDERED: MoRPHine Bolus from PCA IV STA (16:29)
[2021-09-27] MEDS: MoRPHine SULFATE PCA 30 MG/30 ML IV PRN (16:53)
[2021-09-27] MEDS: SODIUM CHLORIDE 0.9% 1000ML 1,000 ML IV SCH (16:55)
[2021-09-27] MEDS ORDERED: fentaNYL 50 MCG/HR TDSY TD SCH (17:00)
--- NOTE | 2021-09-27 18:06 | Billing Data ---
Date of Service September 27, 2021 Coding Level of Care Code 85159 Subseq Hosp Care Lvl 3
[2021-09-27] MEDS: AMITRIPTYLINE HCL 100 MG TAB PO SCH (21:29)
[2021-09-27] MEDS: traZODone HCL 50 MG TAB PO SCH (21:29)
[2021-09-28] MEDS: GABAPENTIN 400 MG CAP PO SCH ×2 (02:26→05:02)
[2021-09-28] MEDS: CHECK fentaNYL PATCH PLACEMENT SCH ×4 (02:26→23:20)
[2021-09-28] MEDS: GABAPENTIN 600 MG TAB PO SCH ×5 (02:26→23:19)
[2021-09-28] MEDS: KETOROLAC 30 MG/ML VIAL IV SCH ×4 (02:32→23:19)
[2021-09-28] MEDS: CEFDINIR 300 MG CAP PO SCH (08:43)
[2021-09-28] MEDS: DOCUSATE SODIUM/SENNA 50/8.6MG TAB PO SCH ×2 (08:43→23:19)
[2021-09-28] MEDS: LIDOCAINE 5% 1 PATCH TD SCH (08:44)
[2021-09-28] MEDS: VENLAFAXINE HCL XR 150 MG CAPXR PO SCH (08:44)
[2021-09-28] MEDS: PANTOprazole 40 MG TAB PO SCH (08:44)
[2021-09-28] MEDS: MoRPHine SULFATE PCA 30 MG/30 ML IV PRN (14:18)
[2021-09-28] MEDS: SODIUM CHLORIDE 0.9% 1000ML 1,000 ML IV SCH (14:44)
--- NOTE | 2021-09-28 17:09 | Hospitalist Progress Note ---
Date of Service September 28, 2021 Assessment & Plan (1) Chronic pain due to malignant neoplastic disease: Plan: 51 yo F Hx metastatic adenocarcinoma of the endometrium, chronic pain, anemia admitted with worsening generalized pain and sepsis 2/2 UTI. Acute on chronic pain: - Localized to low back, bilateral LE. - With significant pain this admission despite Fentanyl patch, Suboxone 8mg/2mg TID, Dilaudid 1mg q3h prn, Toradol 30mg IV q6h prn. - Morphine CAR BODY DESIGNER initiated 09/25 to determine effective opiate dosing. Doing well on CAR BODY DESIGNER and Fentanyl. Will continue on discharge. No continuous infusion at this time, but can increase if needed in outpatient setting. - Pain management consulted several days ago, recommended decreasing gabapentin dosing to less than 3600mg daily. - While admitted gabapentin was decreased to 1200mg q6h, can decrease further in outpatient setting. - Pt desires hospice care on discharge. Disposition planning in process, for d/c tomorrow. Metastatic endometrial adenocarcinoma: - History of metastatic endometrial adenocarcinoma. - This admission with imaging showing new / worsening lesions to the brain, chest, abdomen, and bones/soft tissues. - Chemotherapy had up to recently been ongoing, and patient did complete several rounds of radiation. - Oncology consulted 09/22 - recommended against aggressive treatment moving forward due to likely shorter life expectancy due to comorbidities and chemo effect. - Goals of care discussion with PCP Dr. Chou 09/22, and with hospital team 09/23 and 09/24 - patient will return home with home hospice once ambulating without pain and spend time at home with family. Anemia, supratherapeutic INR (corrected): - Admission INR 4.6, not on home anticoagulation. Received Vit K 5mg IV x1 on admit with resolution of INR to 1.1. - Admission Hgb 9, with drop to 6.8 on 09/21 requiring 2u PRBCs. Hgb stable. - CTAP this admission w/ slightly increased left-sided retroperitoneal hematoma compared to prior imaging. - Noted to have 9mm hemorrhagic contusion vs. hemorrhagic metastasis on CT Head 09/21. - Unclear etiology of initial elevated INR. No elevation since Vitamin K given on admission. Possible that elevation was due to Vitamin K deficiency given resolution without any change since that time with Vit K dosing x1. - Held any DVT ppx agents while admitted in the setting of bleeding. Sepsis 2/2 urinary tract infection: - Admission CBC revealed WBC 16.18, CRP 22.78, procalcitonin 15.28. Lactate normal. - Urinalysis significant for nitrites, leukocyte esterase, WBC > 30, 4+ bacteria. - UCx grew pansensitive Klebsiella pneumoniae. BCx negative. - Completed 10 day course of cephalosporin antibiotics. Hydronephrosis: - Secondary to increasing left-sided retroperitoneal hematoma / mass seen on CTAP. - Renal function continues to be normal. Pneumonia vs. pneumonitis: - CT Chest noted ground glass opacities, suggested pneumonia vs. pneumonitis. - Patient is without respiratory complaints, and saturating well on room air. - Cefdinir for UTI as above, otherwise no specific intervention in this regard. Hyponatremia: - Admission Na 130, with steady decline to 126; has been stable at this level for several days. - Urine and Serum Osm not suggestive of SIADH but rather low solute. - Secondary to poor PO intake from pain/ nausea due to cancer. - Encouraged PO intake. CodeStatus: DNR/DNI DVT prophylaxis: SCDs, chemoprophylaxis contraindicated in the setting of hemorrhagic lesion in brain and retroperitoneal hematoma Diet: Regular Dispo: Med/Surg (2) Uterine malignant neoplasm: (3) Urinary tract infection: (4) Severe low back pain: (5) Chronic pain syndrome: (6) Acute hyponatremia: (7) Anemia: Admission and Anticipated Discharge Date Admission Date: September 19, 2021 Supervising Physician Co-Signing Physician Notes I personally examined the patient and verified all baugh points of history and exam, discussed case, and agree with decision making with Dr Pete emnjivar doing ok. everything just about set up for home - will be able to go tomorrow vitals noted nad heent nc at mmm breathing unlabored no accessory muscles good effort skin no rashes no pallor or icterus uncontrolled cancer pain -doing better with pain controlhowever the inability to continue her current regimen including Suboxone complicated care plan for after discharge. To that end we DCd Suboxone, and added fentanyl patch 50 mcg, continue as needed morphine for breakthrough (will go home w CAR BODY DESIGNER), and follow for pain control and needs. natrexone washing out may make "regular" narcotics act more potently - follow Acute blood loss anemia due to retroperitoneal hematoma -now stable. otherwise as above Subjective Continues to have good pain control on Fentanyl patches and morphine CAR BODY DESIGNER. Is looking forward to going home. No other symptoms. Review of Systems Review of Systems: All systems reviewed & are unremarkable except as noted in HPI & below Constitutional: no fever, no chills and no malaise Respiratory: no cough and no dyspnea Cardiovascular: no chest pain, no palpitations and no edema Gastrointestinal: no abdominal pain, no constipation and no diarrhea/loose stools Genitourinary: no dysuria and no hematuria Physical Exam Constitutional: WD/WN, vitals as above Respiratory: normal respiratory effort, lungs clear to auscultation Cardiovascular: RRR, no murmur, no edema Gastrointestinal (Abdomen): normal bowel sounds, soft, nontender, no hepatospl enomegaly Skin: no rashes, warm and dry Psychiatric: A+Ox3, euthymic affect Results & Data Results & Data ([facility]) Vital Signs (Past 12 Hours) Vital Signs Temp Pulse Pulse Resp BP BP Pulse Ox 09/28/21 16:00 36.8 C 95 H 18 110/72 98 09/28/21 14:24 36.2 C L 95 H 20 106/69 100 09/28/21 11:34 36.6 C 103 H 18 102/68 96 09/28/21 07:34 37.3 C 106 H 18 109/63 95 Resident Activity Tracking Resident Involvement: Resident Care Provided Care Provided: Adult Hospital Medicine (1) Urinary tract infection Hematuria presence: without hematuria Urinary tract infection type: site unspecified Qualified Code(s): N39.0 - Urinary tract infection, site not specified (2) Anemia Anemia type: unspecified type Qualified Code(s): D64.9 - Anemia, unspecified
--- NOTE | 2021-09-28 19:34 | Billing Data ---
Date of Service September 28, 2021 Coding Level of Care Code 48741 Subseq Hosp Care Lvl 3
[2021-09-28 22:16] VITALS: TEMP 97.9
[2021-09-28] MEDS: traZODone HCL 50 MG TAB PO SCH (23:19)
[2021-09-28] MEDS: AMITRIPTYLINE HCL 100 MG TAB PO SCH (23:19)
[2021-09-29] MEDS: GABAPENTIN 600 MG TAB PO SCH ×2 (03:19→08:45)
[2021-09-29] MEDS: KETOROLAC 30 MG/ML VIAL IV SCH ×2 (03:20→08:45)
[2021-09-29 07:33] VITALS: PULSE 99; O2SAT 93
[2021-09-29] MEDS: DOCUSATE SODIUM/SENNA 50/8.6MG TAB PO SCH (08:44)
[2021-09-29] MEDS: CHECK fentaNYL PATCH PLACEMENT SCH (08:45)
[2021-09-29] MEDS: VENLAFAXINE HCL XR 150 MG CAPXR PO SCH (08:45)
[2021-09-29] MEDS: PANTOprazole 40 MG TAB PO SCH (08:45)
[2021-09-29] MEDS: LIDOCAINE 5% 1 PATCH TD SCH (08:46)
[2021-09-29] MEDS ORDERED: HEPARIN 100 UNIT/ML 5ML FLUSH FLUSH PRN (11:02)
[2021-09-29 11:17] VITALS: BP 99/59
[2021-09-29] MEDS ORDERED: MoRPHine SULFATE 4 MG/ML 1 ML CARP\\VIAL IV STA (11:27)
--- NOTE | 2021-09-29 18:33 | Discharge Summary ---
Date of Service September 29, 2021 Admission HPI Per Admitting Provider The patient is a 51-year-old female with a PMH of metastatic endometrial adenocarcinoma, left iliopsoas mass, and recent hospitalization 08/23 - 08/26 for urinary tract infection who presents to the ED today with worsening back pain. Pt states she has regular falls, and fell most recently this morning around 4:00 AM and was on the ground until a family member was available to help her up around 6:00 AM. She reports severe, shooting and burning right sided pain at the lumbar region that radiates to her tailbone and to the left lower back. She endorses subjective fever/chills, nausea, vomiting, and urinary urgency over the past week, but denies abdominal pain, urinary or bowel incontinence, constipation, numbness, or confusion. She does endorse ongoing lower extremity weakness which has lead to her frequent falls but denies acute changes in her lower extremity weakness, Patient does chronic back and leg pain which she had been managing with Suboxone until 09/09/21 due to her provider changing practices. She has been using gabapentin and alternating between advil and diclofenac for pain and states it has been helpful until today. Patient was hospitalized 08/23 - 08/26 for UTI in which urine cultures was positive for Enterococcus faecalis. She was discharged on amoxicillin 500 mg PO BID which she completed. Labs are significant for WBC 16.18, CRP 22.78, procalcitonin 15.28. Lactate 1.9. Urinalysis significant for nitrites, leukocyte esterase, WBC > 30, 4+ bacteria. Culture pending. PT 41.0, INR 4.6, aPTT 66.8. Na+ 130, K+ 3.3. CT abdomen + pelvis, CT cervical spine, CT chest, and CT head pending. Principal Diagnosis metastatic cancer Discharge Exam gen aao pleasant nad. heent nc at mmm breathing unlabored no accessory muscles good effort skin no rashes no pallor or icterus neuro no focal deficits. pleasant and conversational, good recent and remote recall Discharge Data Allergies Allergy/AdvReac Type Severity Reaction Status Date / Time Iodinated Contrast Media Allergy Severe Contrast- Verified 09/19/21 15:02 itching Sulfa (Sulfonamide Allergy Severe Syncope, Verified 09/19/21 15:02 Antibiotics) stops breathing sulfamethoxazole Allergy Severe Syncope, Verified 09/19/21 15:02 hives, dyspnea trimethoprim Allergy Severe Syncope, Verified 09/19/21 15:02 hives, dyspnea gadobutrol Allergy Intermediate Hives, Verified 09/19/21 15:02 itching hydrocodone Allergy Intermediate Stops Verified 09/19/21 15:02 breathing pregabalin Allergy Intermediate Hives Verified 09/19/21 15:02 iodine Allergy Mild Itching Verified 09/19/21 15:02 acetaminophen [From Percocet] Allergy Unknown PER PT Verified 09/19/21 15:02 "CAN'T TAKE". enoxaparin Allergy Unknown UNKNOWN Verified 09/19/21 15:02 oxycodone [From Percocet] Allergy Unknown Unknown Verified 09/19/21 15:02 Consultations 09/19/21 14:52 ED Decision to Admit Stat 09/19/21 17:50 Consult Pain Management Routine 09/21/21 13:21 Consult Oncology Routine 09/21/21 17:32 Consult Radiation Oncology Routine Ordered Studies 09/21/21 12:50 CT abd pelvis wo con Stat 09/21/21 13:00 US renal/blad retro comp Urgent 09/21/21 14:50 CT cervical spine wo con Stat CT chest diagnostic wo con Stat CT head/brain wo con Stat Hospital Course (1) Chronic pain due to malignant neoplastic disease: 51 yo F Hx metastatic adenocarcinoma of the endometrium, chronic pain, anemia admitted with worsening generalized pain and sepsis 2/2 UTI. Acute on chronic pain: - Localized to low back, bilateral LE. - With significant pain this admission despite Fentanyl patch, Suboxone 8mg/2mg TID, Dilaudid 1mg q3h prn, Toradol 30mg IV q6h prn. - Morphine ETL DEVELOPER initiated 09/25 to determine effective opiate dosing. Doing well on ETL DEVELOPER and Fentanyl. Will continue on discharge. No continuous infusion at this time, but can increase if needed in outpatient setting. - Pain management consulted several days ago, recommended decreasing gabapentin dosing to less than 3600mg daily. - While admitted gabapentin was decreased to 1200mg q6h, can decrease further in outpatient setting. - Pt desires hospice care on discharge. Disposition planning - home w hospice as above Metastatic endometrial adenocarcinoma: - History of metastatic endometrial adenocarcinoma. - This admission with imaging showing new / worsening lesions to the brain, [address], abdomen, and bones/soft tissues. - Chemotherapy had up to recently been ongoing, and patient did complete several rounds of radiation. - Oncology consulted 09/22 - recommended against aggressive treatment moving forward due to likely shorter life expectancy due to comorbidities and chemo effect. - Goals of care discussion with PCP Dr. Chou 09/22, and with hospital team 09/23 and 09/24 - patient will return home with home hospice once ambulating without pain and spend time at home with family. Anemia, supratherapeutic INR (corrected): - Admission INR 4.6, not on home anticoagulation. Received Vit K 5mg IV x1 on admit with resolution of INR to 1.1. - Admission Hgb 9, with drop to 6.8 on 09/21 requiring 2u PRBCs. Hgb stable. - CTAP this admission w/ slightly increased left-sided retroperitoneal hematoma compared to prior imaging - likely is the culprit of acute blood loss anemia during this admission. - Noted to have 9mm hemorrhagic contusion vs. hemorrhagic metastasis on CT Head 09/21. - Unclear etiology of initial elevated INR. No elevation since Vitamin K given on admission. Possible that elevation was due to Vitamin K deficiency given resolution without any change since that time with Vit K dosing x1. - Held any DVT ppx agents while admitted in the setting of bleeding. Sepsis 2/2 urinary tract infection: - Admission CBC revealed WBC 16.18, CRP 22.78, procalcitonin 15.28. Lactate normal. - Urinalysis significant for nitrites, leukocyte esterase, WBC > 30, 4+ bacteria. - UCx grew pansensitive Klebsiella pneumoniae. BCx negative. - Completed 10 day course of cephalosporin antibiotics. Hydronephrosis: - Secondary to increasing left-sided retroperitoneal hematoma / mass seen on CTAP. - Renal function continues to be normal. Pneumonia vs. pneumonitis: - CT Chest noted ground glass opacities, suggested pneumonia vs. pneumonitis. - Patient is without respiratory complaints, and saturating well on room air. - Cefdinir for UTI as above, otherwise no specific intervention in this regard. Hyponatremia: - Admission Na 130, with steady decline to 126; has been stable at this level for several days. - Urine and Serum Osm not suggestive of SIADH but rather low solute. - Secondary to poor PO intake from pain/ nausea due to cancer. - Encouraged PO intake. CodeStatus: DNR/DNI DVT prophylaxis: SCDs, chemoprophylaxis contraindicated in the setting of hemorrhagic lesion in brain and retroperitoneal hematoma causing acute blood loss anemia Diet: Regular Dispo: home / hospice Total Time Total Time Spent Total Time Spent (In Minutes): <30 Discharge Plan Discharge Items Patient Disposition: Hospice - Home Reason For Visit: BACK PAIN, METASTATIC ADENOCARCINOMA Discharge Diagnosis: sepsis from UTI, uncontrolled pain Activity: Per Instructions section Non-emergency contact: Primary Care Provider Call non-emergency contact if: your pain is not controlled Follow-up/Referrals: Donnie Chou MD [Primary Care Provider] - (HOME WITH HOSPICE.) Diet: Regular Addtl Attending Provider Instructions: You were admitted to the hospital for falls and uncontrolled pain, and found to have a UTI. You were started on IV antibiotics and they were eventually transitioned to oral antibiotics, which you completed. Due to difficulty with controlling pain, we started a ETL DEVELOPER, which is a patient-directed infusion of morphine pain medicine. With the morphine and Fentanyl patches your pain was better controlled. You made the decision to seek out hospice services for when you go home, and the hospice agencies do not prescribe Suboxone, so this medication was stopped and your morphine ETL DEVELOPER medication was adjusted to account for that stop. You will be discharged with a ETL DEVELOPER pump, so that you can continue the same medications at home that you were doing in the hospital. The Fentanyl patch can be replaced once every 3 days for pain. Please call the hospice agency right away if your pain is not controlled at home. You can also contact Dr. Chou's office with any other questions or concerns. It is possible that since the Suboxone was stopped, that you become more groggy on the pain medications. If this happens, please let the hospice agency know. Your gabapentin medication was adjusted while you were admitted to the hospital. This is because the Pain Management team was concerned that the high dose of ga bapentin can cause lethargy and confusion but does not typically help as much as opiates do with symptoms of cancer pain. On discharge, your gabapentin dose is 1200mg every 6 hours. This and the fentanyl patches were sent to the [facility] in [place] - but we were informed they do not have them in stock - therefore they were re-sent to the [facility], which we were told does have them. Pending Studies at Discharge: No Stand-Alone Forms: My [facility] Medications and DC Order Prescriptions: New gabapentin 600 mg Tablet 1,200 mg PO Q6H 30 Days Qty: 240 RF: 0 fentanyl 50 mcg/hr Patch 72 Hour 50 mcg transdermal Q3D Qty: 10 RF: 0 fentanyl 50 mcg/hr patch 72 hour 1 patch transdermal Q72H Qty: 10 RF: 0 gabapentin 600 mg tablet 1,200 mg PO QID Qty: 90 RF: 0 Continued dexamethasone 4 mg tablet 4 mg PO DIRECTED RF: 0 prochlorperazine maleate [Compazine] 10 mg tablet 10 mg PO Q6H PRN (Reason: Nausea) RF: 0 venlafaxine 75 mg capsule,extended release 24hr 75 mg PO QAM RF: 0 ondansetron HCl 8 mg tablet 8 mg PO Q8 PRN (Reason: Nausea) RF: 0 amitriptyline 100 mg tablet 100 mg PO HS RF: 0 diclofenac sodium 50 mg tablet,delayed release (DR/EC) 75 mg PO TID RF: 0 trazodone 50 mg tablet 50 mg PO HS RF: 0 Iron Infusion 1 dose IV .MONTHLY/UD PRN (Reason: Unknown) RF: 0 cyanocobalamin (vitamin B-12) 1,000 mcg/mL Solution 1,000 mcg IM MONTHLY RF: 0 pantoprazole 40 mg tablet,delayed release (DR/EC) 40 mg PO DAILY 28 Days Qty: 28 RF: 3 lorazepam 0.5 mg tablet 0.5 mg PO DAILY MDD can take two tablet if needed PRN (Reason: anxiety - 30 min before radiation treatment) Qty: 14 RF: 0 Discontinued buprenorphine-naloxone [Suboxone] 8-2 mg film 1 film buccal TID PRN (Reason: pain) RF: 0 gabapentin 600 mg tablet 1,800 mg PO QID RF: 0 Discharge Orders: Discharge Order (Routine); Ordered 09/29/21 Ordered By: Prakash Torres Admission Data Admit Date/Time: 09/19/21 17:04 Attending Provider: Prakash Torres Admit Provider: Abdirahman Fitch Primary Care Provider: Donnie Chou Other Providers: Abdirahman Fitch ; Jose Antonio Dunham ; Gary Bains V. ; Jaida Grant ; Lexy Lynn ; [facility] Other Interventions: Discharge Summary Assessment (RN) Last Done: 09/29/21 11:13 Coding Level of Care Code D/C DAY MANAGEMENT <30 MINS Diagnoses Chronic pain due to malignant neoplastic disease G89.3
== END 2021-09-29 13:41 | disposition hospice, home (50) | DRG 871 ==
LOC: ED 11:54 → SUATTDRO 17:04 → 3W 17:04
DX: N13.30 Unspecified hydronephrosis; C79.51 Secondary malignant neoplasm of bone; E83.42 Hypomagnesemia; Z86.16 Personal history of COVID-19; Z88.2 Allergy status to sulfonamides; G89.3 Neoplasm related pain (acute) (chronic); E66.01 Morbid (severe) obesity due to excess calories; Z86.14 Personal history of Methicillin resistant Staphylococcus aureus infection; A41.9 Sepsis, unspecified organism; E87.1 Hypo-osmolality and hyponatremia; Z91.041 Radiographic dye allergy status; Z79.01 Long term (current) use of anticoagulants; E87.6 Hypokalemia; C79.31 Secondary malignant neoplasm of brain; Z66 Do not resuscitate; D62 Acute posthemorrhagic anemia; C55 Malignant neoplasm of uterus, part unspecified; Z98.84 Bariatric surgery status; R29.6 Repeated falls; Z87.891 Personal history of nicotine dependence; K66.1 Hemoperitoneum; N39.0 Urinary tract infection, site not specified; R79.1 Abnormal coagulation profile; E53.8 Deficiency of other specified B group vitamins; J18.9 Pneumonia, unspecified organism; Z79.899 Other long term (current) drug therapy; Z68.41 Body mass index [BMI] 40.0-44.9, adult; D50.9 Iron deficiency anemia, unspecified